=== PATIENT | female | born 1975 | race American Indian/Alaskan Native ===

== ENCOUNTER 2016-10-23 03:19 | Emergency (ER) | payer MEDICAID ==
[2016-10-23 04:14] VITALS: BP 150/85
[2016-10-23] MEDS ORDERED: XYLOCAINE 2% INFILTRATI ONE (06:02)
[2016-10-23] MEDS ORDERED: TORADOL IM ONE (06:02)
--- NOTE | 2016-10-23 06:19 | Emergency Department Report ---
- General Chief complaint: Skin Rash Stated complaint: RASH Time Seen by Provider: 10/23/16 06:01 Source: patient Mode of arrival: Ambulatory Limitations: No Limitations - Related Data Home Medications Medication Instructions Recorded Confirmed Last Taken Insulin Glargine,Hum.rec.anlog 15 unit SQ QHS 03/30/14 12/29/15 12/28/15 [Lantus] Previous Rx's Medication Instructions Recorded Last Taken Type Insulin Lispro [Humalog 100 0 units SQ AC #1 insuln.pen 01/01/16 Unknown Rx UNITS/ML Kwikpen] Potassium Chloride [K-Dur] 10 meq PO QDAY #4 tablet 01/01/16 Unknown Rx Promethazine [Phenergan TAB] 25 mg PO Q6HR PRN #20 tab 01/01/16 Unknown Rx Famciclovir [Famvir] 500 mg PO Q8H #21 tablet 10/08/16 Unknown Rx hydrOXYzine PAMOATE [Vistaril] 50 mg PO Q6HR PRN #15 capsule 10/08/16 Unknown Rx Cephalexin [Keflex] 500 mg PO Q8H #20 capsule 10/23/16 Unknown Rx Ibuprofen [Motrin 600 MG tab] 600 mg PO Q8H PRN #15 tablet 10/23/16 Unknown Rx traMADol [Ultram 50 MG tab] 50 mg PO Q4HR PRN #15 tablet 10/23/16 Unknown Rx Allergies Allergy/AdvReac Type Severity Reaction Status Date / Time No Known Allergies Allergy Unverified 06/26/15 11:58 Abscess Boil HPI - HPI Chief Complaint: Skin Rash Stated Complaint: RASH Time Seen by Provider: 10/23/16 06:01 History: Yes Pain, Yes Purulent Drainage, No Fever, No Numbness, No Foreign Body , No Previous History, No Insect Bite HPI: Patient is a 41-year-old male female who presents to ED complaining of back pain and swelling. She states she was here about 2 weeks ago and was diagnosed with shingles and was given antivirals. Patient states his antivirals are not working and her back more painful and got bigger and started to drain pus. Patient denies fevers/chills/nausea/vomiting test chest pain or any other problems. Home Medications: Home Medications Medication Instructions Recorded Confirmed Last Taken Insulin Glargine,Hum.rec.anlog 15 unit SQ QHS 03/30/14 12/29/15 12/28/15 [Lantus] Previous Rx's Medication Instructions Recorded Last Taken Type Insulin Lispro [Humalog 100 0 units SQ AC #1 insuln.pen 01/01/16 Unknown Rx UNITS/ML Kwikpen] Potassium Chloride [K-Dur] 10 meq PO QDAY #4 tablet 01/01/16 Unknown Rx Promethazine [Phenergan TAB] 25 mg PO Q6HR PRN #20 tab 01/01/16 Unknown Rx Famciclovir [Famvir] 500 mg PO Q8H #21 tablet 10/08/16 Unknown Rx hydrOXYzine PAMOATE [Vistaril] 50 mg PO Q6HR PRN #15 capsule 10/08/16 Unknown Rx Cephalexin [Keflex] 500 mg PO Q8H #20 capsule 10/23/16 Unknown Rx Ibuprofen [Motrin 600 MG tab] 600 mg PO Q8H PRN #15 tablet 10/23/16 Unknown Rx traMADol [Ultram 50 MG tab] 50 mg PO Q4HR PRN #15 tablet 10/23/16 Unknown Rx Allergies/Adverse Reactions: Allergies Allergy/AdvReac Type Severity Reaction Status Date / Time No Known Allergies Allergy Unverified 06/26/15 11:58 ED Review of Systems ROS: Stated complaint: RASH Other details as noted in HPI Constitutional: denies: chills, fever Eyes: denies: eye pain, eye discharge, vision change ENT: denies: ear pain, throat pain Respiratory: denies: cough, shortness of breath, wheezing Cardiovascular: denies: chest pain, palpitations Endocrine: no symptoms reported Gastrointestinal: denies: abdominal pain, nausea, diarrhea Genitourinary: denies: urgency, dysuria, discharge Musculoskeletal: denies: back pain, joint swelling, arthralgia Skin: denies: rash, lesions Neurological: denies: headache, weakness, paresthesias Psychiatric: denies: anxiety, depression Hematological/Lymphatic: denies: easy bleeding, easy bruising ED Past Medical Hx - Past Medical History Previous Medical History?: Yes Hx Hypertension: Yes Hx Heart Attack/AMI: No Hx Congestive Heart Failure: No Hx Diabetes: Yes Hx Deep Vein Thrombosis: No Hx Liver Disease: No Hx Headaches / Migraines: Yes (occas migraine) Hx Asthma: No Hx COPD: No Hx Tuberculosis: No Hx HIV: No Additional medical history: anemia. FIBROIDS - Surgical History Past Surgical History?: Yes Hx Coronary Stent: No Hx Open Heart Surgery: No Hx Pacemaker: No Hx Internal Defibrillator: No Hx Cholecystectomy: No Hx Appendectomy: No Hx Breast Surgery: No Additional Surgical History: Hysterectomy - Social History Smoking Status: Never Smoker Substance Use Type: Alcohol - Medications Home Medications: Home Medications Medication Instructions Recorded Confirmed Last Taken Type Insulin Glargine,Hum.rec.anlog 15 unit SQ QHS 03/30/14 12/29/15 12/28/15 History [Lantus] Insulin Lispro [Humalog 100 0 units SQ AC #1 insuln.pen 01/01/16 Unknown Rx UNITS/ML Kwikpen] Potassium Chloride [K-Dur] 10 meq PO QDAY #4 tablet 01/01/16 Unknown Rx Promethazine [Phenergan TAB] 25 mg PO Q6HR PRN #20 tab 01/01/16 Unknown Rx Famciclovir [Famvir] 500 mg PO Q8H #21 tablet 10/08/16 Unknown Rx hydrOXYzine PAMOATE [Vistaril] 50 mg PO Q6HR PRN #15 capsule 10/08/16 Unknown Rx Cephalexin [Keflex] 500 mg PO Q8H #20 capsule 10/23/16 Unknown Rx Ibuprofen [Motrin 600 MG tab] 600 mg PO Q8H PRN #15 tablet 10/23/16 Unknown Rx traMADol [Ultram 50 MG tab] 50 mg PO Q4HR PRN #15 tablet 10/23/16 Unknown Rx ED Physical Exam - General Limitations: No Limitations General appearance: alert, in no apparent distress - Head Head exam: Present: atraumatic, normocephalic - Eye Eye exam: Present: normal appearance, PERRL, EOMI - ENT ENT exam: Present: mucous membranes moist - Neck Neck exam: Present: normal inspection - Respiratory Respiratory exam: Present: normal lung sounds bilaterally. Absent: respiratory distress - Cardiovascular Cardiovascular Exam: Present: regular rate, normal rhythm. Absent: systolic murmur, diastolic murmur, rubs, gallop - GI/Abdominal GI/Abdominal exam: Present: soft, normal bowel sounds. Absent: distended, tenderness, guarding, rebound - Extremities Exam Extremities exam: Present: normal inspection - Back Exam Back exam: Present: normal inspection, full ROM, other (26 cm abscess draining pus on middle back). Absent: CVA tenderness (R), CVA tenderness (L) - Neurological Exam Neurological exam: Present: alert, oriented X3 - Psychiatric Psychiatric exam: Present: normal affect, normal mood - Skin Skin exam: Present: warm, dry, intact, normal color, erythema, other (abscesses) . Absent: rash ED Course Vital Signs 10/23/16 10/23/16 04:00 04:12 Temperature 98.0 F 98.4 F Pulse Rate 114 H 100 H Respiratory 20 18 Rate Blood Pressure 151/101 Blood Pressure 150/85 [Right] O2 Sat by Pulse 99 100 Oximetry - I & D Medial Back Type of Procedure: Complex Site: Back Blade Size: 11 I & D Procedure: betadine prep, sterile drapes applied, sterile dressing applied ED Medical Decision Making - Medical Decision Making 41-year-old female presents to the ED with 2 abscess on back. Patient positioned appropriately, 15cc lidocaine with/without epinephrine was used as a local anesthetic. #11 blade scalpal used for single incision. Additional local anesthetic injected into surrounding viable tissue prior to blunt dissection of loculated adhesions. Copius drainage of pus (culture obtained). Wound packed with iodoform gauze. Procedure tolerated without complications. Wound dressed with sterile 4x4 guaze and paper tape. Pt tolerated procedure well. Abscess is draining. Discussed to continue wall compressions on back so a lot full draining of the abscess. Discussed antibiotic therapy as prescribed. Discussed the follow-up her primary care physician as referred. Critical care attestation.: If time is entered above; I have spent that time in minutes in the direct care of this critically ill patient, excluding procedure time. ED Disposition Clinical Impression: Abscess of back Disposition: DISCHARGED TO HOME OR SELFCARE Is pt being admited?: No Does the pt Need Aspirin: No Condition: Stable Instructions: Abscess (ED) Additional Instructions: Continue warm compressions. Until all drainage is gone. Follow-up with primary care physician. Prescriptions: Cephalexin [Keflex] 500 mg PO Q8H #20 capsule Ibuprofen [Motrin 600 MG tab] 600 mg PO Q8H PRN #15 tablet PRN Reason: Pain traMADol [Ultram 50 MG tab] 50 mg PO Q4HR PRN #15 tablet PRN Reason: Pain Forms: Work/School Release Form(ED), Accompanied Note Time of Disposition: 07:05
== END 2016-10-23 07:11 | disposition home or self-care (01) ==
LOC: ED 03:19
DX: L02.212 Cutaneous abscess of back [any part, except buttock and flank] (principal); I10 Essential (primary) hypertension; E11.9 Type 2 diabetes mellitus without complications; G43.909 Migraine, unspecified, not intractable, without status migrainosus; D64.9 Anemia, unspecified; Z79.4 Long term (current) use of insulin
CPT/HCPCS: 10061; 86403; 87076; 87116; 87186; 96372; 99282; J1885

== ENCOUNTER 2016-12-16 23:17 | Emergency (ER) | payer SELFPAY ==
--- NOTE | 2016-12-17 02:38 | Emergency Department Report ---
- General Chief complaint: Skin/Abscess/Foreign Body Stated complaint: BOIL Time Seen by Provider: 12/17/16 02:02 Source: patient Mode of arrival: Ambulatory Limitations: No Limitations - History of Present Illness Initial comments: 41-year-old female presents to the emergency room chronic history of low small abscesses back area for several years. Today she notices one more small abscess. He should continue using antibacterial soap with minimal help. Patient has prescribed clindamycin in the past with no help. she is requesting different antibiotics. MD complaint: abscess/boil (very small ) -: Gradual, week(s) (one) Tetanus Up to Date: yes Location: back Severity: mild Severity scale (0 -10): 0 Quality: burning Consistency: constant Improves with: none Worsens with: palpation Context: recent antibiotic (clindamycin) Associated symptoms: itching Treatments Prior to Arrival: antibiotic - Related Data Home Medications Medication Instructions Recorded Confirmed Last Taken Insulin Glargine,Hum.rec.anlog 15 unit SQ QHS 03/30/14 12/29/15 12/28/15 [Lantus] Previous Rx's Medication Instructions Recorded Last Taken Type Insulin Lispro [Humalog 100 0 units SQ AC #1 insuln.pen 01/01/16 Unknown Rx UNITS/ML Kwikpen] Potassium Chloride [K-Dur] 10 meq PO QDAY #4 tablet 01/01/16 Unknown Rx Promethazine [Phenergan TAB] 25 mg PO Q6HR PRN #20 tab 01/01/16 Unknown Rx Famciclovir [Famvir] 500 mg PO Q8H #21 tablet 10/08/16 Unknown Rx hydrOXYzine PAMOATE [Vistaril] 50 mg PO Q6HR PRN #15 capsule 10/08/16 Unknown Rx Cephalexin [Keflex] 500 mg PO Q8H #20 capsule 10/23/16 Unknown Rx Ibuprofen [Motrin 600 MG tab] 600 mg PO Q8H PRN #15 tablet 10/23/16 Unknown Rx traMADol [Ultram 50 MG tab] 50 mg PO Q4HR PRN #15 tablet 10/23/16 Unknown Rx Sulfamethoxazole/Trimethoprim 1 each PO BID #14 tablet 12/17/16 Unknown Rx [Bactrim DS TAB] Allergies Allergy/AdvReac Type Severity Reaction Status Date / Time No Known Allergies Allergy Unverified 06/26/15 11:58 Abscess Boil HPI - HPI Chief Complaint: Skin/Abscess/Foreign Body Stated Complaint: BOIL Time Seen by Provider: 12/17/16 02:02 Home Medications: Home Medications Medication Instructions Recorded Confirmed Last Taken Insulin Glargine,Hum.rec.anlog 15 unit SQ QHS 03/30/14 12/29/15 12/28/15 [Lantus] Previous Rx's Medication Instructions Recorded Last Taken Type Insulin Lispro [Humalog 100 0 units SQ AC #1 insuln.pen 01/01/16 Unknown Rx UNITS/ML Kwikpen] Potassium Chloride [K-Dur] 10 meq PO QDAY #4 tablet 01/01/16 Unknown Rx Promethazine [Phenergan TAB] 25 mg PO Q6HR PRN #20 tab 01/01/16 Unknown Rx Famciclovir [Famvir] 500 mg PO Q8H #21 tablet 10/08/16 Unknown Rx hydrOXYzine PAMOATE [Vistaril] 50 mg PO Q6HR PRN #15 capsule 10/08/16 Unknown Rx Cephalexin [Keflex] 500 mg PO Q8H #20 capsule 10/23/16 Unknown Rx Ibuprofen [Motrin 600 MG tab] 600 mg PO Q8H PRN #15 tablet 10/23/16 Unknown Rx traMADol [Ultram 50 MG tab] 50 mg PO Q4HR PRN #15 tablet 10/23/16 Unknown Rx Sulfamethoxazole/Trimethoprim 1 each PO BID #14 tablet 12/17/16 Unknown Rx [Bactrim DS TAB] Allergies/Adverse Reactions: Allergies Allergy/AdvReac Type Severity Reaction Status Date / Time No Known Allergies Allergy Unverified 06/26/15 11:58 ED Review of Systems ROS: Stated complaint: BOIL Other details as noted in HPI Comment: All other systems reviewed and negative Constitutional: denies: chills, fever Eyes: denies: eye pain, eye discharge, vision change ENT: denies: ear pain, throat pain Respiratory: denies: cough, shortness of breath, wheezing Cardiovascular: denies: chest pain, palpitations Endocrine: no symptoms reported Gastrointestinal: denies: abdominal pain, nausea, diarrhea Genitourinary: denies: urgency, dysuria, discharge Musculoskeletal: denies: back pain, joint swelling, arthralgia Skin: rash, lesions (in her back) Neurological: denies: headache, weakness, paresthesias Psychiatric: denies: anxiety, depression Hematological/Lymphatic: denies: easy bleeding, easy bruising ED Past Medical Hx - Past Medical History Previous Medical History?: Yes Hx Hypertension: Yes Hx Heart Attack/AMI: No Hx Congestive Heart Failure: No Hx Diabetes: Yes Hx Deep Vein Thrombosis: No Hx Liver Disease: No Hx Headaches / Migraines: Yes (occas migraine) Hx Asthma: No Hx COPD: No Hx Tuberculosis: No Hx HIV: No Additional medical history: anemia. FIBROIDS - Surgical History Past Surgical History?: Yes Hx Coronary Stent: No Hx Open Heart Surgery: No Hx Pacemaker: No Hx Internal Defibrillator: No Hx Cholecystectomy: No Hx Appendectomy: No Hx Breast Surgery: No Additional Surgical History: Hysterectomy - Social History Smoking Status: Never Smoker Substance Use Type: Alcohol - Medications Home Medications: Home Medications Medication Instructions Recorded Confirmed Last Taken Type Insulin Glargine,Hum.rec.anlog 15 unit SQ QHS 03/30/14 12/29/15 12/28/15 History [Lantus] Insulin Lispro [Humalog 100 0 units SQ AC #1 insuln.pen 01/01/16 Unknown Rx UNITS/ML Kwikpen] Potassium Chloride [K-Dur] 10 meq PO QDAY #4 tablet 01/01/16 Unknown Rx Promethazine [Phenergan TAB] 25 mg PO Q6HR PRN #20 tab 01/01/16 Unknown Rx Famciclovir [Famvir] 500 mg PO Q8H #21 tablet 10/08/16 Unknown Rx hydrOXYzine PAMOATE [Vistaril] 50 mg PO Q6HR PRN #15 capsule 10/08/16 Unknown Rx Cephalexin [Keflex] 500 mg PO Q8H #20 capsule 10/23/16 Unknown Rx Ibuprofen [Motrin 600 MG tab] 600 mg PO Q8H PRN #15 tablet 10/23/16 Unknown Rx traMADol [Ultram 50 MG tab] 50 mg PO Q4HR PRN #15 tablet 10/23/16 Unknown Rx Sulfamethoxazole/Trimethoprim 1 each PO BID #14 tablet 12/17/16 Unknown Rx [Bactrim DS TAB] ED Physical Exam - General Limitations: No Limitations General appearance: alert, in no apparent distress - Head Head exam: Present: atraumatic, normocephalic - Eye Eye exam: Present: normal appearance - ENT ENT exam: Present: mucous membranes moist - Neck Neck exam: Present: normal inspection - Respiratory Respiratory exam: Present: normal lung sounds bilaterally. Absent: respiratory distress - Cardiovascular Cardiovascular Exam: Present: regular rate, normal rhythm. Absent: systolic murmur, diastolic murmur, rubs, gallop - GI/Abdominal GI/Abdominal exam: Present: soft, normal bowel sounds - Extremities Exam Extremities exam: Present: normal inspection - Back Exam Back exam: Present: normal inspection - Neurological Exam Neurological exam: Present: alert, oriented X3 - Psychiatric Psychiatric exam: Present: normal affect, normal mood - Skin Skin exam: Present: warm, dry, intact, normal color, other (1 cm flat circular abscess with mild tenderness. ). Absent: rash ED Course Vital Signs 12/16/16 12/17/16 23:44 02:54 Temperature 101.0 F H 98.3 F Pulse Rate 111 H 100 H Respiratory 22 20 Rate Blood Pressure 143/83 147/79 [Right] O2 Sat by Pulse 96 100 Oximetry - Reevaluation(s) Reevaluation #1: Patient feeling much better after dose of narcotic pain medicine and antibiotic given to her in the emergency room. Her vital signs improved as well compared to vital signs triage. 12/17/16 03:24 Critical care attestation.: If time is entered above; I have spent that time in minutes in the direct care of this critically ill patient, excluding procedure time. ED Disposition Clinical Impression: Skin irritation, Abscess Disposition: DISCHARGED TO HOME OR SELFCARE Is pt being admited?: No Does the pt Need Aspirin: No Condition: Good Instructions: Wound Infection (ED), Chronic Wound Care (ED) Prescriptions: Sulfamethoxazole/Trimethoprim [Bactrim DS TAB] 1 each PO BID #14 tablet Referrals: PRIMARY CARE, [Primary Care Provider] - 3-5 Days
[2016-12-17 02:56] VITALS: BP 147/79
[2016-12-17] MEDS ORDERED: BACTRIM DS PO ONE (03:20)
[2016-12-17] MEDS ORDERED: NORCO 5/325 PO ONE (03:20)
== END 2016-12-17 03:53 | disposition home or self-care (01) ==
LOC: ED 23:17
DX: L02.212 Cutaneous abscess of back [any part, except buttock and flank] (principal); I10 Essential (primary) hypertension; E11.9 Type 2 diabetes mellitus without complications; G43.909 Migraine, unspecified, not intractable, without status migrainosus
CPT/HCPCS: 99282

== ENCOUNTER 2016-12-18 18:13 | Inpatient (IN) | payer OTHER ==
[2016-12-18] MEDS ORDERED: MOTRIN PO ONE (19:43)
--- NOTE | 2016-12-18 19:43 | Emergency Department Report ---
Chief Complaint: Wound/Laceration Stated Complaint: BOIL ON BACK Time Seen by Provider: 12/18/16 19:33 - HPI History of Present Illness: 41-year-old female presents today complaining of an abscess to her back times one week. Positive for history of abscesses. Patient was seen here 2 days ago and states that the provider did not examine her and put her on antibiotics. Complaining of 10 out of 10 pain and positive for drainage. Positive for fever , nausea, vomiting. Denies chest pain or abdominal pain. - ROS Review of Systems: Per HPI - Exam Vital Signs: Vital Signs 12/18/16 19:16 Temperature 100.1 F H Pulse Rate 110 H Respiratory 20 Rate Blood Pressure 106/70 O2 Sat by Pulse 100 Oximetry Physical Exam: General: 41-year-old female in mild to moderate distress. Well-developed, well- nourished. CV: Regular rate and rhythm. Lungs: Clear to auscultation bilaterally. Skin: 7 cm in diameter, erythematous, indurated abscess noted over the left upper back. Positive for drainage. MSE screening note: Focused history and physical exam performed. Due to findings the following was ordered: ED Disposition for MSE Condition: Stable Referrals: PRIMARY CARE, [Primary Care Provider] - 3-5 Days
[2016-12-19 00:24] LABS: Hematocrit 32.9 % (30.3-42.9); Hemoglobin 10.5 gm/dl (10.1-14.3); Mean Corpuscular HGB Conc 32 % (30-34); Mean Corpuscular Hemoglobin 30 pg (28-32); Mean Corpuscular Volume 94 fl (79-97); Platelet Count 188 K/mm3 (140-440); Red Blood Count 3.51 M/mm3 (3.65-5.03); Red Cell Distribution Width 16.5 % (13.2-15.2)
[2016-12-19 00:48] LABS: BUN/Creatinine Ratio 10.38; Calcium 7.9 mg/dL (8.4-10.2); Chloride 76.6 mmol/L (98-107); Potassium 3.5 mmol/L (3.6-5.0)
[2016-12-19 01:22] LABS: Blastocytes % (Manual) 0 %
[2016-12-19 01:23] LABS: Diff Status Complete; Large Platelets Few; Platelet Clumps Rare; RBC Morphology Normal
[2016-12-19] MEDS ORDERED: PERCOCET 5/325 ONE (01:42)
[2016-12-19] MEDS ORDERED: NACL 0.9% 1000 ML 1,000 ML ONE ×2 (01:42→06:04)
[2016-12-19] MEDS ORDERED: NACL 0.9% 1000 ML 1,000 ML IV ONE ×4 (01:48→09:02)
[2016-12-19] MEDS ORDERED: PERCOCET 5/325 PO ONE (01:48)
[2016-12-19] MEDS ORDERED: MORPHINE IV ONE (04:41)
[2016-12-19] MEDS ORDERED: VANCOMYCIN VIAL IV ONE (04:41)
--- NOTE | 2016-12-19 04:48 | History and Physical Report ---
History of Present Illness Chief complaint: My back hurts History of present illness: 41 YO Female with DM, HTN, Fibroids, Anemia, Migraine GUERRA presents to ED for evaluation. Pt states that she has been experiencingpain in her back for the past week. Pt symptoms have worsened over the past 2 days and now her back is draining pus. Pt states that her pain is 5/10, localized to her right back. Pt acknowledges fever, but denies chills, CP, Palpitations, NVD, recent ill contacts. Pt states that she has been taking oral abx as an outpatient for several days without improvement. Past History Past Medical History: anemia, diabetes, hypertension Past Surgical History: hysterectomy Social history: single. denies: smoking, alcohol abuse, prescription drug abuse Family history: diabetes, hypertension Medications and Allergies Allergies Allergy/AdvReac Type Severity Reaction Status Date / Time No Known Allergies Allergy Unverified 06/26/15 11:58 Home Medications Medication Instructions Recorded Confirmed Last Taken Type Insulin Glargine,Hum.rec.anlog 15 unit SQ QHS 03/30/14 12/29/15 12/28/15 History [Lantus] Insulin Lispro [Humalog 100 0 units SQ AC #1 insuln.pen 01/01/16 Unknown Rx UNITS/ML Kwikpen] Potassium Chloride [K-Dur] 10 meq PO QDAY #4 tablet 01/01/16 Unknown Rx Promethazine [Phenergan TAB] 25 mg PO Q6HR PRN #20 tab 01/01/16 Unknown Rx Famciclovir [Famvir] 500 mg PO Q8H #21 tablet 10/08/16 Unknown Rx hydrOXYzine PAMOATE [Vistaril] 50 mg PO Q6HR PRN #15 capsule 10/08/16 Unknown Rx Cephalexin [Keflex] 500 mg PO Q8H #20 capsule 10/23/16 Unknown Rx Ibuprofen [Motrin 600 MG tab] 600 mg PO Q8H PRN #15 tablet 10/23/16 Unknown Rx traMADol [Ultram 50 MG tab] 50 mg PO Q4HR PRN #15 tablet 10/23/16 Unknown Rx Sulfamethoxazole/Trimethoprim 1 each PO BID #14 tablet 12/17/16 Unknown Rx [Bactrim DS TAB] Active Meds: Active Medications Sodium Chloride (Nacl 0.9% 1000 Ml) 1,000 mls @ 999 mls/hr IV BOLUS ONE Stop: 12/19/16 05:41 Vancomycin HCl 1,250 mg/ (Sodium Chloride) 250 mls @ 166.667 mls/hr IV ONCE.ED ONE Stop: 12/19/16 06:29 Vancomycin HCl (Vancomycin Pharmacy To Dose) 1 each IV PKCONSULT MANISH PRN Reason: Protocol Review of Systems All systems: negative Constitutional: other (pain in her back) Exam - Constitutional Vitals: Temp Pulse Resp BP Pulse Ox 98.2 F 109 H 12 109/67 100 12/19/16 01:47 12/19/16 03:30 12/19/16 03:30 12/19/16 03:30 12/19/16 03:30 General appearance: Present: mild distress - EENT Eyes: Present: PERRL ENT: hearing intact, clear oral mucosa - Neck Neck: Present: supple, normal ROM - Respiratory Respiratory effort: normal Respiratory: bilateral: CTA - Cardiovascular Heart Sounds: Present: S1 & S2. Absent: rub, click - Extremities Extremities: pulses symmetrical, No edema Extremity abnormal: ulceration (right back ulceration, pus drainage, 7cm lesion , induration, erythema,) Peripheral Pulses: within normal limits - Abdominal General gastrointestinal: Present: soft, non-tender, non-distended, normal bowel sounds Female genitourinary: Present: normal - Integumentary Integumentary: Present: clear, warm, dry - Musculoskeletal Musculoskeletal: gait normal, strength equal bilaterally - Psychiatric Psychiatric: appropriate mood/affect, intact judgment & insight - Neurologic Neurologic: CNII-XII intact, moves all extremities Results - Labs CBC & Chem 7: 12/19/16 00:14 12/19/16 00:14 Labs: Abnormal lab results 12/19/16 12/19/16 Range/Units 00:14 00:14 WBC 22.0 H (4.5-11.0) K/mm3 RBC 3.51 L (3.65-5.03) M/mm3 RDW 16.5 H (13.2-15.2) % Seg Neuts % (Manual) 89.0 H (40.0-70.0) % Lymphocytes % (Manual) 3.0 L (13.4-35.0) % Seg Neutrophils # Man 19.6 H (1.8-7.7) K/mm3 Lymphocytes # (Manual) 0.7 L (1.2-5.4) K/mm3 Monocytes # (Manual) 1.5 H (0.0-0.8) K/mm3 Sodium 120 L (137-145) mmol/L Potassium 3.5 L (3.6-5.0) mmol/L Chloride 76.6 L (98-107) mmol/L BUN 27 H (7-17) mg/dL Creatinine 2.6 H (0.7-1.2) mg/dL Glucose 625 H* (65-100) mg/dL Calcium 7.9 L (8.4-10.2) mg/dL Assessment and Plan - Patient Problems (1) Sepsis Current Visit: Yes Status: Acute Qualifiers: Sepsis type: S Plan to address problem: Sepsis protocol: IV abx, IVF, supportive care, monitor uop q shift, blood cultures, wound culture, (2) ARF (acute renal failure) Current Visit: Yes Status: Acute Qualifiers: Acute renal failure type: A Plan to address problem: IVF, monitor uop q shift, (3) Uncontrolled diabetes mellitus Current Visit: Yes Status: Acute Qualifiers: Diabetes mellitus type: D Diabetes mellitus complication status: D Diabetes mellitus complication detail: D Diabetic retinopathy severity: D Diabetes mellitus macular edema: D Diabetes mellitus terminal carman insulin use: D Chronic kidney disease stage: C Plan to address problem: ADA diet, insulin, accu check, high dose sliding scale q 6 hrs, hgb a1c (4) Abscess Current Visit: Yes Status: Acute Plan to address problem: IV abx, supportive care, wound draining pus, continue current care. (5) DVT prophylaxis Current Visit: No Status: Acute
--- NOTE | 2016-12-19 04:49 | Emergency Department Report ---
- General Chief complaint: Wound/Laceration Stated complaint: BOIL ON BACK Time Seen by Provider: 12/18/16 19:33 Source: patient Mode of arrival: Ambulatory Limitations: No Limitations - History of Present Illness Initial comments: 41 year old female presents to the emergency department complaining of a boil on her back. Abscess has been present for over one week. Initially, the patient was placed on clindamycin. She was seen in the emergency department 3 days ago and her antibiotics were changed to Bactrim. She reports the abscess is not getting any better. The abscess has been spontaneously draining for several days. Patient denies fever, chills, shortness of breath, nausea or vomiting. There are no other complaints. MD complaint: abscess/boil -: Gradual Location: back Severity: moderate Quality: sharp Consistency: constant Improves with: none Worsens with: none Context: none Associated symptoms: denies other symptoms Treatments Prior to Arrival: antibiotic - Related Data Home Medications Medication Instructions Recorded Confirmed Last Taken Insulin Glargine,Hum.rec.anlog 15 unit SQ QHS 03/30/14 12/29/15 12/28/15 [Lantus] Previous Rx's Medication Instructions Recorded Last Taken Type Insulin Lispro [Humalog 100 0 units SQ AC #1 insuln.pen 01/01/16 Unknown Rx UNITS/ML Kwikpen] Potassium Chloride [K-Dur] 10 meq PO QDAY #4 tablet 01/01/16 Unknown Rx Promethazine [Phenergan TAB] 25 mg PO Q6HR PRN #20 tab 01/01/16 Unknown Rx Famciclovir [Famvir] 500 mg PO Q8H #21 tablet 10/08/16 Unknown Rx hydrOXYzine PAMOATE [Vistaril] 50 mg PO Q6HR PRN #15 capsule 10/08/16 Unknown Rx Cephalexin [Keflex] 500 mg PO Q8H #20 capsule 10/23/16 Unknown Rx Ibuprofen [Motrin 600 MG tab] 600 mg PO Q8H PRN #15 tablet 10/23/16 Unknown Rx traMADol [Ultram 50 MG tab] 50 mg PO Q4HR PRN #15 tablet 10/23/16 Unknown Rx Sulfamethoxazole/Trimethoprim 1 each PO BID #14 tablet 12/17/16 Unknown Rx [Bactrim DS TAB] Allergies Allergy/AdvReac Type Severity Reaction Status Date / Time No Known Allergies Allergy Unverified 06/26/15 11:58 Abscess Boil HPI - HPI Chief Complaint: Wound/Laceration Stated Complaint: BOIL ON BACK Time Seen by Provider: 12/18/16 19:33 Home Medications: Home Medications Medication Instructions Recorded Confirmed Last Taken Insulin Glargine,Hum.rec.anlog 15 unit SQ QHS 03/30/14 12/29/15 12/28/15 [Lantus] Previous Rx's Medication Instructions Recorded Last Taken Type Insulin Lispro [Humalog 100 0 units SQ AC #1 insuln.pen 01/01/16 Unknown Rx UNITS/ML Kwikpen] Potassium Chloride [K-Dur] 10 meq PO QDAY #4 tablet 01/01/16 Unknown Rx Promethazine [Phenergan TAB] 25 mg PO Q6HR PRN #20 tab 01/01/16 Unknown Rx Famciclovir [Famvir] 500 mg PO Q8H #21 tablet 10/08/16 Unknown Rx hydrOXYzine PAMOATE [Vistaril] 50 mg PO Q6HR PRN #15 capsule 10/08/16 Unknown Rx Cephalexin [Keflex] 500 mg PO Q8H #20 capsule 10/23/16 Unknown Rx Ibuprofen [Motrin 600 MG tab] 600 mg PO Q8H PRN #15 tablet 10/23/16 Unknown Rx traMADol [Ultram 50 MG tab] 50 mg PO Q4HR PRN #15 tablet 10/23/16 Unknown Rx Sulfamethoxazole/Trimethoprim 1 each PO BID #14 tablet 12/17/16 Unknown Rx [Bactrim DS TAB] Allergies/Adverse Reactions: Allergies Allergy/AdvReac Type Severity Reaction Status Date / Time No Known Allergies Allergy Unverified 06/26/15 11:58 ED Review of Systems ROS: Stated complaint: BOIL ON BACK Other details as noted in HPI Comment: All other systems reviewed and negative Constitutional: denies: fever Skin: as per HPI ED Past Medical Hx - Past Medical History Previous Medical History?: Yes Hx Hypertension: Yes Hx Heart Attack/AMI: No Hx Congestive Heart Failure: No Hx Diabetes: Yes Hx Deep Vein Thrombosis: No Hx Liver Disease: No Hx Headaches / Migraines: Yes (occas migraine) Hx Asthma: No Hx COPD: No Hx Tuberculosis: No Hx HIV: No Additional medical history: anemia. FIBROIDS - Surgical History Past Surgical History?: Yes Hx Coronary Stent: No Hx Open Heart Surgery: No Hx Pacemaker: No Hx Internal Defibrillator: No Hx Cholecystectomy: No Hx Appendectomy: No Hx Breast Surgery: No Additional Surgical History: Hysterectomy - Family History Family history: no significant - Social History Smoking Status: Never Smoker Substance Use Type: Alcohol - Medications Home Medications: Home Medications Medication Instructions Recorded Confirmed Last Taken Type Insulin Glargine,Hum.rec.anlog 15 unit SQ QHS 03/30/14 12/29/15 12/28/15 History [Lantus] Insulin Lispro [Humalog 100 0 units SQ AC #1 insuln.pen 01/01/16 Unknown Rx UNITS/ML Kwikpen] Potassium Chloride [K-Dur] 10 meq PO QDAY #4 tablet 01/01/16 Unknown Rx Promethazine [Phenergan TAB] 25 mg PO Q6HR PRN #20 tab 01/01/16 Unknown Rx Famciclovir [Famvir] 500 mg PO Q8H #21 tablet 10/08/16 Unknown Rx hydrOXYzine PAMOATE [Vistaril] 50 mg PO Q6HR PRN #15 capsule 10/08/16 Unknown Rx Cephalexin [Keflex] 500 mg PO Q8H #20 capsule 10/23/16 Unknown Rx Ibuprofen [Motrin 600 MG tab] 600 mg PO Q8H PRN #15 tablet 10/23/16 Unknown Rx traMADol [Ultram 50 MG tab] 50 mg PO Q4HR PRN #15 tablet 10/23/16 Unknown Rx Sulfamethoxazole/Trimethoprim 1 each PO BID #14 tablet 12/17/16 Unknown Rx [Bactrim DS TAB] ED Physical Exam - General Limitations: No Limitations General appearance: alert, in no apparent distress - Head Head exam: Present: atraumatic, normocephalic - Eye Eye exam: Present: normal appearance, PERRL, EOMI - ENT ENT exam: Present: normal exam, normal orophraynx, mucous membranes moist - Neck Neck exam: Present: normal inspection, full ROM. Absent: tenderness - Respiratory Respiratory exam: Present: normal lung sounds bilaterally. Absent: respiratory distress - Cardiovascular Cardiovascular Exam: Present: regular rate, normal rhythm, normal heart sounds - GI/Abdominal GI/Abdominal exam: Present: soft, normal bowel sounds. Absent: distended, tenderness - Extremities Exam Extremities exam: Present: normal inspection, full ROM. Absent: tenderness - Back Exam Back exam: Present: normal inspection, full ROM. Absent: tenderness - Neurological Exam Neurological exam: Present: alert, oriented X3. Absent: motor sensory deficit - Skin Skin exam: Present: warm, dry, other (Large, flat area of induration and mild erythema noted over the right scapula. Purulent material draining from the superior aspect. No fluctuance palpated.) ED Course Vital Signs 12/18/16 12/19/16 12/19/16 19:16 01:32 01:47 Temperature 100.1 F H 98.2 F Pulse Rate 110 H 117 H Respiratory 20 16 12 Rate Blood Pressure 106/70 Blood Pressure 99/58 [Left] O2 Sat by Pulse 100 100 98 Oximetry 12/19/16 03:30 Temperature Pulse Rate 109 H Respiratory 12 Rate Blood Pressure Blood Pressure 109/67 [Left] O2 Sat by Pulse 100 Oximetry ED Medical Decision Making - Lab Data Result diagrams: 12/19/16 00:14 12/19/16 00:14 - Medical Decision Making Lab results reviewed and discussed with the patient. Patient reports no known renal problems. Giving IV fluids, IV vancomycin, and IV pain medication. Patient is to be admitted by the hospitalist. - Differential Diagnosis abscess, cellulitis, DKA, hyperglycemia Critical care attestation.: If time is entered above; I have spent that time in minutes in the direct care of this critically ill patient, excluding procedure time. ED Disposition Clinical Impression: Abscess Acute renal failure Qualifiers: Acute renal failure type: unspecified Qualified Code(s): N17.9 - Acute kidney failure, unspecified Disposition: OP ADMITTED IP TO THIS HOSP Is pt being admited?: Yes Condition: Stable Referrals: PRIMARY CARE, [Primary Care Provider] - 3-5 Days Time of Disposition: 04:45
[2016-12-19] MEDS ORDERED: ZOFRAN IV PRN (04:53)
[2016-12-19] MEDS ORDERED: TYLENOL PO PRN (04:53)
[2016-12-19] MEDS ORDERED: MILK OF MAGNESIA PO PRN (04:53)
[2016-12-19] MEDS ORDERED: DULCOLAX PR PRN (04:53)
[2016-12-19] MEDS ORDERED: NOVOLOG SUB-Q ONE ×2 (04:56→04:59)
[2016-12-19] MEDS ORDERED: VANCOMYCIN PHARMACY TO DOSE IV SCH (05:00)
[2016-12-19] MEDS ORDERED: NACL 0.45% 1000 ML 1,000 ML IV SCH (05:00)
[2016-12-19] MEDS ORDERED: VANCOMYCIN VIAL 1,250 MG in NACL 0.9% 250ML 250 ML IV ONE (05:00)
[2016-12-19] MEDS ORDERED: ZOSYN/NS 4.5GM/100ML 4.5 GM/100 ML VIAL IV SCH (06:00)
[2016-12-19] MEDS ORDERED: NACL 0.45% 1000 ML 1,000 ML IV ONE (06:04)
[2016-12-19] MEDS: NOVOLOG SUB-Q SCH ×2 (08:30→12:00)
[2016-12-19] MEDS: VISTARIL PO PRN ×2 (09:18→23:38)
[2016-12-19] MEDS: K-DUR PO SCH (09:18)
--- NOTE | 2016-12-19 11:30 | Cat Scan Report ---
CT THORACIC SPINE WITHOUT CONTRAST: 12/19/16 09:28:00 CLINICAL: Right subscapular abscess. TECHNIQUE: Volumetric acquisition and axial 1.25-mm and 2.5 mm axial scan reconstructions of the thoracic spine without contrast. Sagittal and coronal reformats were performed. Reconstructions were also performed with a larger view of the thorax. COMPARISON: None. FINDINGS: Normal vertebral body height, alignment and disk spaces. No bone lesion or fracture. The posterior elements are intact. Inflammatory stranding in the medial soft tissues of the upper back but no fluid collection or abscess identified. This inflammatory stranding is medial and posterior to the right scapula. No extension to the deep soft tissues. No soft tissue air or foreign body. This inflammatory mass measures approximately 10 cm transverse dimension by 4.5 cm AP dimension by 10.4 cm craniocaudal dimension. The overlying skin is thickened. 2 smaller areas of soft tissue stranding in these soft tissues of the back are in the midline and right lateral at the level of the seventh and eighth ribs. IMPRESSION: 1. Normal thoracic spine. 2. Inflammation of the soft tissues of the posterior upper right back with no identifiable abscess and no extension to the spine. The appearance is consistent with cellulitis.
--- NOTE | 2016-12-19 11:44 | Event Note ---
Date: 12/19/16 Patient seen and evaluated proceed with obtaining a surgical evaluation. We'll obtain imaging study to look at a strength of this duration. Patient reports recurrent event. Will optimize blood sugar control she states that her blood sugar normally ranges 100 to 115 at home prior to this infection. We'll also put patient on isolation precautions for MRSA. We'll await wound culture.
[2016-12-19] MEDS: NACL 0.9% 1000 ML 1,000 ML IV SCH (11:58)
[2016-12-19] MEDS ORDERED: FLUARIX QUAD 2016-2017(36 MOS+) IM ONE (12:00)
[2016-12-19] MEDS ORDERED: PNEUMOVAX 23 IM ONE (12:00)
[2016-12-19] MEDS: ZOSYN/NS 2.25 GM/50ML 2.25 GM/50 ML BAG IV SCH ×3 (12:46→23:29)
--- NOTE | 2016-12-19 15:18 | Progress Note ---
Assessment and Plan Full consult dictated. 41 y/o IDDM with large back abscess. purulent drainage, tender 20,000 wbc discussed with Hospitalist & Anesthesia. for I&D keep npo will proceed when cleared by them Laboratory Tests 12/19/16 12/19/16 00:14 00:14 WBC 22.0 H Hgb 10.5 Hct 32.9 Sodium 120 L Potassium 3.5 L Chloride 76.6 L BUN 27 H Creatinine 2.6 H Glucose 625 H* Objective Vital Signs - 12hr 12/19/16 12/19/16 12/19/16 05:31 08:00 10:15 Temperature 98.2 F Pulse Rate 107 H Pulse Rate [ 101 H Left Radial] Respiratory 12 16 Rate Blood Pressure 115/70 [Left Arm] Blood Pressure 118/68 [Left] O2 Sat by Pulse 100 100 100 Oximetry - Labs 12/19/16 00:14 12/19/16 00:14 Diabetes panel 12/19/16 Range/Units 05:06 Hemoglobin A1c 11.8 H (4-6) %
[2016-12-19 16:03] LABS: BUN/Creatinine Ratio 10.8; Calcium 7.4 mg/dL (8.4-10.2); Chloride 92.9 mmol/L (98-107); Potassium 3.5 mmol/L (3.6-5.0)
[2016-12-19] MEDS: LEVEMIR SUB-Q SCH ×2 (18:45→23:38)
[2016-12-19] MEDS ORDERED: DILAUDID ONE (19:41)
[2016-12-19] MEDS ORDERED: DIPRIVAN 10 MG/ML IV ONE (19:42)
[2016-12-19] MEDS ORDERED: PEPCID IV ONE (19:50)
--- NOTE | 2016-12-19 19:51 | Anesthesia Consultation ---
Anesthesia Consult and Med Hx Date of service: 12/19/16 - Airway Anesthetic Teeth Evaluation: Poor ROM Head & Neck: Adequate Mental/Hyoid Distance: Adequate Mallampati Class: Class II Intubation Access Assessment: Good - Pulmonary Exam CTA: Yes - Cardiac Exam Cardiac Exam: No Murmur - Pre-Operative Health Status ASA Pre-Surgery Classification: ASA3 Proposed Anesthetic Plan: General - Pulmonary Hx Smoking: No Hx Asthma: No COPD: No Hx Pneumonia: No Hx Sleep Apnea: No - Cardiovascular System Hx Hypertension: Yes Hx Coronary Artery Disease: No Hx Heart Attack/AMI: No Hx Angina: No Hx Percutaneous Transluminal Coronary Angioplasty (PTCA): No Hx Pacemaker: No Hx Internal Defibrillator: No Hx Valvular Heart Disease: No Hx Heart Murmur: No Hx Peripheral Vascular Disease: No - Central Nervous System Hx Psychiatric Problems: No - Gastrointestinal Hx Gastroesophageal Reflux Disease: No - Endocrine Hx End Stage Renal Disease: No Hx Liver Disease: No Hx Insulin Dependent Diabetes: Yes Hx Hypothyroidism: No Hx Hyperthyroidism: No - Hematic Hx Anemia: Yes (Multiple transfusions in past) - Other Systems Hx Alcohol Use: Yes (occas) Hx Substance Use: No Hx Cancer: No Hx Obesity: No
--- NOTE | 2016-12-19 19:51 | Anesthesia Day of Surgery ---
Anesthesia Day of Surgery - Day of Surgery Patient Examined: Yes Patient H&P Reviewed: Yes Patient is NPO: Yes
[2016-12-19] MEDS ORDERED: VERSED ONE (19:56)
[2016-12-19] MEDS ORDERED: ZOFRAN ONE (20:29)
[2016-12-19] MEDS ORDERED: DECADRON ONE (20:29)
[2016-12-19] MEDS ORDERED: XYLOCAINE MPF 2% ONE (20:30)
[2016-12-19] MEDS ORDERED: MARCAINE-EPI 0.5%-1:200,000 INFILTRATI ONE (20:35)
[2016-12-19] MEDS ORDERED: LEVEMIR SUB-Q SCH (22:00)
[2016-12-19] MEDS ORDERED: INSULIN GLARGINE HUM REC ANLOG 15 UNIT SQ SCH (22:00)
--- NOTE | 2016-12-19 22:16 | Operative Report ---
PREOPERATIVE DIAGNOSIS: Large right upper back abscess. POSTOPERATIVE DIAGNOSIS: Large right upper back abscess. PROCEDURE: I and D of aforementioned abscess. SURGEON: Neel Zheng MD ANESTHESIA: General. ESTIMATED BLOOD LOSS: Minimal. DRAINS: None. COMPLICATIONS: None. DESCRIPTION OF PROCEDURE: The patient was taken to the operating room and placed in semi supine position with a beanbag, prepped and draped in usual sterile fashion. The area of induration, erythema and purulence was easily noted in the right upper back region. An 11 blade was used to incise skin and subcutaneous tissue. A fair amount of purulence was noted. Aerobic and anaerobic cultures were taken. A hemostat as well as blunt dissection was used to break up all the micro loculations. A 50% Betadine peroxide solution was used to irrigate the abscess cavity. Area was then irrigated with saline and dried. Hemostasis obtained with needle tip electrocautery. Area was once again irrigated and dried. Checked for hemostasis and noted to be dry. The abscess cavity was packed with 2 inch iodoform gauze. A 0.5% Marcaine was infiltrated over the area for postoperative pain relief. Fluffs and pressure dressings applied. The patient tolerated the procedure well and left the OR in stable condition. JOB# [id number] VERA/KEESHA
[2016-12-20] MEDS: NOVOLOG SUB-Q SCH ×4 (03:15→23:03)
[2016-12-20] MEDS: ZOSYN/NS 2.25 GM/50ML 2.25 GM/50 ML BAG IV SCH ×4 (03:15→21:06)
[2016-12-20] MEDS: NACL 0.9% 1000 ML 1,000 ML IV SCH ×2 (06:20→16:31)
[2016-12-20] MEDS: PERCOCET 5/325 PO PRN ×3 (06:20→23:03)
[2016-12-20 06:32] LABS: Hematocrit 28.8 % (30.3-42.9); Hemoglobin 9.3 gm/dl (10.1-14.3); Mean Corpuscular HGB Conc 32 % (30-34); Mean Corpuscular Hemoglobin 30 pg (28-32); Mean Corpuscular Volume 93 fl (79-97); Platelet Count 162 K/mm3 (140-440); Red Blood Count 3.11 M/mm3 (3.65-5.03); Red Cell Distribution Width 16.9 % (13.2-15.2); White Blood Count 11.5 K/mm3 (4.5-11.0)
[2016-12-20 06:48] LABS: BUN/Creatinine Ratio 16.11; Calcium 6.6 mg/dL (8.4-10.2); Chloride 99.8 mmol/L (98-107); Potassium 3.4 mmol/L (3.6-5.0)
[2016-12-20 08:20] LABS: Blastocytes % (Manual) 0 %
[2016-12-20 08:21] LABS: Anisocytosis 1+; Basophils % (Manual) 0 % (0.0-1.8); Diff Status Complete; Eosinophils % (Manual) 0 % (0.0-4.3); Platelet Estimate Consistent w Auto
[2016-12-20] MEDS ORDERED: K-DUR PO ONE (09:00)
--- NOTE | 2016-12-20 09:30 | Consultation ---
REASON FOR CONSULTATION: Rule out upper back abscess. HISTORY OF PRESENT ILLNESS: The patient is a 41-year-old known diabetic female who was admitted to the hospital with chief complaint of upper back pain to rule out an abscess. She states she has been running fevers. PAST MEDICAL HISTORY: Pertinent for diabetes. PAST SURGICAL HISTORY: Status post eye surgery. ALLERGIES: No known allergies. MEDICATIONS: Include insulin. FAMILY HISTORY: Negative. SOCIAL HISTORY: Occasional ethanol intake. Denies any smoking. PHYSICAL EXAMINATION: GENERAL: At this time reveals patient to be awake, alert, cooperative, in no acute distress. VITAL SIGNS: Show her to be afebrile with a temp of 98.2, blood pressure 115/70, pulse of 101, respirations of 16. ABDOMEN: Examination of the back reveals an indurated erythematous, purulent draining mass in the upper back very tender to touch. LABORATORY DATA: Lab work at present includes a CBC which shows a white count of 22,000, H and H is 10.5 and 32.9. Electrolytes show sodium of 120, potassium 3.5, chloride is 76, BUN is 27, creatinine is 2.6. Glucose is very high at 625. IMPRESSION: 1. At this time is that of a 41-year-old Insulin-dependent diabetic. 2. Rule out a large back abscess. PLAN: Plan is to proceed with I and D of back abscess pending medical anesthesia clearance. The patient recently had a small bite for lunch, so we would have to wait at least 6 hours prior to the procedure. Risks, indications and complications have been reviewed with the patient who understands and has signed her consent. JOB# [id number] FP/NTS
[2016-12-20] MEDS: K-DUR PO SCH (10:15)
[2016-12-20] MEDS: CLEOCIN 900 MG/50 mL 900 MG/50 ML BAG IV SCH ×2 (10:17→14:49)
[2016-12-20] MEDS: BENADRYL PO PRN ×2 (10:47→21:17)
--- NOTE | 2016-12-20 11:13 | Progress Note ---
Assessment and Plan Assessment and plan: 41 YO Female with DM, HTN, Fibroids, Anemia, Migraine GUERRA presents to ED for evaluation. Pt states that she has been experiencing pain in her back for the past week. Pt symptoms have worsened over the past 2 days and now her back is draining pus. Pt states that her pain is 5/10, localized to her right back. Pt acknowledges fever, but denies chills, CP, Palpitations, NVD, recent ill contacts. Pt states that she has been taking oral abx as an outpatient for several days without improvement. * Sepsis secondary to large recurrent back abscess * Abscess-no spinal process involvement * Status post I and D * Uncontrolled diabetes mellitus * Leukocytosis secondary to above * PAUL secondary to vasomotor nephropathy, poa * Hypokalemia * Metabolic Acidosis * Hypocalcemia Plan: Microbiology 12/19/16 05:06 Peripheral/Venous Blood Culture - Preliminary NO GROWTH AFTER 24 HOURS 12/19/16 05:06 Peripheral/Venous Blood Culture - Preliminary NO GROWTH AFTER 24 HOURS 12/19/16 Unknown Back Surgical Culture - Preliminary 12/19/16 05:56 Back Wound Culture - Preliminary * Cultures reviewed no growth * Patient is status post I and D Will await culture and sensitivity * Continue current antibiotics * Continue the IV fluids * We'll adjust insulin to 25 units twice a day as patient takes at home. Considering persistently elevated blood sugar * Replace potassium * I'll recheck lactic acid levels * DVT and GI prophylaxis * Plan of care discussed in detail with the patient she verbalized understanding * Also discuss case with Dr. Banerjee appreciated him for Coming in and performing this incision and drainage History Interval history: Patient seen and examined this morning in no acute distress, reports improvement. Nursing staff reports wound is draining. First initial drainage and post IND has not been done. Denies any chest pain, nausea, vomiting, diarrhea No fever noted blood pressure controlled No adverse events reported to me by nursing staff Hospitalist Physical - Physical exam Narrative exam: VITAL SIGNS: Reviewed. GENERAL: The patient appeared well nourished and normally developed. Vital signs as documented. HEAD: No signs of head trauma. EYES: Pupils are equal. Extraocular motions intact. EARS: Hearing grossly intact. MOUTH: Oropharynx is normal. NECK: No adenopathy, no JVD. CHEST: Chest with clear breath sounds bilaterally. No wheezes, rales, or rhonchi. CARDIAC: Regular rate and rhythm. S1 and S2, without murmurs, gallops, or rubs. VASCULAR: No Edema. Peripheral pulses normal and equal in all extremities. ABDOMEN: Soft, without detectable tenderness. No sign of distention. No rebound or guarding, and no masses palpated. Bowel Sounds normal. MUSCULOSKELETAL: Right back ulceration, pus drainage, dressing in place, 7cm lesion, induration, erythema. Good range of motion of all major joints. Extremities without clubbing, cyanosis or edema. NEUROLOGIC EXAM: Alert and oriented x 3. No focal sensory or strength deficits. Speech normal. Follows commands. PSYCHIATRIC: Mood normal. SKIN: Right back ulceration, pus drainage, 7cm lesion, induration, erythema, - Constitutional Vitals: Temp Pulse Resp BP Pulse Ox 98.3 F 94 H 16 111/72 96 12/20/16 08:56 12/20/16 08:56 12/20/16 08:56 12/20/16 08:56 12/20/16 10:00 General appearance: Present: mild distress Results - Labs CBC & Chem 7: 12/20/16 05:44 12/20/16 05:44 Labs: Laboratory Last Values WBC 11.5 K/mm3 (4.5-11.0) H 12/20/16 05:44 RBC 3.11 M/mm3 (3.65-5.03) L 12/20/16 05:44 Hgb 9.3 gm/dl (10.1-14.3) L 12/20/16 05:44 Hct 28.8 % (30.3-42.9) L 12/20/16 05:44 MCV 93 fl (79-97) 12/20/16 05:44 MCH 30 pg (28-32) 12/20/16 05:44 MCHC 32 % (30-34) 12/20/16 05:44 RDW 16.9 % (13.2-15.2) H 12/20/16 05:44 Plt Count 162 K/mm3 (140-440) 12/20/16 05:44 Add Manual Diff Complete 12/20/16 05:44 Total Counted 100 12/20/16 05:44 Seg Neuts % (Manual) 91.0 % (40.0-70.0) H 12/20/16 05:44 Band Neutrophils % 0 % 12/20/16 05:44 Lymphocytes % (Manual) 5.0 % (13.4-35.0) L 12/20/16 05:44 Reactive Lymphs % (Man) 0 % 12/20/16 05:44 Monocytes % (Manual) 4.0 % (0.0-7.3) 12/20/16 05:44 Eosinophils % (Manual) 0 % (0.0-4.3) 12/20/16 05:44 Basophils % (Manual) 0 % (0.0-1.8) 12/20/16 05:44 Metamyelocytes % 0 % 12/20/16 05:44 Myelocytes % 0 % 12/20/16 05:44 Promyelocytes % 0 % 12/20/16 05:44 Blast Cells % 0 % 12/20/16 05:44 Nucleated RBC % Not Reportable 12/20/16 05:44 Seg Neutrophils # Man 10.5 K/mm3 (1.8-7.7) H 12/20/16 05:44 Band Neutrophils # 0.0 K/mm3 12/20/16 05:44 Lymphocytes # (Manual) 0.6 K/mm3 (1.2-5.4) L 12/20/16 05:44 Abs React Lymphs (Man) 0.0 K/mm3 12/20/16 05:44 Monocytes # (Manual) 0.5 K/mm3 (0.0-0.8) 12/20/16 05:44 Eosinophils # (Manual) 0.0 K/mm3 (0.0-0.4) 12/20/16 05:44 Basophils # (Manual) 0.0 K/mm3 (0.0-0.1) 12/20/16 05:44 Metamyelocytes # 0.0 K/mm3 12/20/16 05:44 Myelocytes # 0.0 K/mm3 12/20/16 05:44 Promyelocytes # 0.0 K/mm3 12/20/16 05:44 Blast Cells # 0.0 K/mm3 12/20/16 05:44 WBC Morphology Not Reportable 12/20/16 05:44 Hypersegmented Neuts Not Reportable 12/20/16 05:44 Hyposegmented Neuts Not Reportable 12/20/16 05:44 Hypogranular Neuts Not Reportable 12/20/16 05:44 Smudge Cells Not Reportable 12/20/16 05:44 Toxic Granulation Not Reportable 12/20/16 05:44 Toxic Vacuolation Not Reportable 12/20/16 05:44 Dohle Bodies Not Reportable 12/20/16 05:44 Pelger-Huet Anomaly Not Reportable 12/20/16 05:44 Kasi Rods Not Reportable 12/20/16 05:44 Platelet Estimate Consistent w auto 12/20/16 05:44 Clumped Platelets Not Reportable 12/20/16 05:44 Plt Clumps, EDTA Not Reportable 12/20/16 05:44 Large Platelets Not Reportable 12/20/16 05:44 Giant Platelets Not Reportable 12/20/16 05:44 Platelet Satelliting Not Reportable 12/20/16 05:44 Plt Morphology Comment Not Reportable 12/20/16 05:44 RBC Morphology Not Reportable 12/20/16 05:44 Dimorphic RBCs Not Reportable 12/20/16 05:44 Polychromasia Not Reportable 12/20/16 05:44 Hypochromasia Not Reportable 12/20/16 05:44 Poikilocytosis Not Reportable 12/20/16 05:44 Anisocytosis 1+ 12/20/16 05:44 Microcytosis Not Reportable 12/20/16 05:44 Macrocytosis Not Reportable 12/20/16 05:44 Spherocytes Not Reportable 12/20/16 05:44 Pappenheimer Bodies Not Reportable 12/20/16 05:44 Sickle Cells Not Reportable 12/20/16 05:44 Target Cells Not Reportable 12/20/16 05:44 Tear Drop Cells Not Reportable 12/20/16 05:44 Ovalocytes Not Reportable 12/20/16 05:44 Helmet Cells Not Reportable 12/20/16 05:44 Galvan-Silo Bodies Not Reportable 12/20/16 05:44 Orange Rings Not Reportable 12/20/16 05:44 [place] Cells Not Reportable 12/20/16 05:44 Bite Cells Not Reportable 12/20/16 05:44 Crenated Cell Not Reportable 12/20/16 05:44 Elliptocytes Not Reportable 12/20/16 05:44 Acanthocytes (Spur) Not Reportable 12/20/16 05:44 Rouleaux Not Reportable 12/20/16 05:44 Hemoglobin C Crystals Not Reportable 12/20/16 05:44 Schistocytes Not Reportable 12/20/16 05:44 Malaria parasites Not Reportable 12/20/16 05:44 Julián Bodies Not Reportable 12/20/16 05:44 Hem Pathologist Commnt No 12/20/16 05:44 Sodium 136 mmol/L (137-145) L 12/20/16 05:44 Potassium 3.4 mmol/L (3.6-5.0) L 12/20/16 05:44 Chloride 99.8 mmol/L (98-107) 12/20/16 05:44 Carbon Dioxide 19 mmol/L (22-30) L D 12/20/16 05:44 Anion Gap 21 mmol/L 12/20/16 05:44 BUN 29 mg/dL (7-17) H 12/20/16 05:44 Creatinine 1.8 mg/dL (0.7-1.2) H 12/20/16 05:44 Estimated GFR 38 ml/min 12/20/16 05:44 BUN/Creatinine Ratio 16.11 % 12/20/16 05:44 Glucose 255 mg/dL (65-100) H 12/20/16 05:44 POC Glucose 309 (70-105) H 12/20/16 06:55 Hemoglobin A1c 11.8 % (4-6) H 12/19/16 05:06 Lactic Acid 3.4 mmol/L (0.7-2.0) H* 12/20/16 09:08 Calcium 6.6 mg/dL (8.4-10.2) L 12/20/16 05:44 - Imaging and Cardiology Imaging and Cardiology: CT back reviewed no abscess was documented cellulitis is noted
[2016-12-20] MEDS: LEVEMIR SUB-Q SCH ×2 (12:34→23:01)
[2016-12-20] MEDS ORDERED: VANCOMYCIN/NS 1 GM/250 ML 1 GM/250 ML BAG IV ONE (17:00)
[2016-12-20] MEDS ORDERED: AMBIEN PO ONE (22:00)
[2016-12-20] MEDS: CLEOCIN IV SCH (23:38)
[2016-12-20] MEDS: D5W IV SCH (23:38)
[2016-12-21] MEDS: ZOSYN/NS 2.25 GM/50ML 2.25 GM/50 ML BAG IV SCH ×3 (02:28→13:11)
[2016-12-21 06:16] LABS: Hematocrit 28.5 % (30.3-42.9); Hemoglobin 8.9 gm/dl (10.1-14.3); Mean Corpuscular HGB Conc 32 % (30-34); Mean Corpuscular Hemoglobin 30 pg (28-32); Mean Corpuscular Volume 93 fl (79-97); Platelet Count 155 K/mm3 (140-440); Red Blood Count 3.09 M/mm3 (3.65-5.03); Red Cell Distribution Width 16.9 % (13.2-15.2); White Blood Count 11.1 K/mm3 (4.5-11.0)
[2016-12-21] MEDS: D50W (25GM) IV PRN ×3 (06:27→22:59)
[2016-12-21 06:38] LABS: BUN/Creatinine Ratio 21.25; Calcium 6.8 mg/dL (8.4-10.2); Chloride 105.6 mmol/L (98-107); Potassium 3.3 mmol/L (3.6-5.0)
[2016-12-21] MEDS ORDERED: AMBIEN PO PRN (09:50)
--- NOTE | 2016-12-21 10:36 | Admit Criteria Form ---
Admission Criteria Documentation: SEVERE SEPSIS Clinical Indications for Admission to Inpatient Care (Place 'X' for any and all applicable criteria): Hospital admission is needed for appropriate care of the patient because of ANY ONE of the following: [X]I. Hemodynamic instability indicated by ANY ONE of the following(1)(2)(3)( 4)(5): [X]a. Vital sign abnormality not readily corrected by appropriate treatment within 12 to 24 hours indicated by ANY ONE of the following: [X]i) Tachycardia that persists despite appropriate treatment []ii) Hypotension that persists despite appropriate treatment []iii) Orthostatic vital sign changes that persist despite appropriate treatment []b. Vital sign abnormality that is severe indicated by ANY ONE of the following: [X]i. Inadequate perfusion indicated by ANY ONE of the following: [X]1) Lactic acidosis (greater than 2 mmol/L) []2) New abnormal capillary refill (greater than 3 seconds) []3) Reduced urine output []4) New altered mental status []5) Myocardial Ischemia []ii. Mean arterial pressure [A] less than 60 mm Hg []iii. Mean arterial pressure[A] less than 70 mm Hg after 30 minutes of appropriate treatment (eg, fluid resuscitation) []iv. Sustained heart rate greater than 120 beats per minute in adult []v. IV inotropic or vasopressor medication required to maintain adequate blood pressure or perfusion [X]II. Systemic or infectious condition causing severe symptoms or findings not responsive to emergency or observation care treatment (as appropriate) indicated by ANY ONE of the following: []a. Cardiac arrhythmias of immediate concern(1)(2)(3) []b. Severe endocrine disorder (eg, thyrotoxicosis, adrenal insufficiency)(4)(5) []c. Seizures (eg, new or recurrent)(6) [X]d. New-onset end organ failure or dysfunction as indicated by ANY ONE of the following: []i. Acute unexplained hypoxemia (eg, not from lung infection or chronic disease)(7)(8)(9) [X]ii. Acute renal failure as indicated by new onset of ANY ONE of the following(10)(11)(12)(13)(14): []1) 3-fold rise in serum creatinine from baseline []2) Serum creatinine greater than 4 mg/dL (354 micromoles/L) with acute rise greater than 0.5 mg/dL (44.2 micromoles/L) [X]3) Reduction of more than 75% in estimated glomerular filtration rate from baseline. []4) Estimated glomerular filtration rate less than 35 mL/min/1.73m2 ( 0.59 mL/sec/1.73m2) in child younger than 18 years. []5) Cessation of urine output indicated by ALL of the following: []A. Adequate volume status []B. Inadequate urine output as indicated by ANY ONE of the following: []a. Urine output less than 0.3 mL/kg/hr for 24 hours []b. Anuria (urine output less than 0.1 mL/kg/hr) for 12 hours []iii. Acute mental status changes(15) []iv. Acute hepatic failure (eg, plasma bilirubin greater than 4 mg/ dL (68 micromoles/L), new INR greater than 2.0)(16)(17) []e. Unmanageable nausea and vomiting(18) []f. New-onset or uncontrolled central diabetes insipidus(19)(20) []g. Clinically significant dehydration(18)(21) []h. Hypoglycemia(22) []i. Acidosis (pH less than 7.35) or alkalosis (pH greater than 7.45)( 22)(23) []j. Toxic drug level that indicates need for specific monitoring or treatment(24)(25) [X]k. Severe electrolyte abnormalities indicated by ALL of the following (1)(2)(3): [X]i. Electrolytes and associated findings are not as expected for patient baseline or acceptable treatment effects. [X]ii. Severe abnormalities indicated by ANY ONE of the following: [X]1) Sodium less than 130 mEq/L (mmol/L) (new) []2) Sodium less than 135 mEq/L (mmol/L) with ANY ONE of the following: []A. Uncorrectable (to near normal or chronic baseline) after trial of outpatient and emergency treatment []B. Altered mental status []C. Seizures []D. Severe medical etiology requiring inpatient management (eg , heart failure, hypovolemia) []3) Sodium greater than 155 mEq/L (mmol/L) []4) Sodium greater than 150 mEq/L (mmol/L) with ANY ONE of the following: []A. Uncorrectable (to near normal or chronic baseline) with outpatient and emergency treatment []B. Altered mental status []C. Seizures []D. Severe medical etiology (eg, hypovolemia, diabetes insipidus) []5) Potassium less than 2.5 mEq/L (mmol/L) despite outpatient and emergency treatment []6) Potassium less than 3 mEq/L (mmol/L) with ANY ONE of the following : []A. Weakness []B. Cardiac abnormality (eg, arrhythmia, conduction disturbance ) []C. Cardiac ischemia []D. Ileus []E. Ongoing medical cause requiring inpatient management (eg, acute renal wasting or SIADH) []F. Other severe symptoms []7) Potassium greater than 6.5 mEq/L (mmol/L) []8) Potassium greater than 5 mEq/L (mmol/L) with ANY ONE of the following: []A. Uncorrectable (to near normal or chronic baseline) with outpatient and emergency treatment []B. Severe ECG findings[A] []C. Acute worsening of renal failure (creatinine greater than 2.5 mg/dL (221 micromoles/L) or significant elevation for age and size) []D. Severe weakness []E. Severe medical etiology (eg, hemolysis, infection, drug overdose) []9) Calcium less than 7 mg/dL (1.75 mmol/L) despite outpatient and emergency treatment(5) []10) Calcium less than 8 mg/dL (2 mmol/L) with significant symptoms or findings (eg, altered mental status, muscle spasms, seizures, breathing difficulty, cardiac abnormality (eg, arrhythmia or conduction disturbance))(5) []11) Calcium greater than 14 mg/dL (3.5 mmol/L)(5) []12) Calcium greater than 12 mg/dL (3 mmol/L) with ANY ONE of the following(5): []A. Uncorrectable (to near normal or chronic baseline) with outpatient and emergency treatment []B. Significant dehydration or hypovolemia as indicated by ALL of the following(3)(6)(7): []a. Not resolved with initial treatments []b. Clinically significant dehydration as indicated by ANY ONE of the following: [](1) Vomiting refractory to outpatient treatment (ie, precluding oral rehydration) [](2) Inability to drink [](3) Hypernatremia or other electrolyte abnormality unable to be corrected with outpatient and emergency treatment [](4) Failure to remain hydrated with outpatient therapy [](5) Reduced urine output [](6) Hypotension [](7) Serious cause for dehydration requiring acute hospitalization ( eg, bowel obstruction, increased intracranial pressure, infectious cause) [](8) Child with ANY ONE of the following(8): [](i) Severe abdominal tenderness [](ii) Adequate care not available at home [](iii) Severe dehydration (greater than 9% loss of body weight) []C. Significant symptoms or findings (eg, altered mental status , cardiac abnormality (eg, arrhythmia, conduction disturbance), malignant etiology requiring inpatient treatment) []13) Phosphorus less than 1 mg/dL (0.32 mmol/L) []14) Phosphorus less than 1.5 mg/dL (0.48 mmol/L) with ANY ONE of the following: []A. Patient unresponsive to outpatient and emergency treatment []B. Significant symptoms or findings (eg, weakness, altered mental status, breathing difficulty, seizures, rhabdomyolysis) []15) Phosphorus greater than 10 mg/dL (3.2 mmol/L) []16) Phosphorus greater than 4.5 mg/dL (1.45 mmol/L) (new) with ANY ONE of the following: []A. Severe medical etiology (eg, crush injury, acute renal failure) []B. Associated hypocalcemia with significant findings (eg, neurologic symptoms, altered mental status, muscle spasms, seizures, breathing difficulty, cardiac abnormality (eg, arrhythmia, conduction disturbance)) []16) Magnesium less than 1 mg/dL (0.41 mmol/L) []17) Magnesium less than 1.5 mg/dL (0.62 mmol/L) with ANY ONE of the following: []A. Patient unresponsive to outpatient and emergency treatment []B. Associated hypocalcemia with significant findings (eg, altered mental status, muscle spasms, seizures, breathing difficulty, cardiac abnormality (eg, arrhythmia, conduction disturbance)) []C. Associated hypokalemia (potassium less than 3 mEq/L (mmol/L )) with risk of arrhythmia []18) Magnesium greater than 4 mEq/L (2 mmol/L) []19) Magnesium greater than 2.5 mEq/L (1.25 mmol/L) with significant symptoms or findings (eg, weakness, altered mental status, cardiac abnormality (eg, arrhythmia, conduction disturbance), breathing difficulty, severe medical etiology (eg, renal failure, hypovolemia)) []20) Uric acid greater than 20 mg/dL (1190 micromoles/L)(9) []21) Uric acid greater than 8 mg/dL (476 micromoles/L) with significant symptoms or findings of tumor lysis syndrome (eg, creatinine greater than 1.5 times upper limit of normal, cardiac abnormality (eg , arrhythmia, conduction disturbance), seizure)(9) [X]III. High fever or other high-risk infection situation as indicated by ANY ONE of the following(26)(27)(28): [X]a. Outpatient and observation care antimicrobial treatment unavailable, not effective, or not appropriate []b. Documented bacteremia []c. Temperature greater than 104.9 degrees F (40.5 degrees C) (oral) []d. Temperature greater than 103.1 degrees F (39.5 degrees C) (oral) or less than 96.8 degrees F (36 degrees C) (rectal) that does not respond to emergency treatment and observation care []IV. High-risk febrile neutropenia[A] as indicated by ANY ONE of the following(29)(30)(31)(32): []a. Profound neutropenia[B] anticipated to extend for more than 7 days []b. Hemodynamic instability []c. Hypoxemia []d. Tachypnea []e. Altered mental status []f. New-onset abdominal pain []g. New-onset vomiting or diarrhea []h. Oral or gastrointestinal mucositis that interferes with swallowing or causes severe diarrhea []i. Focal infection (eg, cellulitis, pneumonia, central line or catheter infection, perirectal abscess) []j. Renal insufficiency (eg, GFR of less than 30 mL/min/1.73m2 (0.5 mL/sec /1.73m2)). []k. Severe liver dysfunction (transaminase levels greater than 5 times normal) []l. Platelet count less than 50,000/mm3 (50 x109/L)(33) []m. Leukemia or lymphoma induction therapy []n. Leukemia not in complete remission or with evidence of disease progression []o. Bone marrow transplant patient []p. Alemtuzumab being used for therapy []q. [employer] Association for Supportive Care in Cancer (MASCC) Risk Index score of less than 21[C](33)(35). []V. Isolation required (eg, tuberculosis that requires isolation, Ebola infection)[D](36)(37)(38)(39)(40) []. Gangrene that requires treatment beyond emergency or observation level care(41)(42) []VII. Antitoxin administration and ongoing observation required (eg, tetanus, botulism)(43)(44) []. Suspected infection with rapid progression or severe symptoms as indicated by ANY ONE of the following(45): []a. Streptococcal or staphylococcal toxic shock(46) []b. Diphtheria(47) []c. Hantavirus(48) []d. Severe acute respiratory syndrome(8)(49) []e. Anthrax(50) []f. Ebola[D](36)(37)(38) []g. Necrotizing soft tissue infection(41)(42) []h. Plague(50) []i. Other suspected infection that requires care beyond emergency or observation level care []VII. Severe adverse drug or systemic toxin reaction as indicated by ANY ONE of the following(24): []a. Serotonin syndrome(51)(52) []b. Neuroleptic malignant syndrome(51)(52) []c. Cholinergic syndrome with severe symptoms (eg, bronchorrhea, weakness , mental status changes, seizures)(53) []d. Anticholinergic syndrome []e. Sympathetic syndrome with severe symptoms (eg, seizures, mental status changes, cardiac dysrhythmias) []f. Other severe adverse drug or systemic toxin reaction that remains after emergency or observation level care (as appropriate) []VIII. Allergic reaction with severe symptoms (not responsive to emergency or observation care treatment as appropriate), including ANY ONE of the following(54): []a. Airway edema (pharyngeal, epiglottic, or laryngeal edema) []b. Stridor []c. Respiratory failure []d. Bronchospasm []e. Hypotension []IX. Environmental emergency (not responsive to emergency or observation care treatment as appropriate) as indicated by ANY ONE of the following(55)(56): []a. Hyperthermia []b. Heat stroke []c. Heat exhaustion []d. Hypothermia (temperature less than 95 degrees F (35 degrees C) rectal) (57) []e. Electrocution(58) []X. Complications of transplanted organ (ie, not covered elsewhere)[E] indicated by ANY ONE of the following(59): []a. Acute graft rejection (or graft vs. host disease)[F] requiring inpatient management (eg, intravenous immunosuppression)(60)(61)(62)( 63) []b. Acute failure of transplanted organ necessitating inpatient care (eg, cannot be managed in other setting) []c. Infection requiring inpatient management (eg, Hemodynamic instability, need for intravenous antimicrobial treatment)(64)(65) []d. Other complication of transplanted organ requiring inpatient management []XI. Systemic or Infectious Condition condition, symptom, or finding for which emergency and observation care have failed or are not considered appropriate. See General Criteria: Observation Care, General Admission Criteria or Pediatric General Admission Criteria guideline as appropriate. (Contents from SEVERE SEPSIS and SYSTEMIC OR INFECTIOUS CONDITION clinical indications for admission to inpatient care have been integrated in this form) The original [facility] content created by [facility] has been revised. The portions of the content which have been revised are identified through the use of italic text or in bold and [facility] has neither reviewed nor approved the modified material. All other unmodified content is copyright [facility]. Please see references footnoted in the original [facility] edition 2016 Admission Criteria Met: Yes
[2016-12-21] MEDS: PERCOCET 5/325 PO PRN ×3 (10:46→21:35)
[2016-12-21] MEDS: NOVOLOG SUB-Q SCH ×3 (11:18→22:10)
[2016-12-21] MEDS: LEVEMIR SUB-Q SCH ×2 (11:19→22:10)
[2016-12-21] MEDS ORDERED: LEVEMIR SUB-Q ONE (11:20)
[2016-12-21] MEDS: K-DUR PO SCH (11:21)
--- NOTE | 2016-12-21 13:19 | Progress Note ---
Assessment and Plan Assessment and plan: 41 YO Female with DM, HTN, Fibroids, Anemia, Migraine GUERRA presents to ED for evaluation. Pt states that she has been experiencing pain in her back for the past week. Pt symptoms have worsened over the past 2 days and now her back is draining pus. Pt states that her pain is 5/10, localized to her right back. Pt acknowledges fever, but denies chills, CP, Palpitations, NVD, recent ill contacts. Pt states that she has been taking oral abx as an outpatient for several days without improvement. * Sepsis secondary to large recurrent back abscess * Abscess-no spinal process involvement * Culture from surgical positive for MRSA * Status post I and D * Uncontrolled diabetes mellitus/an episode of hypoglycemia today * Leukocytosis secondary to above * PAUL secondary to vasomotor nephropathy, poa * Hypokalemia * Metabolic Acidosis * Hypocalcemia Plan: Microbiology 12/19/16 Unknown Back Surgical Culture - Preliminary Methicillin Resist S. Aureus 12/19/16 05:56 Back Wound Culture - Final Methicillin Resist S. Aureus 12/20/16 Unknown Nose - Left Eye/Ear/Nose/Throat Culture - Preliminary 12/20/16 Unknown Nose - Right Eye/Ear/Nose/Throat Culture - Preliminary 12/19/16 Unknown Back Anaerobic Culture - Preliminary 12/19/16 05:06 Peripheral/Venous Blood Culture - Preliminary NO GROWTH AFTER 48 HOURS 12/19/16 05:06 Peripheral/Venous Blood Culture - Preliminary NO GROWTH AFTER 48 HOURS * We'll stop Zosyn continue vancomycin and clindamycin. * Obtain ID consultation to assist duration of antibiotic treatment. * Continue current antibiotics * Continue the IV fluids * Due to hypoglycemia will reduce insulin to 20 units twice a day we'll only give 10 units this morning. * I'll recheck lactic acid levels * DVT and GI prophylaxis * Plan of care discussed in detail with the patient she verbalized understanding * Also discuss case with Dr. Banerjee appreciated him for Coming in and performing this incision and drainage History Interval history: Patient seen and examined this morning in no acute distress, reports improvement. Nursing staff reports wound is draining. Awaiting wound care, patient had a low blood sugar early this morning Denies any chest pain, nausea, vomiting, diarrhea No fever noted blood pressure controlled No adverse events reported to me by nursing staff Hospitalist Physical - Physical exam Narrative exam: VITAL SIGNS: Reviewed. GENERAL: The patient appeared well nourished and normally developed. Vital signs as documented. HEAD: No signs of head trauma. EYES: Pupils are equal. Extraocular motions intact. EARS: Hearing grossly intact. MOUTH: Oropharynx is normal. NECK: No adenopathy, no JVD. CHEST: Chest with clear breath sounds bilaterally. No wheezes, rales, or rhonchi. CARDIAC: Regular rate and rhythm. S1 and S2, without murmurs, gallops, or rubs. VASCULAR: No Edema. Peripheral pulses normal and equal in all extremities. ABDOMEN: Soft, without detectable tenderness. No sign of distention. No rebound or guarding, and no masses palpated. Bowel Sounds normal. MUSCULOSKELETAL: Right back ulceration, pus drainage, dressing in place, 7cm lesion, induration, erythema. Good range of motion of all major joints. Extremities without clubbing, cyanosis or edema. NEUROLOGIC EXAM: Alert and oriented x 3. No focal sensory or strength deficits. Speech normal. Follows commands. PSYCHIATRIC: Mood normal. SKIN: Right back ulceration, pus drainage, 7cm lesion, induration, erythema, - Constitutional Vitals: Temp Pulse Resp BP Pulse Ox 98.2 F 75 16 162/92 97 12/21/16 08:00 12/21/16 08:00 12/21/16 08:00 12/21/16 08:00 12/21/16 08:02 General appearance: Present: mild distress Results - Labs CBC & Chem 7: 12/21/16 05:06 12/21/16 05:06 Labs: Laboratory Last Values WBC 11.1 K/mm3 (4.5-11.0) H 12/21/16 05:06 RBC 3.09 M/mm3 (3.65-5.03) L 12/21/16 05:06 Hgb 8.9 gm/dl (10.1-14.3) L 12/21/16 05:06 Hct 28.5 % (30.3-42.9) L 12/21/16 05:06 MCV 93 fl (79-97) 12/21/16 05:06 MCH 30 pg (28-32) 12/21/16 05:06 MCHC 32 % (30-34) 12/21/16 05:06 RDW 16.9 % (13.2-15.2) H 12/21/16 05:06 Plt Count 155 K/mm3 (140-440) 12/21/16 05:06 Add Manual Diff Complete 12/20/16 05:44 Total Counted 100 12/20/16 05:44 Seg Neuts % (Manual) 91.0 % (40.0-70.0) H 12/20/16 05:44 Band Neutrophils % 0 % 12/20/16 05:44 Lymphocytes % (Manual) 5.0 % (13.4-35.0) L 12/20/16 05:44 Reactive Lymphs % (Man) 0 % 12/20/16 05:44 Monocytes % (Manual) 4.0 % (0.0-7.3) 12/20/16 05:44 Eosinophils % (Manual) 0 % (0.0-4.3) 12/20/16 05:44 Basophils % (Manual) 0 % (0.0-1.8) 12/20/16 05:44 Metamyelocytes % 0 % 12/20/16 05:44 Myelocytes % 0 % 12/20/16 05:44 Promyelocytes % 0 % 12/20/16 05:44 Blast Cells % 0 % 12/20/16 05:44 Nucleated RBC % Not Reportable 12/20/16 05:44 Seg Neutrophils # Man 10.5 K/mm3 (1.8-7.7) H 12/20/16 05:44 Band Neutrophils # 0.0 K/mm3 12/20/16 05:44 Lymphocytes # (Manual) 0.6 K/mm3 (1.2-5.4) L 12/20/16 05:44 Abs React Lymphs (Man) 0.0 K/mm3 12/20/16 05:44 Monocytes # (Manual) 0.5 K/mm3 (0.0-0.8) 12/20/16 05:44 Eosinophils # (Manual) 0.0 K/mm3 (0.0-0.4) 12/20/16 05:44 Basophils # (Manual) 0.0 K/mm3 (0.0-0.1) 12/20/16 05:44 Metamyelocytes # 0.0 K/mm3 12/20/16 05:44 Myelocytes # 0.0 K/mm3 12/20/16 05:44 Promyelocytes # 0.0 K/mm3 12/20/16 05:44 Blast Cells # 0.0 K/mm3 12/20/16 05:44 WBC Morphology Not Reportable 12/20/16 05:44 Hypersegmented Neuts Not Reportable 12/20/16 05:44 Hyposegmented Neuts Not Reportable 12/20/16 05:44 Hypogranular Neuts Not Reportable 12/20/16 05:44 Smudge Cells Not Reportable 12/20/16 05:44 Toxic Granulation Not Reportable 12/20/16 05:44 Toxic Vacuolation Not Reportable 12/20/16 05:44 Dohle Bodies Not Reportable 12/20/16 05:44 Pelger-Huet Anomaly Not Reportable 12/20/16 05:44 Kasi Rods Not Reportable 12/20/16 05:44 Platelet Estimate Consistent w auto 12/20/16 05:44 Clumped Platelets Not Reportable 12/20/16 05:44 Plt Clumps, EDTA Not Reportable 12/20/16 05:44 Large Platelets Not Reportable 12/20/16 05:44 Giant Platelets Not Reportable 12/20/16 05:44 Platelet Satelliting Not Reportable 12/20/16 05:44 Plt Morphology Comment Not Reportable 12/20/16 05:44 RBC Morphology Not Reportable 12/20/16 05:44 Dimorphic RBCs Not Reportable 12/20/16 05:44 Polychromasia Not Reportable 12/20/16 05:44 Hypochromasia Not Reportable 12/20/16 05:44 Poikilocytosis Not Reportable 12/20/16 05:44 Anisocytosis 1+ 12/20/16 05:44 Microcytosis Not Reportable 12/20/16 05:44 Macrocytosis Not Reportable 12/20/16 05:44 Spherocytes Not Reportable 12/20/16 05:44 Pappenheimer Bodies Not Reportable 12/20/16 05:44 Sickle Cells Not Reportable 12/20/16 05:44 Target Cells Not Reportable 12/20/16 05:44 Tear Drop Cells Not Reportable 12/20/16 05:44 Ovalocytes Not Reportable 12/20/16 05:44 Helmet Cells Not Reportable 12/20/16 05:44 [place] Bodies Not Reportable 12/20/16 05:44 Niland Rings Not Reportable 12/20/16 05:44 Rachana Cells Not Reportable 12/20/16 05:44 Bite Cells Not Reportable 12/20/16 05:44 Crenated Cell Not Reportable 12/20/16 05:44 Elliptocytes Not Reportable 12/20/16 05:44 Acanthocytes (Spur) Not Reportable 12/20/16 05:44 Rouleaux Not Reportable 12/20/16 05:44 Hemoglobin C Crystals Not Reportable 12/20/16 05:44 Schistocytes Not Reportable 12/20/16 05:44 Malaria parasites Not Reportable 12/20/16 05:44 Julián Bodies Not Reportable 12/20/16 05:44 Hem Pathologist Commnt No 12/20/16 05:44 Sodium 136 mmol/L (137-145) L 12/21/16 05:06 Potassium 3.3 mmol/L (3.6-5.0) L 12/21/16 05:06 Chloride 105.6 mmol/L (98-107) 12/21/16 05:06 Carbon Dioxide 17 mmol/L (22-30) L 12/21/16 05:06 Anion Gap 17 mmol/L 12/21/16 05:06 BUN 34 mg/dL (7-17) H 12/21/16 05:06 Creatinine 1.6 mg/dL (0.7-1.2) H 12/21/16 05:06 Estimated GFR 43 ml/min 12/21/16 05:06 BUN/Creatinine Ratio 21.25 % 12/21/16 05:06 Glucose 30 mg/dL (65-100) L* 12/21/16 05:06 POC Glucose 128 (70-105) H 12/21/16 11:18 Hemoglobin A1c 11.8 % (4-6) H 12/19/16 05:06 Lactic Acid 3.6 mmol/L (0.7-2.0) H* 12/21/16 09:34 Calcium 6.8 mg/dL (8.4-10.2) L 12/21/16 05:06
--- NOTE | 2016-12-21 13:52 | Progress Note ---
Assessment and Plan POD #2 Pt feeling "much better" dressing just changed by wd nurse Dressings dry + MRSA surgically stable begin local wd care antibiotics as per ID Selected Entries 12/21/16 08:00 Temperature 98.2 F Pulse Rate [ 75 Left] Respiratory 16 Rate Blood Pressure 162/92 [Right Arm] Laboratory Tests 12/21/16 05:06 WBC 11.1 H Hgb 8.9 L Hct 28.5 L Objective Vital Signs - 12hr 12/21/16 12/21/16 12/21/16 04:00 08:00 08:02 Temperature 98.5 F 98.2 F Pulse Rate [ 75 Left] Pulse Rate [ 94 H Right] Respiratory 18 16 Rate Blood Pressure 127/71 162/92 [Right Arm] O2 Sat by Pulse 100 97 Oximetry - Labs 12/21/16 05:06 12/21/16 05:06 Diabetes panel 12/20/16 12/21/16 Range/Units 15:18 05:06 Sodium 132 L 136 L (137-145) mmol/L Potassium 3.3 L (3.6-5.0) mmol/L Chloride 105.6 (98-107) mmol/L Carbon Dioxide 17 L (22-30) mmol/L BUN 34 H (7-17) mg/dL Creatinine 1.6 H (0.7-1.2) mg/dL Glucose 30 L* (65-100) mg/dL Calcium 6.8 L (8.4-10.2) mg/dL Calcium panel 12/21/16 Range/Units 05:06 Calcium 6.8 L (8.4-10.2) mg/dL Pituitary panel 12/20/16 12/21/16 Range/Units 15:18 05:06 Sodium 132 L 136 L (137-145) mmol/L Potassium 3.3 L (3.6-5.0) mmol/L Chloride 105.6 (98-107) mmol/L Carbon Dioxide 17 L (22-30) mmol/L BUN 34 H (7-17) mg/dL Creatinine 1.6 H (0.7-1.2) mg/dL Glucose 30 L* (65-100) mg/dL Calcium 6.8 L (8.4-10.2) mg/dL Adrenal panel 12/20/16 12/21/16 Range/Units 15:18 05:06 Sodium 132 L 136 L (137-145) mmol/L Potassium 3.3 L (3.6-5.0) mmol/L Chloride 105.6 (98-107) mmol/L Carbon Dioxide 17 L (22-30) mmol/L BUN 34 H (7-17) mg/dL Creatinine 1.6 H (0.7-1.2) mg/dL Glucose 30 L* (65-100) mg/dL Calcium 6.8 L (8.4-10.2) mg/dL
[2016-12-21] MEDS: CLEOCIN IV SCH ×4 (16:38→21:34)
[2016-12-21] MEDS: D5W IV SCH ×4 (16:38→21:34)
[2016-12-21] MEDS: VANCOMYCIN/NS 1 GM/250 ML 1 GM/250 ML BAG IV SCH (17:11)
[2016-12-21] MEDS ORDERED: PERCOCET 5/325 PO PRN ×2 (20:37→20:39)
[2016-12-22] MEDS: NACL 0.9% 1000 ML 1,000 ML IV SCH ×2 (04:20→22:23)
[2016-12-22] MEDS: PERCOCET 5/325 PO PRN ×2 (04:29→11:01)
[2016-12-22 07:01] LABS: Hematocrit 25.3 % (30.3-42.9); Hemoglobin 8.3 gm/dl (10.1-14.3); Mean Corpuscular HGB Conc 33 % (30-34); Mean Corpuscular Hemoglobin 30 pg (28-32); Mean Corpuscular Volume 92 fl (79-97); Platelet Count 186 K/mm3 (140-440); Red Blood Count 2.76 M/mm3 (3.65-5.03); Red Cell Distribution Width 17.5 % (13.2-15.2); White Blood Count 8.3 K/mm3 (4.5-11.0)
[2016-12-22] MEDS: CLEOCIN IV SCH ×2 (07:01→14:45)
[2016-12-22] MEDS: D5W IV SCH ×2 (07:01→14:45)
[2016-12-22 07:19] LABS: Anion Gap 16 mmol/L; BUN/Creatinine Ratio 19.09; Blood Urea Nitrogen 21 mg/dL (7-17); Calcium 6.9 mg/dL (8.4-10.2); Carbon Dioxide 19 mmol/L (22-30); Chloride 106.2 mmol/L (98-107); Glucose 97 mg/dL (65-100); Potassium 3.7 mmol/L (3.6-5.0); Sodium 137 mmol/L (137-145)
[2016-12-22] MEDS: NOVOLOG SUB-Q SCH ×5 (07:45→23:51)
[2016-12-22] MEDS: LEVEMIR SUB-Q SCH ×2 (10:54→23:52)
[2016-12-22] MEDS: K-DUR PO SCH (10:55)
--- NOTE | 2016-12-22 12:09 | Progress Note ---
Assessment and Plan Pt status quo. packing removed. abscess base clean but poor granulation. begin mesalt dressing changes. possible enzymatic debrider as per Wd care nurse. monitor h/h. possible transfusion as per PCP awaiting ID eval surgically stable Selected Entries 12/22/16 07:10 Temperature 98.1 F Pulse Rate [ 84 Left] Respiratory 14 Rate Blood Pressure 162/74 [Right Arm] Laboratory Tests 12/22/16 12/22/16 06:40 06:40 WBC 8.3 Hgb 8.3 L Hct 25.3 L Sodium 137 Potassium 3.7 Chloride 106.2 Carbon Dioxide 19 L Anion Gap 16 BUN 21 H Creatinine 1.1 Objective Vital Signs - 12hr 12/22/16 07:10 Temperature 98.1 F Pulse Rate [ 84 Left] Respiratory 14 Rate Blood Pressure 162/74 [Right Arm] O2 Sat by Pulse 99 Oximetry - Labs 12/22/16 06:40 12/22/16 06:40 Diabetes panel 12/21/16 12/22/16 Range/Units 22:04 06:40 Sodium 138 137 (137-145) mmol/L Potassium 3.7 (3.6-5.0) mmol/L Chloride 106.2 (98-107) mmol/L Carbon Dioxide 19 L (22-30) mmol/L BUN 21 H (7-17) mg/dL Creatinine 1.1 (0.7-1.2) mg/dL Glucose 97 (65-100) mg/dL Calcium 6.9 L (8.4-10.2) mg/dL Calcium panel 12/22/16 Range/Units 06:40 Calcium 6.9 L (8.4-10.2) mg/dL Pituitary panel 12/21/16 12/22/16 Range/Units 22:04 06:40 Sodium 138 137 (137-145) mmol/L Potassium 3.7 (3.6-5.0) mmol/L Chloride 106.2 (98-107) mmol/L Carbon Dioxide 19 L (22-30) mmol/L BUN 21 H (7-17) mg/dL Creatinine 1.1 (0.7-1.2) mg/dL Glucose 97 (65-100) mg/dL Calcium 6.9 L (8.4-10.2) mg/dL Adrenal panel 12/21/16 12/22/16 Range/Units 22:04 06:40 Sodium 138 137 (137-145) mmol/L Potassium 3.7 (3.6-5.0) mmol/L Chloride 106.2 (98-107) mmol/L Carbon Dioxide 19 L (22-30) mmol/L BUN 21 H (7-17) mg/dL Creatinine 1.1 (0.7-1.2) mg/dL Glucose 97 (65-100) mg/dL Calcium 6.9 L (8.4-10.2) mg/dL
--- NOTE | 2016-12-22 13:44 | Progress Note ---
Assessment and Plan Assessment and plan: 41 YO Female with DM, HTN, Fibroids, Anemia, Migraine GUERRA presents to ED for evaluation. Pt states that she has been experiencing pain in her back for the past week. Pt symptoms have worsened over the past 2 days and now her back is draining pus. Pt states that her pain is 5/10, localized to her right back. Pt acknowledges fever, but denies chills, CP, Palpitations, NVD, recent ill contacts. Pt states that she has been taking oral abx as an outpatient for several days without improvement. * Sepsis secondary to large recurrent back abscess * Abscess-no spinal process involvement * Culture from surgical positive for MRSA * Status post I and D * Uncontrolled diabetes mellitus * Leukocytosis secondary to above * PAUL secondary to vasomotor nephropathy, poa * Hypokalemia * Metabolic Acidosis Plan: Microbiology 12/19/16 Unknown Back Surgical Culture - Final Methicillin Resist S. Aureus 12/20/16 Unknown Nose - Right Eye/Ear/Nose/Throat Culture - Final 12/20/16 Unknown Nose - Left Eye/Ear/Nose/Throat Culture - Final 12/19/16 05:06 Peripheral/Venous Blood Culture - Preliminary NO GROWTH AFTER 72 HOURS 12/19/16 05:06 Peripheral/Venous Blood Culture - Preliminary NO GROWTH AFTER 72 HOURS 12/19/16 05:56 Back Wound Culture - Final Methicillin Resist S. Aureus * We'll stop Zosyn continue vancomycin and clindamycin. * Obtain ID consultation to assist duration of antibiotic treatment. * Continue packing, will definitely need continued care at home and wound packing * Continue current antibiotics * Continue the IV fluids * Pain control * Continue insulin control. * I'll recheck lactic acid levels * DVT and GI prophylaxis * Plan of care discussed in detail with the patient she verbalized understanding * Also discuss case with Dr. Atwood appreciated him for Coming in and performing this incision and drainage History Interval history: Patient seen and examined this morning in no acute distress, Pain with wound dressing changes. Denies any chest pain, nausea, vomiting, diarrhea No fever noted blood pressure controlled No adverse events reported to me by nursing staff Hospitalist Physical - Physical exam Narrative exam: VITAL SIGNS: Reviewed. GENERAL: The patient appeared well nourished and normally developed. Vital signs as documented. HEAD: No signs of head trauma. EYES: Pupils are equal. Extraocular motions intact. EARS: Hearing grossly intact. MOUTH: Oropharynx is normal. NECK: No adenopathy, no JVD. CHEST: Chest with clear breath sounds bilaterally. No wheezes, rales, or rhonchi. CARDIAC: Regular rate and rhythm. S1 and S2, without murmurs, gallops, or rubs. VASCULAR: No Edema. Peripheral pulses normal and equal in all extremities. ABDOMEN: Soft, without detectable tenderness. No sign of distention. No rebound or guarding, and no masses palpated. Bowel Sounds normal. MUSCULOSKELETAL: Right back ulceration, pus drainage, dressing in place, 7cm lesion, induration, erythema. Good range of motion of all major joints. Extremities without clubbing, cyanosis or edema. NEUROLOGIC EXAM: Alert and oriented x 3. No focal sensory or strength deficits. Speech normal. Follows commands. PSYCHIATRIC: Mood normal. SKIN: Right back ulceration with open wound, pus drainage, 7cm lesion, induration, poor granulations tissue, erythema, - Constitutional Vitals: Temp Pulse Resp BP Pulse Ox 98.1 F 84 14 162/74 99 12/22/16 07:10 12/22/16 07:10 12/22/16 07:10 12/22/16 07:10 12/22/16 07:10 General appearance: Present: mild distress Results - Labs CBC & Chem 7: 12/22/16 06:40 12/22/16 06:40 Labs: Laboratory Last Values WBC 8.3 K/mm3 (4.5-11.0) 12/22/16 06:40 RBC 2.76 M/mm3 (3.65-5.03) L 12/22/16 06:40 Hgb 8.3 gm/dl (10.1-14.3) L 12/22/16 06:40 Hct 25.3 % (30.3-42.9) L 12/22/16 06:40 MCV 92 fl (79-97) 12/22/16 06:40 MCH 30 pg (28-32) 12/22/16 06:40 MCHC 33 % (30-34) 12/22/16 06:40 RDW 17.5 % (13.2-15.2) H 12/22/16 06:40 Plt Count 186 K/mm3 (140-440) 12/22/16 06:40 Add Manual Diff Complete 12/20/16 05:44 Total Counted 100 12/20/16 05:44 Seg Neuts % (Manual) 91.0 % (40.0-70.0) H 12/20/16 05:44 Band Neutrophils % 0 % 12/20/16 05:44 Lymphocytes % (Manual) 5.0 % (13.4-35.0) L 12/20/16 05:44 Reactive Lymphs % (Man) 0 % 12/20/16 05:44 Monocytes % (Manual) 4.0 % (0.0-7.3) 12/20/16 05:44 Eosinophils % (Manual) 0 % (0.0-4.3) 12/20/16 05:44 Basophils % (Manual) 0 % (0.0-1.8) 12/20/16 05:44 Metamyelocytes % 0 % 12/20/16 05:44 Myelocytes % 0 % 12/20/16 05:44 Promyelocytes % 0 % 12/20/16 05:44 Blast Cells % 0 % 12/20/16 05:44 Nucleated RBC % Not Reportable 12/20/16 05:44 Seg Neutrophils # Man 10.5 K/mm3 (1.8-7.7) H 12/20/16 05:44 Band Neutrophils # 0.0 K/mm3 12/20/16 05:44 Lymphocytes # (Manual) 0.6 K/mm3 (1.2-5.4) L 12/20/16 05:44 Abs React Lymphs (Man) 0.0 K/mm3 12/20/16 05:44 Monocytes # (Manual) 0.5 K/mm3 (0.0-0.8) 12/20/16 05:44 Eosinophils # (Manual) 0.0 K/mm3 (0.0-0.4) 12/20/16 05:44 Basophils # (Manual) 0.0 K/mm3 (0.0-0.1) 12/20/16 05:44 Metamyelocytes # 0.0 K/mm3 12/20/16 05:44 Myelocytes # 0.0 K/mm3 12/20/16 05:44 Promyelocytes # 0.0 K/mm3 12/20/16 05:44 Blast Cells # 0.0 K/mm3 12/20/16 05:44 WBC Morphology Not Reportable 12/20/16 05:44 Hypersegmented Neuts Not Reportable 12/20/16 05:44 Hyposegmented Neuts Not Reportable 12/20/16 05:44 Hypogranular Neuts Not Reportable 12/20/16 05:44 Smudge Cells Not Reportable 12/20/16 05:44 Toxic Granulation Not Reportable 12/20/16 05:44 Toxic Vacuolation Not Reportable 12/20/16 05:44 Dohle Bodies Not Reportable 12/20/16 05:44 Pelger-Huet Anomaly Not Reportable 12/20/16 05:44 Kasi Rods Not Reportable 12/20/16 05:44 Platelet Estimate Consistent w auto 12/20/16 05:44 Clumped Platelets Not Reportable 12/20/16 05:44 Plt Clumps, EDTA Not Reportable 12/20/16 05:44 Large Platelets Not Reportable 12/20/16 05:44 Giant Platelets Not Reportable 12/20/16 05:44 Platelet Satelliting Not Reportable 12/20/16 05:44 Plt Morphology Comment Not Reportable 12/20/16 05:44 RBC Morphology Not Reportable 12/20/16 05:44 Dimorphic RBCs Not Reportable 12/20/16 05:44 Polychromasia Not Reportable 12/20/16 05:44 Hypochromasia Not Reportable 12/20/16 05:44 Poikilocytosis Not Reportable 12/20/16 05:44 Anisocytosis 1+ 12/20/16 05:44 Microcytosis Not Reportable 12/20/16 05:44 Macrocytosis Not Reportable 12/20/16 05:44 Spherocytes Not Reportable 12/20/16 05:44 Pappenheimer Bodies Not Reportable 12/20/16 05:44 Sickle Cells Not Reportable 12/20/16 05:44 Target Cells Not Reportable 12/20/16 05:44 Tear Drop Cells Not Reportable 12/20/16 05:44 Ovalocytes Not Reportable 12/20/16 05:44 Helmet Cells Not Reportable 12/20/16 05:44 Galvan-Runnells Bodies Not Reportable 12/20/16 05:44 Mcgrath Rings Not Reportable 12/20/16 05:44 [place] Cells Not Reportable 12/20/16 05:44 Bite Cells Not Reportable 12/20/16 05:44 Crenated Cell Not Reportable 12/20/16 05:44 Elliptocytes Not Reportable 12/20/16 05:44 Acanthocytes (Spur) Not Reportable 12/20/16 05:44 Rouleaux Not Reportable 12/20/16 05:44 Hemoglobin C Crystals Not Reportable 12/20/16 05:44 Schistocytes Not Reportable 12/20/16 05:44 Malaria parasites Not Reportable 12/20/16 05:44 Julián Bodies Not Reportable 12/20/16 05:44 Hem Pathologist Commnt No 12/20/16 05:44 Sodium 137 mmol/L (137-145) 12/22/16 06:40 Potassium 3.7 mmol/L (3.6-5.0) 12/22/16 06:40 Chloride 106.2 mmol/L (98-107) 12/22/16 06:40 Carbon Dioxide 19 mmol/L (22-30) L 12/22/16 06:40 Anion Gap 16 mmol/L 12/22/16 06:40 BUN 21 mg/dL (7-17) H 12/22/16 06:40 Creatinine 1.1 mg/dL (0.7-1.2) 12/22/16 06:40 Estimated GFR > 60 ml/min 12/22/16 06:40 BUN/Creatinine Ratio 19.09 % 12/22/16 06:40 Glucose 97 mg/dL (65-100) 12/22/16 06:40 POC Glucose 140 (70-105) H 12/22/16 11:22 Hemoglobin A1c 11.8 % (4-6) H 12/19/16 05:06 Lactic Acid 2.0 mmol/L (0.7-2.0) 12/22/16 07:44 Calcium 6.9 mg/dL (8.4-10.2) L 12/22/16 06:40
[2016-12-22] MEDS: VANCOMYCIN/NS 1 GM/250 ML 1 GM/250 ML BAG IV SCH (14:46)
[2016-12-22] MEDS: BENADRYL PO PRN (14:59)
[2016-12-22] MEDS: MORPHINE IV PRN (19:09)
--- NOTE | 2016-12-22 19:16 | Consultation ---
History of Present Illness - Reason for Consult Consult date: 12/22/16 POSTERIOR CHEST WALL ABSCESS Requesting physician: ANGELINA KNAPP - History of Present Illness 41 YO Female with DM, HTN, Fibroids, Anemia, Migraine GUERRA presents to ED for evaluation. Pt states that she has been experiencingpain in her back for the past week. Pt symptoms have worsened over the past 2 days and now her back is draining pus. Pt states that her pain is 5/10, localized to her right back. Pt acknowledges fever, but denies chills, CP, Palpitations, NVD, recent ill contacts. Pt states that she has been taking oral abx as an outpatient for several days without improvement. I and D done and culture is growing mrsa hence infectious disease consult for appropriate antibiotic treatment. I saw patient at bedside. She denied any other symptoms Past History Past Medical History: anemia, diabetes, hypertension Past Surgical History: hysterectomy Social history: single. denies: smoking, alcohol abuse, prescription drug abuse Family history: diabetes, hypertens PHYSICAL EXAM. VS - Afebrile. CHEST - RIGHT POSTERIOR CHEST WALL WITH 6CM X 4CM WOUND STILL DRAINING PURULENT MATERIAL. ASSESSMENT 1. R. Posterior chest wall abscess s/p i and d. 2. dm2 RECOMMENDATION 1. CT Chest without contrast. 2. ESR / CRP. 3. Continue current iv vancomycin. Add oral bactrim D/C clindamycin. 4. will make recommendation for out patient care tomorrow after ct chest is done. Past History Past Medical History: anemia, diabetes, hypertension Past Surgical History: hysterectomy Social history: single. denies: smoking, alcohol abuse, prescription drug abuse Family history: diabetes, hypertension Medications and Allergies Allergies Allergy/AdvReac Type Severity Reaction Status Date / Time No Known Allergies Allergy Unverified 06/26/15 11:58 Home Medications Medication Instructions Recorded Confirmed Last Taken Type Lantus Solostar 25 units SQ BID 12/19/16 12/19/16 12/18/16 History Active Meds: Active Medications Acetaminophen (Tylenol) 650 mg PO Q4H PRN PRN Reason: Pain MILD(1-3)/Fever >100.5/GUERRA Bisacodyl (Dulcolax) 10 mg [place] QDAY PRN PRN Reason: Constipation unrelieved by MOM Dextrose (D50w (25gm)) 50 ml IV PRN PRN PRN Reason: Hypoglycemia Last Admin: 12/21/16 22:59 Dose: 50 ml Diphenhydramine HCl (Benadryl) 25 mg PO Q8H PRN PRN Reason: Itching Last Admin: 12/22/16 14:59 Dose: 25 mg Hydroxyzine Pamoate (Vistaril) 50 mg PO Q6HR PRN PRN Reason: Itching Last Admin: 12/19/16 23:38 Dose: 50 mg Sodium Chloride (Nacl 0.9% 1000 Ml) 1,000 mls @ 150 mls/hr IV DIRECT MANISH Last Admin: 12/22/16 04:20 Dose: 150 mls/hr Vancomycin HCl (Vancomycin/Ns 1 Gm/250 Ml) 1 gm in 250 mls @ 166.667 mls/hr IV Q18H MANISH Clindamycin HCl (Cleocin 900 Mg/50 Ml) 900 mg in 50 mls @ 100 mls/hr IV Q8H MANISH Insulin Aspart (Novolog) 0 units SUB-Q ACHS MANISH PRN Reason: Protocol Last Admin: 12/22/16 14:45 Dose: Not Given Insulin Detemir (Levemir) 20 units SUB-Q BID MANISH Last Admin: 12/22/16 10:54 Dose: 20 units Magnesium Hydroxide (Milk Of Magnesia) 30 ml PO Q4H PRN PRN Reason: Constipation Morphine Sulfate (Morphine) 2 mg IV Q6H PRN PRN Reason: Pain, Moderate (4-6) Ondansetron HCl (Zofran) 4 mg IV Q8H PRN PRN Reason: N/V unrelieved by Reglan Oxycodone/Acetaminophen (Percocet 5/325) 1 tab PO Q6H PRN PRN Reason: Pain, Moderate (4-6) Last Admin: 12/21/16 17:10 Dose: 1 tab Oxycodone/Acetaminophen (Percocet 5/325) 2 tab PO Q4H PRN PRN Reason: Pain , Severe (7-10) Stop: 12/23/16 20:33 Last Admin: 12/22/16 11:01 Dose: 2 tab Oxycodone/Acetaminophen (Percocet 5/325) 1 tab PO Q4H PRN PRN Reason: Pain, Moderate (4-6) Stop: 12/23/16 20:38 Potassium Chloride (K-Dur) 10 meq PO QDAY MANISH Last Admin: 12/22/16 10:55 Dose: 10 meq Vancomycin HCl (Vancomycin Pharmacy To Dose) 1 each IV PKCONSULT MANSIH PRN Reason: Protocol Zolpidem Tartrate (Ambien) 5 mg PO QHS PRN PRN Reason: Sleep Last Admin: 12/22/16 00:50 Dose: 5 mg Physical Examination - Constitutional Vitals: Vital Signs Temp Pulse Resp BP Pulse Ox 98.2 F 94 H 18 169/89 98 12/22/16 15:01 12/22/16 15:01 12/22/16 15:01 12/22/16 15:01 12/22/16 15:01 Temperature -Last 24 Hours Temperature 98.2 F Temperature 98.1 F Temperature 98.2 F Temperature 98 F Results - Labs CBC & Chem 7: 12/22/16 06:40 12/22/16 06:40 Labs: Abnormal lab results 12/21/16 12/21/16 12/22/16 Range/Units 21:32 22:37 06:23 RBC (3.65-5.03) M/mm3 Hgb (10.1-14.3) gm/dl Hct (30.3-42.9) % RDW (13.2-15.2) % Carbon Dioxide (22-30) mmol/L BUN (7-17) mg/dL POC Glucose 58 L 60 L 131 H (70-105) Calcium (8.4-10.2) mg/dL 12/22/16 12/22/16 12/22/16 Range/Units 06:40 06:40 11:22 RBC 2.76 L (3.65-5.03) M/mm3 Hgb 8.3 L (10.1-14.3) gm/dl Hct 25.3 L (30.3-42.9) % RDW 17.5 H (13.2-15.2) % Carbon Dioxide 19 L (22-30) mmol/L BUN 21 H (7-17) mg/dL POC Glucose 140 H (70-105) Calcium 6.9 L (8.4-10.2) mg/dL 12/22/16 12/22/16 Range/Units 15:27 16:34 RBC (3.65-5.03) M/mm3 Hgb (10.1-14.3) gm/dl Hct (30.3-42.9) % RDW (13.2-15.2) % Carbon Dioxide (22-30) mmol/L BUN (7-17) mg/dL POC Glucose 61 L 51 L (70-105) Calcium (8.4-10.2) mg/dL
[2016-12-22] MEDS ORDERED: CLEOCIN 900 MG/50 mL 900 MG/50 ML BAG IV SCH (22:00)
[2016-12-22] MEDS: BACTRIM DS PO SCH (22:23)
[2016-12-22] MEDS: D50W (25GM) IV PRN (22:24)
[2016-12-23] MEDS: MORPHINE IV PRN (00:58)
--- NOTE | 2016-12-23 01:52 | Cat Scan Report ---
FINAL REPORT PROCEDURE: CT CHEST WO CON TECHNIQUE: Computerized axial tomography of the chest was performed without contrast material. This study is performed without intravenous contrast and the sensitivity for pathology, including neoplasms, adenopathy, abscess, pulmonary embolism and aortic dissection, is reduced. HISTORY: abscess COMPARISON: No prior studies are available for comparison. TECHNICAL QUALITY: Satisfactory. FINDINGS: There is soft tissue edema and thickening in the right upper back. There are pockets of subcutaneous air and evidence of ulceration. There is no discrete fluid collection to suggest abscess. There is no involvement of the deep musculature or adjacent bony structures. Heart and pericardium: The heart is slightly enlarged. There is a tiny pericardial effusion.. Thoracic aorta: Normal. Pulmonary vasculature: Normal. Lymph nodes: No enlarged thoracic lymph nodes. Lungs: There is suboptimal inspiration. There are bilateral pulmonary infiltrates worse at the lung bases in worse on the left.. Pleural space: There are small bilateral pleural effusions. There are no pneumothoraces.. Musculoskeletal structures: No significant abnormality. Upper abdominal structures: Images of the upper abdomen demonstrate enlargement of the liver and ascites.. IMPRESSION: Right upper back superficial ulceration and infection with cellulitis but no specific evidence of abscess. There is subcutaneous air which could be due to instrumentation, penetration or gas-forming organisms. There is no specific evidence of myositis or bony abnormality. The heart is slightly enlarged. There is a tiny pericardial effusion.. There is suboptimal inspiration. There are bilateral pulmonary infiltrates worse at the lung bases in worse on the left.. There are small bilateral pleural effusions. There are no pneumothoraces.. Images of the upper abdomen demonstrate enlargement of the liver and ascites.. .
[2016-12-23 06:39] LABS: Basophils % (Auto) 0.3 % (0.0-1.8); Eosinophils % (Auto) 1.2 % (0.0-4.3); Hematocrit 26.9 % (30.3-42.9); Hemoglobin 8.8 gm/dl (10.1-14.3); Mean Corpuscular HGB Conc 33 % (30-34); Mean Corpuscular Hemoglobin 30 pg (28-32); Mean Corpuscular Volume 93 fl (79-97); Platelet Count 221 K/mm3 (140-440); Red Blood Count 2.91 M/mm3 (3.65-5.03); Red Cell Distribution Width 17.4 % (13.2-15.2); White Blood Count 11.8 K/mm3 (4.5-11.0)
[2016-12-23 06:54] LABS: Anion Gap 13 mmol/L; Blood Urea Nitrogen 13 mg/dL (7-17); Calcium 6.9 mg/dL (8.4-10.2); Carbon Dioxide 20 mmol/L (22-30); Chloride 104.5 mmol/L (98-107); Glucose 55 mg/dL (65-100); Potassium 3.9 mmol/L (3.6-5.0); Sodium 134 mmol/L (137-145)
[2016-12-23] MEDS: NACL 0.9% 1000 ML 1,000 ML IV SCH (07:31)
[2016-12-23] MEDS: NOVOLOG SUB-Q SCH ×2 (08:24→11:29)
[2016-12-23] MEDS: VANCOMYCIN/NS 1 GM/250 ML 1 GM/250 ML BAG IV SCH ×2 (08:24→10:45)
--- NOTE | 2016-12-23 09:08 | Discharge Summary ---
Providers - Providers Date of Admission: 12/19/16 04:53 Date of discharge: 12/23/16 Attending physician: ANGELINA KNAPP MD 12/19/16 09:00 Consult to Wound/ET Nurse [CONS] Routine Reason For Exam: wound eval 12/19/16 09:28 Consult to Physician [CONS] Routine Consulting Provider: KATERINE ZHENG Reason For Exam: back abscess Place consult to:: Dr. Zheng Notified:: Answering Services Phone number called:: [phone] Was contact made?: Yes If yes, spoke with:: Sonia Time called:: 10:21 Comment:: Karlee Notified 12/19/16 15:01 Consult to Physician [CONS] Routine Consulting Provider: LARISA BAGLEY Reason For Exam: pre-op eval Place consult to:: dr. bagley Notified:: answering machine Phone number called:: Was contact made?: No Time called:: 08:38 Consult to Wound/ET Nurse [CONS] Routine Reason For Exam: wound eval 12/21/16 13:19 Consult to Physician [CONS] Routine Consulting Provider: ROBBIE RIVERA Reason For Exam: mrsa abscess Place consult to:: id Notified:: office Phone number called:: [phone] Was contact made?: Yes If yes, spoke with:: anjana Time called:: 13:34 12/21/16 13:52 Consult to Physician [CONS] Routine Consulting Provider: ROBBIE RIVERA Reason For Exam: MRSA Place consult to:: id Notified:: office Phone number called:: [phone] Was contact made?: Yes If yes, spoke with:: jayda Granados called:: 14:12 Primary care physician: [employer]LECT[employer] MANAGER Hospitalization Reason for admission: LARGE WALL ABSCESS Condition: Stable Hospital course: 41 YO Female with DM, HTN, Fibroids, Anemia, Migraine GUERRA presents to ED for evaluation. Pt states that she has been experiencing pain in her back for the past week. Pt symptoms have worsened over the past 2 days and now her back is draining pus. Pt states that her pain is 5/10, localized to her right back. Pt acknowledges fever, but denies chills, CP, Palpitations, NVD, recent ill contacts. Pt states that she has been taking oral abx as an outpatient for several days without improvement. On arrival patient was sent immediately to surgery to get a I and D this was done successfully cultures grew methicillin resistant staph aureus patient was started on antibiotics appropriately. She does not have any fever today her white count has come down. She was seen by wound care we did discuss extensively with the management and follow up with surgeons. She is going to be on Bactrim for which I recommended that she gets weekly renal function checked when she renal functionality. Her renal function improved while she was here in the hospital. Will also discussed the importance of diabetic control. She is clinically stable at this time to discharge she understands that this one needs to be cared for very well. We did obtain home health nursing for a few days to also indicated the family on proper wound care patient verbalized understanding of the chest CT did not show aspiration of this wound to the chest cavity wall area. * Sepsis secondary to large recurrent back abscess * Abscess-no spinal process involvement * Culture from surgical positive for MRSA * Status post I and D * Uncontrolled diabetes mellitus * Leukocytosis secondary to above * PAUL secondary to vasomotor nephropathy, poa * Hypokalemia * Metabolic Acidosis Disposition: DC/TX HOME UNDER HOME HEALTH Time spent for discharge: 35 mins Core Measure Documentation - Palliative Care Palliative Care/ Comfort Measures: Not Applicable - Core Measures Any of the following diagnoses?: none - VTE Discharge Requirements Deep Vein Thrombosis/Pulmonary Embolism Present on Admission: No Exam - Physical Exam Narrative exam: VITAL SIGNS: Reviewed. GENERAL: The patient appeared well nourished and normally developed. Vital signs as documented. HEAD: No signs of head trauma. EYES: Pupils are equal. Extraocular motions intact. EARS: Hearing grossly intact. MOUTH: Oropharynx is normal. NECK: No adenopathy, no JVD. CHEST: Chest with clear breath sounds bilaterally. No wheezes, rales, or rhonchi. CARDIAC: Regular rate and rhythm. S1 and S2, without murmurs, gallops, or rubs. VASCULAR: No Edema. Peripheral pulses normal and equal in all extremities. ABDOMEN: Soft, without detectable tenderness. No sign of distention. No rebound or guarding, and no masses palpated. Bowel Sounds normal. MUSCULOSKELETAL: Right back ulceration, pus drainage, dressing in place, 7cm lesion, induration, erythema. Good range of motion of all major joints. Extremities without clubbing, cyanosis or edema. NEUROLOGIC EXAM: Alert and oriented x 3. No focal sensory or strength deficits. Speech normal. Follows commands. PSYCHIATRIC: Mood normal. SKIN: Right back ulceration with open wound, pus drainage, 7cm lesion, induration, poor granulations tissue, erythema, - Constitutional Vitals: Temp Pulse Resp BP Pulse Ox 99.3 F 86 20 152/82 96 12/23/16 08:00 12/23/16 08:00 12/23/16 08:00 12/23/16 08:00 12/23/16 08:00 Plan Activity: advance as tolerated, fall precautions Diet: diabetic Wound: change dressing, per wound nurse instructions Additional Instructions: Follow at the wound care clinic in 1 week. Needs renal function blood work test with PCP once a week for the duration of the antibiotics Follow up with: PRIMARY CAREMD [Primary Care Provider] - 3-5 Days KATERINE ZHENG MD [Staff Physician] - 3 Days Prescriptions: oxyCODONE /ACETAMINOPHEN [Percocet 5/325 mg] 2 tab PO Q6HR PRN #30 tablet PRN Reason: Pain , Severe (7-10) Sulfamethoxazole/Trimethoprim [Bactrim DS TAB] 1 each PO Q12HR 21 Days
[2016-12-23] MEDS: BACTRIM DS PO SCH (10:39)
[2016-12-23] MEDS: LEVEMIR SUB-Q SCH (10:39)
[2016-12-23] MEDS: K-DUR PO SCH (10:39)
[2016-12-23 11:42] VITALS: BP 155/80
== END 2016-12-23 12:15 | disposition home health service (06) | DRG 853 ==
LOC: ED 18:13 → 3A 12-19 04:53
PROVIDERS: ADMIT Internal Medicine; ATTEND Internal Medicine
PROC: 0J970ZZ Drainage of Back Subcutaneous Tissue and Fascia, Open Approach (ICD-10-PCS; principal; 2016-12-19)
DX: A41.9 Sepsis, unspecified organism (principal); N17.0 Acute kidney failure with tubular necrosis; L02.213 Cutaneous abscess of chest wall; L02.212 Cutaneous abscess of back [any part, except buttock and flank]; B95.62 Methicillin resistant Staphylococcus aureus infection as the cause of diseases classified elsewhere; I10 Essential (primary) hypertension; G43.909 Migraine, unspecified, not intractable, without status migrainosus; Z90.710 Acquired absence of both cervix and uterus; E87.6 Hypokalemia; E11.65 Type 2 diabetes mellitus with hyperglycemia; E83.51 Hypocalcemia; Z83.3 Family history of diabetes mellitus; Z82.49 Family history of ischemic heart disease and other diseases of the circulatory system; Z90.01 Acquired absence of eye; Z86.2 Personal history of diseases of the blood and blood-forming organs and certain disorders involving the immune mechanism; E11.649 Type 2 diabetes mellitus with hypoglycemia without coma
CPT/HCPCS: 36415; 71250; 72128; 80048; 80202; 82010; 82140; 82962; 83036; 84295; 85007; 85025; 85027; 85652; 86140; 86403; 87040; 87075; 87076; 87116; 87186; 90686; 90732; 96372; 96374; 96375; J1100; J1170; J1815; J1818; J2250; J2270; J2405; J2543; J2704; J3370; J7030; J7050; Q0177

== ENCOUNTER 2017-01-04 13:19 | Outpatient (CLI) | payer OTHER ==
[2017-01-04] MEDS ORDERED: XYLOCAINE TOPICAL 4% TP ONE ×2 (14:05→16:54)
== END 2017-01-04 13:20 | disposition home or self-care (01) ==
LOC: WOUND 13:19
PROVIDERS: ATTEND Internal Medicine
DX: L02.212 Cutaneous abscess of back [any part, except buttock and flank] (principal); I10 Essential (primary) hypertension; E11.9 Type 2 diabetes mellitus without complications
CPT/HCPCS: 99203; 99215; G0463

== ENCOUNTER 2017-01-25 13:05 | Outpatient (CLI) | payer MEDICAID, OTHER ==
[2017-01-25] MEDS ORDERED: XYLOCAINE TOPICAL 4% TP ONE ×2 (13:16→13:30)
== END 2017-01-25 13:06 | disposition home or self-care (01) ==
LOC: WOUND 13:05
PROVIDERS: ATTEND Internal Medicine
DX: L02.212 Cutaneous abscess of back [any part, except buttock and flank] (principal); I10 Essential (primary) hypertension; E11.9 Type 2 diabetes mellitus without complications; Z72.89 Other problems related to lifestyle
CPT/HCPCS: 99213; G0463

== ENCOUNTER 2017-02-10 08:05 | Outpatient (CLI) | payer MEDICAID ==
[~2017-02-10 08:05] MED LIST: XYLOCAINE TOPICAL 4% TP ONE
[2017-02-10] MEDS ORDERED: XYLOCAINE TOPICAL 4% TP ONE ×2 (08:23→08:31)
== END 2017-02-10 08:06 | disposition home or self-care (01) ==
LOC: WOUND 08:05
PROVIDERS: ATTEND Surgery
DX: S21.209D Unspecified open wound of unspecified back wall of thorax without penetration into thoracic cavity, subsequent encounter (principal); E11.9 Type 2 diabetes mellitus without complications; I10 Essential (primary) hypertension; X58.XXXD Exposure to other specified factors, subsequent encounter
CPT/HCPCS: 99214; G0463

== ENCOUNTER 2017-02-22 13:24 | Outpatient (CLI) | payer MEDICAID ==
[~2017-02-22 13:24] MED LIST changes: +SILVER NITRATE TP ONE; -XYLOCAINE TOPICAL 4% TP ONE
[2017-02-22] MEDS ORDERED: XYLOCAINE TOPICAL 4% TP ONE (13:27)
[2017-02-22] MEDS ORDERED: SILVER NITRATE TP ONE (13:35)
== END 2017-02-22 13:25 | disposition home or self-care (01) ==
LOC: WOUND 13:24
PROVIDERS: ATTEND Internal Medicine
DX: E11.622 Type 2 diabetes mellitus with other skin ulcer (principal); L98.422 Non-pressure chronic ulcer of back with fat layer exposed; L02.232 Carbuncle of back [any part, except buttock and flank]; I10 Essential (primary) hypertension; E66.01 Morbid (severe) obesity due to excess calories; Z90.710 Acquired absence of both cervix and uterus

== ENCOUNTER 2017-03-01 10:01 | Outpatient (CLI) | payer MEDICAID ==
[2017-03-01] MEDS ORDERED: XYLOCAINE TOPICAL 4% TP ONE (10:09)
[2017-03-01] MEDS ORDERED: SILVER NITRATE TP ONE ×2 (10:31→11:42)
== END 2017-03-01 10:02 | disposition home or self-care (01) ==
LOC: WOUND 10:01
PROVIDERS: ATTEND Surgery
DX: E11.622 Type 2 diabetes mellitus with other skin ulcer (principal); L98.422 Non-pressure chronic ulcer of back with fat layer exposed; E66.01 Morbid (severe) obesity due to excess calories; I10 Essential (primary) hypertension; Z68.26 Body mass index [BMI] 26.0-26.9, adult
CPT/HCPCS: 17250

== ENCOUNTER 2017-04-15 08:07 | Outpatient (CLI) | payer MEDICAID ==
[2017-04-15] MEDS ORDERED: XYLOCAINE TOPICAL 4% TP ONE ×2 (08:22→08:54)
== END 2017-04-15 08:08 | disposition home or self-care (01) ==
LOC: WOUND 08:07
PROVIDERS: ATTEND Nurse Practitioner
DX: T81.89XA Other complications of procedures, not elsewhere classified, initial encounter (principal); E11.9 Type 2 diabetes mellitus without complications; E66.01 Morbid (severe) obesity due to excess calories; I10 Essential (primary) hypertension; L73.2 Hidradenitis suppurativa; Z68.26 Body mass index [BMI] 26.0-26.9, adult; Z72.89 Other problems related to lifestyle; Z90.710 Acquired absence of both cervix and uterus; Y83.8 Other surgical procedures as the cause of abnormal reaction of the patient, or of later complication, without mention of misadventure at the time of the procedure; Y92.89 Other specified places as the place of occurrence of the external cause
CPT/HCPCS: 11042; G0463

== ENCOUNTER 2017-04-26 13:04 | Outpatient (CLI) | payer MEDICAID ==
[2017-04-26] MEDS ORDERED: XYLOCAINE TOPICAL 4% TP ONE (13:41)
[2017-04-26] MEDS ORDERED: SILVER NITRATE TP ONE ×2 (13:59→16:20)
== END 2017-04-26 13:05 | disposition home or self-care (01) ==
LOC: WOUND 13:04
PROVIDERS: ATTEND Internal Medicine
DX: T81.89XD Other complications of procedures, not elsewhere classified, subsequent encounter (principal); E11.622 Type 2 diabetes mellitus with other skin ulcer; L98.491 Non-pressure chronic ulcer of skin of other sites limited to breakdown of skin; L73.2 Hidradenitis suppurativa; E66.01 Morbid (severe) obesity due to excess calories; I10 Essential (primary) hypertension; Z68.26 Body mass index [BMI] 26.0-26.9, adult; Z90.710 Acquired absence of both cervix and uterus; Z72.89 Other problems related to lifestyle; Y83.8 Other surgical procedures as the cause of abnormal reaction of the patient, or of later complication, without mention of misadventure at the time of the procedure

== ENCOUNTER 2017-05-03 13:11 | Outpatient (CLI) | payer MEDICAID ==
[2017-05-03] MEDS ORDERED: XYLOCAINE TOPICAL 4% TP ONE ×2 (13:42→13:56)
[2017-05-03] MEDS ORDERED: SILVER NITRATE TP ONE ×3 (14:00→14:06)
== END 2017-05-03 13:12 | disposition home or self-care (01) ==
LOC: WOUND 13:11
PROVIDERS: ATTEND Internal Medicine
DX: T81.89XD Other complications of procedures, not elsewhere classified, subsequent encounter (principal); E66.01 Morbid (severe) obesity due to excess calories; L02.432 Carbuncle of left axilla; L73.2 Hidradenitis suppurativa; I10 Essential (primary) hypertension; E11.9 Type 2 diabetes mellitus without complications; Z68.26 Body mass index [BMI] 26.0-26.9, adult; Z90.710 Acquired absence of both cervix and uterus; Z72.89 Other problems related to lifestyle; Y83.8 Other surgical procedures as the cause of abnormal reaction of the patient, or of later complication, without mention of misadventure at the time of the procedure

== ENCOUNTER 2017-05-10 13:23 | Outpatient (CLI) | payer MEDICAID ==
[2017-05-10] MEDS ORDERED: SILVER NITRATE TP ONE (13:52)
[2017-05-10] MEDS ORDERED: XYLOCAINE TOPICAL 4% TP ONE (13:52)
== END 2017-05-10 13:24 | disposition home or self-care (01) ==
LOC: WOUND 13:23
PROVIDERS: ATTEND Internal Medicine
DX: T81.89XD Other complications of procedures, not elsewhere classified, subsequent encounter (principal); E11.9 Type 2 diabetes mellitus without complications; L02.432 Carbuncle of left axilla; L73.2 Hidradenitis suppurativa; E66.01 Morbid (severe) obesity due to excess calories; I10 Essential (primary) hypertension; Z68.1 Body mass index [BMI] 19.9 or less, adult; Z79.4 Long term (current) use of insulin; Z90.710 Acquired absence of both cervix and uterus; Z72.89 Other problems related to lifestyle; Y83.8 Other surgical procedures as the cause of abnormal reaction of the patient, or of later complication, without mention of misadventure at the time of the procedure
CPT/HCPCS: 17250

== ENCOUNTER 2017-05-17 13:38 | Outpatient (CLI) | payer MEDICAID ==
[2017-05-17] MEDS ORDERED: XYLOCAINE TOPICAL 4% TP ONE ×2 (13:52→15:00)
[2017-05-17] MEDS ORDERED: SILVER NITRATE TP ONE ×2 (14:09→15:00)
== END 2017-05-17 13:39 | disposition home or self-care (01) ==
LOC: WOUND 13:38
PROVIDERS: ATTEND Internal Medicine
DX: T81.89XD Other complications of procedures, not elsewhere classified, subsequent encounter (principal); E66.01 Morbid (severe) obesity due to excess calories; L73.2 Hidradenitis suppurativa; I10 Essential (primary) hypertension; Z68.26 Body mass index [BMI] 26.0-26.9, adult; Z90.710 Acquired absence of both cervix and uterus; Z72.89 Other problems related to lifestyle; Y83.8 Other surgical procedures as the cause of abnormal reaction of the patient, or of later complication, without mention of misadventure at the time of the procedure
CPT/HCPCS: 17250

== ENCOUNTER 2017-05-24 13:35 | Outpatient (CLI) | payer MEDICAID ==
[2017-05-24] MEDS ORDERED: XYLOCAINE TOPICAL 2% ONE (13:42)
[2017-05-24] MEDS ORDERED: XYLOCAINE TOPICAL 2% TP ONE (13:47)
[2017-05-24] MEDS ORDERED: SILVER NITRATE TP ONE (14:06)
== END 2017-05-24 13:36 | disposition home or self-care (01) ==
LOC: WOUND 13:35
PROVIDERS: ATTEND Internal Medicine
DX: T81.89XD Other complications of procedures, not elsewhere classified, subsequent encounter (principal); L73.2 Hidradenitis suppurativa; I10 Essential (primary) hypertension; E66.01 Morbid (severe) obesity due to excess calories; E11.9 Type 2 diabetes mellitus without complications; Z68.26 Body mass index [BMI] 26.0-26.9, adult; Z90.710 Acquired absence of both cervix and uterus; Z72.89 Other problems related to lifestyle; Y83.8 Other surgical procedures as the cause of abnormal reaction of the patient, or of later complication, without mention of misadventure at the time of the procedure
CPT/HCPCS: 17250

== ENCOUNTER 2017-09-22 00:57 | Inpatient (IN) | payer SELFPAY ==
[2017-09-22] MEDS ORDERED: NACL 0.9% 1000 ML 1,000 ML ONE (01:36)
--- NOTE | 2017-09-22 01:40 | Emergency Department Report ---
ED Chest Pain HPI - General Stated Complaint: SOB / JOANN Time Seen by Provider: 09/22/17 01:32 Source: patient, family Mode of arrival: Wheelchair - History of Present Illness Initial Comments: 42 yo female who comes in today due chest pain and shortness of breath. On evaluation in the ED, her heart rate is 140. States that she has had chest pain and shortness of breath since Wednesday of last week. Denies any recreational drug use or cardiac history. Admits to a history of diabetes. MD Complaint: chest pain, other (shortness of breath ) -: days(s) (5) Onset: during rest Pain Location: other (diffuse ) Pain Radiation: none Severity: moderate Severity scale (0 -10): 7 Quality: pressure Consistency: constant Improves With: nothing Worsens With: nothing Context: other (none) Other Symptoms: other (shortness of breath) Treatments Prior to Arrival: none - Related Data On Oral Contraceptives: No Home Medications Medication Instructions Recorded Confirmed Last Taken Lantus Solostar 25 units SQ BID 12/19/16 04/07/17 01/27/17 19:00 25 UNITS HYDROcodone/ACETAMINOPHEN 1 tab PO Q4HR PRN 01/26/17 04/07/17 01/27/17 19:00 [Hydrocodon-Acetaminophen 5-325] Previous Rx's Medication Instructions Recorded Last Taken Type HYDROcodone/APAP 5-325 [[place] 1 each PO Q4HR PRN #10 tablet 01/28/17 Unknown Rx 5/325] Clindamycin [Clindamycin CAP] 300 mg PO QID #28 capsule 04/09/17 Unknown Rx oxyCODONE /ACETAMINOPHEN [Percocet 1 tab PO Q6H PRN #12 tablet 04/09/17 Unknown Rx 5/325 mg] Allergies Allergy/AdvReac Type Severity Reaction Status Date / Time No Known Allergies Allergy Verified 04/03/17 14:03 Heart Score - HEART Score History: Slightly suspicious EKG: Normal Age: < 45 Risk factors: 1-2 risk factors Troponin: < normal limit HEART Score: 1 ED Review of Systems ROS: Stated complaint: SOB / JOANN Other details as noted in HPI Constitutional: denies: chills, fever Eyes: denies: eye pain, eye discharge, vision change ENT: denies: ear pain, throat pain Respiratory: shortness of breath Cardiovascular: chest pain Endocrine: increased thirst, increased urine Gastrointestinal: denies: abdominal pain, nausea, diarrhea Genitourinary: denies: urgency, dysuria, discharge Musculoskeletal: denies: back pain, joint swelling, arthralgia Skin: denies: rash, lesions Neurological: denies: headache, weakness, paresthesias Psychiatric: denies: anxiety, depression ED Past Medical Hx - Past Medical History Previous Medical History?: Yes Hx Hypertension: Yes Hx CVA: No Hx Heart Attack/AMI: No Hx Diabetes: Yes Hx Deep Vein Thrombosis: No Hx Pulmonary Embolism: No Hx GERD: No Hx Liver Disease: No Hx Renal Disease: No Hx Sickle Cell Disease: No Hx Arthritis: No Hx Headaches / Migraines: Yes (occas migraine) Hx Seizures: No Hx Kidney Stones: No Hx Psychiatric Treatment: Yes (ANXIETY) Hx Asthma: No Hx COPD: No Hx Tuberculosis: No Hx Dementia: No Hx HIV: No Additional medical history: anemia. FIBROIDS - Surgical History Hx Pacemaker: No Additional Surgical History: X 2. TUBAL LIGATION. Hysterectomy - Social History Smoking Status: Never Smoker - Medications Home Medications: Home Medications Medication Instructions Recorded Confirmed Last Taken Type Lantus Solostar 25 units SQ BID 12/19/16 04/07/17 01/27/17 19:00 History 25 UNITS HYDROcodone/ACETAMINOPHEN 1 tab PO Q4HR PRN 01/26/17 04/07/17 01/27/17 19:00 History [Hydrocodon-Acetaminophen 5-325] HYDROcodone/APAP 5-325 [[place] 1 each PO Q4HR PRN #10 tablet 01/28/17 04/07/17 Unknown Rx 5/325] Clindamycin [Clindamycin CAP] 300 mg PO QID #28 capsule 04/09/17 Unknown Rx oxyCODONE /ACETAMINOPHEN [Percocet 1 tab PO Q6H PRN #12 tablet 04/09/17 Unknown Rx 5/325 mg] ED Physical Exam - General General appearance: anxious - Head Head exam: Present: atraumatic, normocephalic - Eye Eye exam: Present: normal appearance - ENT ENT exam: Present: mucous membranes moist - Neck Neck exam: Present: normal inspection - Respiratory Respiratory exam: Present: normal lung sounds bilaterally. Absent: respiratory distress - Cardiovascular Cardiovascular Exam: Present: tachycardia - GI/Abdominal GI/Abdominal exam: Present: soft, normal bowel sounds - Extremities Exam Extremities exam: Present: normal inspection - Back Exam Back exam: Present: normal inspection - Neurological Exam Neurological exam: Present: alert, oriented X3 - Psychiatric Psychiatric exam: Present: normal affect, normal mood - Skin Skin exam: Present: warm, dry, intact, normal color. Absent: rash ED Course Vital Signs 09/22/17 09/22/17 09/22/17 01:17 01:30 01:45 Temperature 98.2 F Pulse Rate 142 H 141 H 123 H Respiratory 23 Rate Blood Pressure 171/101 O2 Sat by Pulse Oximetry 09/22/17 09/22/17 01:50 01:57 Temperature Pulse Rate 126 H Respiratory 26 H Rate Blood Pressure 157/91 O2 Sat by Pulse 100 Oximetry ANA MARIA score - Ana Maria Score Age > 65: (0) No Aspirin use within the Past 7 Days: (0) No 3 or more CAD Risk Factors: (0) No 2 or more Angina events in past 24 hrs: (0) No Known CAD with more than 50% Stenosis: (0) No Elevated Cardiac Markers: (0) No ST Deviation Greater than 0.5mm: (0) No ANA MARIA Score: 0 ED Medical Decision Making - Lab Data Result diagrams: 09/22/17 01:35 09/22/17 01:35 - EKG Data Rate: tachycardia - EKG Data When compared to previous EKG there are: previous EKG unavailable Interpretation: other (sinus tachycardia-139) - Radiology Data Radiology results: image reviewed interpreted by me: No acute process. - Medical Decision Making Sepsis DKA Abscess-left gluteal fold - Differential Diagnosis sepsis, dka, abscess-left gluteal fold Critical care attestation.: If time is entered above; I have spent that time in minutes in the direct care of this critically ill patient, excluding procedure time. ED Disposition Clinical Impression: DKA, type 1, Sepsis, Abscess and cellulitis of gluteal region Disposition: DC-09 OP ADMIT IP TO THIS HOSP Is pt being admited?: Yes Does the pt Need Aspirin: No Condition: Stable Instructions: Diabetic Ketoacidosis (ED) Time of Disposition: 03:39
[2017-09-22] MEDS ORDERED: CARDIZEM IV ONE ×2 (01:44→01:53)
[2017-09-22] MEDS ORDERED: NACL 0.9% 1000 ML 1,000 ML IV ONE ×2 (01:45→02:27)
[2017-09-22] MEDS ORDERED: CARDIZEM ONE (01:45)
[2017-09-22 02:00] LABS: Mean Corpuscular HGB Conc 29 % (30-34); Mean Corpuscular Hemoglobin 30 pg (28-32); Mean Corpuscular Volume 103 fl (79-97); Platelet Count 295 K/mm3 (140-440); Red Blood Count 4.13 M/mm3 (3.65-5.03); Red Cell Distribution Width 19.2 % (13.2-15.2)
[2017-09-22 02:06] LABS: Hematocrit 42.3 % (30.3-42.9); Hemoglobin 12.3 gm/dl (10.1-14.3); White Blood Count 22.4 K/mm3 (4.5-11.0)
[2017-09-22 02:11] LABS: INR 1.12 (0.87-1.13)
[2017-09-22 02:12] LABS: Partial Thromboplastin Time 29.5 Sec. (24.2-36.6)
[2017-09-22 02:23] LABS: Creatine Kinase MB 2.5 ng/mL (0.0-4.0)
[2017-09-22 02:24] LABS: Alanine Aminotransferase 13 units/L (7-56); Albumin 3.7 g/dL (3.9-5); Albumin/Globulin Ratio 0.7 %; Alkaline Phosphatase 216 units/L (35-129); BUN/Creatinine Ratio 8; Blood Urea Nitrogen 13 mg/dL (7-17); Calcium 9.5 mg/dL (8.4-10.2); Chloride 78.5 mmol/L (98-107); Creatine Kinase 40 units/L (30-135); Potassium 5.1 mmol/L (3.6-5.0); Sodium 129 mmol/L (137-145)
[2017-09-22 02:34] LABS: Anion Gap 50 mmol/L
[2017-09-22 02:35] LABS: Carbon Dioxide 6 mmol/L (22-30)
[2017-09-22 02:36] LABS: Glucose 672 mg/dL (65-100)
[2017-09-22] MEDS ORDERED: VANCOMYCIN/NS 1 GM/250 ML 1 GM/250 ML BAG IV ONE (02:37)
[2017-09-22 02:50] LABS: Anisocytosis 1+; Basophils % (Manual) 0 % (0.0-1.8); Blastocytes % (Manual) 0 %; Diff Status Complete; Eosinophils % (Manual) 0 % (0.0-4.3); Hypochromasia 1+; Platelet Estimate Consistent w Auto
[2017-09-22] MEDS ORDERED: NACL 0.9% 1000 ML 1,000 ML IV SCH ×2 (03:00→05:00)
[2017-09-22] MEDS ORDERED: CARDIZEM/D5W 100MG/100ML 100 MG/100 ML BAG IV SCH (03:00)
[2017-09-22] MEDS ORDERED: D50W (25GM) Syringe IV PRN (03:08)
[2017-09-22] MEDS ORDERED: MORPHINE IV ONE (03:32)
[2017-09-22] MEDS ORDERED: ZOFRAN IV ONE (03:32)
[2017-09-22] MEDS ORDERED: ZOFRAN ONE (03:36)
[2017-09-22] MEDS ORDERED: MORPHINE ONE (03:36)
--- NOTE | 2017-09-22 03:48 | XRay Report ---
FINAL REPORT EXAM: XR CHEST 1V AP HISTORY: CHEST PAIN TECHNIQUE: A portable view of the chest was obtained. FINDINGS: Heart size and mediastinum appear normal. The lungs are clear. Pleural fluid is not seen. There are EKG leads overlying the chest wall. The bones and soft tissues do not show any acute changes. IMPRESSION: No active chest disease.
[2017-09-22] MEDS ORDERED: KCL 20MEQ/100ML 20 MEQ/100 ML BAG IV SCH (04:00)
[2017-09-22] MEDS ORDERED: NovoLIN R 100 UNITS in NACL 0.9% 99 ML IV SCH (04:00)
[2017-09-22] MEDS ORDERED: D5W/0.45% NACL/KCL 20 MEQ 20 MEQ/1,000 ML BAG IV SCH (04:00)
[2017-09-22] MEDS ORDERED: KCL 10MEQ/100ML 10 MEQ/100 ML BAG IV SCH (04:00)
[2017-09-22 04:36] LABS: Urine Drugs of Abuse Note Disclamer
[2017-09-22] MEDS ORDERED: TYLENOL PO PRN (04:52)
[2017-09-22] MEDS ORDERED: DULCOLAX PR PRN (04:52)
--- NOTE | 2017-09-22 04:58 | History and Physical Report ---
History of Present Illness Date of examination: 09/22/17 History of present illness: 42-year-old woman with a history of Hypertension, diabetes comes to the emergency room with complaints of chest pain that started on Wednesday. Pain is in the epigastric area which she described as a pressure-like sensation, constant, intensity 6/10, no radiation, she cannot identify exacerbating or relieving factors. Admits to shortness of breath, no nausea vomiting, diaphoresis or palpitation, feels dizzy. Also complaining of an abscess that developed on the right buttock on Wednesday. She states she was coming to the emergency room for evaluation on Wednesday, she felt abscess started to drain, brownish material, she reported her trip to the emergency room since the abscess started to drain Review Of Systems: Constitutional: no weight loss Ears, eyes, nose, mouth and throat: no nasal congestion, no nasal discharge, no sinus pressure, blurry vision, diplopia Neck: No neck pain or rigidity. Cardiovascular: No palpitations Respiratory: No shortness of breath, cough Gastrointestinal: No abdominal pain, hematochezia Genitourinary : no dysuria, frequency , hematuria Musculoskeletal: no muscle ache Integumentary: no rash, no pruritis Neurological: no parathesias, focal weakness Endocrine: no cold or heat intolerance, no polyuria or polydipsia Hematologic/Lymphatic: no easy bruising, no easy bleeding, no gland swelling Allergic/Immunologic: no urticaria, no angioedema. PAST MEDICAL HISTORY:Hypertension, diabetes PAST SURGICAL HISTORY: Hysterectomy, , tubal ligation FAMILY HISTORY: Hypertension, diabetes SOCIAL HISTORY:drinks 2 vodka drinks/night, no tobacco or drugs Medications and Allergies Allergies Allergy/AdvReac Type Severity Reaction Status Date / Time No Known Allergies Allergy Verified 04/03/17 14:03 Home Medications Medication Instructions Recorded Confirmed Last Taken Type Lantus Solostar 15 units SQ BID 12/19/16 09/22/17 01/27/17 19:00 History 25 UNITS Acetaminophen 500 mg PO Q6H PRN 09/22/17 09/22/17 Unknown History Levofloxacin [Levaquin] 750 mg PO QDAY 8 Days tablet 09/28/17 Unknown Rx metroNIDAZOLE [Flagyl] 500 mg PO Q8HR 8 Days tablet 09/28/17 Unknown Rx oxyCODONE /ACETAMINOPHEN [Percocet 2 tab PO Q6H PRN #12 tablet 09/28/17 Unknown Rx 5/325 mg] Active Meds: Active Medications Dextrose (D50w (25gm) Syringe) 0 ml IV ONCE PRN PRN Reason: Hypoglycemia Diltiazem HCl (Cardizem/D5w 100mg/100ml) 100 mg in 100 mls @ 2.5 mls/hr IV TITR MANISH; 2.5 MG/HR PRN Reason: Protocol Sodium Chloride (Nacl 0.9% 1000 Ml) 1,000 mls @ 250 mls/hr IV DIRECT MANISH Last Admin: 09/22/17 04:00 Dose: 250 mls/hr Piperacillin Sod/Tazobactam Sod (Zosyn/Ns 4.5gm/100ml) 4.5 gm in 100 mls @ 200 mls/hr IV Q8HR MANISH Potassium Chloride/Dextrose/Sod Cl (D5w/0.45% Nacl/Kcl 20 Meq) 20 meq in 1,000 mls @ 125 mls/hr IV DIRECT MANISH Insulin Human Regular 100 (units/ Sodium Chloride) 100 mls @ 1 mls/hr IV TITR MANISH; 1 UNITS/HR PRN Reason: Protocol Last Admin: 09/22/17 04:07 Dose: 8 units/hr, 8 mls/hr Exam - Physical Exam Narrative exam: Gen. appearance: Patient lying in bed in no acute distress HEENT: Normocephalic/atraumatic, pupils equal round reactive to light, extra occular movement intact, no scleral icterus, no JVD or thyromegaly or nodule, neck is supple, mucous membrane moist, no erythema or exudate Heart: S1-S2, regular rate and rhythm Lungs: Clear to auscultation bilateral breathing comfortable Abdomen: Positive bowel sounds, nontender, nondistended, no organomegaly Extremities: left gluteal abscess, indurated, tender, No edema, cyanosis, clubbing Neuro:: Oriented 3 , cranial nerves II-12 intact, speech, motor intact Skin: No rash, nodules, warm dry - Constitutional Vitals: Temp Pulse Resp BP Pulse Ox 98.2 F 126 H 16 157/91 100 09/22/17 01:30 09/22/17 01:50 09/22/17 04:15 09/22/17 01:50 09/22/17 01:57 Results - Labs CBC & Chem 7: 09/28/17 05:13 09/28/17 05:13 Labs: Abnormal lab results 09/22/17 09/22/17 09/22/17 Range/Units 01:35 01:35 01:35 WBC 22.4 H (4.5-11.0) K/mm3 MCV 103 H (79-97) fl MCHC 29 L (30-34) % RDW 19.2 H (13.2-15.2) % Lymphocytes % (Manual) 7.0 L (13.4-35.0) % Monocytes % (Manual) 16.0 H (0.0-7.3) % Seg Neutrophils # Man 14.8 H (1.8-7.7) K/mm3 Monocytes # (Manual) 3.6 H (0.0-0.8) K/mm3 PT 15.0 H (12.2-14.9) Sec. Sodium 129 L (137-145) mmol/L Potassium 5.1 H (3.6-5.0) mmol/L Chloride 78.5 L (98-107) mmol/L Carbon Dioxide 6 L* (22-30) mmol/L Creatinine 1.7 H (0.7-1.2) mg/dL Glucose 672 H* (65-100) mg/dL POC Glucose (70-105) Alkaline Phosphatase 216 H (35-129) units/L CK-MB (CK-2) Rel Index 6.2 H (0-4) Total Protein 9.0 H (6.3-8.2) g/dL Albumin 3.7 L (3.9-5) g/dL 09/22/17 Range/Units 03:24 WBC (4.5-11.0) K/mm3 MCV (79-97) fl MCHC (30-34) % RDW (13.2-15.2) % Lymphocytes % (Manual) (13.4-35.0) % Monocytes % (Manual) (0.0-7.3) % Seg Neutrophils # Man (1.8-7.7) K/mm3 Monocytes # (Manual) (0.0-0.8) K/mm3 PT (12.2-14.9) Sec. Sodium (137-145) mmol/L Potassium (3.6-5.0) mmol/L Chloride (98-107) mmol/L Carbon Dioxide (22-30) mmol/L Creatinine (0.7-1.2) mg/dL Glucose (65-100) mg/dL POC Glucose > 500 H (70-105) Alkaline Phosphatase (35-129) units/L CK-MB (CK-2) Rel Index (0-4) Total Protein (6.3-8.2) g/dL Albumin (3.9-5) g/dL - Imaging and Cardiology EKG: image reviewed Chest x-ray: image reviewed Assessment and Plan Assessment Sepsis DKA Gluteal abscess Chest pain, related Hypertensive urgency Plan Admit to medicine Continue insulin drip, IV fluid Check serial chemistry, blood sugar Continue Cardizem drip, check cardiac enzymes Obtain stress test when off insulin drip Consult critical care, surgery, start IV Zosyn DVT prophylaxis, follow cultures
[2017-09-22] MEDS ORDERED: D5/0.45NS 1,000 ML IV SCH (05:00)
[2017-09-22] MEDS ORDERED: ZOSYN/NS 4.5GM/100ML 4.5 GM/100 ML VIAL IV SCH (05:00)
[2017-09-22 05:08] LABS: Bilirubin,Urine NEG (Negative); Blood,Urine MOD (Negative); Ketones,Urine 80 mg/dL (Negative); Leukocyte Esterase,Urine NEG (Negative); Mucus,Urine FEW /HPF; Nitrite,Urine NEG (Negative); Urobilinogen,Urine < 2.0 mg/dL (<2.0)
[2017-09-22] MEDS: ZOSYN/NS 4.5GM/100ML 4.5 GM/100 ML VIAL IV SCH ×3 (05:49→23:37)
[2017-09-22] MEDS ORDERED: ZOSYN/NS 3.375GM/50ML 3.375 GM/50 ML BAG IV SCH (06:00)
[2017-09-22] MEDS: MORPHINE IV PRN ×2 (09:35→20:25)
[2017-09-22] MEDS: ZOFRAN IV PRN ×2 (09:35→17:08)
[2017-09-22] MEDS ORDERED: LOVENOX SUB-Q SCH (10:00)
[2017-09-22 10:07] LABS: Potassium TNR mmol/L (3.6-5.0); Sodium TNR mmol/L (137-145)
[2017-09-22 10:08] LABS: Anion Gap TNR mmol/L; BUN/Creatinine Ratio TNR; Blood Urea Nitrogen TNR mg/dL (7-17); Calcium TNR mg/dL (8.4-10.2); Carbon Dioxide TNR mmol/L (22-30); Chloride TNR mmol/L (98-107); Glucose TNR mg/dL (65-100)
[2017-09-22 10:11] LABS: Phosphorous TNR mg/dL (2.5-4.5)
[2017-09-22] MEDS: LOVENOX SUB-Q SCH (11:00)
[2017-09-22 11:15] LABS: BUN/Creatinine Ratio 12; Blood Urea Nitrogen 13 mg/dL (7-17); Calcium 7.7 mg/dL (8.4-10.2); Carbon Dioxide 15 mmol/L (22-30); Chloride 97.5 mmol/L (98-107); Glucose 200 mg/dL (65-100); Potassium 3.5 mmol/L (3.6-5.0); Sodium 133 mmol/L (137-145)
[2017-09-22 11:19] LABS: Creatine Kinase MB 3.2 ng/mL (0.0-4.0)
--- NOTE | 2017-09-22 11:19 | Event Note ---
Date: 09/22/17 Pt seen and examined. Will d/c insulin drip as AG closed. will start on ADa diet. Will also place on subqu insulin. will cont current management and plan as dictated in H and P.
[2017-09-22 11:20] LABS: Creatine Kinase 48 units/L (30-135)
[2017-09-22 11:29] LABS: Magnesium 1.2 mg/dL (1.7-2.3)
[2017-09-22 11:42] LABS: Anion Gap 24 mmol/L
[2017-09-22] MEDS ORDERED: XYLOCAINE 1% 20 mL INFILTRATI ONE (12:17)
[2017-09-22] MEDS ORDERED: DILAUDID IV ONE (12:18)
--- NOTE | 2017-09-22 12:22 | Consultation ---
History of Present Illness Consult date: 09/22/17 Chief complaint: chest pain, buttock pain - History of present illness History of present illness: 42-year-old female with a history of poorly controlled diabetes mellitus. The patient admits to being noncompliant with her insulin regimen. The patient came to the emergency room with complaints of chest pain and shortness of breath for the past 1-2 days. She also noted pain near her buttock area for the past 1 week which is gradually gotten worse. She states that she's been having normal bowel movements without hematochezia or melena. She denies drainage from the perirectal area. She does admit to subjective fevers. The patient states that she's had an abscess drained on her back in the past. Currently, her chest pain and shortness of breath is improved. She denies any abdominal pain, nausea, vomiting. Past History Past Medical History: diabetes Past Surgical History: hysterectomy, Other (incision and drainage of back abscess) Social history: alcohol abuse (4 to 5 times per week). denies: smoking Family history: no significant family history Medications and Allergies Allergies Allergy/AdvReac Type Severity Reaction Status Date / Time No Known Allergies Allergy Verified 04/03/17 14:03 Home Medications Medication Instructions Recorded Confirmed Last Taken Type Lantus Solostar 15 units SQ BID 12/19/16 09/22/17 01/27/17 19:00 History 25 UNITS Acetaminophen 500 mg PO Q6H PRN 09/22/17 09/22/17 Unknown History Active Meds: Active Medications Acetaminophen (Tylenol) 650 mg PO Q4H PRN PRN Reason: Pain MILD(1-3)/Fever >100.5/GUERRA Bisacodyl (Dulcolax) 10 mg [place] QDAY PRN PRN Reason: Constipation unrelieved by MOM Dextrose (D50w (25gm) Syringe) 0 ml IV ONCE PRN PRN Reason: Hypoglycemia Enoxaparin Sodium (Lovenox) 40 mg SUB-Q QDAY@1000 MANISH Last Admin: 09/22/17 11:00 Dose: 40 mg Diltiazem HCl (Cardizem/D5w 100mg/100ml) 100 mg in 100 mls @ 2.5 mls/hr IV TITR MANISH; 2.5 MG/HR PRN Reason: Protocol Piperacillin Sod/Tazobactam Sod (Zosyn/Ns 4.5gm/100ml) 4.5 gm in 100 mls @ 200 mls/hr IV Q8HR MANISH Last Admin: 09/22/17 05:49 Dose: 200 mls/hr Insulin Human Regular 100 (units/ Sodium Chloride) 100 mls @ 1 mls/hr IV TITR MANISH; 1 UNITS/HR PRN Reason: Protocol Last Titration: 09/22/17 12:05 Dose: 3 units/hr, 3 mls/hr Dextrose/Sodium Chloride (D5/0.45ns) 1,000 mls @ 150 mls/hr IV DIRECT MANISH Last Admin: 09/22/17 08:10 Dose: 150 mls/hr Sodium Chloride (Nacl 0.9% 1000 Ml) 1,000 mls @ 150 mls/hr IV DIRECT MANISH Morphine Sulfate (Morphine) 2 mg IV Q4H PRN PRN Reason: Pain, Moderate (4-6) Last Admin: 09/22/17 09:35 Dose: 2 mg Ondansetron HCl (Zofran) 4 mg IV Q4H PRN PRN Reason: N/V unrelieved by Reglan Last Admin: 09/22/17 09:35 Dose: 4 mg Review of Systems All systems: negative (see hpi) Exam Vital Signs Pulse Resp 142 H 23 09/22/17 01:17 09/22/17 01:17 Narrative exam: Gen: AAOx3. NAD. ENT: poor dentition CV: S1, S2+. Tachycardic Resp: No audible wheezes Abd: soft, NT, ND Rectal: large area of induration and fluctuance in the perirectal region, involving the left buttock. +drainage of brown fluid from multiple pinpoint openings in skin overlying fluctuant area. rectal exam - brown soft stool, no masses, no fluctuance, no gross blood. Ext: no c/c/e Results - Labs 09/22/17 01:35 09/22/17 13:34 Abnormal lab results 09/22/17 09/22/17 09/22/17 Range/Units 01:35 01:35 01:35 WBC 22.4 H (4.5-11.0) K/mm3 MCV 103 H (79-97) fl MCHC 29 L (30-34) % RDW 19.2 H (13.2-15.2) % Lymphocytes % (Manual) 7.0 L (13.4-35.0) % Monocytes % (Manual) 16.0 H (0.0-7.3) % Seg Neutrophils # Man 14.8 H (1.8-7.7) K/mm3 Monocytes # (Manual) 3.6 H (0.0-0.8) K/mm3 PT 15.0 H (12.2-14.9) Sec. Sodium 129 L (137-145) mmol/L Potassium 5.1 H (3.6-5.0) mmol/L Chloride 78.5 L (98-107) mmol/L Carbon Dioxide 6 L* (22-30) mmol/L Creatinine 1.7 H (0.7-1.2) mg/dL Glucose 672 H* (65-100) mg/dL POC Glucose (70-105) Calcium (8.4-10.2) mg/dL Magnesium (1.7-2.3) mg/dL Alkaline Phosphatase 216 H (35-129) units/L CK-MB (CK-2) Rel Index 6.2 H (0-4) Total Protein 9.0 H (6.3-8.2) g/dL Albumin 3.7 L (3.9-5) g/dL 09/22/17 09/22/17 09/22/17 Range/Units 03:24 05:10 06:13 WBC (4.5-11.0) K/mm3 MCV (79-97) fl MCHC (30-34) % RDW (13.2-15.2) % Lymphocytes % (Manual) (13.4-35.0) % Monocytes % (Manual) (0.0-7.3) % Seg Neutrophils # Man (1.8-7.7) K/mm3 Monocytes # (Manual) (0.0-0.8) K/mm3 PT (12.2-14.9) Sec. Sodium (137-145) mmol/L Potassium (3.6-5.0) mmol/L Chloride (98-107) mmol/L Carbon Dioxide (22-30) mmol/L Creatinine (0.7-1.2) mg/dL Glucose (65-100) mg/dL POC Glucose > 500 H 412 H 368 H (70-105) Calcium (8.4-10.2) mg/dL Magnesium (1.7-2.3) mg/dL Alkaline Phosphatase (35-129) units/L CK-MB (CK-2) Rel Index (0-4) Total Protein (6.3-8.2) g/dL Albumin (3.9-5) g/dL 09/22/17 09/22/17 09/22/17 Range/Units 07:13 08:48 09:26 WBC (4.5-11.0) K/mm3 MCV (79-97) fl MCHC (30-34) % RDW (13.2-15.2) % Lymphocytes % (Manual) (13.4-35.0) % Monocytes % (Manual) (0.0-7.3) % Seg Neutrophils # Man (1.8-7.7) K/mm3 Monocytes # (Manual) (0.0-0.8) K/mm3 PT (12.2-14.9) Sec. Sodium (137-145) mmol/L Potassium (3.6-5.0) mmol/L Chloride (98-107) mmol/L Carbon Dioxide (22-30) mmol/L Creatinine (0.7-1.2) mg/dL Glucose (65-100) mg/dL POC Glucose 292 H 258 H (70-105) Calcium (8.4-10.2) mg/dL Magnesium 1.20 L (1.7-2.3) mg/dL Alkaline Phosphatase (35-129) units/L CK-MB (CK-2) Rel Index (0-4) Total Protein (6.3-8.2) g/dL Albumin (3.9-5) g/dL 09/22/17 09/22/17 09/22/17 Range/Units 10:36 10:40 10:40 WBC (4.5-11.0) K/mm3 MCV (79-97) fl MCHC (30-34) % RDW (13.2-15.2) % Lymphocytes % (Manual) (13.4-35.0) % Monocytes % (Manual) (0.0-7.3) % Seg Neutrophils # Man (1.8-7.7) K/mm3 Monocytes # (Manual) (0.0-0.8) K/mm3 PT (12.2-14.9) Sec. Sodium 133 L (137-145) mmol/L Potassium 3.5 L D (3.6-5.0) mmol/L Chloride 97.5 L (98-107) mmol/L Carbon Dioxide 15 L D (22-30) mmol/L Creatinine (0.7-1.2) mg/dL Glucose 200 H (65-100) mg/dL POC Glucose 237 H (70-105) Calcium 7.7 L D (8.4-10.2) mg/dL Magnesium (1.7-2.3) mg/dL Alkaline Phosphatase (35-129) units/L CK-MB (CK-2) Rel Index 6.6 H (0-4) Total Protein (6.3-8.2) g/dL Albumin (3.9-5) g/dL 09/22/17 09/22/17 Range/Units 10:40 12:09 WBC (4.5-11.0) K/mm3 MCV (79-97) fl MCHC (30-34) % RDW (13.2-15.2) % Lymphocytes % (Manual) (13.4-35.0) % Monocytes % (Manual) (0.0-7.3) % Seg Neutrophils # Man (1.8-7.7) K/mm3 Monocytes # (Manual) (0.0-0.8) K/mm3 PT (12.2-14.9) Sec. Sodium (137-145) mmol/L Potassium (3.6-5.0) mmol/L Chloride (98-107) mmol/L Carbon Dioxide (22-30) mmol/L Creatinine (0.7-1.2) mg/dL Glucose (65-100) mg/dL POC Glucose 207 H (70-105) Calcium (8.4-10.2) mg/dL Magnesium 1.20 L (1.7-2.3) mg/dL Alkaline Phosphatase (35-129) units/L CK-MB (CK-2) Rel Index (0-4) Total Protein (6.3-8.2) g/dL Albumin (3.9-5) g/dL Diabetes panel 09/22/17 09/22/17 09/22/17 Range/Units 01:35 08:48 10:40 Sodium 129 L TNR 133 L (137-145) mmol/L Potassium 5.1 H TNR 3.5 L D (3.6-5.0) mmol/L Chloride 78.5 L TNR 97.5 L (98-107) mmol/L Carbon Dioxide 6 L* TNR 15 L D (22-30) mmol/L BUN 13 TNR 13 (7-17) mg/dL Creatinine 1.7 H TNR 1.1 (0.7-1.2) mg/dL Glucose 672 H* TNR 200 H (65-100) mg/dL Calcium 9.5 TNR 7.7 L D (8.4-10.2) mg/dL AST 20 (5-40) units/L ALT 13 (7-56) units/L Alkaline Phosphatase 216 H (35-129) units/L Total Protein 9.0 H (6.3-8.2) g/dL Albumin 3.7 L (3.9-5) g/dL Calcium panel 09/22/17 09/22/17 09/22/17 Range/Units 01:35 08:48 08:48 Calcium 9.5 TNR (8.4-10.2) mg/dL Phosphorus TNR Albumin 3.7 L (3.9-5) g/dL 09/22/17 Range/Units 10:40 Calcium 7.7 L D (8.4-10.2) mg/dL Phosphorus Albumin (3.9-5) g/dL Pituitary panel 09/22/17 09/22/17 09/22/17 Range/Units 01:35 08:48 10:40 Sodium 129 L TNR 133 L (137-145) mmol/L Potassium 5.1 H TNR 3.5 L D (3.6-5.0) mmol/L Chloride 78.5 L TNR 97.5 L (98-107) mmol/L Carbon Dioxide 6 L* TNR 15 L D (22-30) mmol/L BUN 13 TNR 13 (7-17) mg/dL Creatinine 1.7 H TNR 1.1 (0.7-1.2) mg/dL Glucose 672 H* TNR 200 H (65-100) mg/dL Calcium 9.5 TNR 7.7 L D (8.4-10.2) mg/dL Adrenal panel 09/22/17 09/22/17 09/22/17 Range/Units 01:35 08:48 10:40 Sodium 129 L TNR 133 L (137-145) mmol/L Potassium 5.1 H TNR 3.5 L D (3.6-5.0) mmol/L Chloride 78.5 L TNR 97.5 L (98-107) mmol/L Carbon Dioxide 6 L* TNR 15 L D (22-30) mmol/L BUN 13 TNR 13 (7-17) mg/dL Creatinine 1.7 H TNR 1.1 (0.7-1.2) mg/dL Glucose 672 H* TNR 200 H (65-100) mg/dL Calcium 9.5 TNR 7.7 L D (8.4-10.2) mg/dL Total Bilirubin 0.80 (0.1-1.2) mg/dL AST 20 (5-40) units/L ALT 13 (7-56) units/L Alkaline Phosphatase 216 H (35-129) units/L Total Protein 9.0 H (6.3-8.2) g/dL Albumin 3.7 L (3.9-5) g/dL Assessment and Plan 42 yo F with 1. DKA 2. sepsis 3. perirectal abscess 4. hypomagnesemia, hypophos Plan: 1. admitted to ICU 2. management of DKA per CCU team 3. NPO 4. IVF 5. IV abx - zosyn 6. will need I&D of perirectal abscess - spoke with patient and will perform at bedside. All risks explained, questions answered, and consent obtained. Abscess cultures to be obtained. 7. Dilaudid 2mg IV and lidocaine ordered 8. PRN pain control 9. DVT ppx 10. replace lytes, repeat labs in am
[2017-09-22 12:23] LABS: Phosphorous 0.7 mg/dL (2.5-4.5)
[2017-09-22] MEDS ORDERED: BENADRYL ONE (13:32)
--- NOTE | 2017-09-22 13:45 | Consultation ---
History of Present Illness Consult date: 09/22/17 Requesting physician: JAVY FULTON Reason for consult: other (Sepsis, diabetic ketoacidosis) History of present illness: 22-year-old woman with a history of Hypertension, diabetes comes to the emergency room with complaints of chest pain that started on Wednesday. Pain is in the epigastric area which she described as a pressure-like sensation, constant, intensity 6/10, no radiation, she cannot identify exacerbating or relieving factors. Admits to shortness of breath, no nausea vomiting, diaphoresis or palpitation, feels dizzy. Also complaining of an abscess that developed on the right buttock on Wednesday. She states she was coming to the emergency room for evaluation on Wednesday, she felt abscess started to drain, brownish material, she reported her trip to the emergency room since the abscess started to drain We have been consulted for critical management of her sepsis, severe metabolic acidosis in the setting of diabetic ketoacidosis. Patient was seen and examined in the ER. Vitals, labs, medications, chart were reviewed. Thank you for consultation Review Of Systems: Constitutional: has weight loss Ears, eyes, nose, mouth and throat: no nasal congestion, no nasal discharge, no sinus pressure, blurry vision, diplopia Neck: No neck pain or rigidity. Cardiovascular: No palpitations Respiratory: No shortness of breath, cough Gastrointestinal: No abdominal pain, hematochezia Genitourinary : no dysuria, frequency , hematuria Musculoskeletal: no muscle ache Integumentary: no rash, no pruritis Neurological: no parathesias, focal weakness Endocrine: no cold or heat intolerance, no polyuria or polydipsia Hematologic/Lymphatic: no easy bruising, no easy bleeding, no gland swelling Allergic/Immunologic: no urticaria, no angioedema PAST MEDICAL HISTORY:Hypertension, diabetes PAST SURGICAL HISTORY: Hysterectomy, , tubal ligation FAMILY HISTORY: Hypertension, diabetes SOCIAL HISTORY:drinks 2 vodka drinks/night, no tobacco or drugs Medications and Allergies Allergies Allergy/AdvReac Type Severity Reaction Status Date / Time No Known Allergies Allergy Verified 04/03/17 14:03 Home Medications Medication Instructions Recorded Confirmed Last Taken Type Lantus Solostar 15 units SQ BID 12/19/16 09/22/17 01/27/17 19:00 History 25 UNITS Acetaminophen 500 mg PO Q6H PRN 09/22/17 09/22/17 Unknown History Active Meds: Active Medications Acetaminophen (Tylenol) 650 mg PO Q4H PRN PRN Reason: Pain MILD(1-3)/Fever >100.5/GUERRA Bisacodyl (Dulcolax) 10 mg OR QDAY PRN PRN Reason: Constipation unrelieved by MOM Dextrose (D50w (25gm) Syringe) 0 ml IV ONCE PRN PRN Reason: Hypoglycemia Enoxaparin Sodium (Lovenox) 40 mg SUB-Q QDAY@1000 MANISH Last Admin: 09/22/17 11:00 Dose: 40 mg Diltiazem HCl (Cardizem/D5w 100mg/100ml) 100 mg in 100 mls @ 2.5 mls/hr IV TITR MANISH; 2.5 MG/HR PRN Reason: Protocol Piperacillin Sod/Tazobactam Sod (Zosyn/Ns 4.5gm/100ml) 4.5 gm in 100 mls @ 200 mls/hr IV Q8HR MANISH Last Admin: 09/22/17 13:42 Dose: 200 mls/hr Insulin Human Regular 100 (units/ Sodium Chloride) 100 mls @ 1 mls/hr IV TITR MANISH; 1 UNITS/HR PRN Reason: Protocol Last Titration: 09/22/17 12:05 Dose: 3 units/hr, 3 mls/hr Dextrose/Sodium Chloride (D5/0.45ns) 1,000 mls @ 150 mls/hr IV DIRECT MANISH Last Admin: 09/22/17 08:10 Dose: 150 mls/hr Sodium Chloride (Nacl 0.9% 1000 Ml) 1,000 mls @ 150 mls/hr IV DIRECT MANISH Morphine Sulfate (Morphine) 2 mg IV Q4H PRN PRN Reason: Pain, Moderate (4-6) Last Admin: 09/22/17 09:35 Dose: 2 mg Ondansetron HCl (Zofran) 4 mg IV Q4H PRN PRN Reason: N/V unrelieved by Reglan Last Admin: 09/22/17 09:35 Dose: 4 mg Physical Examination Vital signs: Vital Signs Pulse Resp 142 H 23 09/22/17 01:17 09/22/17 01:17 General appearance: no acute distress, asleep Eyes: non-icteric ENT: oropharynx dry Neck: supple, no lymphadenopathy, no JVD Effort: mildly labored Ascultation: Bilateral: clear Cardiovascular: regular rate and rhythm, other (S1,S2 , no murmurs, gallops or rubs) Gastrointestinal: normoactive bowel sounds, soft, non-tender, non-distended Integumentary: normal Extremities: no cyanosis, no edema, pulses normal, no ischemia or petechiae Musculoskeletal: no deformities normal mental status, non-focal exam, pupils equal and round, CN II-XII normal affect normal Results - Laboratory Findings CBC and BMP: 09/22/17 01:35 09/22/17 13:34 PT/INR, D-dimer PT 15.0 Sec. (12.2-14.9) H 09/22/17 01:35 INR 1.12 (0.87-1.13) 09/22/17 01:35 Abnormal lab findings: Abnormal Labs 09/22/17 09/22/17 09/22/17 01:35 01:35 01:35 WBC 22.4 H MCV 103 H MCHC 29 L RDW 19.2 H Lymphocytes % (Manual) 7.0 L Monocytes % (Manual) 16.0 H Seg Neutrophils # Man 14.8 H Monocytes # (Manual) 3.6 H PT 15.0 H Sodium 129 L Potassium 5.1 H Chloride 78.5 L Carbon Dioxide 6 L* Creatinine 1.7 H Glucose 672 H* POC Glucose Calcium Phosphorus Magnesium Alkaline Phosphatase 216 H CK-MB (CK-2) Rel Index 6.2 H Total Protein 9.0 H Albumin 3.7 L 09/22/17 09/22/17 09/22/17 03:24 05:10 06:13 WBC MCV MCHC RDW Lymphocytes % (Manual) Monocytes % (Manual) Seg Neutrophils # Man Monocytes # (Manual) PT Sodium Potassium Chloride Carbon Dioxide Creatinine Glucose POC Glucose > 500 H 412 H 368 H Calcium Phosphorus Magnesium Alkaline Phosphatase CK-MB (CK-2) Rel Index Total Protein Albumin 09/22/17 09/22/17 09/22/17 07:13 08:48 09:26 WBC MCV MCHC RDW Lymphocytes % (Manual) Monocytes % (Manual) Seg Neutrophils # Man Monocytes # (Manual) PT Sodium Potassium Chloride Carbon Dioxide Creatinine Glucose POC Glucose 292 H 258 H Calcium Phosphorus Magnesium 1.20 L Alkaline Phosphatase CK-MB (CK-2) Rel Index Total Protein Albumin 09/22/17 09/22/17 09/22/17 10:36 10:40 10:40 WBC MCV MCHC RDW Lymphocytes % (Manual) Monocytes % (Manual) Seg Neutrophils # Man Monocytes # (Manual) PT Sodium 133 L Potassium 3.5 L D Chloride 97.5 L Carbon Dioxide 15 L D Creatinine Glucose 200 H POC Glucose 237 H Calcium 7.7 L D Phosphorus Magnesium Alkaline Phosphatase CK-MB (CK-2) Rel Index 6.6 H Total Protein Albumin 09/22/17 09/22/17 09/22/17 10:40 12:09 13:37 WBC MCV MCHC RDW Lymphocytes % (Manual) Monocytes % (Manual) Seg Neutrophils # Man Monocytes # (Manual) PT Sodium Potassium Chloride Carbon Dioxide Creatinine Glucose POC Glucose 207 H 197 H Calcium Phosphorus 0.70 L* Magnesium 1.20 L Alkaline Phosphatase CK-MB (CK-2) Rel Index Total Protein Albumin Assessment and Plan - Patient Problems (1) Sepsis Current Visit: Yes Status: Acute Plan to address problem: Follow up cultures from abscess Antibiotics VTE prophylaxis (2) Diabetic keto-acidosis Current Visit: Yes Status: Acute Plan to address problem: Continue to monitor electrolytes Continue insulin infusion Continue treatment for DKA per protocol (3) Acute renal failure Current Visit: No Status: Acute Qualifiers: Acute renal failure type: unspecified Qualified Code(s): N17.9 - Acute kidney failure, unspecified Plan to address problem: Probably pre-renal from DKA Fluid administration Monitor renal profile Avoid nephrotoxics Strict intake and output measurements Adjust all medications for GFR and CrCL (4) Abscess and cellulitis of gluteal region Current Visit: Yes Status: Acute Plan to address problem: Antibiotics Follow cultures s/p I and D by surgical service (5) Alcoh dep NEC/NOS, unspec Current Visit: Yes Status: Acute Plan to address problem: Alcohol withdrawal precautions Monitor for DTs Substance abuse counselling
[2017-09-22] MEDS: BENADRYL IV PRN ×2 (14:00→20:25)
[2017-09-22 14:16] LABS: Anion Gap 22 mmol/L; BUN/Creatinine Ratio 12; Blood Urea Nitrogen 12 mg/dL (7-17); Calcium 7.8 mg/dL (8.4-10.2); Carbon Dioxide 16 mmol/L (22-30); Chloride 101.2 mmol/L (98-107); Glucose 186 mg/dL (65-100); Potassium 3.7 mmol/L (3.6-5.0); Sodium 135 mmol/L (137-145)
[2017-09-22] MEDS ORDERED: MAGNESIUM SULFATE IV ONE (14:49)
[2017-09-22] MEDS ORDERED: MAGNESIUM SULFATE 1 GM in NACL 0.9% 50 ML IV ONE (16:00)
[2017-09-22] MEDS: K-PHOS NEUTRAL PO SCH ×2 (16:25→23:37)
--- NOTE | 2017-09-22 16:37 | Operative Report ---
Operative Report Operative Report: Date of procedure: 09/22/2017 Preoperative diagnosis: Perirectal abscess, sepsis Postoperative diagnosis: Perirectal abscess, sepsis Procedure: incision and drainage of perirectal abscess Surgeon: luciana Melchor DO Anesthesia: Local Findings: 6cm (width) x 5 cm (length) x 3 cm (depth) abscess cavity. No obvious connection with the rectum on rectal exam. Greater then 50 mL of foul- smelling purulent drainage. Complications: None Estimated blood loss: 5 mL HPI an indication: Patient is a 42-year-old female with diabetes who is noncompliant with her insulin regimen. The patient states that she started having severe chest pain over the last day or so and this is what prompted her visit to the emergency room. She also noted pain in her buttock that been ongoing for the past week. She states the pain has gradually gotten worse. The patient was found to have a perirectal abscess on exam. She also exhibited signs of sepsis, including tachycardia and elevated white blood cell count. All risks were discussed and questions answered regarding incision and drainage of the abscess at the bedside. Consent was obtained. Procedure in detail: Patient was identified. The perirectal area was prepped with Betadine in the usual sterile fashion. A timeout was performed with nurse in the room. 1% lidocaine was infiltrated into the skin and subcutaneous tissue overlying an area of fluctuance and active drainage. Approximately 10 mL was used in total. A cruciate incision was made over the site using a 15 blade there was immediate drainage of foul-smelling purulent, brown fluid. Using a hemostat the opening was widened and all loculations were bluntly broken up. Also using a gloved finger, all loculations were bluntly broken up and abscess cavity evacuated. Cultures were obtained. The abscess cavity was then irrigated copiously with saline solution. It was then packed with one piece of saline moistened Doug. There was hemostasis at the end of the procedure. Wound was covered with 4 x 4 gauze. The patient tolerated the procedure well. All sharps were disposed of appropriately.
[2017-09-22] MEDS ORDERED: VANCOMYCIN/NS 1 GM/250 ML 1 GM/250 ML BAG IV SCH (17:00)
[2017-09-22] MEDS: VANCOMYCIN 1,500 MG in NACL 0.9% 500 ML 500 ML IV SCH (17:45)
[2017-09-22] MEDS ORDERED: KPHOS 30 MMOL in NACL 0.9% 500 ML 500 ML IV ONE (18:00)
[2017-09-22 19:48] LABS: Anion Gap 17 mmol/L; BUN/Creatinine Ratio 14; Blood Urea Nitrogen 11 mg/dL (7-17); Calcium 6.6 mg/dL (8.4-10.2); Carbon Dioxide 16 mmol/L (22-30); Chloride 104.8 mmol/L (98-107); Glucose 111 mg/dL (65-100); Sodium 135 mmol/L (137-145)
[2017-09-22 21:01] LABS: Potassium 2.9 mmol/L (3.6-5.0)
[2017-09-22] MEDS ORDERED: LEVEMIR SUB-Q SCH (22:00)
[2017-09-22] MEDS ORDERED: K-DUR PO ONE (22:00)
[2017-09-23 04:17] LABS: Hematocrit 31.3 % (30.3-42.9); Hemoglobin 10.2 gm/dl (10.1-14.3); Mean Corpuscular HGB Conc 33 % (30-34); Mean Corpuscular Hemoglobin 30 pg (28-32); Mean Corpuscular Volume 91 fl (79-97); Platelet Count 163 K/mm3 (140-440); Red Blood Count 3.43 M/mm3 (3.65-5.03); Red Cell Distribution Width 18.3 % (13.2-15.2); White Blood Count 8.5 K/mm3 (4.5-11.0)
[2017-09-23 04:36] LABS: Anion Gap 21 mmol/L; BUN/Creatinine Ratio 11; Blood Urea Nitrogen 12 mg/dL (7-17); Calcium 7.4 mg/dL (8.4-10.2); Carbon Dioxide 13 mmol/L (22-30); Chloride 102.1 mmol/L (98-107); Glucose 404 mg/dL (65-100); Sodium 132 mmol/L (137-145)
[2017-09-23 04:39] LABS: Potassium 3.6 mmol/L (3.6-5.0)
[2017-09-23 05:26] LABS: Anisocytosis 1+; Basophils % (Manual) 0 % (0.0-1.8); Blastocytes % (Manual) 0 %; Burr Cells Few; Diff Status Complete; Ovalocytes 1+
[2017-09-23] MEDS: BENADRYL IV PRN ×3 (06:16→18:00)
[2017-09-23] MEDS: NACL 0.9% 1000 ML 1,000 ML IV SCH ×2 (06:16→18:04)
[2017-09-23] MEDS: ZOSYN/NS 4.5GM/100ML 4.5 GM/100 ML VIAL IV SCH ×3 (06:16→21:07)
[2017-09-23] MEDS: VANCOMYCIN 1,500 MG in NACL 0.9% 500 ML 500 ML IV SCH (06:16)
[2017-09-23] MEDS: MORPHINE IV PRN ×3 (06:17→17:59)
[2017-09-23 06:32] LABS: Anion Gap 19 mmol/L; BUN/Creatinine Ratio 11; Blood Urea Nitrogen 11 mg/dL (7-17); Calcium 7.6 mg/dL (8.4-10.2); Carbon Dioxide 14 mmol/L (22-30); Chloride 104.5 mmol/L (98-107); Glucose 366 mg/dL (65-100); Potassium 3.4 mmol/L (3.6-5.0); Sodium 134 mmol/L (137-145)
[2017-09-23] MEDS: LOVENOX SUB-Q SCH (10:12)
[2017-09-23] MEDS: K-PHOS NEUTRAL PO SCH ×4 (10:13→21:05)
[2017-09-23] MEDS ORDERED: MORPHINE IV ONE (10:30)
--- NOTE | 2017-09-23 10:32 | Progress Note ---
Assessment and Plan 42 yo F with 1. DKA - improving 2. sepsis 2/2 #3 - leukocytosis improved 3. perirectal abscess s/p incision and drainage at bedside Plan: 1. management of DKA per 1' team 2. carb controlled diet 3. IVF 4. IV abx - zosyn 5. daily wound care, wound care consult placed 6. PO pain control 7. DVT ppx 8. monitor and replace lytes as needed 9. patient counseled on the importance of glucose control to help heal wound Subjective Date of service: 09/23/17 Narrative: Pt seen and examined. c/o pain near buttock wound. No f/c overnight. Tm 99.7. Patient is tolerating a regular diet. Denies abd pain, n/v. No CP, sob Objective Vital Signs - 12hr 09/23/17 09/23/17 05:00 07:36 Temperature 98.2 F Pulse Rate 107 H Respiratory 18 Rate Blood Pressure 96/47 O2 Sat by Pulse 95 96 Oximetry - General physical appearance Narrative Exam: Gen: AAOx3. NAD Rectal: perirectal wound with packing in place. One piece of carmella packing removed. minimal bloody drainage from wound. +induration but no further drainage expressed. Wound repacked with one piece of 1/4 inch iodoform packing. Covered with 4x4 gauze and abd. - Labs 09/23/17 03:49 09/23/17 04:52 Diabetes panel 09/22/17 09/22/17 09/22/17 Range/Units 10:40 13:34 Unknown Sodium 133 L 135 L 135 L (137-145) mmol/L Potassium 3.5 L D 3.7 2.9 L* D (3.6-5.0) mmol/L Chloride 97.5 L 101.2 104.8 (98-107) mmol/L Carbon Dioxide 15 L D 16 L 16 L (22-30) mmol/L BUN 13 12 11 (7-17) mg/dL Creatinine 1.1 1.0 0.8 (0.7-1.2) mg/dL Glucose 200 H 186 H 111 H (65-100) mg/dL Calcium 7.7 L D 7.8 L 6.6 L D (8.4-10.2) mg/dL 09/23/17 09/23/17 Range/Units 03:49 04:52 Sodium 132 L 134 L (137-145) mmol/L Potassium 3.6 D 3.4 L (3.6-5.0) mmol/L Chloride 102.1 104.5 (98-107) mmol/L Carbon Dioxide 13 L 14 L (22-30) mmol/L BUN 12 11 (7-17) mg/dL Creatinine 1.1 1.0 (0.7-1.2) mg/dL Glucose 404 H 366 H (65-100) mg/dL Calcium 7.4 L 7.6 L (8.4-10.2) mg/dL Calcium panel 09/22/17 09/22/17 09/22/17 Range/Units 10:40 10:40 13:34 Calcium 7.7 L D 7.8 L (8.4-10.2) mg/dL Phosphorus 0.70 L* (2.5-4.5) mg/dL 09/22/17 09/23/17 09/23/17 Range/Units Unknown 03:49 04:52 Calcium 6.6 L D 7.4 L 7.6 L (8.4-10.2) mg/dL Phosphorus (2.5-4.5) mg/dL Pituitary panel 09/22/17 09/22/17 09/22/17 Range/Units 10:40 13:34 Unknown Sodium 133 L 135 L 135 L (137-145) mmol/L Potassium 3.5 L D 3.7 2.9 L* D (3.6-5.0) mmol/L Chloride 97.5 L 101.2 104.8 (98-107) mmol/L Carbon Dioxide 15 L D 16 L 16 L (22-30) mmol/L BUN 13 12 11 (7-17) mg/dL Creatinine 1.1 1.0 0.8 (0.7-1.2) mg/dL Glucose 200 H 186 H 111 H (65-100) mg/dL Calcium 7.7 L D 7.8 L 6.6 L D (8.4-10.2) mg/dL 09/23/17 09/23/17 Range/Units 03:49 04:52 Sodium 132 L 134 L (137-145) mmol/L Potassium 3.6 D 3.4 L (3.6-5.0) mmol/L Chloride 102.1 104.5 (98-107) mmol/L Carbon Dioxide 13 L 14 L (22-30) mmol/L BUN 12 11 (7-17) mg/dL Creatinine 1.1 1.0 (0.7-1.2) mg/dL Glucose 404 H 366 H (65-100) mg/dL Calcium 7.4 L 7.6 L (8.4-10.2) mg/dL Adrenal panel 09/22/17 09/22/17 09/22/17 Range/Units 10:40 13:34 Unknown Sodium 133 L 135 L 135 L (137-145) mmol/L Potassium 3.5 L D 3.7 2.9 L* D (3.6-5.0) mmol/L Chloride 97.5 L 101.2 104.8 (98-107) mmol/L Carbon Dioxide 15 L D 16 L 16 L (22-30) mmol/L BUN 13 12 11 (7-17) mg/dL Creatinine 1.1 1.0 0.8 (0.7-1.2) mg/dL Glucose 200 H 186 H 111 H (65-100) mg/dL Calcium 7.7 L D 7.8 L 6.6 L D (8.4-10.2) mg/dL 09/23/17 09/23/17 Range/Units 03:49 04:52 Sodium 132 L 134 L (137-145) mmol/L Potassium 3.6 D 3.4 L (3.6-5.0) mmol/L Chloride 102.1 104.5 (98-107) mmol/L Carbon Dioxide 13 L 14 L (22-30) mmol/L BUN 12 11 (7-17) mg/dL Creatinine 1.1 1.0 (0.7-1.2) mg/dL Glucose 404 H 366 H (65-100) mg/dL Calcium 7.4 L 7.6 L (8.4-10.2) mg/dL
[2017-09-23] MEDS ORDERED: K-DUR PO ONE (13:00)
--- NOTE | 2017-09-23 13:38 | Progress Note ---
Assessment and Plan Sepsis Syndrome DKA Gluteal Abscess s/p I&D PAUL H/O EtOH abuse - continue empiric AB's - follow cultures and sensitivities - DKA resolved - continue glycemic control withh SSI - continue gentle IVF re: PAUL - watch for DT's - GI & VTE prophylaxis ...overall improved .. will see prn Subjective Date of service: 09/23/17 Principal diagnosis: DKA; Sepsis Interval history: Patient is seen today for: DKA; Sepsis; Gluteal Abscess Seen and examined at bedside; 24hour events reviewed; nursing and respiratory care staff consulted; no adverse overnight events reported to me; resting peacefully in bed; complains of back pain at drainage site; No N/V/F/C Objective Vital Signs - 12hr 09/23/17 09/23/17 09/23/17 05:00 07:36 11:43 Temperature 98.2 F Pulse Rate 107 H 101 H Respiratory 18 Rate Blood Pressure 96/47 O2 Sat by Pulse 95 96 Oximetry Constitutional: no acute distress, asleep Eyes: non-icteric ENT: oropharynx dry Neck: supple, no lymphadenopathy, no JVD Effort: normal Ascultation: Bilateral: clear Percussion: Bilateral: not dull Cardiovascular: regular rate and rhythm, other (S1,S2 , no murmurs, gallops or rubs) Gastrointestinal: normoactive bowel sounds, soft, non-tender, non-distended, other (No HSM) Integumentary: normal Extremities: no cyanosis, no edema, pulses normal, no ischemia or petechiae Neurologic: normal mental status, non-focal exam, pupils equal and round, CN II- XII normal, motor strength normal and Psychiatric: mood appropriate, affect normal CBC and BMP: 09/23/17 03:49 09/23/17 04:52 ABG, PT/INR, D-dimer: PT/INR, D-dimer PT 15.0 Sec. (12.2-14.9) H 09/22/17 01:35 INR 1.12 (0.87-1.13) 09/22/17 01:35 Abnormal lab findings: Abnormal Labs 09/22/17 09/22/17 09/22/17 01:35 01:35 01:35 WBC 22.4 H RBC MCV 103 H MCHC 29 L RDW 19.2 H Lymphocytes % (Manual) 7.0 L Monocytes % (Manual) 16.0 H Seg Neutrophils # Man 14.8 H Monocytes # (Manual) 3.6 H PT 15.0 H Sodium 129 L Potassium 5.1 H Chloride 78.5 L Carbon Dioxide 6 L* Creatinine 1.7 H Glucose 672 H* POC Glucose Calcium Phosphorus Magnesium Alkaline Phosphatase 216 H CK-MB (CK-2) Rel Index 6.2 H Total Protein 9.0 H Albumin 3.7 L 09/22/17 09/22/17 09/22/17 03:24 05:10 06:13 WBC RBC MCV MCHC RDW Lymphocytes % (Manual) Monocytes % (Manual) Seg Neutrophils # Man Monocytes # (Manual) PT Sodium Potassium Chloride Carbon Dioxide Creatinine Glucose POC Glucose > 500 H 412 H 368 H Calcium Phosphorus Magnesium Alkaline Phosphatase CK-MB (CK-2) Rel Index Total Protein Albumin 09/22/17 09/22/17 09/22/17 07:13 08:48 09:26 WBC RBC MCV MCHC RDW Lymphocytes % (Manual) Monocytes % (Manual) Seg Neutrophils # Man Monocytes # (Manual) PT Sodium Potassium Chloride Carbon Dioxide Creatinine Glucose POC Glucose 292 H 258 H Calcium Phosphorus Magnesium 1.20 L Alkaline Phosphatase CK-MB (CK-2) Rel Index Total Protein Albumin 09/22/17 09/22/17 09/22/17 10:36 10:40 10:40 WBC RBC MCV MCHC RDW Lymphocytes % (Manual) Monocytes % (Manual) Seg Neutrophils # Man Monocytes # (Manual) PT Sodium 133 L Potassium 3.5 L D Chloride 97.5 L Carbon Dioxide 15 L D Creatinine Glucose 200 H POC Glucose 237 H Calcium 7.7 L D Phosphorus Magnesium Alkaline Phosphatase CK-MB (CK-2) Rel Index 6.6 H Total Protein Albumin 09/22/17 09/22/17 09/22/17 10:40 12:09 13:34 WBC RBC MCV MCHC RDW Lymphocytes % (Manual) Monocytes % (Manual) Seg Neutrophils # Man Monocytes # (Manual) PT Sodium 135 L Potassium Chloride Carbon Dioxide 16 L Creatinine Glucose 186 H POC Glucose 207 H Calcium 7.8 L Phosphorus 0.70 L* Magnesium 1.20 L Alkaline Phosphatase CK-MB (CK-2) Rel Index Total Protein Albumin 09/22/17 09/22/17 09/22/17 13:37 15:01 16:55 WBC RBC MCV MCHC RDW Lymphocytes % (Manual) Monocytes % (Manual) Seg Neutrophils # Man Monocytes # (Manual) PT Sodium Potassium Chloride Carbon Dioxide Creatinine Glucose POC Glucose 197 H 175 H 135 H Calcium Phosphorus Magnesium Alkaline Phosphatase CK-MB (CK-2) Rel Index Total Protein Albumin 09/22/17 09/23/17 09/23/17 Unknown 00:05 03:49 WBC RBC MCV MCHC RDW Lymphocytes % (Manual) Monocytes % (Manual) Seg Neutrophils # Man Monocytes # (Manual) PT Sodium 135 L 132 L Potassium 2.9 L* D Chloride Carbon Dioxide 16 L 13 L Creatinine Glucose 111 H 404 H POC Glucose 399 H Calcium 6.6 L D 7.4 L Phosphorus Magnesium Alkaline Phosphatase CK-MB (CK-2) Rel Index Total Protein Albumin 09/23/17 09/23/17 09/23/17 03:49 04:52 08:44 WBC RBC 3.43 L MCV MCHC RDW 18.3 H Lymphocytes % (Manual) Monocytes % (Manual) 8.0 H Seg Neutrophils # Man Monocytes # (Manual) PT Sodium 134 L Potassium 3.4 L Chloride Carbon Dioxide 14 L Creatinine Glucose 366 H POC Glucose 208 H Calcium 7.6 L Phosphorus Magnesium Alkaline Phosphatase CK-MB (CK-2) Rel Index Total Protein Albumin 09/23/17 11:53 WBC RBC MCV MCHC RDW Lymphocytes % (Manual) Monocytes % (Manual) Seg Neutrophils # Man Monocytes # (Manual) PT Sodium Potassium Chloride Carbon Dioxide Creatinine Glucose POC Glucose 184 H Calcium Phosphorus Magnesium Alkaline Phosphatase CK-MB (CK-2) Rel Index Total Protein Albumin Chest x-ray: image reviewed
--- NOTE | 2017-09-23 15:56 | Progress Note ---
Assessment and Plan Sepsis likely from gluteal abscess - cont abx for now, s/p I and D by DKA - off insulin drip - cont ada diet, subcu insulin - adjust insulin dose as needed depending on BG level Gluteal abscess - s/p I and d - will follow cx, cont abx Chest pain, related - will order 2d echo, CE so far negative - no chest pain now Hypertensive urgency - off any BP meds now - off cardizem drip DVT prophylaxis, lovenox Brief history: The patient came to the emergency room with complaints of chest pain and shortness of breath for the past 1-2 days. She also noted pain near her buttock area for the past 1 week which is gradually gotten worse. In the ER she noted to have left gluteal abscess and BG of 672. She was admitted to the ICU with DKA protocol and general surgeon was consulted for possible I&D of her left gluteal abscess. Radiological test: Chest x-ray which showed no infiltrates Hospitalist Physical exam: GENERAL: well-developed and well-nourished female lying on bed appeared to be in no discomfort. HEENT: Normocephalic. Atraumatic. No conjunctival congestion or icterus. Patient has moist mucous membranes. NECK: Supple. Trachea midline. CHEST/LUNGS: Clear to auscultated bilaterally, breathing nonlabored. No wheezes crackles or rhonchi. HEART/CARDIOVASCULAR: Regular in rate and rhythm. S1 and S2 positive. ABDOMEN: Abdomen is soft, nontender. Patient has normal bowel sounds. SKIN: There is no rash. Warm and dry. NEURO: No focal motor deficit. Follows command. MUSCULOSKELETAL: No joint effusion or tenderness. EXTRIMITY: No edema, no cyanosis or clubbing. PSYCH: Cooperative. Subjective Date of service: 09/23/17 Principal diagnosis: DKA; Sepsis Interval history: Patient seen and examined. Medical records and medication list reviewed. No acute event overnight noted by the RN. Patient denies any chest pain or difficulty breathing. Patient is tolerating diet. Discussed plan of care at bedside with patient. Objective - Constitutional Vitals: Vital Signs - 12hr 09/23/17 09/23/17 09/23/17 05:00 07:36 11:43 Temperature 98.2 F Pulse Rate 107 H 101 H Respiratory 18 Rate Blood Pressure 96/47 O2 Sat by Pulse 95 96 Oximetry - Labs CBC & Chem 7: 09/23/17 03:49 09/23/17 04:52 Labs: Abnormal lab results 09/22/17 09/22/17 09/23/17 Range/Units 16:55 Unknown 00:05 RBC (3.65-5.03) M/mm3 RDW (13.2-15.2) % Monocytes % (Manual) (0.0-7.3) % Sodium 135 L (137-145) mmol/L Potassium 2.9 L* D (3.6-5.0) mmol/L Carbon Dioxide 16 L (22-30) mmol/L Glucose 111 H (65-100) mg/dL POC Glucose 135 H 399 H (70-105) Calcium 6.6 L D (8.4-10.2) mg/dL 09/23/17 09/23/17 09/23/17 Range/Units 03:49 03:49 04:52 RBC 3.43 L (3.65-5.03) M/mm3 RDW 18.3 H (13.2-15.2) % Monocytes % (Manual) 8.0 H (0.0-7.3) % Sodium 132 L 134 L (137-145) mmol/L Potassium 3.4 L (3.6-5.0) mmol/L Carbon Dioxide 13 L 14 L (22-30) mmol/L Glucose 404 H 366 H (65-100) mg/dL POC Glucose (70-105) Calcium 7.4 L 7.6 L (8.4-10.2) mg/dL 09/23/17 09/23/17 Range/Units 08:44 11:53 RBC (3.65-5.03) M/mm3 RDW (13.2-15.2) % Monocytes % (Manual) (0.0-7.3) % Sodium (137-145) mmol/L Potassium (3.6-5.0) mmol/L Carbon Dioxide (22-30) mmol/L Glucose (65-100) mg/dL POC Glucose 208 H 184 H (70-105) Calcium (8.4-10.2) mg/dL
[2017-09-23] MEDS: VANCOMYCIN/NS 1 GM/250 ML 1 GM/250 ML BAG IV SCH (17:11)
[2017-09-23] MEDS: PERCOCET 5/325 PO PRN (21:05)
[2017-09-23] MEDS: LEVEMIR SUB-Q SCH (21:38)
[2017-09-23] MEDS ORDERED: LANTUS 15 UNIT SQ SCH (22:00)
[2017-09-23] MEDS ORDERED: LEVEMIR SUB-Q SCH (22:00)
[2017-09-24] MEDS: MORPHINE IV PRN ×3 (02:39→17:56)
[2017-09-24] MEDS: BENADRYL IV PRN ×3 (02:40→17:57)
[2017-09-24] MEDS: NACL 0.9% 1000 ML 1,000 ML IV SCH (06:46)
[2017-09-24] MEDS: ZOSYN/NS 4.5GM/100ML 4.5 GM/100 ML VIAL IV SCH ×3 (06:46→21:43)
[2017-09-24] MEDS: VANCOMYCIN/NS 1 GM/250 ML 1 GM/250 ML BAG IV SCH (06:48)
[2017-09-24] MEDS: LEVEMIR SUB-Q SCH ×2 (09:57→21:43)
[2017-09-24] MEDS: LOVENOX SUB-Q SCH (09:57)
[2017-09-24] MEDS: K-PHOS NEUTRAL PO SCH ×4 (09:57→21:43)
--- NOTE | 2017-09-24 12:39 | Progress Note ---
Assessment and Plan 42 yo F with 1. DKA - improving 2. sepsis 2/2 #3 3. perirectal abscess s/p incision and drainage at bedside Plan: 1. management of diabetes per 1' team, needs strict glucose control 2. carb controlled diet 3. IVF - may be discontinued if tolerating a diet 4. IV abx - zosyn, wound cultures growing GNR, dawn, ID on board 5. daily dressing changes per wound care nurse 6. PO pain control 7. DVT ppx Subjective Date of service: 09/24/17 Narrative: Pt seen at bedside. No acute complaints. Pain medication is controlled pain from gluteal wound. No f/c, n/v, abd pain. Objective Vital Signs - 12hr 09/24/17 09/24/17 04:20 10:45 Temperature 98.9 F 99.2 F Pulse Rate 94 H 96 H Respiratory 20 20 Rate Blood Pressure 104/62 [Left] Blood Pressure 120/69 [Right] O2 Sat by Pulse 99 100 Oximetry - General physical appearance Narrative Exam: Gen: AAOx3. NAD Wound dressing and packing changed by wound care nurse. Images noted. Wound is clean with surrounding induration. - Labs 09/23/17 03:49 09/23/17 04:52
--- NOTE | 2017-09-24 13:19 | Consultation ---
History of Present Illness - Reason for Consult Consult date: 09/24/17 gluteal abscess Requesting physician: JAVY UFLTON - History of Present Illness 42 years old female with history of hypertension, diabetes admitted on 09/22/17 due to chest pain for 4 days. Pain is in the epigastric area which she described as a pressure-like sensation, constant, intensity 6/10, no radiation. Admits to shortness of breath, no nausea, no vomiting, diaphoresis or palpitation, feels dizzy. Also, complaining of an abscess that developed on the right buttock 3 days before admission. She felt abscess started to drain, brownish material. In the emergency room, initial temperature was 98.2, heart rate 141, blood pressure 104/84, initial white count 22.4. Bands 11%. Glucose 672. Creat 1.7. Urinalysis was negative. Abscess was drained at bedside + GNR and yeast. Microbiology: Blood cultures: 09/22 ngtd Wound cultures: 09/22 GNR and yeast Current Antimicrobials: Zosyn 09/22 Previous Antimicrobials: Past History Past Medical History: diabetes Past Surgical History: hysterectomy, Other (incision and drainage of back abscess) Social history: alcohol abuse (4 to 5 times per week). denies: smoking Family history: no significant family history Medications and Allergies Allergies Allergy/AdvReac Type Severity Reaction Status Date / Time No Known Allergies Allergy Verified 04/03/17 14:03 Home Medications Medication Instructions Recorded Confirmed Last Taken Type Lantus Solostar 15 units SQ BID 12/19/16 09/22/17 01/27/17 19:00 History 25 UNITS RX: Acetaminophen 500 mg PO Q6H PRN 09/22/17 09/22/17 Unknown History Active Meds: Active Medications Acetaminophen (Tylenol) 650 mg PO Q4H PRN PRN Reason: Pain MILD(1-3)/Fever >100.5/GUERRA Bisacodyl (Dulcolax) 10 mg [place] QDAY PRN PRN Reason: Constipation unrelieved by MOM Dextrose (D50w (25gm) Syringe) 0 ml IV ONCE PRN PRN Reason: Hypoglycemia Diphenhydramine HCl (Benadryl) 25 mg IV Q6H PRN PRN Reason: Itching Last Admin: 09/24/17 13:06 Dose: 25 mg Enoxaparin Sodium (Lovenox) 40 mg SUB-Q QDAY@1000 [facility] Last Admin: 09/24/17 09:57 Dose: 40 mg Piperacillin Sod/Tazobactam Sod (Zosyn/Ns 4.5gm/100ml) 4.5 gm in 100 mls @ 200 mls/hr IV Q8HR [facility] Last Admin: 09/24/17 13:14 Dose: 200 mls/hr Sodium Chloride (Nacl 0.9% 1000 Ml) 1,000 mls @ 125 mls/hr IV DIRECT [facility] Last Admin: 09/24/17 06:46 Dose: 125 mls/hr Insulin Detemir (Levemir) 15 units SUB-Q BID [facility] Last Admin: 09/24/17 09:57 Dose: 15 units Insulin Human Regular (Novolin R) 0 units SUB-Q ACHS [facility] PRN Reason: Protocol Last Admin: 09/24/17 08:13 Dose: Not Given Morphine Sulfate (Morphine) 2 mg IV Q4H PRN PRN Reason: Pain , Severe (7-10) Last Admin: 09/24/17 13:06 Dose: 2 mg Ondansetron HCl (Zofran) 4 mg IV Q4H PRN PRN Reason: N/V unrelieved by Reglan Last Admin: 09/22/17 17:08 Dose: 4 mg Oxycodone/Acetaminophen (Percocet 5/325) 2 tab PO Q6H PRN PRN Reason: Pain, Moderate (4-6) Last Admin: 09/23/17 21:05 Dose: 2 tab Sodium Phosphate (K-Phos Neutral) 250 mg PO QID [facility] Last Admin: 09/24/17 13:06 Dose: 250 mg Review of Systems All systems: negative (as per HPI rest neg) Physical Examination - Physical Exam Narrative exam: General appearance: Alert in NAD, conversant Eyes: anicteric sclerae, moist conjunctivae; no lid-lag; PERRLA HENT: Atraumatic; oropharynx clear Neck: Trachea midline; supple, no thyromegaly or lymphadenopathy Lungs: CTA CV: RRR, no murmurs Abdomen: Soft, non-tender; Extremities: No peripheral edema or extremity lymphadenopathy Skin: gluteal area with wound packed and covered with dressings Psych: Appropriate affect, alert and oriented to person, place and time. Neuro: alert and oriented x 3. Moving all extermities Lines: No CVL / PICC - Constitutional Vitals: Vital Signs Temp Pulse Resp BP Pulse Ox 99.2 F 96 H 20 120/69 100 09/24/17 10:45 09/24/17 10:45 09/24/17 10:45 09/24/17 10:45 09/24/17 10:45 Temperature -Last 24 Hours Temperature 99.2 F Temperature 98.9 F Temperature 100.0 F Temperature 98.8 F Temperature 99.7 F Results - Labs CBC & Chem 7: 09/23/17 03:49 09/23/17 04:52 Labs: Abnormal lab results 09/23/17 09/24/17 Range/Units 17:13 07:34 POC Glucose 252 H 113 H (70-105) Assessment and Plan Assessment: 1) Sepsis: Present on admission, manifested by tachycardia, hypotension, leukocytosis, bandemia. Etiology most likely gluteal abscess. 2) Gluteal abscess: S/p bedside I+D, gram stain GNR and yeast (yeast may represent colonization) - 50 mL of foul-smelling purulent drainage. 3) DM with DKA 4) PAUL Plan: -obtain C-reactive protein (CRP) -continue zosyn for now Thank you Dr Fulton for your consultation, will follow up with you. Jacque Bob MD Infectious Diseases Specialist [facility] [id number] [phone] O [phone]
--- NOTE | 2017-09-24 14:54 | Progress Note ---
Assessment and Plan Sepsis likely from gluteal abscess - cont abx for now, s/p I and D by GS DKA - off insulin drip - cont ada diet, subcu insulin - adjust insulin dose as needed depending on BG level Gluteal abscess - s/p I and d - will follow final cx, cont abx - consulted ID Chest pain, related - preserved EF on 2d echo, CE so far negative - no chest pain now Hypertensive urgency - off any BP meds now - off cardizem drip DVT prophylaxis, lovenox Brief history: The patient came to the emergency room with complaints of chest pain and shortness of breath for the past 1-2 days. She also noted pain near her buttock area for the past 1 week which is gradually gotten worse. In the ER she noted to have left gluteal abscess and BG of 672. She was admitted to the ICU with DKA protocol and general surgeon was consulted for possible I&D of her left gluteal abscess. Radiological test: Chest x-ray which showed no infiltrates Hospitalist Physical exam: GENERAL: well-developed and well-nourished female lying on bed appeared to be in no discomfort. HEENT: Normocephalic. Atraumatic. No conjunctival congestion or icterus. Patient has moist mucous membranes. NECK: Supple. Trachea midline. CHEST/LUNGS: Clear to auscultated bilaterally, breathing nonlabored. No wheezes crackles or rhonchi. HEART/CARDIOVASCULAR: Regular in rate and rhythm. S1 and S2 positive. ABDOMEN: Abdomen is soft, nontender. Patient has normal bowel sounds. SKIN: There is no rash. Warm and dry. NEURO: No focal motor deficit. Follows command. MUSCULOSKELETAL: No joint effusion or tenderness. EXTRIMITY: No edema, no cyanosis or clubbing. PSYCH: Cooperative. Subjective Date of service: 09/24/17 Principal diagnosis: DKA; Sepsis Interval history: Patient seen and examined. Medical records and medication list reviewed. No acute event overnight noted by the RN. Patient denies any chest pain or difficulty breathing. Patient is tolerating diet. Discussed plan of care at bedside with patient. Objective - Constitutional Vitals: Vital Signs - 12hr 09/24/17 09/24/17 04:20 10:45 Temperature 98.9 F 99.2 F Pulse Rate 94 H 96 H Respiratory 20 20 Rate Blood Pressure 104/62 [Left] Blood Pressure 120/69 [Right] O2 Sat by Pulse 99 100 Oximetry - Labs CBC & Chem 7: 09/23/17 03:49 09/23/17 04:52 Labs: Abnormal lab results 09/23/17 09/24/17 Range/Units 17:13 07:34 POC Glucose 252 H 113 H (70-105)
[2017-09-25] MEDS: NACL 0.9% 1000 ML 1,000 ML IV SCH ×2 (01:30→21:30)
[2017-09-25] MEDS: MORPHINE IV PRN ×3 (01:39→21:29)
[2017-09-25] MEDS: ZOSYN/NS 4.5GM/100ML 4.5 GM/100 ML VIAL IV SCH ×3 (05:58→21:29)
[2017-09-25] MEDS: K-PHOS NEUTRAL PO SCH ×4 (10:52→21:29)
[2017-09-25] MEDS: LOVENOX SUB-Q SCH (10:53)
[2017-09-25] MEDS: LEVEMIR SUB-Q SCH ×2 (10:53→21:22)
--- NOTE | 2017-09-25 12:17 | Progress Note ---
Assessment and Plan Assessment: 1) Sepsis: better. Etiology most likely gluteal abscess. 2) Left Gluteal abscess-extensive: S/p bedside I+D, cx + Strep group B and Dasia - 50 mL of foul-smelling purulent drainage. 3) DM with DKA 4) PAUL - better Plan: -obtain C-reactive protein (CRP) -continue zosyn for now -add fluconazole -in view of extensive infection will consider arranging home IV abx versus PO abx Thank you Dr Long for your consultation, will follow up with you. Jacque Bob MD Infectious Diseases Specialist [facility] M [phone] O [phone] Subjective Date of service: 09/25/17 Principal diagnosis: DKA; Sepsis Interval history: Feels better, still pain at left buttocks surg wound, no fever. Microbiology: Blood cultures: 09/22 ngtd Wound cultures: 09/22 Beta hem Strep group B and Dasia Current Antimicrobials: Zosyn 09/22 Previous Antimicrobials: Objective - Exam Narrative Exam: General appearance: Alert in NAD, conversant Eyes: anicteric sclerae, moist conjunctivae; no lid-lag; PERRLA HENT: Atraumatic; oropharynx clear Neck: Trachea midline; supple, no thyromegaly or lymphadenopathy Lungs: CTA CV: RRR, no murmurs Abdomen: Soft, non-tender; Extremities: No peripheral edema or extremity lymphadenopathy Skin: left gluteal area with marked induration and wound packed and covered with dressings Psych: Appropriate affect, alert and oriented to person, place and time. Neuro: alert and oriented x 3. Moving all extermities Lines: No CVL / PICC - Constitutional Vitals: Vital Signs Temp Pulse Resp BP Pulse Ox 98.3 F 80 16 113/67 100 09/25/17 08:37 09/25/17 08:37 09/25/17 08:37 09/25/17 08:37 09/25/17 08:37 Temperature -Last 24 Hours Temperature 98.3 F Temperature 98.8 F Temperature 99.0 F Temperature 99.3 F Temperature 99.4 F - Labs CBC & Chem 7: 09/23/17 03:49 09/23/17 04:52 Labs: Abnormal lab results 09/24/17 09/25/17 09/25/17 Range/Units 16:45 06:08 07:04 POC Glucose 125 H < 40 L 112 H (70-105)
--- NOTE | 2017-09-25 13:31 | Progress Note ---
Assessment and Plan Sepsis likely from gluteal abscess - cont abx for now, s/p I and D by GS DKA - off insulin drip - cont ada diet, subcu insulin - adjust insulin dose as needed depending on BG level Gluteal abscess - s/p I and d at bedside - cx + Strep group B and Dasia, cont zosyn added fluconazole - ID following, wait for d/c abx recommendation Chest pain, related - preserved EF on 2d echo, CE so far negative - no chest pain now PAUL - cr was 1.7 on admission, likely vasomotor nephropathy - resolved with IV fluid Hypertensive urgency - off any BP meds now - off cardizem drip DVT prophylaxis, lovenox Brief history: The patient came to the emergency room with complaints of chest pain and shortness of breath for the past 1-2 days. She also noted pain near her buttock area for the past 1 week which is gradually gotten worse. In the ER she noted to have left gluteal abscess and BG of 672. She was admitted to the ICU with DKA protocol and general surgeon was consulted for possible I&D of her left gluteal abscess. Radiological test: Chest x-ray which showed no infiltrates Hospitalist Physical exam: GENERAL: well-developed and well-nourished female lying on bed appeared to be in no discomfort. HEENT: Normocephalic. Atraumatic. No conjunctival congestion or icterus. Patient has moist mucous membranes. NECK: Supple. Trachea midline. CHEST/LUNGS: Clear to auscultated bilaterally, breathing nonlabored. No wheezes crackles or rhonchi. HEART/CARDIOVASCULAR: Regular in rate and rhythm. S1 and S2 positive. ABDOMEN: Abdomen is soft, nontender. Patient has normal bowel sounds. SKIN: There is no rash. Warm and dry. NEURO: No focal motor deficit. Follows command. MUSCULOSKELETAL: No joint effusion or tenderness. EXTRIMITY: No edema, no cyanosis or clubbing. PSYCH: Cooperative. Subjective Date of service: 09/25/17 Principal diagnosis: DKA; Sepsis Interval history: Patient seen and examined. Medical records and medication list reviewed. No acute event overnight noted by the RN. Patient denies any chest pain or difficulty breathing. Patient is tolerating diet. Discussed plan of care at bedside with patient. Objective - Constitutional Vitals: Vital Signs - 12hr 09/25/17 09/25/1709/25/17 01:39 04:13 08:37 Temperature 98.8 F 98.3 F Pulse Rate 82 80 Respiratory 20 22 16 Rate Blood Pressure 123/72 113/67 O2 Sat by Pulse 100 100 Oximetry - Labs CBC & Chem 7: 09/23/17 03:49 09/23/17 04:52 Labs: Abnormal lab results 09/24/17 09/25/17 09/25/17 Range/Units 16:45 06:08 07:04 POC Glucose 125 H < 40 L 112 H (70-105)
--- NOTE | 2017-09-25 13:38 | Progress Note ---
Assessment and Plan - Patient Problems (1) Sepsis Current Visit: Yes Status: Acute Plan to address problem: Follow up cultures from abscess Antibiotics VTE prophylaxis (2) Diabetic keto-acidosis Current Visit: Yes Status: Acute Plan to address problem: Continue to monitor electrolytes Continue insulin basal bolus/weight based Continue treatment for DKA per protocol (3) Acute renal failure Current Visit: No Status: Acute Qualifiers: Acute renal failure type: unspecified Qualified Code(s): N17.9 - Acute kidney failure, unspecified Plan to address problem: Probably pre-renal from DKA Fluid administration Monitor renal profile Avoid nephrotoxics Strict intake and output measurements Adjust all medications for GFR and CrCL (4) Abscess and cellulitis of gluteal region Current Visit: Yes Status: Acute Plan to address problem: Antibiotics Follow cultures s/p I and D by surgical service (5) Alcoh dep NEC/NOS, unspec Current Visit: Yes Status: Acute Plan to address problem: Alcohol withdrawal precautions Monitor for DTs Substance abuse counselling Subjective Date of service: 09/24/17 Principal diagnosis: DKA; Sepsis Interval history: Seen and examined. Vitals, labs, medications, chart reviewed. Feels much better. Denies any chest pain, no shortness of breath. No fevers or chills. no nausea or vomiting, no abdominal pain. Objective - Exam Narrative Exam: General appearance: Alert in NAD, conversant Eyes: anicteric sclerae, moist conjunctivae; no lid-lag; PERRLA HENT: Atraumatic; oropharynx clear Neck: Trachea midline; supple, no thyromegaly or lymphadenopathy Lungs: CTA CV: RRR, no murmurs Abdomen: Soft, non-tender; Extremities: No peripheral edema or extremity lymphadenopathy Skin: left gluteal area with marked induration and wound packed and covered with dressings Psych: Appropriate affect, alert and oriented to person, place and time. Neuro: alert and oriented x 3. Moving all extermities Vital Signs - 12hr 09/25/17 09/25/17 09/25/17 01:39 04:13 08:37 Temperature 98.8 F 98.3 F Pulse Rate 82 80 Respiratory 20 22 16 Rate Blood Pressure 123/72 113/67 O2 Sat by Pulse 100 100 Oximetry Constitutional: no acute distress, asleep Eyes: non-icteric ENT: oropharynx dry Neck: supple, no lymphadenopathy, no JVD Effort: normal Ascultation: Bilateral: clear Percussion: Bilateral: not dull Cardiovascular: regular rate and rhythm, other (S1,S2 , no murmurs, gallops or rubs) Gastrointestinal: normoactive bowel sounds, soft, non-tender, non-distended, other (No HSM) Integumentary: normal Extremities: no cyanosis, no edema, pulses normal, no ischemia or petechiae Neurologic: normal mental status, non-focal exam, pupils equal and round, CN II- XII normal, motor strength normal and Psychiatric: mood appropriate, affect normal CBC and BMP: 09/23/17 03:49 09/23/17 04:52 ABG, PT/INR, D-dimer: PT/INR, D-dimer PT 15.0 Sec. (12.2-14.9) H 09/22/17 01:35 INR 1.12 (0.87-1.13) 09/22/17 01:35 Abnormal lab findings: Abnormal Labs 09/22/17 09/22/17 09/22/17 01:35 01:35 01:35 WBC 22.4 H RBC MCV 103 H MCHC 29 L RDW 19.2 H Lymphocytes % (Manual) 7.0 L Monocytes % (Manual) 16.0 H Seg Neutrophils # Man 14.8 H Monocytes # (Manual) 3.6 H PT 15.0 H Sodium 129 L Potassium 5.1 H Chloride 78.5 L Carbon Dioxide 6 L* Creatinine 1.7 H Glucose 672 H* POC Glucose Calcium Phosphorus Magnesium Alkaline Phosphatase 216 H CK-MB (CK-2) Rel Index 6.2 H Total Protein 9.0 H Albumin 3.7 L 09/22/17 09/22/17 09/22/17 03:24 05:10 06:13 WBC RBC MCV MCHC RDW Lymphocytes % (Manual) Monocytes % (Manual) Seg Neutrophils # Man Monocytes # (Manual) PT Sodium Potassium Chloride Carbon Dioxide Creatinine Glucose POC Glucose > 500 H 412 H 368 H Calcium Phosphorus Magnesium Alkaline Phosphatase CK-MB (CK-2) Rel Index Total Protein Albumin 09/22/17 09/22/17 09/22/17 07:13 08:48 09:26 WBC RBC MCV MCHC RDW Lymphocytes % (Manual) Monocytes % (Manual) Seg Neutrophils # Man Monocytes # (Manual) PT Sodium Potassium Chloride Carbon Dioxide Creatinine Glucose POC Glucose 292 H 258 H Calcium Phosphorus Magnesium 1.20 L Alkaline Phosphatase CK-MB (CK-2) Rel Index Total Protein Albumin 09/22/17 09/22/17 09/22/17 10:36 10:40 10:40 WBC RBC MCV MCHC RDW Lymphocytes % (Manual) Monocytes % (Manual) Seg Neutrophils # Man Monocytes # (Manual) PT Sodium 133 L Potassium 3.5 L D Chloride 97.5 L Carbon Dioxide 15 L D Creatinine Glucose 200 H POC Glucose 237 H Calcium 7.7 L D Phosphorus Magnesium Alkaline Phosphatase CK-MB (CK-2) Rel Index 6.6 H Total Protein Albumin 09/22/17 09/22/17 09/22/17 10:40 12:09 13:34 WBC RBC MCV MCHC RDW Lymphocytes % (Manual) Monocytes % (Manual) Seg Neutrophils # Man Monocytes # (Manual) PT Sodium 135 L Potassium Chloride Carbon Dioxide 16 L Creatinine Glucose 186 H POC Glucose 207 H Calcium 7.8 L Phosphorus 0.70 L* Magnesium 1.20 L Alkaline Phosphatase CK-MB (CK-2) Rel Index Total Protein Albumin 09/22/17 09/22/17 09/22/17 13:37 15:01 16:55 WBC RBC MCV MCHC RDW Lymphocytes % (Manual) Monocytes % (Manual) Seg Neutrophils # Man Monocytes # (Manual) PT Sodium Potassium Chloride Carbon Dioxide Creatinine Glucose POC Glucose 197 H 175 H 135 H Calcium Phosphorus Magnesium Alkaline Phosphatase CK-MB (CK-2) Rel Index Total Protein Albumin 09/22/17 09/23/17 09/23/17 Unknown 00:05 03:49 WBC RBC MCV MCHC RDW Lymphocytes % (Manual) Monocytes % (Manual) Seg Neutrophils # Man Monocytes # (Manual) PT Sodium 135 L 132 L Potassium 2.9 L* D Chloride Carbon Dioxide 16 L 13 L Creatinine Glucose 111 H 404 H POC Glucose 399 H Calcium 6.6 L D 7.4 L Phosphorus Magnesium Alkaline Phosphatase CK-MB (CK-2) Rel Index Total Protein Albumin 09/23/17 09/23/17 09/23/17 03:49 04:52 08:44 WBC RBC 3.43 L MCV MCHC RDW 18.3 H Lymphocytes % (Manual) Monocytes % (Manual) 8.0 H Seg Neutrophils # Man Monocytes # (Manual) PT Sodium 134 L Potassium 3.4 L Chloride Carbon Dioxide 14 L Creatinine Glucose 366 H POC Glucose 208 H Calcium 7.6 L Phosphorus Magnesium Alkaline Phosphatase CK-MB (CK-2) Rel Index Total Protein Albumin 09/23/17 09/23/17 09/24/17 11:53 17:13 07:34 WBC RBC MCV MCHC RDW Lymphocytes % (Manual) Monocytes % (Manual) Seg Neutrophils # Man Monocytes # (Manual) PT Sodium Potassium Chloride Carbon Dioxide Creatinine Glucose POC Glucose 184 H 252 H 113 H Calcium Phosphorus Magnesium Alkaline Phosphatase CK-MB (CK-2) Rel Index Total Protein Albumin 09/24/17 09/25/17 09/25/17 16:45 06:08 07:04 WBC RBC MCV MCHC RDW Lymphocytes % (Manual) Monocytes % (Manual) Seg Neutrophils # Man Monocytes # (Manual) PT Sodium Potassium Chloride Carbon Dioxide Creatinine Glucose POC Glucose 125 H < 40 L 112 H Calcium Phosphorus Magnesium Alkaline Phosphatase CK-MB (CK-2) Rel Index Total Protein Albumin Allied health notes reviewed: nursing
[2017-09-25] MEDS: PERCOCET 5/325 PO PRN (16:38)
--- NOTE | 2017-09-25 17:00 | Event Note ---
Date: 09/25/17 Patient alert, awake. No complaint of chest pain,shortness of breath or cough. Chest xray reported normal. O2 saturation 100%. Signing of the case. If any pulmonary help needs, call us Back.
[2017-09-25] MEDS: DIFLUCAN 200 MG/100 ML BAG IV SCH (19:02)
[2017-09-26] MEDS: ZOSYN/NS 4.5GM/100ML 4.5 GM/100 ML VIAL IV SCH ×3 (05:45→22:58)
[2017-09-26] MEDS: NACL 0.9% 1000 ML 1,000 ML IV SCH (05:45)
[2017-09-26] MEDS: MORPHINE IV PRN (09:54)
[2017-09-26] MEDS: LOVENOX SUB-Q SCH (09:56)
[2017-09-26] MEDS: LEVEMIR SUB-Q SCH ×2 (09:57→23:00)
[2017-09-26] MEDS: K-PHOS NEUTRAL PO SCH ×4 (09:58→22:58)
--- NOTE | 2017-09-26 12:44 | Progress Note ---
Assessment and Plan 42 yo F with 1. DKA - improving 2. sepsis 2/2 #3 3. perirectal abscess s/p incision and drainage at bedside Plan: 1. management of diabetes per 1' team, needs strict glucose control 2. carb controlled diet 3. dc IVF 4. IV abx - zosyn, wound culture - Dasia and Group B strept, ID on board 5. daily dressing changes per wound care nurse 6. PO pain control 7. DVT ppx Subjective Date of service: 09/26/17 Narrative: Pt seen and examined. No complaints. No f/c. Pain controlled. Dressing changed by nursing yesterday. Objective Vital Signs - 12hr 09/26/17 09/26/17 09/26/17 04:46 08:24 09:54 Temperature 98.5 F 97.9 F Pulse Rate 66 86 Respiratory 20 18 16 Rate Blood Pressure 137/71 149/82 O2 Sat by Pulse 100 100 Oximetry - General physical appearance Narrative Exam: Gen: AAOx3. NAD Perirectal wound: 3x3 cm opening, all packing removed. Base is pink with some blood clot which was evacuated. Wound probed and no additional pockets of pus or fluid. Induration of buttock surrounding wound but no fluctuance. Wound packed with 1 piece of mesalt and covered with gauze. - Labs 09/23/17 03:49 09/23/17 04:52 Calcium panel 09/26/17 Range/Units 05:10 Phosphorus 2.10 L (2.5-4.5) mg/dL
[2017-09-26 13:06] LABS: Anion Gap 19 mmol/L; BUN/Creatinine Ratio 3; Blood Urea Nitrogen 2 mg/dL (7-17); Calcium 6.9 mg/dL (8.4-10.2); Carbon Dioxide 18 mmol/L (22-30); Chloride 104.4 mmol/L (98-107); Glucose 199 mg/dL (65-100); Sodium 139 mmol/L (137-145)
[2017-09-26 13:18] LABS: Potassium 2.6 mmol/L (3.6-5.0)
[2017-09-26] MEDS: PERCOCET 5/325 PO PRN ×2 (13:48→20:54)
[2017-09-26] MEDS: DIFLUCAN 200 MG/100 ML BAG IV SCH (13:49)
[2017-09-26] MEDS ORDERED: K-DUR PO ONE (14:00)
--- NOTE | 2017-09-26 15:32 | Progress Note ---
Assessment and Plan Sepsis likely from gluteal abscess - cont abx for now, s/p I and D by GS on 09/22/17 hypokalemia - likely due to diarrhea, replace and monitor Diarrhea - get stool cx and WBC count DKA - off insulin drip - cont ada diet, subcu insulin - adjust insulin dose as needed depending on BG level Gluteal abscess - s/p I and d at bedside - cx + Strep group B and Dasia, cont zosyn added fluconazole - ID following, wait for d/c abx recommendation Chest pain, related - preserved EF on 2d echo, CE so far negative - no chest pain now PAUL - cr was 1.7 on admission, likely vasomotor nephropathy - resolved with IV fluid Hypertensive urgency - off any BP meds now - off cardizem drip DVT prophylaxis, lovenox Brief history: The patient came to the emergency room with complaints of chest pain and shortness of breath for the past 1-2 days. She also noted pain near her buttock area for the past 1 week which is gradually gotten worse. In the ER she noted to have left gluteal abscess and BG of 672. She was admitted to the ICU with DKA protocol and general surgeon was consulted for possible I&D of her left gluteal abscess. Radiological test: Chest x-ray which showed no infiltrates Hospitalist Physical exam: GENERAL: well-developed and well-nourished female lying on bed appeared to be in no discomfort. HEENT: Normocephalic. Atraumatic. No conjunctival congestion or icterus. Patient has moist mucous membranes. NECK: Supple. Trachea midline. CHEST/LUNGS: Clear to auscultated bilaterally, breathing nonlabored. No wheezes crackles or rhonchi. HEART/CARDIOVASCULAR: Regular in rate and rhythm. S1 and S2 positive. ABDOMEN: Abdomen is soft, nontender. Patient has normal bowel sounds. SKIN: There is no rash. Warm and dry. NEURO: No focal motor deficit. Follows command. MUSCULOSKELETAL: No joint effusion or tenderness. EXTRIMITY: No edema, no cyanosis or clubbing. PSYCH: Cooperative. Subjective Date of service: 09/26/17 Principal diagnosis: DKA; Sepsis Interval history: Patient seen and examined. Medical records and medication list reviewed. No acute event overnight noted by the RN. Patient denies any chest pain or difficulty breathing. Patient is tolerating diet. c/o diarrhea Discussed plan of care at bedside with patient. Objective - Constitutional Vitals: Vital Signs - 12hr 09/26/17 09/26/17 09/26/17 04:46 08:24 09:54 Temperature 98.5 F 97.9 F Pulse Rate 66 86 Respiratory 20 18 16 Rate Blood Pressure 137/71 149/82 O2 Sat by Pulse 100 100 Oximetry 09/26/17 13:48 Temperature Pulse Rate Respiratory 14 Rate Blood Pressure O2 Sat by Pulse Oximetry - Labs CBC & Chem 7: 09/23/17 03:49 09/26/17 12:06 Labs: Abnormal lab results 09/25/17 09/25/17 09/26/17 Range/Units 17:30 21:24 05:10 Potassium (3.6-5.0) mmol/L Carbon Dioxide (22-30) mmol/L BUN (7-17) mg/dL Creatinine (0.7-1.2) mg/dL Glucose (65-100) mg/dL POC Glucose 219 H 158 H (70-105) Calcium (8.4-10.2) mg/dL Phosphorus 2.10 L (2.5-4.5) mg/dL 09/26/17 Range/Units 12:06 Potassium 2.6 L* D (3.6-5.0) mmol/L Carbon Dioxide 18 L (22-30) mmol/L BUN 2 L (7-17) mg/dL Creatinine 0.6 L (0.7-1.2) mg/dL Glucose 199 H (65-100) mg/dL POC Glucose (70-105) Calcium 6.9 L (8.4-10.2) mg/dL Phosphorus (2.5-4.5) mg/dL
[2017-09-26] MEDS: KCL 10MEQ/100ML 10 MEQ/100 ML BAG IV SCH ×2 (15:45→17:27)
[2017-09-27 05:50] LABS: Basophils % (Auto) 0.9 % (0.0-1.8); Eosinophils % (Auto) 2.6 % (0.0-4.3); Hematocrit 29.6 % (30.3-42.9); Hemoglobin 9.8 gm/dl (10.1-14.3); Mean Corpuscular HGB Conc 33 % (30-34); Mean Corpuscular Hemoglobin 30 pg (28-32); Mean Corpuscular Volume 90 fl (79-97); Platelet Count 190 K/mm3 (140-440); Red Blood Count 3.31 M/mm3 (3.65-5.03); Red Cell Distribution Width 18.3 % (13.2-15.2); White Blood Count 8.5 K/mm3 (4.5-11.0)
[2017-09-27 06:07] LABS: BUN/Creatinine Ratio 4; Blood Urea Nitrogen 3 mg/dL (7-17); Calcium 6.8 mg/dL (8.4-10.2); Carbon Dioxide 21 mmol/L (22-30); Glucose 240 mg/dL (65-100)
[2017-09-27 06:08] LABS: Anion Gap 16 mmol/L; Chloride 104.8 mmol/L (98-107); Potassium 3.2 mmol/L (3.6-5.0); Sodium 139 mmol/L (137-145)
[2017-09-27] MEDS: ZOSYN/NS 4.5GM/100ML 4.5 GM/100 ML VIAL IV SCH ×3 (06:38→22:18)
[2017-09-27] MEDS: MORPHINE IV PRN (08:49)
[2017-09-27] MEDS: BENADRYL IV PRN (08:50)
[2017-09-27] MEDS: LOVENOX SUB-Q SCH (10:18)
[2017-09-27] MEDS: LEVEMIR SUB-Q SCH ×2 (10:18→22:17)
[2017-09-27] MEDS: K-PHOS NEUTRAL PO SCH ×4 (10:19→22:15)
--- NOTE | 2017-09-27 11:34 | Progress Note ---
Assessment and Plan Assessment: 1) Sepsis: better. Etiology most likely gluteal abscess. CRP=8 2) Left Gluteal abscess: better decreased in size and induration; S/p bedside I+ D on 09/22, cx + Strep group B and Dasia - 50 mL of foul-smelling purulent drainage. 3) DM with DKA 4) PAUL - better Plan: -continue zosyn and fluconazole -upon discharge will do levaquin 750 mg PO qday and flagyl 500 mg PO q8h total 14 days from 09/22 until 10/05/17 -needs wound care Thank you Dr Long for your consultation, will follow up with you. Jacque Bob MD Infectious Diseases Specialist [facility], [place] [facility] M [phone] O [phone] Subjective Date of service: 09/27/17 Principal diagnosis: DKA; Sepsis Interval history: Feels better, pain at left buttocks surg wound better, no fever. Microbiology: Blood cultures: 09/22 ngtd Wound cultures: 09/22 Beta hem Strep group B and Dasia Current Antimicrobials: Zosyn 09/22 Previous Antimicrobials: Objective - Exam Narrative Exam: General appearance: Alert in NAD, conversant Eyes: anicteric sclerae, moist conjunctivae; no lid-lag; PERRLA HENT: Atraumatic; oropharynx clear Neck: Trachea midline; supple, no thyromegaly or lymphadenopathy Lungs: CTA CV: RRR, no murmurs Abdomen: Soft, non-tender; Extremities: No peripheral edema or extremity lymphadenopathy Skin: left gluteal area with decreased induration and wound packed and covered with dressings Psych: Appropriate affect, alert and oriented to person, place and time. Neuro: alert and oriented x 3. Moving all extermities Lines: No CVL / PICC - Constitutional Vitals: Vital Signs Temp Pulse Resp BP Pulse Ox 98.4 F 80 20 104/84 100 09/27/17 04:28 09/27/17 04:28 09/27/17 04:28 09/27/17 04:28 09/27/17 04:28 Temperature -Last 24 Hours Temperature 98.4 F Temperature 98.7 F Temperature 99.0 F Temperature 98.7 F - Labs CBC & Chem 7: 09/27/17 05:06 09/27/17 05:06 Labs: Abnormal lab results 09/26/17 09/26/17 09/26/17 Range/Units 12:06 13:28 15:59 RBC (3.65-5.03) M/mm3 Hgb (10.1-14.3) gm/dl Hct (30.3-42.9) % RDW (13.2-15.2) % Moffat % (Auto) (0.0-7.3) % Moffat # (0.0-0.8) K/mm3 Potassium 2.6 L* D (3.6-5.0) mmol/L Carbon Dioxide 18 L (22-30) mmol/L BUN 2 L (7-17) mg/dL Creatinine 0.6 L (0.7-1.2) mg/dL Glucose 199 H (65-100) mg/dL POC Glucose 300 H 301 H (70-105) Calcium 6.9 L (8.4-10.2) mg/dL 09/26/17 09/27/17 09/27/17 Range/Units 21:02 05:06 05:06 RBC 3.31 L (3.65-5.03) M/mm3 Hgb 9.8 L (10.1-14.3) gm/dl Hct 29.6 L (30.3-42.9) % RDW 18.3 H (13.2-15.2) % Moffat % (Auto) 12.9 H (0.0-7.3) % Moffat # 1.1 H (0.0-0.8) K/mm3 Potassium 3.2 L D (3.6-5.0) mmol/L Carbon Dioxide 21 L (22-30) mmol/L BUN 3 L (7-17) mg/dL Creatinine (0.7-1.2) mg/dL Glucose 240 H (65-100) mg/dL POC Glucose 111 H (70-105) Calcium 6.8 L (8.4-10.2) mg/dL 09/27/17 Range/Units 08:27 RBC (3.65-5.03) M/mm3 Hgb (10.1-14.3) gm/dl Hct (30.3-42.9) % RDW (13.2-15.2) % Moffat % (Auto) (0.0-7.3) % Moffat # (0.0-0.8) K/mm3 Potassium (3.6-5.0) mmol/L Carbon Dioxide (22-30) mmol/L BUN (7-17) mg/dL Creatinine (0.7-1.2) mg/dL Glucose (65-100) mg/dL POC Glucose 332 H (70-105) Calcium (8.4-10.2) mg/dL
--- NOTE | 2017-09-27 13:05 | Progress Note ---
<BRYCE ALAN - Last Filed: 09/27/17 13:07> Assessment and Plan Assessment and plan: The patient came to the emergency room with complaints of chest pain and shortness of breath for the past 1-2 days. She also noted pain near her buttock area for the past 1 week which is gradually gotten worse. In the ER she noted to have left gluteal abscess and BG of 672. She was admitted to the ICU with DKA protocol and general surgeon was consulted for possible I&D of her left gluteal abscess. Sepsis likely from gluteal abscess - Improving, ID following - cont abx for now, s/p I and D by GS on 09/22/17 hypokalemia - likely due to diarrhea, replace and monitor Diarrhea -Improved -get stool cx if resumes - WBC count WNL DKA - off insulin drip - cont ada diet, subcu insulin - adjust insulin dose as needed depending on BG level Gluteal abscess - s/p I and d at bedside - cx + Strep group B and Dasia, cont zosyn added fluconazole - ID following, Pt to be d/c with levaquin 750 mg PO qday and flagyl 500 mg PO q8h total 14 days from 09/22 until 10/05/17 per ID Chest pain, related - preserved EF on 2d echo, CE so far negative - no chest pain now PAUL - cr was 1.7 on admission, likely vasomotor nephropathy - resolved with IV fluid Hypertensive urgency - off any BP meds now - off cardizem drip DVT prophylaxis, lovenox History Interval history: Patient was seen and examined. Only complains of mild pain from gluteal abscess site. Denies chest pain, shortness of breath, nausea vomiting diarrhea Hospitalist Physical - Constitutional Vitals: Temp Pulse Resp BP Pulse Ox 98.4 F 79 20 104/84 100 09/27/17 04:28 09/27/17 10:00 09/27/17 04:28 09/27/17 04:28 09/27/17 04:28 General appearance: Present: no acute distress - EENT Eyes: Present: PERRL, EOM intact ENT: hearing intact, clear oral mucosa, dentition normal - Neck Neck: Present: supple, normal ROM - Respiratory Respiratory effort: normal Respiratory: bilateral: CTA - Cardiovascular Rhythm: regular Heart Sounds: Present: S1 & S2 - Extremities Extremities: no ischemia, No edema Peripheral Pulses: within normal limits - Abdominal General gastrointestinal: soft, non-tender - Integumentary Integumentary: Present: warm (eft gluteal area with decreased induration and wound packed and covered with dressings), dry - Psychiatric Psychiatric: appropriate mood/affect, cooperative - Neurologic Neurologic: CNII-XII intact - Allied Health Allied health notes reviewed: nursing Results - Labs CBC & Chem 7: 09/27/17 05:06 09/27/17 05:06 Labs: Laboratory Last Values WBC 8.5 K/mm3 (4.5-11.0) 09/27/17 05:06 RBC 3.31 M/mm3 (3.65-5.03) L 09/27/17 05:06 Hgb 9.8 gm/dl (10.1-14.3) L 09/27/17 05:06 Hct 29.6 % (30.3-42.9) L 09/27/17 05:06 MCV 90 fl (79-97) 09/27/17 05:06 MCH 30 pg (28-32) 09/27/17 05:06 MCHC 33 % (30-34) 09/27/17 05:06 RDW 18.3 % (13.2-15.2) H 09/27/17 05:06 Plt Count 190 K/mm3 (140-440) 09/27/17 05:06 Lymph % (Auto) 22.3 % (13.4-35.0) 09/27/17 05:06 Marathon % (Auto) 12.9 % (0.0-7.3) H 09/27/17 05:06 Eos % (Auto) 2.6 % (0.0-4.3) 09/27/17 05:06 Baso % (Auto) 0.9 % (0.0-1.8) 09/27/17 05:06 Lymph # 1.9 K/mm3 (1.2-5.4) 09/27/17 05:06 Marathon # 1.1 K/mm3 (0.0-0.8) H 09/27/17 05:06 Eos # 0.2 K/mm3 (0.0-0.4) 09/27/17 05:06 Baso # 0.1 K/mm3 (0.0-0.1) 09/27/17 05:06 Add Manual Diff Complete 09/23/17 03:49 Total Counted 100 09/23/17 03:49 Seg Neutrophils % 61.3 % (40.0-70.0) 09/27/17 05:06 Seg Neuts % (Manual) 66.0 % (40.0-70.0) 09/23/17 03:49 Band Neutrophils % 8.0 % 09/23/17 03:49 Lymphocytes % (Manual) 14.0 % (13.4-35.0) 09/23/17 03:49 Reactive Lymphs % (Man) 0 % 09/23/17 03:49 Monocytes % (Manual) 8.0 % (0.0-7.3) H 09/23/17 03:49 Eosinophils % (Manual) 4.0 % (0.0-4.3) 09/23/17 03:49 Basophils % (Manual) 0 % (0.0-1.8) 09/23/17 03:49 Metamyelocytes % 0 % 09/23/17 03:49 Myelocytes % 0 % 09/23/17 03:49 Promyelocytes % 0 % 09/23/17 03:49 Blast Cells % 0 % 09/23/17 03:49 Nucleated RBC % Not Reportable 09/23/17 03:49 Seg Neutrophils # 5.2 K/mm3 (1.8-7.7) 09/27/17 05:06 Seg Neutrophils # Man 5.6 K/mm3 (1.8-7.7) 09/23/17 03:49 Band Neutrophils # 0.7 K/mm3 09/23/17 03:49 Lymphocytes # (Manual) 1.2 K/mm3 (1.2-5.4) 09/23/17 03:49 Abs React Lymphs (Man) 0.0 K/mm3 09/23/17 03:49 Monocytes # (Manual) 0.7 K/mm3 (0.0-0.8) 09/23/17 03:49 Eosinophils # (Manual) 0.3 K/mm3 (0.0-0.4) 09/23/17 03:49 Basophils # (Manual) 0.0 K/mm3 (0.0-0.1) 09/23/17 03:49 Metamyelocytes # 0.0 K/mm3 09/23/17 03:49 Myelocytes # 0.0 K/mm3 09/23/17 03:49 Promyelocytes # 0.0 K/mm3 09/23/17 03:49 Blast Cells # 0.0 K/mm3 09/23/17 03:49 WBC Morphology Not Reportable 09/23/17 03:49 Hypersegmented Neuts Not Reportable 09/23/17 03:49 Hyposegmented Neuts Not Reportable 09/23/17 03:49 Hypogranular Neuts Not Reportable 09/23/17 03:49 Smudge Cells Not Reportable 09/23/17 03:49 Toxic Granulation Not Reportable 09/23/17 03:49 Toxic Vacuolation Not Reportable 09/23/17 03:49 Dohle Bodies Not Reportable 09/23/17 03:49 Pelger-Huet Anomaly Not Reportable 09/23/17 03:49 Kasi Rods Not Reportable 09/23/17 03:49 Platelet Estimate Appears normal 09/23/17 03:49 Clumped Platelets Not Reportable 09/23/17 03:49 Plt Clumps, EDTA Not Reportable 09/23/17 03:49 Large Platelets Not Reportable 09/23/17 03:49 Giant Platelets Not Reportable 09/23/17 03:49 Platelet Satelliting Not Reportable 09/23/17 03:49 Plt Morphology Comment Not Reportable 09/23/17 03:49 RBC Morphology Not Reportable 09/23/17 03:49 Dimorphic RBCs Not Reportable 09/23/17 03:49 Polychromasia Not Reportable 09/23/17 03:49 Hypochromasia Not Reportable 09/23/17 03:49 Poikilocytosis Not Reportable 09/23/17 03:49 Anisocytosis 1+ 09/23/17 03:49 Microcytosis Not Reportable 09/23/17 03:49 Macrocytosis Not Reportable 09/23/17 03:49 Spherocytes Not Reportable 09/23/17 03:49 Pappenheimer Bodies Not Reportable 09/23/17 03:49 Sickle Cells Not Reportable 09/23/17 03:49 Target Cells Not Reportable 09/23/17 03:49 Tear Drop Cells Not Reportable 09/23/17 03:49 Ovalocytes 1+ 09/23/17 03:49 Helmet Cells Not Reportable 09/23/17 03:49 [place] Bodies Not Reportable 09/23/17 03:49 [place] Rings Not Reportable 09/23/17 03:49 Rachana Cells Few 09/23/17 03:49 Bite Cells Not Reportable 09/23/17 03:49 Crenated Cell Not Reportable 09/23/17 03:49 Elliptocytes Not Reportable 09/23/17 03:49 Acanthocytes (Spur) Not Reportable 09/23/17 03:49 Rouleaux Not Reportable 09/23/17 03:49 Hemoglobin C Crystals Not Reportable 09/23/17 03:49 Schistocytes Not Reportable 09/23/17 03:49 Malaria parasites Not Reportable 09/23/17 03:49 Julián Bodies Not Reportable 09/23/17 03:49 Hem Pathologist Commnt No 09/23/17 03:49 PT 15.0 Sec. (12.2-14.9) H 09/22/17 01:35 INR 1.12 (0.87-1.13) 09/22/17 01:35 APTT 29.5 Sec. (24.2-36.6) 09/22/17 01:35 Sodium 139 mmol/L (137-145) 09/27/17 05:06 Potassium 3.2 mmol/L (3.6-5.0) L D 09/27/17 05:06 Chloride 104.8 mmol/L (98-107) 09/27/17 05:06 Carbon Dioxide 21 mmol/L (22-30) L 09/27/17 05:06 Anion Gap 16 mmol/L 09/27/17 05:06 BUN 3 mg/dL (7-17) L 09/27/17 05:06 Creatinine 0.8 mg/dL (0.7-1.2) 09/27/17 05:06 Estimated GFR > 60 ml/min 09/27/17 05:06 BUN/Creatinine Ratio 4 % 09/27/17 05:06 Glucose 240 mg/dL (65-100) H 09/27/17 05:06 POC Glucose 332 (70-105) H 09/27/17 08:27 Calcium 6.8 mg/dL (8.4-10.2) L 09/27/17 05:06 Phosphorus 2.10 mg/dL (2.5-4.5) L 09/26/17 05:10 Magnesium 1.20 mg/dL (1.7-2.3) L 09/22/17 10:40 Total Bilirubin 0.80 mg/dL (0.1-1.2) 09/22/17 01:35 AST 20 units/L (5-40) 09/22/17 01:35 ALT 13 units/L (7-56) 09/22/17 01:35 Alkaline Phosphatase 216 units/L (35-129) H 09/22/17 01:35 Total Creatine Kinase 48 units/L (30-135) 09/22/17 10:40 CK-MB (CK-2) 3.2 ng/mL (0.0-4.0) 09/22/17 10:40 CK-MB (CK-2) Rel Index 6.6 (0-4) H 09/22/17 10:40 Troponin T < 0.010 ng/mL (0.00-0.029) 09/22/17 10:40 C-Reactive Protein 8.00 mg/dL (0.00-1.30) H 09/25/17 12:47 Total Protein 9.0 g/dL (6.3-8.2) H 09/22/17 01:35 Albumin 3.7 g/dL (3.9-5) L 09/22/17 01:35 Albumin/Globulin Ratio 0.7 % 09/22/17 01:35 Urine Color Yellow (Yellow) 09/22/17 04:29 Urine Turbidity Clear (Clear) 09/22/17 04:29 Urine pH 5.0 (5.0-7.0) 09/22/17 04:29 Ur Specific Mulhall 1.016 (1.003-1.030) 09/22/17 04:29 Urine Protein 30 mg/dl mg/dL (Negative) 09/22/17 04:29 Urine Glucose (UA) >=500 mg/dL (Negative) 09/22/17 04:29 Urine Ketones 80 mg/dL (Negative) 09/22/17 04:29 Urine Blood Mod (Negative) 09/22/17 04:29 Urine Nitrite Neg (Negative) 09/22/17 04:29 Urine Bilirubin Neg (Negative) 09/22/17 04:29 Urine Urobilinogen < 2.0 mg/dL (<2.0) 09/22/17 04:29 Ur Leukocyte Esterase Neg (Negative) 09/22/17 04:29 Urine WBC (Auto) 1.0 /HPF (0.0-6.0) 09/22/17 04:29 Urine RBC (Auto) 2.0 /HPF (0.0-6.0) 09/22/17 04:29 U Epithel Cells (Auto) < 1.0 /HPF (0-13.0) 09/22/17 04:29 Hyaline Casts 5 /LPF 09/22/17 04:29 Urine Mucus Few /HPF 09/22/17 04:29 Urine HCG, Qual Negative (Negative) 09/22/17 04:29 Urine Opiates Screen Presumptive positive 09/22/17 04:29 Urine Methadone Screen Presumptive negative 09/22/17 04:29 Ur Barbiturates Screen Presumptive negative 09/22/17 04:29 Ur Phencyclidine Scrn Presumptive negative 09/22/17 04:29 Ur Amphetamines Screen Presumptive negative 09/22/17 04:29 U Benzodiazepines Scrn Presumptive negative 09/22/17 04:29 Urine Cocaine Screen Presumptive negative 09/22/17 04:29 U Marijuana (THC) Screen Presumptive negative 09/22/17 04:29 Drugs of Abuse Note Disclamer 09/22/17 04:29 <LANDEN ALONZO - Last Filed: 09/27/17 21:17> Assessment and Plan Assessment and plan: I saw and evaluated the patient. I agree with the findings and the plan of care as documented in the Nurse Practitioner's~note, with the following corrections and additions. DKA controlled with closed AG. Recheck labs Hospitalist Physical - Constitutional Vitals: Temp Pulse Resp BP Pulse Ox 98.6 F 92 H 21 135/69 98 09/27/17 19:49 09/27/17 19:49 09/27/17 19:49 09/27/17 19:49 09/27/17 19:49 Results - Labs CBC & Chem 7: 09/27/17 05:06 09/27/17 05:06 Labs: Laboratory Last Values WBC 8.5 K/mm3 (4.5-11.0) 09/27/17 05:06 RBC 3.31 M/mm3 (3.65-5.03) L 09/27/17 05:06 Hgb 9.8 gm/dl (10.1-14.3) L 09/27/17 05:06 Hct 29.6 % (30.3-42.9) L 09/27/17 05:06 MCV 90 fl (79-97) 09/27/17 05:06 MCH 30 pg (28-32) 09/27/17 05:06 MCHC 33 % (30-34) 09/27/17 05:06 RDW 18.3 % (13.2-15.2) H 09/27/17 05:06 Plt Count 190 K/mm3 (140-440) 09/27/17 05:06 Lymph % (Auto) 22.3 % (13.4-35.0) 09/27/17 05:06 Marathon % (Auto) 12.9 % (0.0-7.3) H 09/27/17 05:06 Eos % (Auto) 2.6 % (0.0-4.3) 09/27/17 05:06 Baso % (Auto) 0.9 % (0.0-1.8) 09/27/17 05:06 Lymph # 1.9 K/mm3 (1.2-5.4) 09/27/17 05:06 Marathon # 1.1 K/mm3 (0.0-0.8) H 09/27/17 05:06 Eos # 0.2 K/mm3 (0.0-0.4) 09/27/17 05:06 Baso # 0.1 K/mm3 (0.0-0.1) 09/27/17 05:06 Add Manual Diff Complete 09/23/17 03:49 Total Counted 100 09/23/17 03:49 Seg Neutrophils % 61.3 % (40.0-70.0) 09/27/17 05:06 Seg Neuts % (Manual) 66.0 % (40.0-70.0) 09/23/17 03:49 Band Neutrophils % 8.0 % 09/23/17 03:49 Lymphocytes % (Manual) 14.0 % (13.4-35.0) 09/23/17 03:49 Reactive Lymphs % (Man) 0 % 09/23/17 03:49 Monocytes % (Manual) 8.0 % (0.0-7.3) H 09/23/17 03:49 Eosinophils % (Manual) 4.0 % (0.0-4.3) 09/23/17 03:49 Basophils % (Manual) 0 % (0.0-1.8) 09/23/17 03:49 Metamyelocytes % 0 % 09/23/17 03:49 Myelocytes % 0 % 09/23/17 03:49 Promyelocytes % 0 % 09/23/17 03:49 Blast Cells % 0 % 09/23/17 03:49 Nucleated RBC % Not Reportable 09/23/17 03:49 Seg Neutrophils # 5.2 K/mm3 (1.8-7.7) 09/27/17 05:06 Seg Neutrophils # Man 5.6 K/mm3 (1.8-7.7) 09/23/17 03:49 Band Neutrophils # 0.7 K/mm3 09/23/17 03:49 Lymphocytes # (Manual) 1.2 K/mm3 (1.2-5.4) 09/23/17 03:49 Abs React Lymphs (Man) 0.0 K/mm3 09/23/17 03:49 Monocytes # (Manual) 0.7 K/mm3 (0.0-0.8) 09/23/17 03:49 Eosinophils # (Manual) 0.3 K/mm3 (0.0-0.4) 09/23/17 03:49 Basophils # (Manual) 0.0 K/mm3 (0.0-0.1) 09/23/17 03:49 Metamyelocytes # 0.0 K/mm3 09/23/17 03:49 Myelocytes # 0.0 K/mm3 09/23/17 03:49 Promyelocytes # 0.0 K/mm3 09/23/17 03:49 Blast Cells # 0.0 K/mm3 09/23/17 03:49 WBC Morphology Not Reportable 09/23/17 03:49 Hypersegmented Neuts Not Reportable 09/23/17 03:49 Hyposegmented Neuts Not Reportable 09/23/17 03:49 Hypogranular Neuts Not Reportable 09/23/17 03:49 Smudge Cells Not Reportable 09/23/17 03:49 Toxic Granulation Not Reportable 09/23/17 03:49 Toxic Vacuolation Not Reportable 09/23/17 03:49 Dohle Bodies Not Reportable 09/23/17 03:49 Pelger-Huet Anomaly Not Reportable 09/23/17 03:49 Kasi Rods Not Reportable 09/23/17 03:49 Platelet Estimate Appears normal 09/23/17 03:49 Clumped Platelets Not Reportable 09/23/17 03:49 Plt Clumps, EDTA Not Reportable 09/23/17 03:49 Large Platelets Not Reportable 09/23/17 03:49 Giant Platelets Not Reportable 09/23/17 03:49 Platelet Satelliting Not Reportable 09/23/17 03:49 Plt Morphology Comment Not Reportable 09/23/17 03:49 RBC Morphology Not Reportable 09/23/17 03:49 Dimorphic RBCs Not Reportable 09/23/17 03:49 Polychromasia Not Reportable 09/23/17 03:49 Hypochromasia Not Reportable 09/23/17 03:49 Poikilocytosis Not Reportable 09/23/17 03:49 Anisocytosis 1+ 09/23/17 03:49 Microcytosis Not Reportable 09/23/17 03:49 Macrocytosis Not Reportable 09/23/17 03:49 Spherocytes Not Reportable 09/23/17 03:49 Pappenheimer Bodies Not Reportable 09/23/17 03:49 Sickle Cells Not Reportable 09/23/17 03:49 Target Cells Not Reportable 09/23/17 03:49 Tear Drop Cells Not Reportable 09/23/17 03:49 Ovalocytes 1+ 09/23/17 03:49 Helmet Cells Not Reportable 09/23/17 03:49 Galvan-[place] Bodies Not Reportable 09/23/17 03:49 [place] Rings Not Reportable 09/23/17 03:49 Rachana Cells Few 09/23/17 03:49 Bite Cells Not Reportable 09/23/17 03:49 Crenated Cell Not Reportable 09/23/17 03:49 Elliptocytes Not Reportable 09/23/17 03:49 Acanthocytes (Spur) Not Reportable 09/23/17 03:49 Rouleaux Not Reportable 09/23/17 03:49 Hemoglobin C Crystals Not Reportable 09/23/17 03:49 Schistocytes Not Reportable 09/23/17 03:49 Malaria parasites Not Reportable 09/23/17 03:49 Julián Bodies Not Reportable 09/23/17 03:49 Hem Pathologist Commnt No 09/23/17 03:49 PT 15.0 Sec. (12.2-14.9) H 09/22/17 01:35 INR 1.12 (0.87-1.13) 09/22/17 01:35 APTT 29.5 Sec. (24.2-36.6) 09/22/17 01:35 Sodium 139 mmol/L (137-145) 09/27/17 05:06 Potassium 3.2 mmol/L (3.6-5.0) L D 09/27/17 05:06 Chloride 104.8 mmol/L (98-107) 09/27/17 05:06 Carbon Dioxide 21 mmol/L (22-30) L 09/27/17 05:06 Anion Gap 16 mmol/L 09/27/17 05:06 BUN 3 mg/dL (7-17) L 09/27/17 05:06 Creatinine 0.8 mg/dL (0.7-1.2) 09/27/17 05:06 Estimated GFR > 60 ml/min 09/27/17 05:06 BUN/Creatinine Ratio 4 % 09/27/17 05:06 Glucose 240 mg/dL (65-100) H 09/27/17 05:06 POC Glucose 63 (70-105) L 09/27/17 21:04 Calcium 6.8 mg/dL (8.4-10.2) L 09/27/17 05:06 Phosphorus 2.10 mg/dL (2.5-4.5) L 09/26/17 05:10 Magnesium 1.60 mg/dL (1.7-2.3) L 09/27/17 16:03 Total Bilirubin 0.80 mg/dL (0.1-1.2) 09/22/17 01:35 AST 20 units/L (5-40) 09/22/17 01:35 ALT 13 units/L (7-56) 09/22/17 01:35 Alkaline Phosphatase 216 units/L (35-129) H 09/22/17 01:35 Total Creatine Kinase 48 units/L (30-135) 09/22/17 10:40 CK-MB (CK-2) 3.2 ng/mL (0.0-4.0) 09/22/17 10:40 CK-MB (CK-2) Rel Index 6.6 (0-4) H 09/22/17 10:40 Troponin T < 0.010 ng/mL (0.00-0.029) 09/22/17 10:40 C-Reactive Protein 8.00 mg/dL (0.00-1.30) H 09/25/17 12:47 Total Protein 9.0 g/dL (6.3-8.2) H 09/22/17 01:35 Albumin 3.7 g/dL (3.9-5) L 09/22/17 01:35 Albumin/Globulin Ratio 0.7 % 09/22/17 01:35 Urine Color Yellow (Yellow) 09/22/17 04:29 Urine Turbidity Clear (Clear) 09/22/17 04:29 Urine pH 5.0 (5.0-7.0) 09/22/17 04:29 Ur Specific [place] 1.016 (1.003-1.030) 09/22/17 04:29 Urine Protein 30 mg/dl mg/dL (Negative) 09/22/17 04:29 Urine Glucose (UA) >=500 mg/dL (Negative) 09/22/17 04:29 Urine Ketones 80 mg/dL (Negative) 09/22/17 04:29 Urine Blood Mod (Negative) 09/22/17 04:29 Urine Nitrite Neg (Negative) 09/22/17 04:29 Urine Bilirubin Neg (Negative) 09/22/17 04:29 Urine Urobilinogen < 2.0 mg/dL (<2.0) 09/22/17 04:29 Ur Leukocyte Esterase Neg (Negative) 09/22/17 04:29 Urine WBC (Auto) 1.0 /HPF (0.0-6.0) 09/22/17 04:29 Urine RBC (Auto) 2.0 /HPF (0.0-6.0) 09/22/17 04:29 U Epithel Cells (Auto) < 1.0 /HPF (0-13.0) 09/22/17 04:29 Hyaline Casts 5 /LPF 09/22/17 04:29 Urine Mucus Few /HPF 09/22/17 04:29 Urine HCG, Qual Negative (Negative) 09/22/17 04:29 Urine Opiates Screen Presumptive positive 09/22/17 04:29 Urine Methadone Screen Presumptive negative 09/22/17 04:29 Ur Barbiturates Screen Presumptive negative 09/22/17 04:29 Ur Phencyclidine Scrn Presumptive negative 09/22/17 04:29 Ur Amphetamines Screen Presumptive negative 09/22/17 04:29 U Benzodiazepines Scrn Presumptive negative 09/22/17 04:29 Urine Cocaine Screen Presumptive negative 09/22/17 04:29 U Marijuana (THC) Screen Presumptive negative 09/22/17 04:29 Drugs of Abuse Note Disclamer 09/22/17 04:29
[2017-09-27] MEDS: KCL 10MEQ/100ML 10 MEQ/100 ML BAG IV SCH ×4 (13:46→16:56)
[2017-09-27] MEDS: DIFLUCAN 200 MG/100 ML BAG IV SCH (14:30)
--- NOTE | 2017-09-27 15:17 | Progress Note ---
Assessment and Plan 42 yo F with 1. DKA - improving 2. sepsis 2/2 #3 3. perirectal abscess s/p incision and drainage at bedside 4. hypokalemia Plan: 1. management of diabetes per 1' team, needs strict glucose control 2. carb controlled diet 3. IV abx - zosyn, wound culture - Dasia and Group B strept, ID on board 4. daily dressing changes per wound care nurse 5. PO pain control 6. DVT ppx 7. replace lytes, check Magnesium Subjective Date of service: 09/27/17 Narrative: Pt seen and examined. No complaints. pain controlled. No f/c. Objective Vital Signs - 12hr 09/27/17 09/27/17 04:28 10:00 Temperature 98.4 F Pulse Rate 80 79 Respiratory 20 Rate Blood Pressure 104/84 O2 Sat by Pulse 100 Oximetry - General physical appearance Narrative Exam: Gen: AAOx3. NAD Gluteal wound: All dressing and packing removed. Wound base is clean, no purulent drainage. Induration is improved. Wound probed with cotton tip applicator and no additional pockets of pus. Wound packed with 1 piece of mesalt. Covered with 4x4 gauze. - Labs 09/27/17 05:06 09/27/17 05:06 Diabetes panel 09/27/17 Range/Units 05:06 Sodium 139 (137-145) mmol/L Potassium 3.2 L D (3.6-5.0) mmol/L Chloride 104.8 (98-107) mmol/L Carbon Dioxide 21 L (22-30) mmol/L BUN 3 L (7-17) mg/dL Creatinine 0.8 (0.7-1.2) mg/dL Glucose 240 H (65-100) mg/dL Calcium 6.8 L (8.4-10.2) mg/dL Calcium panel 09/27/17 Range/Units 05:06 Calcium 6.8 L (8.4-10.2) mg/dL Pituitary panel 09/27/17 Range/Units 05:06 Sodium 139 (137-145) mmol/L Potassium 3.2 L D (3.6-5.0) mmol/L Chloride 104.8 (98-107) mmol/L Carbon Dioxide 21 L (22-30) mmol/L BUN 3 L (7-17) mg/dL Creatinine 0.8 (0.7-1.2) mg/dL Glucose 240 H (65-100) mg/dL Calcium 6.8 L (8.4-10.2) mg/dL Adrenal panel 09/27/17 Range/Units 05:06 Sodium 139 (137-145) mmol/L Potassium 3.2 L D (3.6-5.0) mmol/L Chloride 104.8 (98-107) mmol/L Carbon Dioxide 21 L (22-30) mmol/L BUN 3 L (7-17) mg/dL Creatinine 0.8 (0.7-1.2) mg/dL Glucose 240 H (65-100) mg/dL Calcium 6.8 L (8.4-10.2) mg/dL
[2017-09-27] MEDS: PERCOCET 5/325 PO PRN ×2 (15:19→22:15)
[2017-09-28 05:02] VITALS: BP 139/78
[2017-09-28 06:04] LABS: Basophils % (Auto) 0.8 % (0.0-1.8); Eosinophils % (Auto) 2.6 % (0.0-4.3); Hematocrit 26.6 % (30.3-42.9); Hemoglobin 8.7 gm/dl (10.1-14.3); Mean Corpuscular HGB Conc 33 % (30-34); Mean Corpuscular Hemoglobin 29 pg (28-32); Mean Corpuscular Volume 89 fl (79-97); Platelet Count 206 K/mm3 (140-440); Red Blood Count 2.97 M/mm3 (3.65-5.03); Red Cell Distribution Width 18.8 % (13.2-15.2); White Blood Count 7.7 K/mm3 (4.5-11.0)
[2017-09-28] MEDS: ZOSYN/NS 4.5GM/100ML 4.5 GM/100 ML VIAL IV SCH ×2 (06:13→14:01)
[2017-09-28 06:31] LABS: Anion Gap 15 mmol/L; BUN/Creatinine Ratio 5; Blood Urea Nitrogen 4 mg/dL (7-17); Calcium 7.1 mg/dL (8.4-10.2); Carbon Dioxide 22 mmol/L (22-30); Chloride 107.4 mmol/L (98-107); Glucose 103 mg/dL (65-100); Potassium 3.4 mmol/L (3.6-5.0); Sodium 141 mmol/L (137-145)
[2017-09-28] MEDS: LEVEMIR SUB-Q SCH (09:11)
[2017-09-28] MEDS: PERCOCET 5/325 PO PRN (09:16)
[2017-09-28] MEDS: K-PHOS NEUTRAL PO SCH ×2 (09:16→13:05)
[2017-09-28] MEDS: LOVENOX SUB-Q SCH (09:16)
[2017-09-28] MEDS ORDERED: MAGNESIUM SULFATE 2GM/50ML 2 GM/50 ML BAG IV ONE (10:03)
[2017-09-28] MEDS ORDERED: K-DUR PO ONE ×2 (10:03→14:00)
--- NOTE | 2017-09-28 10:23 | Progress Note ---
Hospitalist Physical - Constitutional Vitals: Temp Pulse Resp BP Pulse Ox 98.7 F 78 21 139/78 100 09/28/17 04:58 09/28/17 04:58 09/28/17 04:58 09/28/17 04:58 09/28/17 04:58 General appearance: Present: no acute distress Results - Labs CBC & Chem 7: 09/28/17 05:13 09/28/17 05:13 Labs: Laboratory Last Values WBC 7.7 K/mm3 (4.5-11.0) 09/28/17 05:13 RBC 2.97 M/mm3 (3.65-5.03) L 09/28/17 05:13 Hgb 8.7 gm/dl (10.1-14.3) L 09/28/17 05:13 Hct 26.6 % (30.3-42.9) L 09/28/17 05:13 MCV 89 fl (79-97) 09/28/17 05:13 MCH 29 pg (28-32) 09/28/17 05:13 MCHC 33 % (30-34) 09/28/17 05:13 RDW 18.8 % (13.2-15.2) H 09/28/17 05:13 Plt Count 206 K/mm3 (140-440) 09/28/17 05:13 Lymph % (Auto) 29.9 % (13.4-35.0) 09/28/17 05:13 [place] % (Auto) 14.7 % (0.0-7.3) H 09/28/17 05:13 Eos % (Auto) 2.6 % (0.0-4.3) 09/28/17 05:13 Baso % (Auto) 0.8 % (0.0-1.8) 09/28/17 05:13 Lymph # 2.3 K/mm3 (1.2-5.4) 09/28/17 05:13 [place] # 1.1 K/mm3 (0.0-0.8) H 09/28/17 05:13 Eos # 0.2 K/mm3 (0.0-0.4) 09/28/17 05:13 Baso # 0.1 K/mm3 (0.0-0.1) 09/28/17 05:13 Add Manual Diff Complete 09/23/17 03:49 Total Counted 100 09/23/17 03:49 Seg Neutrophils % 52.0 % (40.0-70.0) 09/28/17 05:13 Seg Neuts % (Manual) 66.0 % (40.0-70.0) 09/23/17 03:49 Band Neutrophils % 8.0 % 09/23/17 03:49 Lymphocytes % (Manual) 14.0 % (13.4-35.0) 09/23/17 03:49 Reactive Lymphs % (Man) 0 % 09/23/17 03:49 Monocytes % (Manual) 8.0 % (0.0-7.3) H 09/23/17 03:49 Eosinophils % (Manual) 4.0 % (0.0-4.3) 09/23/17 03:49 Basophils % (Manual) 0 % (0.0-1.8) 09/23/17 03:49 Metamyelocytes % 0 % 09/23/17 03:49 Myelocytes % 0 % 09/23/17 03:49 Promyelocytes % 0 % 09/23/17 03:49 Blast Cells % 0 % 09/23/17 03:49 Nucleated RBC % Not Reportable 09/23/17 03:49 Seg Neutrophils # 4.0 K/mm3 (1.8-7.7) 09/28/17 05:13 Seg Neutrophils # Man 5.6 K/mm3 (1.8-7.7) 09/23/17 03:49 Band Neutrophils # 0.7 K/mm3 09/23/17 03:49 Lymphocytes # (Manual) 1.2 K/mm3 (1.2-5.4) 09/23/17 03:49 Abs React Lymphs (Man) 0.0 K/mm3 09/23/17 03:49 Monocytes # (Manual) 0.7 K/mm3 (0.0-0.8) 09/23/17 03:49 Eosinophils # (Manual) 0.3 K/mm3 (0.0-0.4) 09/23/17 03:49 Basophils # (Manual) 0.0 K/mm3 (0.0-0.1) 09/23/17 03:49 Metamyelocytes # 0.0 K/mm3 09/23/17 03:49 Myelocytes # 0.0 K/mm3 09/23/17 03:49 Promyelocytes # 0.0 K/mm3 09/23/17 03:49 Blast Cells # 0.0 K/mm3 09/23/17 03:49 WBC Morphology Not Reportable 09/23/17 03:49 Hypersegmented Neuts Not Reportable 09/23/17 03:49 Hyposegmented Neuts Not Reportable 09/23/17 03:49 Hypogranular Neuts Not Reportable 09/23/17 03:49 Smudge Cells Not Reportable 09/23/17 03:49 Toxic Granulation Not Reportable 09/23/17 03:49 Toxic Vacuolation Not Reportable 09/23/17 03:49 Dohle Bodies Not Reportable 09/23/17 03:49 Pelger-Huet Anomaly Not Reportable 09/23/17 03:49 Kasi Rods Not Reportable 09/23/17 03:49 Platelet Estimate Appears normal 09/23/17 03:49 Clumped Platelets Not Reportable 09/23/17 03:49 Plt Clumps, EDTA Not Reportable 09/23/17 03:49 Large Platelets Not Reportable 09/23/17 03:49 Giant Platelets Not Reportable 09/23/17 03:49 Platelet Satelliting Not Reportable 09/23/17 03:49 Plt Morphology Comment Not Reportable 09/23/17 03:49 RBC Morphology Not Reportable 09/23/17 03:49 Dimorphic RBCs Not Reportable 09/23/17 03:49 Polychromasia Not Reportable 09/23/17 03:49 Hypochromasia Not Reportable 09/23/17 03:49 Poikilocytosis Not Reportable 09/23/17 03:49 Anisocytosis 1+ 09/23/17 03:49 Microcytosis Not Reportable 09/23/17 03:49 Macrocytosis Not Reportable 09/23/17 03:49 Spherocytes Not Reportable 09/23/17 03:49 Pappenheimer Bodies Not Reportable 09/23/17 03:49 Sickle Cells Not Reportable 09/23/17 03:49 Target Cells Not Reportable 09/23/17 03:49 Tear Drop Cells Not Reportable 09/23/17 03:49 Ovalocytes 1+ 09/23/17 03:49 Helmet Cells Not Reportable 09/23/17 03:49 [place] Bodies Not Reportable 09/23/17 03:49 [place] Rings Not Reportable 09/23/17 03:49 [place]ney Cells Few 09/23/17 03:49 Bite Cells Not Reportable 09/23/17 03:49 Crenated Cell Not Reportable 09/23/17 03:49 Elliptocytes Not Reportable 09/23/17 03:49 Acanthocytes (Spur) Not Reportable 09/23/17 03:49 Rouleaux Not Reportable 09/23/17 03:49 Hemoglobin C Crystals Not Reportable 09/23/17 03:49 Schistocytes Not Reportable 09/23/17 03:49 Malaria parasites Not Reportable 09/23/17 03:49 Julián Bodies Not Reportable 09/23/17 03:49 Hem Pathologist Commnt No 09/23/17 03:49 PT 15.0 Sec. (12.2-14.9) H 09/22/17 01:35 INR 1.12 (0.87-1.13) 09/22/17 01:35 APTT 29.5 Sec. (24.2-36.6) 09/22/17 01:35 Sodium 141 mmol/L (137-145) 09/28/17 05:13 Potassium 3.4 mmol/L (3.6-5.0) L 09/28/17 05:13 Chloride 107.4 mmol/L (98-107) H 09/28/17 05:13 Carbon Dioxide 22 mmol/L (22-30) 09/28/17 05:13 Anion Gap 15 mmol/L 09/28/17 05:13 BUN 4 mg/dL (7-17) L 09/28/17 05:13 Creatinine 0.8 mg/dL (0.7-1.2) 09/28/17 05:13 Estimated GFR > 60 ml/min 09/28/17 05:13 BUN/Creatinine Ratio 5 % 09/28/17 05:13 Glucose 103 mg/dL (65-100) H 09/28/17 05:13 POC Glucose 171 (70-105) H 09/28/17 07:21 Calcium 7.1 mg/dL (8.4-10.2) L 09/28/17 05:13 Phosphorus 2.10 mg/dL (2.5-4.5) L 09/26/17 05:10 Magnesium 1.60 mg/dL (1.7-2.3) L 09/28/17 05:13 Total Bilirubin 0.80 mg/dL (0.1-1.2) 09/22/17 01:35 AST 20 units/L (5-40) 09/22/17 01:35 ALT 13 units/L (7-56) 09/22/17 01:35 Alkaline Phosphatase 216 units/L (35-129) H 09/22/17 01:35 Total Creatine Kinase 48 units/L (30-135) 09/22/17 10:40 CK-MB (CK-2) 3.2 ng/mL (0.0-4.0) 09/22/17 10:40 CK-MB (CK-2) Rel Index 6.6 (0-4) H 09/22/17 10:40 Troponin T < 0.010 ng/mL (0.00-0.029) 09/22/17 10:40 C-Reactive Protein 8.00 mg/dL (0.00-1.30) H 09/25/17 12:47 Total Protein 9.0 g/dL (6.3-8.2) H 09/22/17 01:35 Albumin 3.7 g/dL (3.9-5) L 09/22/17 01:35 Albumin/Globulin Ratio 0.7 % 09/22/17 01:35 Urine Color Yellow (Yellow) 09/22/17 04:29 Urine Turbidity Clear (Clear) 09/22/17 04:29 Urine pH 5.0 (5.0-7.0) 09/22/17 04:29 Ur Specific [place] 1.016 (1.003-1.030) 09/22/17 04:29 Urine Protein 30 mg/dl mg/dL (Negative) 09/22/17 04:29 Urine Glucose (UA) >=500 mg/dL (Negative) 09/22/17 04:29 Urine Ketones 80 mg/dL (Negative) 09/22/17 04:29 Urine Blood Mod (Negative) 09/22/17 04:29 Urine Nitrite Neg (Negative) 09/22/17 04:29 Urine Bilirubin Neg (Negative) 09/22/17 04:29 Urine Urobilinogen < 2.0 mg/dL (<2.0) 09/22/17 04:29 Ur Leukocyte Esterase Neg (Negative) 09/22/17 04:29 Urine WBC (Auto) 1.0 /HPF (0.0-6.0) 09/22/17 04:29 Urine RBC (Auto) 2.0 /HPF (0.0-6.0) 09/22/17 04:29 U Epithel Cells (Auto) < 1.0 /HPF (0-13.0) 09/22/17 04:29 Hyaline Casts 5 /LPF 09/22/17 04:29 Urine Mucus Few /HPF 09/22/17 04:29 Urine HCG, Qual Negative (Negative) 09/22/17 04:29 Urine Opiates Screen Presumptive positive 09/22/17 04:29 Urine Methadone Screen Presumptive negative 09/22/17 04:29 Ur Barbiturates Screen Presumptive negative 09/22/17 04:29 Ur Phencyclidine Scrn Presumptive negative 09/22/17 04:29 Ur Amphetamines Screen Presumptive negative 09/22/17 04:29 U Benzodiazepines Scrn Presumptive negative 09/22/17 04:29 Urine Cocaine Screen Presumptive negative 09/22/17 04:29 U Marijuana (THC) Screen Presumptive negative 09/22/17 04:29 Drugs of Abuse Note Disclamer 09/22/17 04:29
--- NOTE | 2017-09-28 10:43 | Progress Note ---
Assessment and Plan Assessment: 1) Sepsis: better. Etiology most likely gluteal abscess. CRP=8 2) Left Gluteal abscess: better decreased in size and induration; S/p bedside I+ D on 09/22, cx + Strep group B and Dasia - 50 mL of foul-smelling purulent drainage. 3) DM with DKA 4) PAUL - better Plan: -continue zosyn and fluconazole -upon discharge will do levaquin 750 mg PO qday and flagyl 500 mg PO q8h total 14 days from 09/22 until 10/05/17 -needs wound care Thank you Dr Long for your consultation, will follow up with you. Jacque Bob MD Infectious Diseases Specialist [facility] ([facility] M [phone] O [phone] Subjective Date of service: 09/28/17 Principal diagnosis: DKA; Sepsis Interval history: Feels better, decreased pain at left buttocks surg wound, no fever. Microbiology: Blood cultures: 09/22 ngtd Wound cultures: 09/22 Beta hem Strep group B and Dasia Current Antimicrobials: Zosyn 09/22 Previous Antimicrobials: Objective - Exam Narrative Exam: General appearance: Alert in NAD, conversant Eyes: anicteric sclerae, moist conjunctivae; no lid-lag; PERRLA HENT: Atraumatic; oropharynx clear Neck: Trachea midline; supple, no thyromegaly or lymphadenopathy Lungs: CTA CV: RRR, no murmurs Abdomen: Soft, non-tender; Extremities: No peripheral edema or extremity lymphadenopathy Skin: left gluteal area with decreased induration and wound packed and covered with dressings Psych: Appropriate affect, alert and oriented to person, place and time. Neuro: alert and oriented x 3. Moving all extermities Lines: No CVL / PICC - Constitutional Vitals: Vital Signs Temp Pulse Resp BP Pulse Ox 98.7 F 78 21 139/78 100 09/28/17 04:58 09/28/17 04:58 09/28/17 04:58 09/28/17 04:58 09/28/17 04:58 Temperature -Last 24 Hours Temperature 98.7 F Temperature 98.5 F Temperature 98.6 F Temperature 98.4 F Temperature 98.7 F - Labs CBC & Chem 7: 09/28/17 05:13 09/28/17 05:13 Labs: Abnormal lab results 09/27/17 09/27/17 09/27/17 Range/Units 12:07 16:03 17:00 RBC (3.65-5.03) M/mm3 Hgb (10.1-14.3) gm/dl Hct (30.3-42.9) % RDW (13.2-15.2) % [place] % (Auto) (0.0-7.3) % [place] # (0.0-0.8) K/mm3 Potassium (3.6-5.0) mmol/L Chloride (98-107) mmol/L BUN (7-17) mg/dL Glucose (65-100) mg/dL POC Glucose 242 H 314 H (70-105) Calcium (8.4-10.2) mg/dL Magnesium 1.60 L (1.7-2.3) mg/dL 09/27/17 09/28/17 09/28/17 Range/Units 21:04 05:13 05:13 RBC 2.97 L (3.65-5.03) M/mm3 Hgb 8.7 L (10.1-14.3) gm/dl Hct 26.6 L (30.3-42.9) % RDW 18.8 H (13.2-15.2) % [place] % (Auto) 14.7 H (0.0-7.3) % [place] # 1.1 H (0.0-0.8) K/mm3 Potassium 3.4 L (3.6-5.0) mmol/L Chloride 107.4 H (98-107) mmol/L BUN 4 L (7-17) mg/dL Glucose 103 H (65-100) mg/dL POC Glucose 63 L (70-105) Calcium 7.1 L (8.4-10.2) mg/dL Magnesium 1.60 L (1.7-2.3) mg/dL 09/28/17 Range/Units 07:21 RBC (3.65-5.03) M/mm3 Hgb (10.1-14.3) gm/dl Hct (30.3-42.9) % RDW (13.2-15.2) % [place] % (Auto) (0.0-7.3) % [place] # (0.0-0.8) K/mm3 Potassium (3.6-5.0) mmol/L Chloride (98-107) mmol/L BUN (7-17) mg/dL Glucose (65-100) mg/dL POC Glucose 171 H (70-105) Calcium (8.4-10.2) mg/dL Magnesium (1.7-2.3) mg/dL
--- NOTE | 2017-09-28 13:27 | Discharge Summary ---
<BRYCE ALAN - Last Filed: 09/28/17 14:06> Providers - Providers Date of Admission: 09/22/17 04:52 Date of discharge: 09/28/17 Attending physician: WESTON ALVA MD 09/22/17 03:08 Consult to Case Management [CONS] Routine Services Needed at Discharge: Other Notified:: yes Was contact made?: Yes 09/22/17 04:52 Consult to Physician [CONS] Routine Consulting Provider: NANCY BURKS Reason For Exam: rctal abscess Place consult to:: surgery Notified:: y Was contact made?: Yes If yes, spoke with:: miguel vilma Time called:: 09:00 09/22/17 05:26 Consult to Physician [CONS] Routine Consulting Provider: VERO CARRASCO Reason For Exam: cc Place consult to:: cc Notified:: y Was contact made?: Yes If yes, spoke with:: dr carrasco Time called:: 08:55 09/23/17 08:05 Consult to Wound/ET Nurse [CONS] Routine Reason For Exam: wound eval 09/24/17 11:16 Consult to Physician [CONS] Routine Consulting Provider: KARINE MATA Reason For Exam: abx recommendation Place consult to:: carton filler ID Notified:: Dr Flores Was contact made?: Yes Time called:: 11:45 Primary care physician: VIDAL GAMBINO Hospitalization Condition: Stable Pertinent studies: X-ray revealed no active chest disease. Echocardiogram revealed EF of 55-60%. Procedures: I&D of perirectal abscess Hospital course: The patient came to the emergency room with complaints of chest pain and shortness of breath for the past 1-2 days. She also noted pain near her buttock area for the past 1 week which is gradually gotten worse. In the ER she noted to have left gluteal abscess and BG of 672. She was admitted to the ICU with DKA protocol and general surgeon was consulted for possible I&D of her left gluteal abscess Patient was treated with antibiotics, analgesics, potassium, magnesium, Diflucan , and was placed on DVT prophylaxis with Lovenox. Patient was clinically stable to be discharged. Patient will be discharged home with home health for wound care. Discharge diagnosis Sepsis Hypokalemia Diarrhea DKA Gluteal abscess Chest pain PAUL Hypertensive urgency DVT prophylaxis Disposition: DC/[place]-06 HOME UNDER HOME [facility] Core Measure Documentation - Palliative Care Palliative Care/ Comfort Measures: Not Applicable - Core Measures Any of the following diagnoses?: none Exam - Constitutional Vitals: Temp Pulse Resp BP Pulse Ox 98.7 F 78 20 139/78 100 09/28/17 04:58 09/28/17 04:58 09/28/17 10:00 09/28/17 04:58 09/28/17 04:58 General appearance: Present: no acute distress, well-nourished - EENT Eyes: Present: PERRL ENT: hearing intact, clear oral mucosa - Neck Neck: Present: supple, normal ROM - Respiratory Respiratory effort: normal Respiratory: bilateral: CTA - Cardiovascular Heart Sounds: Present: S1 & S2. Absent: rub, click - Extremities Extremities: pulses symmetrical, No edema Peripheral Pulses: within normal limits - Abdominal General gastrointestinal: Present: soft, non-tender, non-distended, normal bowel sounds Female genitourinary: Present: normal - Integumentary Integumentary: Present: warm, dry - Musculoskeletal Musculoskeletal: gait normal, strength equal bilaterally - Psychiatric Psychiatric: appropriate mood/affect, intact judgment & insight - Neurologic Neurologic: CNII-XII intact, moves all extremities - Allied Health Allied health notes reviewed: nursing Plan Activity: fall precautions Weight Bearing Status: Weight Bear as Tolerated Diet: low fat, low cholesterol, low salt, diabetic Wound: per your surgeon's advice, per wound nurse instructions Follow up with: VIDAL GAMBINO MD [Primary Care Provider] - 3-5 Days NANCY BURKS DO [Staff Physician] - 10/05/17 Prescriptions: Levofloxacin [Levaquin] 750 mg PO QDAY 8 Days tablet metroNIDAZOLE [Flagyl] 500 mg PO Q8HR 8 Days tablet oxyCODONE /ACETAMINOPHEN [Percocet 5/325 mg] 2 tab PO Q6H PRN #12 tablet PRN Reason: Pain, Moderate (4-6) <NANCY BURKS - Last Filed: 09/28/17 15:41> Providers - Providers Date of Admission: 09/22/17 04:52 Attending physician: WESTON ALVA MD 09/22/17 03:08 Consult to Case Management [CONS] Routine Services Needed at Discharge: Other Notified:: yes Was contact made?: Yes 09/22/17 04:52 Consult to Physician [CONS] Routine Consulting Provider: NANCY BURKS Reason For Exam: rctal abscess Place consult to:: surgery Notified:: y Was contact made?: Yes If yes, spoke with:: miguel esparza Time called:: 09:00 09/22/17 05:26 Consult to Physician [CONS] Routine Consulting Provider: VERO CARRASCO Reason For Exam: cc Place consult to:: cc Notified:: y Was contact made?: Yes If yes, spoke with:: dr carrasco Time called:: 08:55 09/23/17 08:05 Consult to Wound/ET Nurse [CONS] Routine Reason For Exam: wound eval 09/24/17 11:16 Consult to Physician [CONS] Routine Consulting Provider: KARINE MATA Reason For Exam: abx recommendation Place consult to:: carton filler ID Notified:: Dr Flores Was contact made?: Yes Time called:: 11:45 Primary care physician: VIDAL GAMBINO Exam - Constitutional Vitals: Temp Pulse Resp BP Pulse Ox 98.7 F 78 20 139/78 100 09/28/17 04:58 09/28/17 04:58 09/28/17 10:00 09/28/17 04:58 09/28/17 04:58 Plan Diet: other Wound: per your surgeon's advice (Keep wound clean and dry. Prior to showering every day, remove dressing and all packing. Clean wound gently with soap and water and pat dry. Pack wound with one piece of the packing strip and cover with gauze. Perform wound packing changes daily.) Special Instructions: other (check blood sugar in the am and before every meal. it is very important to keep your sugar under control while trying to heal a wound.)
[2017-09-28] MEDS: DIFLUCAN 200 MG/100 ML BAG IV SCH (14:02)
--- NOTE | 2017-09-28 15:38 | Progress Note ---
Assessment and Plan 42 yo F with 1. DKA - improving 2. sepsis 2/2 #3 3. perirectal abscess s/p incision and drainage at bedside 4. hypokalemia Plan: 1. strict glucose control 2. carb controlled diet 3. IV abx - zosyn - transition to oral on dc, wound culture - Dasia and Group B strept, ID on board 4. daily dressing changes 5. PO pain control 6. DVT ppx 7. lytes replaced 8. ok for dc once medically cleared. May follow up in surgery office or wound care clinic. social work on board and ppwk for wound care clinic pending. Subjective Date of service: 09/28/17 Narrative: Pt seen and examined. No complaints. Pain is controlled. No f/c. Objective Vital Signs - 12hr 09/28/17 09/28/17 04:58 10:00 Temperature 98.7 F Pulse Rate 78 Respiratory 21 20 Rate Blood Pressure 139/78 O2 Sat by Pulse 100 Oximetry - General physical appearance Narrative Exam: Gen: AAOx3. NAD Perirectal wound: Dressing and packing removed. The wound has some slough at edges which was trimmed with scissors. Wound base is pink. No additional fluctuance or drainage. Induration is improved. Repacked with one piece of mesalt and covered with 4x4 gauze. - Labs 09/28/17 05:13 09/28/17 05:13 Diabetes panel 09/28/17 Range/Units 05:13 Sodium 141 (137-145) mmol/L Potassium 3.4 L (3.6-5.0) mmol/L Chloride 107.4 H (98-107) mmol/L Carbon Dioxide 22 (22-30) mmol/L BUN 4 L (7-17) mg/dL Creatinine 0.8 (0.7-1.2) mg/dL Glucose 103 H (65-100) mg/dL Calcium 7.1 L (8.4-10.2) mg/dL Calcium panel 09/28/17 Range/Units 05:13 Calcium 7.1 L (8.4-10.2) mg/dL Pituitary panel 09/28/17 Range/Units 05:13 Sodium 141 (137-145) mmol/L Potassium 3.4 L (3.6-5.0) mmol/L Chloride 107.4 H (98-107) mmol/L Carbon Dioxide 22 (22-30) mmol/L BUN 4 L (7-17) mg/dL Creatinine 0.8 (0.7-1.2) mg/dL Glucose 103 H (65-100) mg/dL Calcium 7.1 L (8.4-10.2) mg/dL Adrenal panel 09/28/17 Range/Units 05:13 Sodium 141 (137-145) mmol/L Potassium 3.4 L (3.6-5.0) mmol/L Chloride 107.4 H (98-107) mmol/L Carbon Dioxide 22 (22-30) mmol/L BUN 4 L (7-17) mg/dL Creatinine 0.8 (0.7-1.2) mg/dL Glucose 103 H (65-100) mg/dL Calcium 7.1 L (8.4-10.2) mg/dL
== END 2017-09-28 18:38 | disposition home health service (06) | DRG 853 ==
LOC: ED 00:57 → CC1 04:52 → 4A 18:12
PROVIDERS: ADMIT Internal Medicine; ATTEND Internal Medicine
PROC: 0J990ZZ Drainage of Buttock Subcutaneous Tissue and Fascia, Open Approach (ICD-10-PCS; principal; 2017-09-22)
DX: A41.9 Sepsis, unspecified organism (principal); E11.10 Type 2 diabetes mellitus with ketoacidosis without coma; N17.9 Acute kidney failure, unspecified; L03.317 Cellulitis of buttock; L02.31 Cutaneous abscess of buttock; I10 Essential (primary) hypertension; I16.0 Hypertensive urgency; F10.10 Alcohol abuse, uncomplicated; Y90.9 Presence of alcohol in blood, level not specified; E87.6 Hypokalemia; B95.1 Streptococcus, group B, as the cause of diseases classified elsewhere; Z79.899 Other long term (current) drug therapy; Z90.710 Acquired absence of both cervix and uterus; Z79.2 Long term (current) use of antibiotics; Z98.51 Tubal ligation status; Z91.14 Patient's other noncompliance with medication regimen
CPT/HCPCS: 36415; 71010; 80048; 80053; 80307; 81001; 81025; 82550; 82553; 82962; 83735; 84100; 84484; 85007; 85025; 85610; 85730; 86140; 87040; 87116; 93005; 93010; 93306; 96361; 96365; 96375; 96376; J1170; J1200; J1450; J1650; J1815; J1818; J2270; J2405; J2543; J3370; J3475; J3480; J7030; J7040

== ENCOUNTER 2017-11-07 18:23 | Inpatient (IN) | payer OTHER ==
[2017-11-07] MEDS ORDERED: NACL 0.9% 1000 ML 1,000 ML IV ONE (19:11)
[2017-11-07] MEDS ORDERED: ZOFRAN IV ONE (19:11)
--- NOTE | 2017-11-07 19:56 | Emergency Department Report ---
ED Abdominal Pain HPI - General Chief Complaint: Nausea/Vomiting/Diarrhea Stated Complaint: VOMITING Time Seen by Provider: 11/07/17 19:06 Source: patient Mode of arrival: Ambulatory Limitations: No Limitations - History of Present Illness Initial Comments: This is a 42-year-old female who admits to alcohol use disorder who states that she drank vodka about 2 days ago and has been having vomiting which is increased over the past week. She states that she noticed blood whenever she threw up and describes it as red and black. She states that she vomited multiple times today, too many to count and she also admits to shortness of breath and chest pain which she describes as tightness. She denies diarrhea fever and night sweats or chills area she denies smoking or illicit drug use. She states that she has abdominal pain which is described as constant and it just "hurts". MD Complaint: abdominal pain Onset/Timin -: week(s) Location: diffuse Radiation: epigastric Migration to: no migration Severity: moderate Quality: cramping, fullness Consistency: constant Improves With: nothing Worsens With: other (alcohol use) Associated Symptoms: nausea, vomiting, hematemesis. denies: diarrhea, fever, chills, constipation, dysuria, hematochezia, melena, hematuria, anorexia - Related Data Home Medications Medication Instructions Recorded Confirmed Last Taken Lantus Solostar 15 units SQ BID 12/19/16 09/22/17 01/27/17 19:00 25 UNITS Acetaminophen 500 mg PO Q6H PRN 09/22/17 09/22/17 Unknown Previous Rx's Medication Instructions Recorded Last Taken Type Levofloxacin [Levaquin] 750 mg PO QDAY 8 Days tablet 09/28/17 Unknown Rx metroNIDAZOLE [Flagyl] 500 mg PO Q8HR 8 Days tablet 09/28/17 Unknown Rx oxyCODONE /ACETAMINOPHEN [Percocet 2 tab PO Q6H PRN #12 tablet 09/28/17 Unknown Rx 5/325 mg] Allergies Allergy/AdvReac Type Severity Reaction Status Date / Time No Known Allergies Allergy Verified 04/03/17 14:03 ED Review of Systems ROS: Stated complaint: VOMITING Other details as noted in HPI Comment: All other systems reviewed and negative Constitutional: weakness. denies: chills, fever, malaise Eyes: as per HPI ENT: as per HPI Respiratory: no symptoms reported, see HPI Cardiovascular: chest pain Endocrine: no symptoms reported Gastrointestinal: abdominal pain, nausea, vomiting. denies: diarrhea Genitourinary: as per HPI Musculoskeletal: as per HPI Skin: as per HPI Neurological: as per HPI Psychiatric: as per HPI Hematological/Lymphatic: as per HPI ED Past Medical Hx - Past Medical History Hx Hypertension: Yes Hx CVA: No Hx Heart Attack/AMI: No Hx Congestive Heart Failure: No Hx Diabetes: Yes Hx Deep Vein Thrombosis: No Hx Pulmonary Embolism: No Hx GERD: No Hx Liver Disease: No Hx Renal Disease: No Hx Sickle Cell Disease: No Hx Arthritis: No Hx Headaches / Migraines: Yes (occas migraine) Hx Seizures: No Hx Kidney Stones: No Hx Psychiatric Treatment: Yes (ANXIETY) Hx Asthma: No Hx COPD: No Hx Tuberculosis: No Hx Dementia: No Hx HIV: No Additional medical history: anemia. FIBROIDS - Surgical History Hx Pacemaker: No Additional Surgical History: X 2. TUBAL LIGATION. Hysterectomy - Social History Smoking Status: Never Smoker Substance Use Type: Alcohol - Medications Home Medications: Home Medications Medication Instructions Recorded Confirmed Last Taken Type Lantus Solostar 15 units SQ BID 12/19/16 09/22/17 01/27/17 19:00 History 25 UNITS Acetaminophen 500 mg PO Q6H PRN 09/22/17 09/22/17 Unknown History Levofloxacin [Levaquin] 750 mg PO QDAY 8 Days tablet 09/28/17 Unknown Rx metroNIDAZOLE [Flagyl] 500 mg PO Q8HR 8 Days tablet 09/28/17 Unknown Rx oxyCODONE /ACETAMINOPHEN [Percocet 2 tab PO Q6H PRN #12 tablet 09/28/17 Unknown Rx 5/325 mg] ED Physical Exam - General Limitations: No Limitations General appearance: alert, in no apparent distress - Head Head exam: Present: atraumatic - Eye Eye exam: Present: normal appearance, PERRL Pupils: Present: normal accommodation - ENT ENT exam: Present: other (poor dentition) - Neck Neck exam: Present: normal inspection - Respiratory Respiratory exam: Present: normal lung sounds bilaterally. Absent: respiratory distress, wheezes, rales, rhonchi - Cardiovascular Cardiovascular Exam: Present: tachycardia - GI/Abdominal GI/Abdominal exam: Present: soft, tenderness (generalized), normal bowel sounds. Absent: guarding, rebound, rigid - Rectal Rectal exam: Present: deferred - Extremities Exam Extremities exam: Present: normal inspection, full ROM - Back Exam Back exam: Present: normal inspection - Neurological Exam Neurological exam: Present: alert, oriented X3 - Psychiatric Psychiatric exam: Present: normal affect, normal mood - Skin Skin exam: Present: warm, dry, intact ED Course Vital Signs 11/07/17 18:47 Temperature 97.8 F Pulse Rate 133 H Respiratory 26 H Rate Blood Pressure 150/103 O2 Sat by Pulse 99 Oximetry - Reevaluation(s) Reevaluation #1: 11/07/17 21:36 It appears that the patient is in diabetic ketoacidosis. She is tachycardic and her blood sugar is over 800 at this time. Her carbon dioxide level is 6. ABGs are still pending as are serum ketones. However we'll go ahead and initiate DK protocol at this time. I also spoke with the hospitalist. We will go and admit to ICU. With regards to her vomiting blood, I believe this is alcoholic gastritis. I also feel that her elevated lipase is due to chronic pancreatitis. This would also explain her abdominal pain. ED Medical Decision Making - Lab Data Result diagrams: 11/07/17 19:39 11/07/17 20:43 Critical Care Time: Yes Critical care time in (mins) excluding proc time.: 30 Critical care attestation.: If time is entered above; I have spent that time in minutes in the direct care of this critically ill patient, excluding procedure time. Critical Care Time: 30 ED Disposition Clinical Impression: Acute on chronic pancreatitis DKA (diabetic ketoacidoses) Qualifiers: Diabetes mellitus type: type 1 Diabetes mellitus complication detail: without coma Qualified Code(s): E10.10 - Type 1 diabetes mellitus with ketoacidosis without coma Alcoholic gastritis with bleeding Qualifiers: Chronicity: acute Qualified Code(s): K29.21 - Alcoholic gastritis with bleeding Disposition: DC-09 OP ADMIT IP TO THIS HOSP Is pt being admited?: Yes Does the pt Need Aspirin: No Condition: Stable Instructions: Diabetic Ketoacidosis (ED)
[2017-11-07 19:58] LABS: Basophils # (Auto) 0.1 K/mm3 (0.0-0.1); Basophils % (Auto) 0.4 % (0.0-1.8); Hematocrit 46.9 % (30.3-42.9); Lymphocytes # (Auto) 0.8 K/mm3 (1.2-5.4); Mean Corpuscular HGB Conc 28 % (30-34); Mean Corpuscular Hemoglobin 29 pg (28-32); Mean Corpuscular Volume 104 fl (79-97); Monocytes # (Auto) 0.9 K/mm3 (0.0-0.8); Monocytes % (Auto) 6.8 % (0.0-7.3); Platelet Count 228 K/mm3 (140-440); Red Blood Count 4.49 M/mm3 (3.65-5.03); Red Cell Distribution Width 16.6 % (13.2-15.2)
[2017-11-07 20:09] LABS: Albumin 4.4 g/dL (3.9-5); Calcium 9.1 mg/dL (8.4-10.2)
[2017-11-07] MEDS ORDERED: D50W (25GM) Syringe IV PRN (20:31)
[2017-11-07] MEDS ORDERED: NovoLIN R 100 UNITS in NACL 0.9% 99 ML IV SCH (21:00)
[2017-11-07 21:07] LABS: Calcium 8.7 mg/dL (8.4-10.2)
[2017-11-07 21:08] LABS: Magnesium 2.8 mg/dL (1.7-2.3)
[2017-11-07] MEDS ORDERED: TYLENOL PO PRN (21:34)
[2017-11-07] MEDS ORDERED: MORPHINE IV PRN (21:34)
[2017-11-07] MEDS ORDERED: ZOFRAN IV PRN (21:34)
[2017-11-07] MEDS ORDERED: DULCOLAX PR PRN (21:34)
[2017-11-07] MEDS ORDERED: MILK OF MAGNESIA PO PRN (21:34)
--- NOTE | 2017-11-07 21:40 | History and Physical Report ---
History of Present Illness Date of examination: 11/07/17 History of present illness: 42-year-old woman with a history of Hypertension, diabetes comes to the emergency room with complaint of nausea, vomiting, unable to tolerate oral intake for 1 week. States she is compiant with lantus. Today she had 3 episodes of hematemesis. Also complaining of chest pain that started 4 dats ago. Pain is in theleft chest, which she described as a pressure-like sensation , constant, intensity 5/10, no radiation, she cannot identify exacerbating or relieving factors. Admits to shortness of breath, no diaphoresis or palpitation. She states she had a stress test 1 month ago Review Of Systems: Constitutional: no weight loss Ears, eyes, nose, mouth and throat: no nasal congestion, no nasal discharge, no sinus pressure, blurry vision, diplopia Neck: No neck pain or rigidity. Cardiovascular: No palpitations Respiratory: No cough Gastrointestinal: No abdominal pain, hematochezia Genitourinary : no dysuria, frequency , hematuria Musculoskeletal: no muscle ache Integumentary: no rash, no pruritis Neurological: no parathesias, focal weakness Endocrine: no cold or heat intolerance, no polyuria or polydipsia Hematologic/Lymphatic: no easy bruising, no easy bleeding, no gland swelling Allergic/Immunologic: no urticaria, no angioedema. PAST MEDICAL HISTORY:Hypertension, diabetes PAST SURGICAL HISTORY: Hysterectomy, , tubal ligation FAMILY HISTORY: Hypertension, diabetes SOCIAL HISTORY:drinks "a lot", no tobacco or drugs Medications and Allergies Allergies Allergy/AdvReac Type Severity Reaction Status Date / Time No Known Allergies Allergy Verified 04/03/17 14:03 Home Medications Medication Instructions Recorded Confirmed Last Taken Type Lantus Solostar 15 units SQ BID 12/19/16 09/22/17 01/27/17 19:00 History 25 UNITS Acetaminophen 500 mg PO Q6H PRN 09/22/17 09/22/17 Unknown History Levofloxacin [Levaquin] 750 mg PO QDAY 8 Days tablet 09/28/17 Unknown Rx metroNIDAZOLE [Flagyl] 500 mg PO Q8HR 8 Days tablet 09/28/17 Unknown Rx oxyCODONE /ACETAMINOPHEN [Percocet 2 tab PO Q6H PRN #12 tablet 09/28/17 Unknown Rx 5/325 mg] Active Meds: Active Medications Acetaminophen (Tylenol) 650 mg PO Q4H PRN PRN Reason: Pain MILD(1-3)/Fever >100.5/GUERRA Bisacodyl (Dulcolax) 10 mg [place] QDAY PRN PRN Reason: Constipation unrelieved by MOM Dextrose (D50w (25gm) Syringe) 0 ml IV PRN PRN PRN Reason: Hypoglycemia Insulin Human Regular 100 (units/ Sodium Chloride) 100 mls @ 1 mls/hr IV TITR MANISH; 1 UNITS/HR PRN Reason: Protocol Dextrose/Sodium Chloride (D5/0.45ns) 1,000 mls @ 150 mls/hr IV DIRECT MANISH Sodium Chloride (Nacl 0.9% 1000 Ml) 1,000 mls @ 150 mls/hr IV DIRECT MANISH Magnesium Hydroxide (Milk Of Magnesia) 30 ml PO Q4H PRN PRN Reason: Constipation Morphine Sulfate (Morphine) 2 mg IV Q4H PRN PRN Reason: Pain, Moderate (4-6) Ondansetron HCl (Zofran) 4 mg IV Q8H PRN PRN Reason: N/V unrelieved by Reglan Pantoprazole Sodium (Protonix) 40 mg IV DAILY MANISH Exam - Physical Exam Narrative exam: Gen. appearance: Patient lying in bed in no acute distress HEENT: Normocephalic/atraumatic, pupils equal round reactive to light, extra occular movement intact, no scleral icterus, no JVD or thyromegaly or nodule, neck is supple, mucous membrane dry, no erythema or exudate Heart: S1-S2, regular rate and rhythm Lungs: Clear to auscultation bilateral breathing comfortable Abdomen: Positive bowel sounds, nontender, nondistended, no organomegaly Extremities: left gluteal abscess, indurated, tender, No edema, cyanosis, clubbing Neuro:: Oriented 3 , cranial nerves II-12 intact, speech, motor intact Skin: No rash, nodules, warm dry - Constitutional Vitals: Temp Pulse Resp BP Pulse Ox 97.8 F 133 H 26 H 150/103 99 11/07/17 18:47 11/07/17 18:47 11/07/17 18:47 11/07/17 18:47 11/07/17 18:47 Results - Labs CBC & Chem 7: 11/07/17 19:39 11/07/17 20:43 Labs: Abnormal lab results 11/07/17 11/07/17 11/07/17 Range/Units 19:39 19:39 20:43 WBC 13.8 H (4.5-11.0) K/mm3 Hct 46.9 H (30.3-42.9) % MCV 104 H (79-97) fl MCHC 28 L (30-34) % RDW 16.6 H (13.2-15.2) % Lymph % (Auto) 6.0 L (13.4-35.0) % Lymph # 0.8 L (1.2-5.4) K/mm3 [place] # 0.9 H (0.0-0.8) K/mm3 Seg Neutrophils % 86.8 H (40.0-70.0) % Seg Neutrophils # 12.0 H (1.8-7.7) K/mm3 Sodium 130 L (137-145) mmol/L Potassium 5.3 H (3.6-5.0) mmol/L Chloride 71.9 L (98-107) mmol/L Carbon Dioxide 6 L* (22-30) mmol/L Creatinine 1.5 H (0.7-1.2) mg/dL Glucose 824 H* (65-100) mg/dL Phosphorus 6.80 H (2.5-4.5) mg/dL Magnesium 2.80 H (1.7-2.3) mg/dL Alkaline Phosphatase 220 H (35-129) units/L Total Protein 9.3 H (6.3-8.2) g/dL Lipase 455 H (13-60) units/L 11/07/17 Range/Units 20:43 WBC (4.5-11.0) K/mm3 Hct (30.3-42.9) % MCV (79-97) fl MCHC (30-34) % RDW (13.2-15.2) % Lymph % (Auto) (13.4-35.0) % Lymph # (1.2-5.4) K/mm3 [place] # (0.0-0.8) K/mm3 Seg Neutrophils % (40.0-70.0) % Seg Neutrophils # (1.8-7.7) K/mm3 Sodium 130 L (137-145) mmol/L Potassium 5.6 H (3.6-5.0) mmol/L Chloride 72.5 L (98-107) mmol/L Carbon Dioxide 6 L* (22-30) mmol/L Creatinine 1.5 H (0.7-1.2) mg/dL Glucose 810 H* (65-100) mg/dL Phosphorus (2.5-4.5) mg/dL Magnesium (1.7-2.3) mg/dL Alkaline Phosphatase (35-129) units/L Total Protein (6.3-8.2) g/dL Lipase (13-60) units/L - Imaging and Cardiology EKG: image reviewed Assessment and Plan DKA Acute renal failure Chest pain Hematemesis, ?wayne gilbert tear, gastritis Alcohol Abuse Hypertension malignant Plan Admit to medicine Continue insulin drip, IV fluid, CIWA protocol with IV ativan Check serial chemistry, blood sugar Check cardiac enzymes, xray start IV protonix, first dose now, hemoglobin stable Start lopressor, as needed hydralazine for blood pressure control Consult critical care, GI DVT prophylaxis
[2017-11-07] MEDS ORDERED: ATIVAN IV PRN (21:41)
[2017-11-07] MEDS ORDERED: APRESOLINE IV PRN (21:52)
[2017-11-07] MEDS ORDERED: D5/0.45NS 1,000 ML IV SCH (22:00)
[2017-11-07] MEDS: MORPHINE IV PRN (22:06)
[2017-11-07] MEDS: PROTONIX IV SCH (22:11)
[2017-11-07] MEDS: LOPRESSOR PO SCH (22:16)
[2017-11-07 22:30] LABS: Magnesium 2.8 mg/dL (1.7-2.3)
[2017-11-07 22:35] LABS: Creatine Kinase MB 3.8 ng/mL (0.0-4.0)
[2017-11-07 22:47] LABS: Calcium 8.6 mg/dL (8.4-10.2)
--- NOTE | 2017-11-07 23:17 | XRay Report ---
FINAL REPORT EXAM: XR CHEST 1V AP HISTORY: cp COMPARISON: September 2017 FINDINGS: Frontal view(s) of the chest obtained. Cardiac silhouette within normal limits. No gross consolidation or effusion. No pneumothorax. IMPRESSION: No grossly acute findings.
[2017-11-07] MEDS ORDERED: SODIUM BICARBONATE IV ONE ×2 (23:22→23:31)
[2017-11-07] MEDS: NACL 0.9% 1000 ML 1,000 ML IV SCH (23:31)
[2017-11-08 01:51] LABS: Calcium 8.4 mg/dL (8.4-10.2)
[2017-11-08] MEDS: D5W/0.45% NACL/KCL 20 MEQ 20 MEQ/1,000 ML BAG IV SCH ×2 (03:50→21:09)
[2017-11-08] MEDS ORDERED: D5W/0.45% NACL/KCL 20 MEQ 20 MEQ/1,000 ML BAG IV ONE (03:51)
[2017-11-08 04:11] LABS: Calcium 8.8 mg/dL (8.4-10.2)
[2017-11-08 04:15] LABS: Creatine Kinase MB 4.2 ng/mL (0.0-4.0)
[2017-11-08] MEDS ORDERED: MORPHINE ONE (06:52)
[2017-11-08] MEDS ORDERED: FOLVITE PO SCH (10:00)
[2017-11-08] MEDS ORDERED: VITAMIN B-1 PO SCH (10:00)
[2017-11-08] MEDS: LOPRESSOR PO SCH ×2 (11:19→21:09)
--- NOTE | 2017-11-08 11:43 | Gastroenterology Consultation ---
History of Present Illness - Reason for Consult Consult date: 11/08/17 hematemesis Requesting physician: WILLIAN DE SANTIAGO - History of Present Illness Patient is a 42 y/o female with PMH of ETOH abuse, DM, HTN, migranes, anemia, and anxiety who presented to ED with c/o N/V with inability to tolerate PO intake x 1 week along with hematemesis, epigastric pain, CP, and SOB. Cardiac enzymes and chest x-ray negative. Blood sugar was found to be >800 on admission along with lipase being elevated. This morning pt was resting on stretcher w/o acute distress. She reports having N/V for the past several days, then developed hematemesis yesterday with multiple episodes of bright red blood mixed with black emesis. No signs of active bleeding today. No melena and hematochezia. States N/V, CP, and epigastric pain are now improving. Admits to ETOH abuse with drinking a bottle of Vodka daily. No hx of liver disease or PUD. No NSAID use. No previous EGD. Denies fever, wt loss, dizziness, dysphagia , odynophagia, diarrhea, or constipation. Past History Past Medical History: diabetes, hypertension, migraines, other (ETOH abuse, anemia, anxiety) Past Surgical History: (x2), hysterectomy, Other (tubal ligation) Social history: alcohol abuse. denies: smoking Medications and Allergies Allergies Allergy/AdvReac Type Severity Reaction Status Date / Time No Known Allergies Allergy Verified 04/03/17 14:03 Home Medications Medication Instructions Recorded Confirmed Last Taken Type Lantus Solostar 15 units SQ BID 12/19/16 11/07/17 01/27/17 19:00 History 25 UNITS Active Meds: Active Medications Acetaminophen (Tylenol) 650 mg PO Q4H PRN PRN Reason: Pain MILD(1-3)/Fever >100.5/GUERRA Bisacodyl (Dulcolax) 10 mg [place] QDAY PRN PRN Reason: Constipation unrelieved by MOM Dextrose (D50w (25gm) Syringe) 0 ml IV PRN PRN PRN Reason: Hypoglycemia Folic Acid (Folvite) 1 mg PO QDAY MANISH Last Admin: 11/08/17 11:19 Dose: 1 mg Hydralazine HCl (Apresoline) 5 mg IV Q6HR PRN PRN Reason: Hypertension Insulin Human Regular 100 (units/ Sodium Chloride) 100 mls @ 1 mls/hr IV TITR MANISH; 1 UNITS/HR PRN Reason: Protocol Last Titration: 11/08/17 11:04 Dose: 0 units/hr, 0 mls/hr Sodium Chloride (Nacl 0.9% 1000 Ml) 1,000 mls @ 150 mls/hr IV DIRECT MANISH Last Admin: 11/07/17 23:31 Dose: 150 mls/hr Potassium Chloride/Dextrose/Sod Cl (D5w/0.45% Nacl/Kcl 20 Meq) 20 meq in 1,000 mls @ 125 mls/hr IV DIRECT MANISH Last Admin: 11/08/17 03:50 Dose: 125 mls/hr Lorazepam (Ativan) 2 mg IV Q1HR PRN PRN Reason: CIWA-Rudy 8-15 Lorazepam (Ativan) 4 mg IV Q1HR PRN PRN Reason: CIWA-Ar 16-25 Magnesium Hydroxide (Milk Of Magnesia) 30 ml PO Q4H PRN PRN Reason: Constipation Metoprolol Tartrate (Lopressor) 25 mg PO BID [facility] Last Admin: 11/08/17 11:19 Dose: 25 mg Morphine Sulfate (Morphine) 2 mg IV Q4H PRN PRN Reason: Pain , Severe (7-10) Last Admin: 11/07/17 22:06 Dose: 2 mg Ondansetron HCl (Zofran) 4 mg IV Q8H PRN PRN Reason: N/V unrelieved by Reglan Pantoprazole Sodium (Protonix) 40 mg IV DAILY [facility] Last Admin: 11/07/17 22:11 Dose: 40 mg Thiamine HCl (Vitamin B-1) 100 mg PO DAILY [facility] Last Admin: 11/08/17 11:20 Dose: 100 mg Review of Systems - Review of Systems All systems: negative Cardiovascular: chest pain Respiratory: shortness of breath Gastrointestinal: abdominal pain (epigastric), nausea, vomiting, hematemesis, no diarrhea, no melena, no hematochezia Exam - Constitutional Vital Signs: Temp Pulse Resp BP Pulse Ox 98.1 F 106 H 16 142/91 98 11/08/17 08:15 11/08/17 11:19 11/08/17 11:00 11/08/17 11:19 11/08/17 11:00 General appearance: no acute distress - EENT Eyes: PERRL, EOM intact ENT: hearing intact - Respiratory Respiratory: bilateral: CTA - Cardiovascular Rhythm: other (tachycardia) Heart Sounds: Present: S1 & S2 - Gastrointestinal General gastrointestinal: Present: soft, tender (mild TTP in epigastric area), non-distended, normal bowel sounds - Integumentary Integumentary: Present: warm, dry - Neurologic Neurological: alert and oriented x3 - Labs CBC & Chem 7: 11/07/17 19:39 11/08/17 03:41 Lab Results: Laboratory Results - last 24 hr 11/07/17 11/07/17 11/07/17 19:39 19:39 19:39 WBC 13.8 H RBC 4.49 Hgb 13.0 Hct 46.9 H MCV 104 H MCH 29 MCHC 28 L RDW 16.6 H Plt Count 228 Lymph % (Auto) 6.0 L [place] % (Auto) 6.8 Eos % (Auto) 0.0 Baso % (Auto) 0.4 Lymph # 0.8 L [place] # 0.9 H Eos # 0.0 Baso # 0.1 Seg Neutrophils % 86.8 H Seg Neutrophils # 12.0 H Sodium 130 L Potassium 5.3 H Chloride 71.9 L Carbon Dioxide 6 L* Anion Gap 57 BUN 14 Creatinine 1.5 H Estimated GFR 46 BUN/Creatinine Ratio 9 Glucose 824 H* POC Glucose Ketones Quantitative Calcium 9.1 Phosphorus Magnesium Total Bilirubin 0.80 AST 30 ALT 23 Alkaline Phosphatase 220 H Total Creatine Kinase CK-MB (CK-2) CK-MB (CK-2) Rel Index Troponin T Total Protein 9.3 H Albumin 4.4 Albumin/Globulin Ratio 0.9 Amylase 112 Lipase 455 H Plasma/Serum Alcohol < 0.01 11/07/17 11/07/17 11/07/17 20:43 20:43 20:43 WBC RBC Hgb Hct MCV MCH MCHC RDW Plt Count Lymph % (Auto) [place] % (Auto) Eos % (Auto) Baso % (Auto) Lymph # [place] # Eos # Baso # Seg Neutrophils % Seg Neutrophils # Sodium 130 L Potassium 5.6 H Chloride 72.5 L Carbon Dioxide 6 L* Anion Gap 57 BUN 14 Creatinine 1.5 H Estimated GFR 46 BUN/Creatinine Ratio 9 Glucose 810 H* POC Glucose Ketones Quantitative Moderate Calcium 8.7 Phosphorus 6.80 H Magnesium 2.80 H Total Bilirubin AST ALT Alkaline Phosphatase Total Creatine Kinase CK-MB (CK-2) CK-MB (CK-2) Rel Index Troponin T Total Protein Albumin Albumin/Globulin Ratio Amylase Lipase Plasma/Serum Alcohol 11/07/17 11/07/17 11/07/17 21:52 21:52 21:52 WBC RBC Hgb Hct MCV MCH MCHC RDW Plt Count Lymph % (Auto) [place] % (Auto) Eos % (Auto) Baso % (Auto) Lymph # [place] # Eos # Baso # Seg Neutrophils % Seg Neutrophils # Sodium 130 L Potassium 5.3 H Chloride 72.6 L Carbon Dioxide 4 L* Anion Gap 59 BUN 15 Creatinine 1.5 H Estimated GFR 46 BUN/Creatinine Ratio 10 Glucose 810 H* POC Glucose Ketones Quantitative Calcium 8.6 Phosphorus 6.50 H Magnesium 2.80 H Total Bilirubin AST ALT Alkaline Phosphatase Total Creatine Kinase 35 CK-MB (CK-2) 3.8 CK-MB (CK-2) Rel Index 10.8 H Troponin T < 0.010 Total Protein Albumin Albumin/Globulin Ratio Amylase Lipase Plasma/Serum Alcohol 11/08/17 11/08/17 11/08/17 00:48 03:41 03:41 WBC RBC Hgb Hct MCV MCH MCHC RDW Plt Count Lymph % (Auto) [place] % (Auto) Eos % (Auto) Baso % (Auto) Lymph # [place] # Eos # Baso # Seg Neutrophils % Seg Neutrophils # Sodium 137 D 142 Potassium 4.7 4.5 Chloride 80.6 L 91.4 L Carbon Dioxide 8 L* 16 L D Anion Gap 53 39 BUN 14 15 Creatinine 1.2 1.2 Estimated GFR 60 60 BUN/Creatinine Ratio 12 13 Glucose 608 H* 142 H POC Glucose Ketones Quantitative Calcium 8.4 8.8 Phosphorus Magnesium Total Bilirubin AST ALT Alkaline Phosphatase Total Creatine Kinase 42 CK-MB (CK-2) 4.2 H CK-MB (CK-2) Rel Index 10.0 H Troponin T < 0.010 Total Protein Albumin Albumin/Globulin Ratio Amylase Lipase Plasma/Serum Alcohol 11/08/17 11/08/17 11/08/17 03:41 03:51 04:58 WBC RBC Hgb Hct MCV MCH MCHC RDW Plt Count Lymph % (Auto) [place] % (Auto) Eos % (Auto) Baso % (Auto) Lymph # [place] # Eos # Baso # Seg Neutrophils % Seg Neutrophils # Sodium Potassium Chloride Carbon Dioxide Anion Gap BUN Creatinine Estimated GFR BUN/Creatinine Ratio Glucose POC Glucose 137 H 184 H Ketones Quantitative Calcium Phosphorus Magnesium Total Bilirubin AST ALT Alkaline Phosphatase Total Creatine Kinase CK-MB (CK-2) CK-MB (CK-2) Rel Index Troponin T Total Protein Albumin Albumin/Globulin Ratio Amylase Lipase 281 H Plasma/Serum Alcohol 11/08/17 11/08/17 11/08/17 06:36 08:35 09:53 WBC RBC Hgb Hct MCV MCH MCHC RDW Plt Count Lymph % (Auto) [place] % (Auto) Eos % (Auto) Baso % (Auto) Lymph # [place] # Eos # Baso # Seg Neutrophils % Seg Neutrophils # Sodium Potassium Chloride Carbon Dioxide Anion Gap BUN Creatinine Estimated GFR BUN/Creatinine Ratio Glucose POC Glucose 142 H 185 H 136 H Ketones Quantitative Calcium Phosphorus Magnesium Total Bilirubin AST ALT Alkaline Phosphatase Total Creatine Kinase CK-MB (CK-2) CK-MB (CK-2) Rel Index Troponin T Total Protein Albumin Albumin/Globulin Ratio Amylase Lipase Plasma/Serum Alcohol 11/08/17 11:07 WBC RBC Hgb Hct MCV MCH MCHC RDW Plt Count Lymph % (Auto) [place] % (Auto) Eos % (Auto) Baso % (Auto) Lymph # [place] # Eos # Baso # Seg Neutrophils % Seg Neutrophils # Sodium Potassium Chloride Carbon Dioxide Anion Gap BUN Creatinine Estimated GFR BUN/Creatinine Ratio Glucose POC Glucose 95 Ketones Quantitative Calcium Phosphorus Magnesium Total Bilirubin AST ALT Alkaline Phosphatase Total Creatine Kinase CK-MB (CK-2) CK-MB (CK-2) Rel Index Troponin T Total Protein Albumin Albumin/Globulin Ratio Amylase Lipase Plasma/Serum Alcohol Assessment and Plan 1.hematemesis 2.DKA-on insulin gtt 3.acute on chronic pancreatitis 4.acute renal failure 5.CP-cardiac enzymes and chest x-ray negative 6.HTN 7.alcohol abuse -lipase 281 trending down -Plt, AST/ALT, T.[place] - WNL -HGB 13.0 yesterday-will order repeat H/H today with PT/INR -continue to monitor H/H and transfuse as needed -no active signs of bleeding today- currently HD stable -continue PPI -etiology unclear- possible M-W tear vs other -will schedule for EGD today -keep NPO -alcohol avoidance discussed with pt- continue CIWA protocol -continue supportive care -will follow
[2017-11-08] MEDS: PROTONIX IV SCH (11:59)
[2017-11-08 12:55] LABS: BUN/Creatinine Ratio 16; Blood Urea Nitrogen 14 mg/dL (7-17); Calcium 8.5 mg/dL (8.4-10.2); Hemolysis Index 14
[2017-11-08] MEDS: NACL 0.9% 1000 ML 1,000 ML IV SCH ×2 (13:28→22:20)
[2017-11-08] MEDS ORDERED: DIPRIVAN 10 MG/ML IV ONE (14:02)
--- NOTE | 2017-11-08 14:14 | Anesthesia Day of Surgery ---
Anesthesia Day of Surgery - Day of Surgery Patient Examined: Yes Patient H&P Reviewed: Yes Patient is NPO: Yes
--- NOTE | 2017-11-08 14:15 | Anesthesia Consultation ---
Anesthesia Consult and Med Hx Date of service: 11/08/17 - Airway Anesthetic Teeth Evaluation: Poor ROM Head & Neck: Adequate Mental/Hyoid Distance: Adequate Mallampati Class: Class II - Pulmonary Exam CTA: Yes - Cardiac Exam Cardiac Exam: RRR - Pre-Operative Health Status ASA Pre-Surgery Classification: ASA3 Proposed Anesthetic Plan: General - Pulmonary Hx Smoking: No (denies) Hx Asthma: No COPD: No Hx Pneumonia: No - Cardiovascular System Hx Hypertension: Yes Hx Heart Attack/AMI: No Hx Cardia Arrhythmia: No Hx Pacemaker: No - Central Nervous System Hx Seizures: No CVA: No Hx Psychiatric Problems: Yes - Gastrointestinal Hx Gastroesophageal Reflux Disease: No - Endocrine Hx Renal Disease: No Hx End Stage Renal Disease: No Hx Liver Disease: No Hx Insulin Dependent Diabetes: Yes (uncontrolled) Hx Hyperthyroidism: Yes - Hematic Hx Anemia: Yes Hx Sickle Cell Disease: No - Other Systems Hx Alcohol Use: Yes (OCCAS, 3 times/week) Hx Substance Use: No (denies any drug uses)
--- NOTE | 2017-11-08 14:16 | Post Operative Note ---
Pre-op diagnosis: gi bleed Post-op diagnosis: same Findings: EGD: distal erosive esophagitis (bx's) - gastritis (bx's) - small amount food stomach - negative other Procedure: EGD Anesthesia: MAC Surgeon: RAYA YOUNG Estimated blood loss: none Pathology: list Specimen disposition: to lab Condition: stable Disposition: floor
[2017-11-08] MEDS ORDERED: D50W (25GM) Syringe IV PRN (15:09)
[2017-11-08] MEDS ORDERED: NOVOLOG SUB-Q SCH (16:30)
--- NOTE | 2017-11-08 16:54 | Progress Note ---
Assessment and Plan Assessment and plan: 42-year-old woman with a history of Hypertension, diabetes comes to the emergency room with complaint of nausea, vomiting, unable to tolerate oral intake for 1 week. States she is compiant with lantus. Today she had 3 episodes of hematemesis. Also complaining of chest pain that started 4 dats ago. Pain is in theleft chest, which she described as a pressure-like sensation , constant, intensity 5/10, no radiation, she cannot identify exacerbating or relieving factors. Admits to shortness of breath, no diaphoresis or palpitation. She states she had a stress test 1 month ago DKA Acute renal failure Chest pain Hematemesis, ?wayne gilbert tear, gastritis Alcohol Abuse Hypertension malignant Plan Extensive counselling provided Patient now with Closed gap, discussed with Nursing staff. Stop D5, start scheduled insulin, can downgrade to medical floor COntinue to monitor FOR Withdrawal. EGD TODAY-Distal erosive Esophagitis Check cardiac enzymes, xray start IV protonix, first dose now, hemoglobin stable Start lopressor, as needed hydralazine for blood pressure control Consult critical care, GI DVT prophylaxis Plan discussed with patient and staff. History Interval history: Patient seen and examined, in no acute distress except for mild abdominal pain. Hospitalist Physical - Constitutional Vitals: Temp Pulse Resp BP Pulse Ox 98.3 F 96 H 23 151/83 100 11/08/17 14:16 11/08/17 14:46 11/08/17 14:46 11/08/17 14:46 11/08/17 14:46 General appearance: Present: no acute distress, mild distress - EENT Eyes: Present: PERRL, EOM intact ENT: hearing intact, clear oral mucosa - Neck Neck: Present: supple, normal ROM - Respiratory Respiratory effort: normal Respiratory: bilateral: CTA - Cardiovascular Rhythm: regular Heart Sounds: Present: S1 & S2. Absent: systolic murmur, diastolic murmur - Extremities Extremities: no ischemia, pulses intact, pulses symmetrical, No edema, normal temperature, Full ROM Peripheral Pulses: within normal limits - Abdominal General gastrointestinal: soft, tender, non-distended, normal bowel sounds - Integumentary Integumentary: Present: clear, warm, dry - Psychiatric Psychiatric: appropriate mood/affect, intact judgment & insight - Neurologic Neurologic: CNII-XII intact, moves all extremities - Allied Health Allied health notes reviewed: nursing Results - Labs CBC & Chem 7: 11/09/17 03:25 11/09/17 02:00 Labs: Laboratory Last Values WBC 13.8 K/mm3 (4.5-11.0) H 11/07/17 19:39 RBC 4.49 M/mm3 (3.65-5.03) 11/07/17 19:39 Hgb 13.0 gm/dl (10.1-14.3) 11/07/17 19:39 Hct 46.9 % (30.3-42.9) H 11/07/17 19:39 MCV 104 fl (79-97) H 11/07/17 19:39 MCH 29 pg (28-32) 11/07/17 19:39 MCHC 28 % (30-34) L 11/07/17 19:39 RDW 16.6 % (13.2-15.2) H 11/07/17 19:39 Plt Count 228 K/mm3 (140-440) 11/07/17 19:39 Lymph % (Auto) 6.0 % (13.4-35.0) L 11/07/17 19:39 Mower % (Auto) 6.8 % (0.0-7.3) 11/07/17 19:39 Eos % (Auto) 0.0 % (0.0-4.3) 11/07/17 19:39 Baso % (Auto) 0.4 % (0.0-1.8) 11/07/17 19:39 Lymph # 0.8 K/mm3 (1.2-5.4) L 11/07/17 19:39 Mower # 0.9 K/mm3 (0.0-0.8) H 11/07/17 19:39 Eos # 0.0 K/mm3 (0.0-0.4) 11/07/17 19:39 Baso # 0.1 K/mm3 (0.0-0.1) 11/07/17 19:39 Seg Neutrophils % 86.8 % (40.0-70.0) H 11/07/17 19:39 Seg Neutrophils # 12.0 K/mm3 (1.8-7.7) H 11/07/17 19:39 Sodium 140 mmol/L (137-145) 11/08/17 12:15 Potassium 3.6 mmol/L (3.6-5.0) 11/08/17 12:15 Chloride 96.9 mmol/L (98-107) L 11/08/17 12:15 Carbon Dioxide 20 mmol/L (22-30) L 11/08/17 12:15 Anion Gap 27 mmol/L 11/08/17 12:15 BUN 14 mg/dL (7-17) 11/08/17 12:15 Creatinine 0.9 mg/dL (0.7-1.2) 11/08/17 12:15 Estimated GFR > 60 ml/min 11/08/17 12:15 BUN/Creatinine Ratio 16 % 11/08/17 12:15 Glucose 127 mg/dL (65-100) H 11/08/17 12:15 POC Glucose 179 (70-105) H 11/08/17 15:14 Ketones Quantitative Moderate (Negative) 11/07/17 20:43 Calcium 8.5 mg/dL (8.4-10.2) 11/08/17 12:15 Phosphorus 6.50 mg/dL (2.5-4.5) H 11/07/17 21:52 Magnesium 2.80 mg/dL (1.7-2.3) H 11/07/17 21:52 Total Bilirubin 0.80 mg/dL (0.1-1.2) 11/07/17 19:39 AST 30 units/L (5-40) 11/07/17 19:39 ALT 23 units/L (7-56) 11/07/17 19:39 Alkaline Phosphatase 220 units/L (35-129) H 11/07/17 19:39 Total Creatine Kinase 42 units/L (30-135) 11/08/17 03:41 CK-MB (CK-2) 4.2 ng/mL (0.0-4.0) H 11/08/17 03:41 CK-MB (CK-2) Rel Index 10.0 (0-4) H 11/08/17 03:41 Troponin T < 0.010 ng/mL (0.00-0.029) 11/08/17 03:41 Total Protein 9.3 g/dL (6.3-8.2) H 11/07/17 19:39 Albumin 4.4 g/dL (3.9-5) 11/07/17 19:39 Albumin/Globulin Ratio 0.9 % 11/07/17 19:39 Amylase 112 units/L (27-131) 11/07/17 19:39 Lipase 281 units/L (13-60) H 11/08/17 03:41 Plasma/Serum Alcohol < 0.01 gm% (0-0.07) 11/07/17 19:39
[2017-11-08] MEDS: MORPHINE IV PRN (18:28)
--- NOTE | 2017-11-08 19:38 | Consultation ---
History of Present Illness Consult date: 11/08/17 Requesting physician: WILLIAN DE SANTIAGO History of present illness: PULMONARY/CCM CONSULT NOTE (Full dictation # [id number]) Please see dictated notes for full details Past History Past Medical History: diabetes, hypertension, migraines, other (ETOH abuse, anemia, anxiety) Past Surgical History: (x2), hysterectomy, Other (tubal ligation) Social history: alcohol abuse. denies: smoking Medications and Allergies Allergies Allergy/AdvReac Type Severity Reaction Status Date / Time No Known Allergies Allergy Verified 04/03/17 14:03 Home Medications Medication Instructions Recorded Confirmed Last Taken Type Lantus Solostar 15 units SQ BID 12/19/16 11/07/17 01/27/17 19:00 History 25 UNITS Active Meds: Active Medications Acetaminophen (Tylenol) 650 mg PO Q4H PRN PRN Reason: Pain MILD(1-3)/Fever >100.5/GUERRA Bisacodyl (Dulcolax) 10 mg [place] QDAY PRN PRN Reason: Constipation unrelieved by MOM Dextrose (D50w (25gm) Syringe) 0 ml IV PRN PRN PRN Reason: Hypoglycemia Dextrose (D50w (25gm) Syringe) 50 ml IV PRN PRN PRN Reason: Hypoglycemia Folic Acid (Folvite) 1 mg PO QDAY MANISH Last Admin: 11/08/17 11:19 Dose: 1 mg Hydralazine HCl (Apresoline) 5 mg IV Q6HR PRN PRN Reason: Hypertension Insulin Human Regular 100 (units/ Sodium Chloride) 100 mls @ 1 mls/hr IV TITR MANISH; 1 UNITS/HR PRN Reason: Protocol Stop: 11/09/17 06:00 Last Titration: 11/08/17 11:04 Dose: 0 units/hr, 0 mls/hr Sodium Chloride (Nacl 0.9% 1000 Ml) 1,000 mls @ 150 mls/hr IV DIRECT MANISH Last Admin: 11/08/17 13:28 Dose: 150 mls/hr Potassium Chloride/Dextrose/Sod Cl (D5w/0.45% Nacl/Kcl 20 Meq) 20 meq in 1,000 mls @ 125 mls/hr IV DIRECT MANISH Last Admin: 11/08/17 03:50 Dose: 125 mls/hr Insulin Aspart (Novolog) 0 units SUB-Q ACHS MANISH PRN Reason: Protocol Insulin Detemir (Levemir) 15 units SUB-Q BID [facility] Lorazepam (Ativan) 2 mg IV Q1HR PRN PRN Reason: CIWA-Ar 8-15 Lorazepam (Ativan) 4 mg IV Q1HR PRN PRN Reason: CIWA-Ar 16-25 Magnesium Hydroxide (Milk Of Magnesia) 30 ml PO Q4H PRN PRN Reason: Constipation Metoprolol Tartrate (Lopressor) 25 mg PO BID [facility] Last Admin: 11/08/17 11:19 Dose: 25 mg Morphine Sulfate (Morphine) 2 mg IV Q4H PRN PRN Reason: Pain , Severe (7-10) Last Admin: 11/08/17 18:28 Dose: 2 mg Ondansetron HCl (Zofran) 4 mg IV Q8H PRN PRN Reason: N/V unrelieved by Reglan Pantoprazole Sodium (Protonix) 40 mg IV DAILY [facility] Last Admin: 11/08/17 11:59 Dose: 40 mg Thiamine HCl (Vitamin B-1) 100 mg PO DAILY [facility] Last Admin: 11/08/17 11:20 Dose: 100 mg Physical Examination Vital signs: Vital Signs Temp Pulse Resp BP Pulse Ox 97.8 F 133 H 26 H 150/103 99 11/07/17 18:47 11/07/17 18:47 11/07/17 18:47 11/07/17 18:47 11/07/17 18:47 Results - Laboratory Findings CBC and BMP: 11/08/17 19:13 11/08/17 12:15 Abnormal lab findings: Abnormal Labs 11/07/17 11/07/17 11/07/17 19:39 19:39 20:43 WBC 13.8 H Hct 46.9 H MCV 104 H MCHC 28 L RDW 16.6 H Lymph % (Auto) 6.0 L Lymph # 0.8 L [place] # 0.9 H Seg Neutrophils % 86.8 H Seg Neutrophils # 12.0 H Sodium 130 L Potassium 5.3 H Chloride 71.9 L Carbon Dioxide 6 L* Creatinine 1.5 H Glucose 824 H* POC Glucose Phosphorus 6.80 H Magnesium 2.80 H Alkaline Phosphatase 220 H CK-MB (CK-2) CK-MB (CK-2) Rel Index Total Protein 9.3 H Lipase 455 H 11/07/17 11/07/17 11/07/17 20:43 21:52 21:52 WBC Hct MCV MCHC RDW Lymph % (Auto) Lymph # [place] # Seg Neutrophils % Seg Neutrophils # Sodium 130 L 130 L Potassium 5.6 H 5.3 H Chloride 72.5 L 72.6 L Carbon Dioxide 6 L* 4 L* Creatinine 1.5 H 1.5 H Glucose 810 H* 810 H* POC Glucose Phosphorus 6.50 H Magnesium 2.80 H Alkaline Phosphatase CK-MB (CK-2) CK-MB (CK-2) Rel Index Total Protein Lipase 11/07/17 11/08/17 11/08/17 21:52 00:48 03:41 WBC Hct MCV MCHC RDW Lymph % (Auto) Lymph # [place] # Seg Neutrophils % Seg Neutrophils # Sodium Potassium Chloride 80.6 L 91.4 L Carbon Dioxide 8 L* 16 L D Creatinine Glucose 608 H* 142 H POC Glucose Phosphorus Magnesium Alkaline Phosphatase CK-MB (CK-2) CK-MB (CK-2) Rel Index 10.8 H Total Protein Lipase 11/08/17 11/08/17 11/08/17 03:41 03:41 03:51 WBC Hct MCV MCHC RDW Lymph % (Auto) Lymph # [place] # Seg Neutrophils % Seg Neutrophils # Sodium Potassium Chloride Carbon Dioxide Creatinine Glucose POC Glucose 137 H Phosphorus Magnesium Alkaline Phosphatase CK-MB (CK-2) 4.2 H CK-MB (CK-2) Rel Index 10.0 H Total Protein Lipase 281 H 11/08/17 11/08/17 11/08/17 04:58 06:36 08:35 WBC Hct MCV MCHC RDW Lymph % (Auto) Lymph # [place] # Seg Neutrophils % Seg Neutrophils # Sodium Potassium Chloride Carbon Dioxide Creatinine Glucose POC Glucose 184 H 142 H 185 H Phosphorus Magnesium Alkaline Phosphatase CK-MB (CK-2) CK-MB (CK-2) Rel Index Total Protein Lipase 11/08/17 11/08/17 11/08/17 09:53 12:15 12:28 WBC Hct MCV MCHC RDW Lymph % (Auto) Lymph # [place] # Seg Neutrophils % Seg Neutrophils # Sodium Potassium Chloride 96.9 L Carbon Dioxide 20 L Creatinine Glucose 127 H POC Glucose 136 H 144 H Phosphorus Magnesium Alkaline Phosphatase CK-MB (CK-2) CK-MB (CK-2) Rel Index Total Protein Lipase 11/08/17 15:14 WBC Hct MCV MCHC RDW Lymph % (Auto) Lymph # [place] # Seg Neutrophils % Seg Neutrophils # Sodium Potassium Chloride Carbon Dioxide Creatinine Glucose POC Glucose 179 H Phosphorus Magnesium Alkaline Phosphatase CK-MB (CK-2) CK-MB (CK-2) Rel Index Total Protein Lipase
[2017-11-08 19:42] LABS: Hematocrit 37.1 % (30.3-42.9); Hemoglobin 11.7 gm/dl (10.1-14.3)
[2017-11-08 19:51] LABS: BUN/Creatinine Ratio 13; Blood Urea Nitrogen 13 mg/dL (7-17); Calcium 8.5 mg/dL (8.4-10.2); Hemolysis Index 10
[2017-11-08 19:52] LABS: INR 1.06 (0.87-1.13)
[2017-11-08] MEDS ORDERED: LEVEMIR SUB-Q SCH (22:00)
[2017-11-08] MEDS ORDERED: LANTUS 15 UNIT SQ SCH (22:00)
--- NOTE | 2017-11-08 22:13 | Operative Report ---
PROCEDURE: EGD with cold biopsies. INDICATION: 1. Hematemesis. 2. Nausea, vomiting. MEDICATIONS: Propofol per COMPLIANCE ADVISOR. COMPLICATIONS: None. DESCRIPTION OF PROCEDURE: The patient was brought to procedure suite. The patient had the procedure discussed with her at length. All risks, complications, and benefits discussed after which the patient signed for the procedure to be performed. The patient was placed in left lateral decubitus position. Mouth block was placed in the patient's oral cavity. After adequate sedation medication as above, endoscope was introduced into the mouth and brought to the level of the second portion of duodenum. Retroflexion view performed. The patient's vital signs remained stable throughout the procedure. FINDINGS: There was noted to be moderate erosive esophagitis noted distal 5 cm of the esophagus with the GE junction being 36 cm from the gums. Biopsies were taken and sent to pathology. Small hiatal hernia at GE junction. The esophagus otherwise appeared to be normal. There were small amount of semisolid food material with liquid noted in the gastric body. This was fairly easily suctioned and removed. Mild antral gastritis noted. Biopsies were taken and sent to Pathology. Remaining stomach otherwise appeared to be normal. The duodenum appeared to be normal. Retroflexion view performed in the stomach showed no other pathology other than noted above. The patient tolerated the procedure well. No complications during the procedure. IMPRESSION: 1. Small hiatal hernia. 2. Erosive esophagitis with biopsies performed. 3. Otherwise, normal esophagus. 4. Small amount of food material in the stomach noted, suctioned and removed. 5. Mild gastritis, biopsies performed. 6. Otherwise, normal stomach. 7. Normal duodenum. RECOMMENDATIONS: 1. Follow up biopsy results. 2. If H. pylori positive, we would treat. 3. PPI daily. 4. Advance diet based on progress. 5. If stable in a.m., okay to discharge from GI standpoint. JOB# [id number] [facility]
[2017-11-08 23:40] LABS: BUN/Creatinine Ratio 11; Blood Urea Nitrogen 12 mg/dL (7-17); Calcium 8.5 mg/dL (8.4-10.2); Hemolysis Index 9
[2017-11-09] MEDS ORDERED: NACL 0.9% 1000 ML 1,000 ML IV SCH (01:00)
[2017-11-09] MEDS ORDERED: D50W (25GM) Syringe IV PRN (01:56)
[2017-11-09] MEDS ORDERED: D5W/0.45% NACL/KCL 20 MEQ 20 MEQ/1,000 ML BAG IV SCH (02:00)
[2017-11-09] MEDS ORDERED: NovoLIN R 100 UNITS in NACL 0.9% 99 ML IV SCH (02:00)
--- NOTE | 2017-11-09 02:15 | Event Note ---
BLOOD SUGAR ELEVATED IN 600'S WITH HIFG ANION GAP AND PATIENT STILL ON I.V DEXTROSE FLUID AND , PATIENT STILL IN DKA. PLAN ; 1. STOP I.V DEXTROSE FLUID AND START N/SALINE AT 250ML/HR 2. I.V REGULAR INSULIN 10UNITS AND START INSULIN DRIP PER PROTOCOL AFTER TRANSFER TO THE UNIT. USE DKA TREATMENT PROTOCOL TO DO ACCUCHECKS AND CHEMISTRY. HOLD SUBCUTANEOUS LEVMIR AND ASPART INSULIN .
[2017-11-09 03:28] LABS: Hematocrit 34.3 % (30.3-42.9); Hemoglobin 10.7 gm/dl (10.1-14.3); Mean Corpuscular HGB Conc 31 % (30-34); Mean Corpuscular Hemoglobin 30 pg (28-32); Mean Corpuscular Volume 96 fl (79-97); Platelet Count 144 K/mm3 (140-440); Red Blood Count 3.59 M/mm3 (3.65-5.03); Red Cell Distribution Width 16.2 % (13.2-15.2)
[2017-11-09 03:49] LABS: BUN/Creatinine Ratio 12; Blood Urea Nitrogen 12 mg/dL (7-17); Calcium 8.3 mg/dL (8.4-10.2); Hemolysis Index 5
[2017-11-09 03:57] LABS: Bilirubin,Urine NEG (Negative); Blood,Urine SM (Negative); Color,Urine Red (Yellow); HCG Qualitative,Urine Negative (Negative); Nitrite,Urine NEG (Negative); Protein,Urine <15 mg/dL mg/dL (Negative); Urobilinogen,Urine < 2.0 mg/dL (<2.0); WBC,Urine < 1.0 /HPF (0.0-6.0)
[2017-11-09 04:06] LABS: Amphetamine Screen,Urine PRESUMPTIVE NEGATIVE; Benzodiazepines Screen,Urine PRESUMPTIVE NEGATIVE; Cannabinoid Screen,Urine PRESUMPTIVE NEGATIVE; Cocaine Screen,Urine PRESUMPTIVE NEGATIVE; Methadone Screen,Urine PRESUMPTIVE NEGATIVE; Opiate Screen,Urine PRESUMPTIVE NEGATIVE
[2017-11-09 04:14] LABS: Magnesium 2.3 mg/dL (1.7-2.3)
[2017-11-09 05:59] LABS: BUN/Creatinine Ratio 11; Blood Urea Nitrogen 10 mg/dL (7-17); Calcium 8.4 mg/dL (8.4-10.2); Hemolysis Index 17
[2017-11-09] MEDS: MORPHINE IV PRN ×2 (08:51→15:51)
[2017-11-09 08:58] LABS: BUN/Creatinine Ratio 11; Blood Urea Nitrogen 10 mg/dL (7-17); Hemolysis Index 36
--- NOTE | 2017-11-09 08:58 | Progress Note ---
Assessment and Plan Assessment and plan: 42-year-old woman with a history of Hypertension, diabetes comes to the emergency room with complaint of nausea, vomiting, unable to tolerate oral intake for 1 week. States she is compiant with lantus. Today she had 3 episodes of hematemesis. Also complaining of chest pain that started 4 dats ago. Pain is in theleft chest, which she described as a pressure-like sensation , constant, intensity 5/10, no radiation, she cannot identify exacerbating or relieving factors. Admits to shortness of breath, no diaphoresis or palpitation. She states she had a stress test 1 month ago DKA- recurrent Acute renal failure Chest pain secondary GERD Erosive Esophagitis: Hematemesis, Alcohol Abuse Hypokalemia Hypertension malignant Plan Extensive counselling provided Continue dka protocol. Will discuss with nursing staff of the floor appropriate transition and discontinuation of D5. Continue to monitor FOR Withdrawal. EGD done-Distal erosive Esophagitis Replace electrolytes Continue IV protonix, first dose now, hemoglobin stable Start lopressor, as needed hydralazine for blood pressure control GI and pulmonary input noted. DVT prophylaxis Plan discussed with patient and staff. History Interval history: Patient seen and examined, overnight, patient slipped back into DKA and was transferred to the ICU. Hospitalist Physical - Physical exam Narrative exam: VITAL SIGNS: Reviewed. GENERAL: The patient appeared well nourished and normally developed. Vital signs as documented. HEAD: No signs of head trauma. EYES: Pupils are equal. Extraocular motions intact. EARS: Hearing grossly intact. MOUTH: Oropharynx is normal. NECK: No adenopathy, no JVD. CHEST: Chest with clear breath sounds bilaterally. No wheezes, rales, or rhonchi. CARDIAC: Regular rate and rhythm. S1 and S2, without murmurs, gallops, or rubs. VASCULAR: No Edema. Peripheral pulses normal and equal in all extremities. ABDOMEN: Soft, without detectable tenderness. No sign of distention. No rebound or guarding, and no masses palpated. Bowel Sounds normal. MUSCULOSKELETAL: Good range of motion of all major joints. Extremities without clubbing, cyanosis or edema. NEUROLOGIC EXAM: Alert and oriented x 3. No focal sensory or strength deficits. Speech normal. Follows commands. PSYCHIATRIC: Mood normal. SKIN: No rash or lesions. - Constitutional Vitals: Temp Pulse Resp BP Pulse Ox 98 F 90 14 149/79 100 11/09/17 08:00 11/09/17 06:40 11/09/17 06:40 11/09/17 07:50 11/09/17 08:05 General appearance: Present: no acute distress, mild distress Results - Labs CBC & Chem 7: 11/09/17 03:25 11/09/17 14:00 Labs: Laboratory Last Values WBC 7.7 K/mm3 (4.5-11.0) 11/09/17 03:25 RBC 3.59 M/mm3 (3.65-5.03) L 11/09/17 03:25 Hgb 10.7 gm/dl (10.1-14.3) 11/09/17 03:25 Hct 34.3 % (30.3-42.9) 11/09/17 03:25 MCV 96 fl (79-97) 11/09/17 03:25 MCH 30 pg (28-32) 11/09/17 03:25 MCHC 31 % (30-34) 11/09/17 03:25 RDW 16.2 % (13.2-15.2) H 11/09/17 03:25 Plt Count 144 K/mm3 (140-440) 11/09/17 03:25 Lymph % (Auto) 6.0 % (13.4-35.0) L 11/07/17 19:39 Person % (Auto) 6.8 % (0.0-7.3) 11/07/17 19:39 Eos % (Auto) 0.0 % (0.0-4.3) 11/07/17 19:39 Baso % (Auto) 0.4 % (0.0-1.8) 11/07/17 19:39 Lymph # 0.8 K/mm3 (1.2-5.4) L 11/07/17 19:39 Person # 0.9 K/mm3 (0.0-0.8) H 11/07/17 19:39 Eos # 0.0 K/mm3 (0.0-0.4) 11/07/17 19:39 Baso # 0.1 K/mm3 (0.0-0.1) 11/07/17 19:39 Seg Neutrophils % 86.8 % (40.0-70.0) H 11/07/17 19:39 Seg Neutrophils # 12.0 K/mm3 (1.8-7.7) H 11/07/17 19:39 PT 14.4 Sec. (12.2-14.9) 11/08/17 19:13 INR 1.06 (0.87-1.13) 11/08/17 19:13 POC ABG pH 7.294 (7.35-7.45) L 11/08/17 21:48 POC ABG pCO2 18.0 (35-45) L 11/08/17 21:48 POC ABG pO2 90 (80-105) 11/08/17 21:48 POC ABG HCO3 8.8 11/08/17 21:48 POC ABG Total CO2 9 11/08/17 21:48 POC ABG O2 Sat 96 11/08/17 21:48 POC ABG Base Excess -18 11/08/17 21:48 FiO2 21 % 11/08/17 21:48 Sodium 135 mmol/L (137-145) L 11/09/17 05:15 Potassium 3.0 mmol/L (3.6-5.0) L D 11/09/17 05:15 Chloride 95.8 mmol/L (98-107) L 11/09/17 05:15 Carbon Dioxide 16 mmol/L (22-30) L 11/09/17 05:15 Anion Gap 26 mmol/L 11/09/17 05:15 BUN 10 mg/dL (7-17) 11/09/17 05:15 Creatinine 0.9 mg/dL (0.7-1.2) 11/09/17 05:15 Estimated GFR > 60 ml/min 11/09/17 05:15 BUN/Creatinine Ratio 11 % 11/09/17 05:15 Glucose 203 mg/dL (65-100) H 11/09/17 05:15 POC Glucose 131 (70-105) H 11/09/17 06:47 Ketones Quantitative Moderate (Negative) 11/07/17 20:43 Calcium 8.4 mg/dL (8.4-10.2) 11/09/17 05:15 Phosphorus 1.70 mg/dL (2.5-4.5) L D 11/09/17 01:56 Magnesium 2.30 mg/dL (1.7-2.3) 11/09/17 01:56 Total Bilirubin 0.80 mg/dL (0.1-1.2) 11/07/17 19:39 AST 30 units/L (5-40) 11/07/17 19:39 ALT 23 units/L (7-56) 11/07/17 19:39 Alkaline Phosphatase 220 units/L (35-129) H 11/07/17 19:39 Total Creatine Kinase 42 units/L (30-135) 11/08/17 03:41 CK-MB (CK-2) 4.2 ng/mL (0.0-4.0) H 11/08/17 03:41 CK-MB (CK-2) Rel Index 10.0 (0-4) H 11/08/17 03:41 Troponin T < 0.010 ng/mL (0.00-0.029) 11/08/17 03:41 Total Protein 9.3 g/dL (6.3-8.2) H 11/07/17 19:39 Albumin 4.4 g/dL (3.9-5) 11/07/17 19:39 Albumin/Globulin Ratio 0.9 % 11/07/17 19:39 Amylase 112 units/L (27-131) 11/07/17 19:39 Lipase 281 units/L (13-60) H 11/08/17 03:41 Urine Color Red (Yellow) 11/09/17 02:47 Urine Turbidity Clear (Clear) 11/09/17 02:47 Urine pH 6.0 (5.0-7.0) 11/09/17 02:47 Ur Specific Nada 1.024 (1.003-1.030) 11/09/17 02:47 Urine Protein <15 mg/dl mg/dL (Negative) 11/09/17 02:47 Urine Glucose (UA) >=500 mg/dL (Negative) 11/09/17 02:47 Urine Ketones 80 mg/dL (Negative) 11/09/17 02:47 Urine Blood Sm (Negative) 11/09/17 02:47 Urine Nitrite Neg (Negative) 11/09/17 02:47 Ur Reducing Substances Not Reportable 11/09/17 02:47 Urine Bilirubin Neg (Negative) 11/09/17 02:47 Urine Ictotest Not Reportable 11/09/17 02:47 Urine Urobilinogen < 2.0 mg/dL (<2.0) 11/09/17 02:47 Ur Leukocyte Esterase Neg (Negative) 11/09/17 02:47 Urine WBC (Auto) < 1.0 /HPF (0.0-6.0) 11/09/17 02:47 Urine RBC (Auto) 1.0 /HPF (0.0-6.0) 11/09/17 02:47 U Epithel Cells (Auto) < 1.0 /HPF (0-13.0) 11/09/17 02:47 Urine HCG, Qual Negative (Negative) 11/09/17 02:47 Urine Opiates Screen Presumptive negative 11/09/17 02:47 Urine Methadone Screen Presumptive negative 11/09/17 02:47 Ur Barbiturates Screen Presumptive negative 11/09/17 02:47 Ur Phencyclidine Scrn Presumptive negative 11/09/17 02:47 Ur Amphetamines Screen Presumptive negative 11/09/17 02:47 U Benzodiazepines Scrn Presumptive negative 11/09/17 02:47 Urine Cocaine Screen Presumptive negative 11/09/17 02:47 U Marijuana (THC) Screen Presumptive negative 11/09/17 02:47 Drugs of Abuse Note Disclamer 11/09/17 02:47 Plasma/Serum Alcohol < 0.01 gm% (0-0.07) 11/07/17 19:39
--- NOTE | 2017-11-09 09:49 | Gastroenterology Progress Note ---
Assessment and Plan 1.hematemesis 2.DKA 3.acute on chronic pancreatitis 4.acute renal failure 5.CP-cardiac enzymes and chest x-ray negative 6.HTN 7.alcohol abuse -HGB 10.7 -no active signs of bleeding overnight or this am -s/p EGD yesterday that revealed distral erosive esophagitis, gastritis, and small amount of food in stomach -bx results pending- f/u results in office -continue PPI and supportive care -DM management per primary team -advance diet as tolerated -continue CIWA protocol- counseled pt on alcohol avoidance -recommend pt have a f/u clinic appt in 3-4 weeks -no further GI recommendations at this time, will sign off Subjective Date of service: 11/09/17 Principal diagnosis: hematemesis Interval history: Patient resting in bed w/o distress. States she is feeling better with abd pain improving, no N/V, and no signs of active bleeding overnight or this am. Objective - Constitutional Vitals: Temp Pulse Resp BP Pulse Ox 98 F 90 14 149/79 100 11/09/17 08:00 11/09/17 06:40 11/09/17 06:40 11/09/17 07:50 11/09/17 08:05 General appearance: no acute distress - Respiratory Respiratory: bilateral: CTA - Cardiovascular Rhythm: regular Heart Sounds: Present: S1 & S2 - Gastrointestinal General gastrointestinal: Present: soft, tender (mild TTP in LUQ), non-distended , normal bowel sounds - Neurologic Neurological: alert and oriented x3 - Labs CBC & Chem 7: 11/09/17 03:25 11/09/17 08:10 Labs: Laboratory Results - last 24 hr 11/08/17 11/08/17 11/08/17 03:41 09:53 11:07 WBC RBC Hgb Hct MCV MCH MCHC RDW Plt Count PT INR POC ABG pH POC ABG pCO2 POC ABG pO2 POC ABG HCO3 POC ABG Total CO2 POC ABG O2 Sat POC ABG Base Excess FiO2 Sodium Potassium Chloride Carbon Dioxide Anion Gap BUN Creatinine Estimated GFR BUN/Creatinine Ratio Glucose POC Glucose 136 H 95 Calcium Phosphorus Magnesium Lipase 281 H Urine Color Urine Turbidity Urine pH Ur Specific [place] Urine Protein Urine Glucose (UA) Urine Ketones Urine Blood Urine Nitrite Ur Reducing Substances Urine Bilirubin Urine Ictotest Urine Urobilinogen Ur Leukocyte Esterase Urine WBC (Auto) Urine RBC (Auto) U Epithel Cells (Auto) Urine HCG, Qual Urine Opiates Screen Urine Methadone Screen Ur Barbiturates Screen Ur Phencyclidine Scrn Ur Amphetamines Screen U Benzodiazepines Scrn Urine Cocaine Screen U Marijuana (THC) Screen Drugs of Abuse Note 11/08/17 11/08/17 11/08/17 12:15 12:28 15:14 WBC RBC Hgb Hct MCV MCH MCHC RDW Plt Count PT INR POC ABG pH POC ABG pCO2 POC ABG pO2 POC ABG HCO3 POC ABG Total CO2 POC ABG O2 Sat POC ABG Base Excess FiO2 Sodium 140 Potassium 3.6 Chloride 96.9 L Carbon Dioxide 20 L Anion Gap 27 BUN 14 Creatinine 0.9 Estimated GFR > 60 BUN/Creatinine Ratio 16 Glucose 127 H POC Glucose 144 H 179 H Calcium 8.5 Phosphorus Magnesium Lipase Urine Color Urine Turbidity Urine pH Ur Specific [place] Urine Protein Urine Glucose (UA) Urine Ketones Urine Blood Urine Nitrite Ur Reducing Substances Urine Bilirubin Urine Ictotest Urine Urobilinogen Ur Leukocyte Esterase Urine WBC (Auto) Urine RBC (Auto) U Epithel Cells (Auto) Urine HCG, Qual Urine Opiates Screen Urine Methadone Screen Ur Barbiturates Screen Ur Phencyclidine Scrn Ur Amphetamines Screen U Benzodiazepines Scrn Urine Cocaine Screen U Marijuana (THC) Screen Drugs of Abuse Note 11/08/17 11/08/17 11/08/17 19:13 19:13 19:13 WBC RBC Hgb 11.7 Hct 37.1 D MCV MCH MCHC RDW Plt Count PT 14.4 INR 1.06 POC ABG pH POC ABG pCO2 POC ABG pO2 POC ABG HCO3 POC ABG Total CO2 POC ABG O2 Sat POC ABG Base Excess FiO2 Sodium 135 L Potassium 3.8 Chloride 91.5 L Carbon Dioxide 10 L D Anion Gap 37 BUN 13 Creatinine 1.0 Estimated GFR > 60 BUN/Creatinine Ratio 13 Glucose 405 H POC Glucose Calcium 8.5 Phosphorus Magnesium Lipase Urine Color Urine Turbidity Urine pH Ur Specific [place] Urine Protein Urine Glucose (UA) Urine Ketones Urine Blood Urine Nitrite Ur Reducing Substances Urine Bilirubin Urine Ictotest Urine Urobilinogen Ur Leukocyte Esterase Urine WBC (Auto) Urine RBC (Auto) U Epithel Cells (Auto) Urine HCG, Qual Urine Opiates Screen Urine Methadone Screen Ur Barbiturates Screen Ur Phencyclidine Scrn Ur Amphetamines Screen U Benzodiazepines Scrn Urine Cocaine Screen U Marijuana (THC) Screen Drugs of Abuse Note 11/08/17 11/08/17 11/08/17 21:48 21:49 22:50 WBC RBC Hgb Hct MCV MCH MCHC RDW Plt Count PT INR POC ABG pH 7.294 L POC ABG pCO2 18.0 L POC ABG pO2 90 POC ABG HCO3 8.8 POC ABG Total CO2 9 POC ABG O2 Sat 96 POC ABG Base Excess -18 FiO2 21 Sodium 129 L Potassium 4.8 D Chloride 86.0 L Carbon Dioxide 11 L Anion Gap 37 BUN 12 Creatinine 1.1 Estimated GFR > 60 BUN/Creatinine Ratio 11 Glucose 670 H* POC Glucose > 500 H Calcium 8.5 Phosphorus Magnesium Lipase Urine Color Urine Turbidity Urine pH Ur Specific [place] Urine Protein Urine Glucose (UA) Urine Ketones Urine Blood Urine Nitrite Ur Reducing Substances Urine Bilirubin Urine Ictotest Urine Urobilinogen Ur Leukocyte Esterase Urine WBC (Auto) Urine RBC (Auto) U Epithel Cells (Auto) Urine HCG, Qual Urine Opiates Screen Urine Methadone Screen Ur Barbiturates Screen Ur Phencyclidine Scrn Ur Amphetamines Screen U Benzodiazepines Scrn Urine Cocaine Screen U Marijuana (THC) Screen Drugs of Abuse Note 11/09/17 11/09/17 11/09/17 00:40 01:56 02:00 WBC RBC Hgb Hct MCV MCH MCHC RDW Plt Count PT INR POC ABG pH POC ABG pCO2 POC ABG pO2 POC ABG HCO3 POC ABG Total CO2 POC ABG O2 Sat POC ABG Base Excess FiO2 Sodium 130 L Potassium 4.8 Chloride 86.9 L Carbon Dioxide 10 L Anion Gap 38 BUN 12 Creatinine 1.0 Estimated GFR > 60 BUN/Creatinine Ratio 12 Glucose 648 H* POC Glucose > 500 H Calcium 8.3 L Phosphorus 1.70 L D Magnesium 2.30 Lipase Urine Color Urine Turbidity Urine pH Ur Specific [place] Urine Protein Urine Glucose (UA) Urine Ketones Urine Blood Urine Nitrite Ur Reducing Substances Urine Bilirubin Urine Ictotest Urine Urobilinogen Ur Leukocyte Esterase Urine WBC (Auto) Urine RBC (Auto) U Epithel Cells (Auto) Urine HCG, Qual Urine Opiates Screen Urine Methadone Screen Ur Barbiturates Screen Ur Phencyclidine Scrn Ur Amphetamines Screen U Benzodiazepines Scrn Urine Cocaine Screen U Marijuana (THC) Screen Drugs of Abuse Note 11/09/17 11/09/17 11/09/17 02:47 02:47 03:11 WBC RBC Hgb Hct MCV MCH MCHC RDW Plt Count PT INR POC ABG pH POC ABG pCO2 POC ABG pO2 POC ABG HCO3 POC ABG Total CO2 POC ABG O2 Sat POC ABG Base Excess FiO2 Sodium Potassium Chloride Carbon Dioxide Anion Gap BUN Creatinine Estimated GFR BUN/Creatinine Ratio Glucose POC Glucose > 500 H Calcium Phosphorus Magnesium Lipase Urine Color Red Urine Turbidity Clear Urine pH 6.0 Ur Specific [place] 1.024 Urine Protein <15 mg/dl Urine Glucose (UA) >=500 Urine Ketones 80 Urine Blood Sm Urine Nitrite Neg Ur Reducing Substances Not Reportable Urine Bilirubin Neg Urine Ictotest Not Reportable Urine Urobilinogen < 2.0 Ur Leukocyte Esterase Neg Urine WBC (Auto) < 1.0 Urine RBC (Auto) 1.0 U Epithel Cells (Auto) < 1.0 Urine HCG, Qual Negative Urine Opiates Screen Presumptive negative Urine Methadone Screen Presumptive negative Ur Barbiturates Screen Presumptive negative Ur Phencyclidine Scrn Presumptive negative Ur Amphetamines Screen Presumptive negative U Benzodiazepines Scrn Presumptive negative Urine Cocaine Screen Presumptive negative U Marijuana (THC) Screen Presumptive negative Drugs of Abuse Note Disclamer 11/09/17 11/09/17 11/09/17 03:25 04:14 05:13 WBC 7.7 RBC 3.59 L Hgb 10.7 Hct 34.3 MCV 96 MCH 30 MCHC 31 RDW 16.2 H Plt Count 144 PT INR POC ABG pH POC ABG pCO2 POC ABG pO2 POC ABG HCO3 POC ABG Total CO2 POC ABG O2 Sat POC ABG Base Excess FiO2 Sodium Potassium Chloride Carbon Dioxide Anion Gap BUN Creatinine Estimated GFR BUN/Creatinine Ratio Glucose POC Glucose 400 H 265 H Calcium Phosphorus Magnesium Lipase Urine Color Urine Turbidity Urine pH Ur Specific [place] Urine Protein Urine Glucose (UA) Urine Ketones Urine Blood Urine Nitrite Ur Reducing Substances Urine Bilirubin Urine Ictotest Urine Urobilinogen Ur Leukocyte Esterase Urine WBC (Auto) Urine RBC (Auto) U Epithel Cells (Auto) Urine HCG, Qual Urine Opiates Screen Urine Methadone Screen Ur Barbiturates Screen Ur Phencyclidine Scrn Ur Amphetamines Screen U Benzodiazepines Scrn Urine Cocaine Screen U Marijuana (THC) Screen Drugs of Abuse Note 11/09/17 11/09/17 11/09/17 05:15 06:08 06:47 WBC RBC Hgb Hct MCV MCH MCHC RDW Plt Count PT INR POC ABG pH POC ABG pCO2 POC ABG pO2 POC ABG HCO3 POC ABG Total CO2 POC ABG O2 Sat POC ABG Base Excess FiO2 Sodium 135 L Potassium 3.0 L D Chloride 95.8 L Carbon Dioxide 16 L Anion Gap 26 BUN 10 Creatinine 0.9 Estimated GFR > 60 BUN/Creatinine Ratio 11 Glucose 203 H POC Glucose 125 H 131 H Calcium 8.4 Phosphorus Magnesium Lipase Urine Color Urine Turbidity Urine pH Ur Specific [place] Urine Protein Urine Glucose (UA) Urine Ketones Urine Blood Urine Nitrite Ur Reducing Substances Urine Bilirubin Urine Ictotest Urine Urobilinogen Ur Leukocyte Esterase Urine WBC (Auto) Urine RBC (Auto) U Epithel Cells (Auto) Urine HCG, Qual Urine Opiates Screen Urine Methadone Screen Ur Barbiturates Screen Ur Phencyclidine Scrn Ur Amphetamines Screen U Benzodiazepines Scrn Urine Cocaine Screen U Marijuana (THC) Screen Drugs of Abuse Note 11/09/17 11/09/17 11/09/17 07:20 08:01 08:10 WBC RBC Hgb Hct MCV MCH MCHC RDW Plt Count PT INR POC ABG pH POC ABG pCO2 POC ABG pO2 POC ABG HCO3 POC ABG Total CO2 POC ABG O2 Sat POC ABG Base Excess FiO2 Sodium 137 Potassium 3.8 D Chloride 100.6 Carbon Dioxide 20 L Anion Gap 20 BUN 10 Creatinine 0.9 Estimated GFR > 60 BUN/Creatinine Ratio 11 Glucose 115 H POC Glucose 102 111 H Calcium 8.0 L Phosphorus Magnesium Lipase Urine Color Urine Turbidity Urine pH Ur Specific [place] Urine Protein Urine Glucose (UA) Urine Ketones Urine Blood Urine Nitrite Ur Reducing Substances Urine Bilirubin Urine Ictotest Urine Urobilinogen Ur Leukocyte Esterase Urine WBC (Auto) Urine RBC (Auto) U Epithel Cells (Auto) Urine HCG, Qual Urine Opiates Screen Urine Methadone Screen Ur Barbiturates Screen Ur Phencyclidine Scrn Ur Amphetamines Screen U Benzodiazepines Scrn Urine Cocaine Screen U Marijuana (THC) Screen Drugs of Abuse Note 11/09/17 09:17 WBC RBC Hgb Hct MCV MCH MCHC RDW Plt Count PT INR POC ABG pH POC ABG pCO2 POC ABG pO2 POC ABG HCO3 POC ABG Total CO2 POC ABG O2 Sat POC ABG Base Excess FiO2 Sodium Potassium Chloride Carbon Dioxide Anion Gap BUN Creatinine Estimated GFR BUN/Creatinine Ratio Glucose POC Glucose 135 H Calcium Phosphorus Magnesium Lipase Urine Color Urine Turbidity Urine pH Ur Specific [place] Urine Protein Urine Glucose (UA) Urine Ketones Urine Blood Urine Nitrite Ur Reducing Substances Urine Bilirubin Urine Ictotest Urine Urobilinogen Ur Leukocyte Esterase Urine WBC (Auto) Urine RBC (Auto) U Epithel Cells (Auto) Urine HCG, Qual Urine Opiates Screen Urine Methadone Screen Ur Barbiturates Screen Ur Phencyclidine Scrn Ur Amphetamines Screen U Benzodiazepines Scrn Urine Cocaine Screen U Marijuana (THC) Screen Drugs of Abuse Note
[2017-11-09 10:07] LABS: BUN/Creatinine Ratio 11; Blood Urea Nitrogen 10 mg/dL (7-17); Calcium 8.2 mg/dL (8.4-10.2); Hemolysis Index 19
[2017-11-09] MEDS: LOPRESSOR PO SCH ×2 (11:46→23:55)
[2017-11-09] MEDS: ATIVAN IV PRN ×2 (12:28→17:55)
[2017-11-09 14:42] LABS: BUN/Creatinine Ratio 13; Blood Urea Nitrogen 10 mg/dL (7-17); Hemolysis Index 9
[2017-11-09] MEDS ORDERED: LEVEMIR SUB-Q ONE (16:41)
--- NOTE | 2017-11-09 16:55 | Progress Note ---
Assessment and Plan Assessment DKA- recurrent Acute renal failure Chest pain secondary GERD Erosive Esophagitis: Hematemesis, Alcohol Abuse Tobacco abuse disorder Hypokalemia Hypertension malignant Plan Extensive counselling provided Continue dka protocol. Continue to monitor FOR Withdrawal. EGD done-Distal erosive Esophagitis Replace electrolytes Continue IV protonix, first dose now, hemoglobin stable Blood pressure control DVT prophylaxis Plan discussed with patient and staff. - Patient Problems (1) Diabetic keto-acidosis Current Visit: Yes Status: Acute Qualifiers: Diabetes mellitus type: type 1 Diabetes mellitus complication detail: without coma Qualified Code(s): E10.10 - Type 1 diabetes mellitus with ketoacidosis without coma Subjective Date of service: 11/09/17 Principal diagnosis: hematemesis Interval history: Patient seen and examined. Vitals, labs, medications, chart reviewed. Transferred out of ICU yesterday. Continues to improve. She denies any fevers or chills. No chest pain or shortness of breath. Has some abdominal pain. Objective - Exam Narrative Exam: VITAL SIGNS: Reviewed. GENERAL: The patient appeared well nourished and normally developed. Vital signs as documented. HEAD: No signs of head trauma. EYES: Pupils are equal. Extraocular motions intact. EARS: Hearing grossly intact. MOUTH: Oropharynx is normal. NECK: No adenopathy, no JVD. CHEST: Chest with clear breath sounds bilaterally. No wheezes, rales, or rhonchi. CARDIAC: Regular rate and rhythm. S1 and S2, without murmurs, gallops, or rubs. VASCULAR: No Edema. Peripheral pulses normal and equal in all extremities. ABDOMEN: Soft, without detectable tenderness. No sign of distention. No rebound or guarding, and no masses palpated. Bowel Sounds normal. MUSCULOSKELETAL: Good range of motion of all major joints. Extremities without clubbing, cyanosis or edema. NEUROLOGIC EXAM: Alert and oriented x 3. No focal sensory or strength deficits. Speech normal. Follows commands. PSYCHIATRIC: Mood normal. SKIN: No rash or lesions. Vital Signs - 12hr 11/09/17 11/09/17 11/09/17 05:00 05:10 05:20 Temperature Pulse Rate 81 80 80 Pulse Rate [ From Monitor] Respiratory 12 13 13 Rate Blood Pressure 105/71 105/71 105/71 O2 Sat by Pulse 99 100 100 Oximetry 11/09/17 11/09/17 11/09/17 05:30 05:40 05:47 Temperature Pulse Rate 83 88 Pulse Rate [ 112 H From Monitor] Respiratory 14 14 14 Rate Blood Pressure 105/71 105/71 O2 Sat by Pulse 100 100 99 Oximetry 11/09/17 11/09/17 11/09/17 05:50 06:00 06:10 Temperature Pulse Rate 95 H 86 84 Pulse Rate [ From Monitor] Respiratory 13 13 14 Rate Blood Pressure 105/71 111/70 111/70 O2 Sat by Pulse 100 100 100 Oximetry 11/09/17 11/09/17 11/09/17 06:20 06:30 06:40 Temperature Pulse Rate 87 89 90 Pulse Rate [ From Monitor] Respiratory 18 16 14 Rate Blood Pressure 111/70 111/70 111/70 O2 Sat by Pulse 100 100 100 Oximetry 11/09/17 11/09/17 11/09/17 06:50 07:00 07:10 Temperature Pulse Rate Pulse Rate [ From Monitor] Respiratory Rate Blood Pressure 111/70 149/79 149/79 O2 Sat by Pulse 100 100 100 Oximetry 11/09/17 11/09/17 11/09/17 07:20 07:30 07:40 Temperature Pulse Rate Pulse Rate [ From Monitor] Respiratory Rate Blood Pressure 149/79 149/79 149/79 O2 Sat by Pulse 100 100 100 Oximetry 11/09/17 11/09/17 11/09/17 07:50 08:00 08:05 Temperature 98 F Pulse Rate Pulse Rate [ From Monitor] Respiratory Rate Blood Pressure 149/79 147/81 O2 Sat by Pulse 96 97 100 Oximetry 11/09/17 11/09/17 11/09/17 08:10 08:20 08:30 Temperature Pulse Rate Pulse Rate [ From Monitor] Respiratory Rate Blood Pressure 147/81 147/81 147/81 O2 Sat by Pulse 100 100 100 Oximetry 11/09/17 11/09/17 11/09/17 08:40 08:50 09:00 Temperature Pulse Rate 91 H 104 H 103 H Pulse Rate [ From Monitor] Respiratory 13 15 14 Rate Blood Pressure 147/81 147/81 152/71 O2 Sat by Pulse 100 99 Oximetry 11/09/17 11/09/17 11/09/17 09:10 09:20 09:30 Temperature Pulse Rate 106 H 100 H 106 H Pulse Rate [ From Monitor] Respiratory 14 11 L 28 H Rate Blood Pressure 152/71 152/71 152/71 O2 Sat by Pulse Oximetry 11/09/17 11/09/17 11/09/17 09:40 09:50 10:00 Temperature Pulse Rate 105 H 104 H 100 H Pulse Rate [ From Monitor] Respiratory 21 8 L 15 Rate Blood Pressure 152/71 152/71 133/73 O2 Sat by Pulse Oximetry 11/09/17 11/09/17 11/09/17 10:10 10:20 10:30 Temperature Pulse Rate 97 H 97 H 92 H Pulse Rate [ From Monitor] Respiratory 12 24 15 Rate Blood Pressure 133/73 133/73 133/73 O2 Sat by Pulse Oximetry 11/09/17 11/09/17 11/09/17 10:40 10:50 11:00 Temperature Pulse Rate 99 H 99 H 102 H Pulse Rate [ From Monitor] Respiratory 10 L 10 L 13 Rate Blood Pressure 133/73 133/73 139/83 O2 Sat by Pulse Oximetry 11/09/17 11/09/17 11/09/17 11:10 11:20 11:30 Temperature Pulse Rate 97 H 116 H 115 H Pulse Rate [ From Monitor] Respiratory 14 18 17 Rate Blood Pressure 139/83 139/83 139/83 O2 Sat by Pulse Oximetry 11/09/17 11/09/17 11/09/17 11:40 11:46 11:50 Temperature Pulse Rate 108 H 107 H 110 H Pulse Rate [ From Monitor] Respiratory 15 13 Rate Blood Pressure 139/83 139/83 139/83 O2 Sat by Pulse Oximetry 11/09/17 11/09/17 11/09/17 12:00 12:10 12:20 Temperature Pulse Rate 108 H 103 H 103 H Pulse Rate [ From Monitor] Respiratory 15 12 14 Rate Blood Pressure 129/81 129/81 129/81 O2 Sat by Pulse Oximetry 11/09/17 11/09/17 11/09/17 12:30 12:40 12:50 Temperature Pulse Rate 112 H 93 H 93 H Pulse Rate [ From Monitor] Respiratory 14 17 18 Rate Blood Pressure 129/81 129/81 129/81 O2 Sat by Pulse Oximetry 11/09/17 11/09/17 11/09/17 13:00 13:10 13:20 Temperature Pulse Rate 89 85 79 Pulse Rate [ From Monitor] Respiratory 16 14 18 Rate Blood Pressure 134/76 134/76 134/76 O2 Sat by Pulse 100 99 Oximetry 11/09/17 11/09/17 11/09/17 13:30 13:40 13:50 Temperature Pulse Rate 76 76 77 Pulse Rate [ From Monitor] Respiratory 18 16 16 Rate Blood Pressure 134/76 134/76 134/76 O2 Sat by Pulse 99 99 94 Oximetry 11/09/17 11/09/17 11/09/17 14:00 14:10 14:20 Temperature Pulse Rate 75 79 79 Pulse Rate [ From Monitor] Respiratory 16 14 14 Rate Blood Pressure 134/76 104/64 104/64 O2 Sat by Pulse 98 99 98 Oximetry 11/09/17 14:30 Temperature Pulse Rate 77 Pulse Rate [ From Monitor] Respiratory 15 Rate Blood Pressure 104/64 O2 Sat by Pulse 100 Oximetry CBC and BMP: 11/09/17 03:25 11/10/17 03:12 ABG, PT/INR, D-dimer: ABG POC ABG pH 7.294 (7.35-7.45) L 11/08/17 21:48 POC ABG pCO2 18.0 (35-45) L 11/08/17 21:48 POC ABG pO2 90 (80-105) 11/08/17 21:48 POC ABG HCO3 8.8 11/08/17 21:48 POC ABG Total CO2 9 11/08/17 21:48 POC ABG O2 Sat 96 11/08/17 21:48 PT/INR, D-dimer PT 14.4 Sec. (12.2-14.9) 11/08/17 19:13 INR 1.06 (0.87-1.13) 11/08/17 19:13 Abnormal lab findings: Abnormal Labs 11/07/17 11/07/17 11/07/17 19:39 19:39 20:43 WBC 13.8 H RBC Hct 46.9 H MCV 104 H MCHC 28 L RDW 16.6 H Lymph % (Auto) 6.0 L Lymph # 0.8 L [place] # 0.9 H Seg Neutrophils % 86.8 H Seg Neutrophils # 12.0 H POC ABG pH POC ABG pCO2 Sodium 130 L Potassium 5.3 H Chloride 71.9 L Carbon Dioxide 6 L* Creatinine 1.5 H Glucose 824 H* POC Glucose Calcium Phosphorus 6.80 H Magnesium 2.80 H Alkaline Phosphatase 220 H CK-MB (CK-2) CK-MB (CK-2) Rel Index Total Protein 9.3 H Lipase 455 H 11/07/17 11/07/17 11/07/17 20:43 21:52 21:52 WBC RBC Hct MCV MCHC RDW Lymph % (Auto) Lymph # [place] # Seg Neutrophils % Seg Neutrophils # POC ABG pH POC ABG pCO2 Sodium 130 L 130 L Potassium 5.6 H 5.3 H Chloride 72.5 L 72.6 L Carbon Dioxide 6 L* 4 L* Creatinine 1.5 H 1.5 H Glucose 810 H* 810 H* POC Glucose Calcium Phosphorus 6.50 H Magnesium 2.80 H Alkaline Phosphatase CK-MB (CK-2) CK-MB (CK-2) Rel Index Total Protein Lipase 11/07/17 11/08/17 11/08/17 21:52 00:48 03:41 WBC RBC Hct MCV MCHC RDW Lymph % (Auto) Lymph # [place] # Seg Neutrophils % Seg Neutrophils # POC ABG pH POC ABG pCO2 Sodium Potassium Chloride 80.6 L 91.4 L Carbon Dioxide 8 L* 16 L D Creatinine Glucose 608 H* 142 H POC Glucose Calcium Phosphorus Magnesium Alkaline Phosphatase CK-MB (CK-2) CK-MB (CK-2) Rel Index 10.8 H Total Protein Lipase 11/08/17 11/08/17 11/08/17 03:41 03:41 03:51 WBC RBC Hct MCV MCHC RDW Lymph % (Auto) Lymph # [place] # Seg Neutrophils % Seg Neutrophils # POC ABG pH POC ABG pCO2 Sodium Potassium Chloride Carbon Dioxide Creatinine Glucose POC Glucose 137 H Calcium Phosphorus Magnesium Alkaline Phosphatase CK-MB (CK-2) 4.2 H CK-MB (CK-2) Rel Index 10.0 H Total Protein Lipase 281 H 11/08/17 11/08/17 11/08/17 04:58 06:36 08:35 WBC RBC Hct MCV MCHC RDW Lymph % (Auto) Lymph # [place] # Seg Neutrophils % Seg Neutrophils # POC ABG pH POC ABG pCO2 Sodium Potassium Chloride Carbon Dioxide Creatinine Glucose POC Glucose 184 H 142 H 185 H Calcium Phosphorus Magnesium Alkaline Phosphatase CK-MB (CK-2) CK-MB (CK-2) Rel Index Total Protein Lipase 11/08/17 11/08/17 11/08/17 09:53 12:15 12:28 WBC RBC Hct MCV MCHC RDW Lymph % (Auto) Lymph # [place] # Seg Neutrophils % Seg Neutrophils # POC ABG pH POC ABG pCO2 Sodium Potassium Chloride 96.9 L Carbon Dioxide 20 L Creatinine Glucose 127 H POC Glucose 136 H 144 H Calcium Phosphorus Magnesium Alkaline Phosphatase CK-MB (CK-2) CK-MB (CK-2) Rel Index Total Protein Lipase 11/08/17 11/08/17 11/08/17 15:14 19:13 21:48 WBC RBC Hct MCV MCHC RDW Lymph % (Auto) Lymph # [place] # Seg Neutrophils % Seg Neutrophils # POC ABG pH 7.294 L POC ABG pCO2 18.0 L Sodium 135 L Potassium Chloride 91.5 L Carbon Dioxide 10 L D Creatinine Glucose 405 H POC Glucose 179 H Calcium Phosphorus Magnesium Alkaline Phosphatase CK-MB (CK-2) CK-MB (CK-2) Rel Index Total Protein Lipase 11/08/17 11/08/17 11/09/17 21:49 22:50 00:40 WBC RBC Hct MCV MCHC RDW Lymph % (Auto) Lymph # [place] # Seg Neutrophils % Seg Neutrophils # POC ABG pH POC ABG pCO2 Sodium 129 L Potassium Chloride 86.0 L Carbon Dioxide 11 L Creatinine Glucose 670 H* POC Glucose > 500 H > 500 H Calcium Phosphorus Magnesium Alkaline Phosphatase CK-MB (CK-2) CK-MB (CK-2) Rel Index Total Protein Lipase 11/09/17 11/09/17 11/09/17 01:56 02:00 03:11 WBC RBC Hct MCV MCHC RDW Lymph % (Auto) Lymph # [place] # Seg Neutrophils % Seg Neutrophils # POC ABG pH POC ABG pCO2 Sodium 130 L Potassium Chloride 86.9 L Carbon Dioxide 10 L Creatinine Glucose 648 H* POC Glucose > 500 H Calcium 8.3 L Phosphorus 1.70 L D Magnesium Alkaline Phosphatase CK-MB (CK-2) CK-MB (CK-2) Rel Index Total Protein Lipase 11/09/17 11/09/17 11/09/17 03:25 04:14 05:13 WBC RBC 3.59 L Hct MCV MCHC RDW 16.2 H Lymph % (Auto) Lymph # [place] # Seg Neutrophils % Seg Neutrophils # POC ABG pH POC ABG pCO2 Sodium Potassium Chloride Carbon Dioxide Creatinine Glucose POC Glucose 400 H 265 H Calcium Phosphorus Magnesium Alkaline Phosphatase CK-MB (CK-2) CK-MB (CK-2) Rel Index Total Protein Lipase 11/09/17 11/09/17 11/09/17 05:15 06:08 06:47 WBC RBC Hct MCV MCHC RDW Lymph % (Auto) Lymph # [place] # Seg Neutrophils % Seg Neutrophils # POC ABG pH POC ABG pCO2 Sodium 135 L Potassium 3.0 L D Chloride 95.8 L Carbon Dioxide 16 L Creatinine Glucose 203 H POC Glucose 125 H 131 H Calcium Phosphorus Magnesium Alkaline Phosphatase CK-MB (CK-2) CK-MB (CK-2) Rel Index Total Protein Lipase 11/09/17 11/09/17 11/09/17 08:01 08:10 09:17 WBC RBC Hct MCV MCHC RDW Lymph % (Auto) Lymph # [place] # Seg Neutrophils % Seg Neutrophils # POC ABG pH POC ABG pCO2 Sodium Potassium Chloride Carbon Dioxide 20 L Creatinine Glucose 115 H POC Glucose 111 H 135 H Calcium 8.0 L Phosphorus Magnesium Alkaline Phosphatase CK-MB (CK-2) CK-MB (CK-2) Rel Index Total Protein Lipase 11/09/17 11/09/17 11/09/17 09:36 13:15 14:00 WBC RBC Hct MCV MCHC RDW Lymph % (Auto) Lymph # [place] # Seg Neutrophils % Seg Neutrophils # POC ABG pH POC ABG pCO2 Sodium 135 L Potassium 3.4 L Chloride Carbon Dioxide 20 L 21 L Creatinine Glucose 109 H 112 H POC Glucose 126 H Calcium 8.2 L 8.0 L Phosphorus Magnesium Alkaline Phosphatase CK-MB (CK-2) CK-MB (CK-2) Rel Index Total Protein Lipase
[2017-11-09] MEDS ORDERED: LEVEMIR SUB-Q SCH (17:00)
[2017-11-09] MEDS ORDERED: NACL 0.9% 1000 ML 2,000 ML IV ONE (17:12)
[2017-11-09] MEDS: PROTONIX PO SCH (17:53)
--- NOTE | 2017-11-09 17:58 | Consultation ---
CONSULTING PHYSICIAN: Dr. Rosario. REASON FOR CONSULTATION: Diabetic ketoacidosis, need for IV insulin therapy. CHIEF COMPLAINT AND HISTORY OF PRESENT ILLNESS: The patient is a 40-year-old -[place] female, known to me from past admissions, past medical history indeed significant amongst other things for a diagnosis of diabetes, came into the Emergency Room complaining of nausea, vomiting, unable to tolerate her meals. She stated she had been compliant with her medications. On the day of presentation, she complained of hematemesis and chest pain that had been going on for about 4 days. She was evaluated in the Emergency Room. The chest pain was not associated with diaphoresis, no radiation. After evaluation, she was found to be in diabetic ketoacidosis. We are asked to admit to the ICU for IV insulin therapy. When I stopped by to see her, she was doing better. No more nausea or vomiting. She admitted to some element of noncompliance. Denied fevers or chills. Denied any open wounds or sores on her body. No insect bites. Denied any sick contacts. Now in terms of alcohol/tobacco use, she denies tobacco use. She does have a history of alcohol abuse. This is as much of the history of presentation as I have. PAST MEDICAL HISTORY: Hypertension, diabetes, medication noncompliance. PAST SURGICAL HISTORY: She has had a hysterectomy, , tubal ligations in the past. MEDICATIONS: She was on at the time I stopped by to see were reviewed, pertinent medications include the following: She was on insulin via sliding scale. She had been started on detemir insulin 50 units subq b.i.d., Lopressor 25 mg p.o. b.i.d., Zofran 4 mg IV q.8 hours p.r.n., Protonix 40 mg IV daily, and thiamine 100 mg p.o. daily. She was also on folic acid 1 mg p.o. daily. ALLERGIES: No known drug allergies. DIET: Well-built lady, denies acute weight loss or gain preceding few weeks to months. FAMILY AND SOCIAL HISTORY: Lives in the community. No tobacco use or illicit drug use or abuse history. She does have alcohol abuse history. Family history otherwise significant for hypertension and diabetes. REVIEW OF SYSTEMS: No loss of consciousness. No new onset seizures. No new onset focal weakness. No gross hematochezia or melena. She had the hematemesis reportedly, no palpitations. A complete 13 review of systems obtained. Pertinent positives and/or negatives as in body of history above, otherwise they are noncontributory. PHYSICAL EXAMINATION: VITAL SIGNS: At presentation, she was afebrile, temperature 97.8 degrees Fahrenheit, pulse 133, respiratory rate 26, blood pressure 150/103, oxygen sats were 99%, inspired oxygen concentration was not recorded. GENERAL: She is a middle-aged -[place] female, looks her stated age, normocephalic, atraumatic, talking to me in full sentences, in mild respiratory distress at worse. HEAD, EYES, EARS, NOSE AND THROAT: She is anicteric. No conjunctival erythema. Oropharynx is a Mallampati #2. Oropharynx is dry. Grossly, no jugular venous distention, no thyromegaly, no palpable lymph nodes in the supraclavicular or submandibular lymph node chains. LUNGS: Auscultation of both lung franklin unremarkable. Lungs are clear bilaterally. HEART: Heart sounds 1 and 2 are heard, regular rate and rhythm at the time of my evaluation. No rubs, no murmurs. ABDOMEN: Soft, full, bowel sounds are positive, nontender. No palpable hepatosplenomegaly. EXTREMITIES: Without overt digital clubbing, cyanosis, or pedal edema. Dorsalis pedis pulses are palpable bilaterally, 2+. SKIN: Normal turgor. No cellulitis, no rash. NEUROLOGIC: Pupils are equal, round about 4 mm, reactive to light. Extraocular muscle movements are intact. She moves all 4 extremities spontaneously. LABORATORY DATA: From my review are as follows: Admission white cell count 13,800 with a hemoglobin of 13.3, hematocrit 47.9, platelet count 228. No band forms reported. Serum sodium was 130, potassium 5.3, chloride 72, bicarbonate 6, BUN was 14, creatinine 1.5, anion gap was 57, glucose was 824. Troponin is within normal limits. Lipase was up at 455. Alcohol level was nondetectable. No microbiology studies. A chest x-ray was done. I have reviewed the chest x-ray personally, and essentially it is an unremarkable chest x-ray, no focal pneumonia. No pneumothorax. No focal infiltrates, otherwise. ASSESSMENT AND PLAN: 1. Diabetic ketoacidosis. 2. Acute kidney injury. 3. Chest pain, atypical. 4. Possible hematemesis. 5. History of alcohol abuse. 6. Malignant hypertension at presentation. 7. Medication noncompliance. PLAN: The patient off IV insulin therapy at this point. Her anion gap has closed. She is on long-acting insulin therapy, sliding scale should be continued. No acute indication for anti-infective therapy. Better medication and healthcare compliance has been encouraged. She is appropriately on GI prophylaxis. She will benefit from a GI workup; however, I doubt that we are dealing with true hematemesis and probably just related to the nausea and vomiting. Flu and pneumonia vaccination will be per protocol. Thank you very much for the consult. We will follow along and make further recommendations as picture progresses/becomes clearer. She will be downgraded from ICU status and can be admitted to the medical floor at this point. JOB# [id number] SHLOMO/KEESHA
[2017-11-09 20:00] LABS: BUN/Creatinine Ratio 10; Blood Urea Nitrogen 9 mg/dL (7-17); Calcium 8.7 mg/dL (8.4-10.2); Hemolysis Index 46
[2017-11-10] MEDS: NACL 0.9% 1000 ML 1,000 ML IV SCH (02:35)
[2017-11-10 04:20] LABS: BUN/Creatinine Ratio 10; Blood Urea Nitrogen 9 mg/dL (7-17); Calcium 8.1 mg/dL (8.4-10.2); Hemolysis Index 22
[2017-11-10] MEDS: MORPHINE IV PRN ×2 (04:40→11:25)
[2017-11-10 07:43] VITALS: BP 122/79
[2017-11-10] MEDS ORDERED: LEVEMIR SUB-Q SCH ×2 (08:00→17:00)
[2017-11-10] MEDS: PROTONIX PO SCH (09:41)
[2017-11-10] MEDS: LOPRESSOR PO SCH (09:42)
[2017-11-10] MEDS ORDERED: K-DUR PO ONE (12:00)
--- NOTE | 2017-11-10 14:51 | Discharge Summary ---
Providers - Providers Date of Admission: 11/07/17 21:34 Attending physician: ANGELINA KNAPP MD 11/07/17 20:31 Consult to Dietitian/Nutrition [CONS] Routine Physician Instructions: Reason For Exam: DKA Reason for Consult: Nutrition Recommendations Reason for Consult: Diet education 11/07/17 21:33 Consult to Physician [CONS] Routine Consulting Provider: OSKAR JALLOH Reason For Exam: cc Place consult to:: tevin Notified:: y Was contact made?: Yes If yes, spoke with:: 11/07/17 21:34 Consult to Physician [CONS] Routine Consulting Provider: YUKO AGUIRRE Reason For Exam: hematemesis Place consult to:: office Notified:: yes Phone number called:: [phone] Was contact made?: Yes If yes, spoke with:: Chana Granados called:: 10:08 11/09/17 01:56 Consult to Dietitian/Nutrition [CONS] Routine Physician Instructions: Reason For Exam: DKA Reason for Consult: Nutrition Recommendations Reason for Consult: Diet education Primary care physician: VIDAL GAMBINO Hospitalization Reason for admission: DKa Condition: Stable Hospital course: 42-year-old woman with a history of Hypertension, diabetes comes to the emergency room with complaint of nausea, vomiting, unable to tolerate oral intake for 1 week. States she is compiant with lantus. Today she had 3 episodes of hematemesis. Also complaining of chest pain that started 4 dats ago. Pain is in theleft chest, which she described as a pressure-like sensation , constant, intensity 5/10, no radiation, she cannot identify exacerbating or relieving factors. Admits to shortness of breath, no diaphoresis or palpitation. She states she had a stress test 1 month ago. Patient was treated based on DKA protocol. Extensive counseling was provided to the patient about alcohol use and patient verbalized understanding. She is clinically stable for discharge adjustments were made to her medication Lopressorforbloodpressurecontrolandshe'llcontinuewiththisoutpatient. Discharge diagnosis DKA Diabetes mellitus type 2 uncontrolled Acute renal failure Chest pain secondary GERD Erosive Esophagitis: Hematemesis, Alcohol Abuse Hypokalemia Hypertension malignant Disposition: - TO HOME OR SELFCARE Time spent for discharge: 35 mins Core Measure Documentation - Palliative Care Palliative Care/ Comfort Measures: Not Applicable - Core Measures Any of the following diagnoses?: none - VTE Discharge Requirements Deep Vein Thrombosis/Pulmonary Embolism Present on Admission: No Exam - Physical Exam Narrative exam: VITAL SIGNS: Reviewed. GENERAL: The patient appeared well nourished and normally developed. Vital signs as documented. HEAD: No signs of head trauma. EYES: Pupils are equal. Extraocular motions intact. EARS: Hearing grossly intact. MOUTH: Oropharynx is normal. NECK: No adenopathy, no JVD. CHEST: Chest with clear breath sounds bilaterally. No wheezes, rales, or rhonchi. CARDIAC: Regular rate and rhythm. S1 and S2, without murmurs, gallops, or rubs. VASCULAR: No Edema. Peripheral pulses normal and equal in all extremities. ABDOMEN: Soft, without detectable tenderness. No sign of distention. No rebound or guarding, and no masses palpated. Bowel Sounds normal. MUSCULOSKELETAL: Good range of motion of all major joints. Extremities without clubbing, cyanosis or edema. NEUROLOGIC EXAM: Alert and oriented x 3. No focal sensory or strength deficits. Speech normal. Follows commands. PSYCHIATRIC: Mood normal. SKIN: No rash or lesions. - Constitutional Vitals: Temp Pulse Resp BP Pulse Ox 97.7 F 83 20 122/79 95 11/10/17 07:27 11/10/17 09:42 11/10/17 11:55 11/10/17 07:27 11/10/17 08:28 Plan Activity: advance as tolerated Diet: diabetic Special Instructions: record daily BP diary, record blood sugar diary, other ( must avoid alcohol) Follow up with: VIDAL GAMBINO MD [Primary Care Provider] - 3-5 Days Prescriptions: Carvedilol [Coreg] 3.125 mg PO BID #60 tablet Folic Acid [Folvite] 1 mg PO QDAY #30 tablet Lantus Solostar 15 units SQ BID 30 Days Multivitamin Tab [Multiple Vitamin TAB (Theragran)] 1 each PO QDAY #30 tablet Pantoprazole [Protonix TAB] 40 mg PO DAILY #30 tablet Thiamine [Vitamin B-1] 100 mg PO QDAY #30 tablet
== END 2017-11-10 16:30 | disposition home or self-care (01) | DRG 637 ==
LOC: ED 18:23 → CC1 21:34 → 3A 11-08 17:53 → CC1 11-09 01:39 → 3A 11-09 01:42 → CC1 11-09 02:46 → 3A 11-09 21:03
PROVIDERS: ADMIT Internal Medicine; ATTEND Internal Medicine
PROC: 4A033R1 Measurement of Arterial Saturation, Peripheral, Percutaneous Approach (ICD-10-PCS; principal; 2017-11-08)
PROC: 0DB58ZX Excision of Esophagus, Via Natural or Artificial Opening Endoscopic, Diagnostic (ICD-10-PCS; 2017-11-08)
PROC: 0DB78ZX Excision of Stomach, Pylorus, Via Natural or Artificial Opening Endoscopic, Diagnostic (ICD-10-PCS; 2017-11-08)
DX: E11.10 Type 2 diabetes mellitus with ketoacidosis without coma (principal); K85.90 Acute pancreatitis without necrosis or infection, unspecified; N17.9 Acute kidney failure, unspecified; K92.0 Hematemesis; K86.1 Other chronic pancreatitis; K22.10 Ulcer of esophagus without bleeding; I10 Essential (primary) hypertension; G43.909 Migraine, unspecified, not intractable, without status migrainosus; Z98.51 Tubal ligation status; Z90.710 Acquired absence of both cervix and uterus; Z83.3 Family history of diabetes mellitus; Z82.49 Family history of ischemic heart disease and other diseases of the circulatory system; F10.10 Alcohol abuse, uncomplicated; Y90.9 Presence of alcohol in blood, level not specified; E05.90 Thyrotoxicosis, unspecified without thyrotoxic crisis or storm; E87.6 Hypokalemia; K44.9 Diaphragmatic hernia without obstruction or gangrene
CPT/HCPCS: 36415; 36600; 71045; 80048; 80053; 80307; 80320; 81001; 81025; 82010; 82150; 82550; 82553; 82803; 82962; 83690; 83735; 84100; 84484; 85014; 85018; 85025; 85027; 85610; 88305; 88312; 88342; 94760; C9113; G0480; J1815; J1818; J2060; J2270; J2405; J2704; J7030

== ENCOUNTER 2017-12-15 10:08 | Outpatient (CLI) | payer MEDICAID ==
[2017-12-15] MEDS ORDERED: XYLOCAINE TOPICAL 4% TP ONE ×2 (10:51→17:31)
== END 2017-12-15 10:09 | disposition home or self-care (01) ==
LOC: WOUND 10:08
PROVIDERS: ATTEND Surgery
DX: T81.89XD Other complications of procedures, not elsewhere classified, subsequent encounter (principal); S31.809D Unspecified open wound of unspecified buttock, subsequent encounter; E11.9 Type 2 diabetes mellitus without complications; I10 Essential (primary) hypertension; Z72.89 Other problems related to lifestyle; Z90.710 Acquired absence of both cervix and uterus; Y83.8 Other surgical procedures as the cause of abnormal reaction of the patient, or of later complication, without mention of misadventure at the time of the procedure; X58.XXXD Exposure to other specified factors, subsequent encounter
CPT/HCPCS: 11042; 97605; G0463; 99214

== ENCOUNTER 2017-12-21 08:41 | Outpatient (CLI) | payer MEDICAID ==
[2017-12-21] MEDS ORDERED: XYLOCAINE TOPICAL 4% TP ONE (09:08)
== END 2017-12-21 08:42 | disposition home or self-care (01) ==
LOC: WOUND 08:41
PROVIDERS: ATTEND Surgery
DX: T81.89XD Other complications of procedures, not elsewhere classified, subsequent encounter (principal); I10 Essential (primary) hypertension; Z90.710 Acquired absence of both cervix and uterus; Y83.8 Other surgical procedures as the cause of abnormal reaction of the patient, or of later complication, without mention of misadventure at the time of the procedure
CPT/HCPCS: 97605

== ENCOUNTER 2017-12-29 08:12 | Outpatient (CLI) | payer MEDICAID ==
[2017-12-29] MEDS ORDERED: XYLOCAINE TOPICAL 4% TP ONE (08:49)
== END 2017-12-29 08:13 | disposition home or self-care (01) ==
LOC: WOUND 08:12
PROVIDERS: ATTEND Surgery
DX: T81.89XD Other complications of procedures, not elsewhere classified, subsequent encounter (principal); E11.40 Type 2 diabetes mellitus with diabetic neuropathy, unspecified; I10 Essential (primary) hypertension; Z90.710 Acquired absence of both cervix and uterus; Y83.8 Other surgical procedures as the cause of abnormal reaction of the patient, or of later complication, without mention of misadventure at the time of the procedure
CPT/HCPCS: 97605

== ENCOUNTER 2018-01-05 08:25 | Outpatient (CLI) | payer MEDICAID ==
[2018-01-05] MEDS ORDERED: XYLOCAINE TOPICAL 4% TP ONE ×2 (08:33→08:36)
== END 2018-01-05 08:26 | disposition home or self-care (01) ==
LOC: WOUND 08:25
PROVIDERS: ATTEND Surgery
DX: T81.89XD Other complications of procedures, not elsewhere classified, subsequent encounter (principal); I10 Essential (primary) hypertension; Z90.710 Acquired absence of both cervix and uterus; Y83.8 Other surgical procedures as the cause of abnormal reaction of the patient, or of later complication, without mention of misadventure at the time of the procedure
CPT/HCPCS: 97605

== ENCOUNTER 2018-02-09 08:02 | Outpatient (CLI) | payer MEDICAID ==
[2018-02-09] MEDS ORDERED: XYLOCAINE TOPICAL 4% TP ONE ×2 (08:29→08:36)
[2018-02-09] MEDS ORDERED: SILVER NITRATE TP ONE ×2 (08:43→10:48)
== END 2018-02-09 08:03 | disposition home or self-care (01) ==
LOC: WOUND 08:02
PROVIDERS: ATTEND Surgery
DX: T81.89XD Other complications of procedures, not elsewhere classified, subsequent encounter (principal); Z90.710 Acquired absence of both cervix and uterus; Y83.8 Other surgical procedures as the cause of abnormal reaction of the patient, or of later complication, without mention of misadventure at the time of the procedure
CPT/HCPCS: 17250

== ENCOUNTER 2018-02-16 08:00 | Outpatient (CLI) | payer MEDICAID ==
[2018-02-16] MEDS ORDERED: XYLOCAINE TOPICAL 4% TP ONE (08:23)
[2018-02-16] MEDS ORDERED: SILVER NITRATE TP ONE (08:48)
== END 2018-02-16 08:01 | disposition home or self-care (01) ==
LOC: WOUND 08:00
PROVIDERS: ATTEND Surgery
DX: T81.89XD Other complications of procedures, not elsewhere classified, subsequent encounter (principal); E11.9 Type 2 diabetes mellitus without complications; I10 Essential (primary) hypertension; L73.2 Hidradenitis suppurativa; Z90.710 Acquired absence of both cervix and uterus; Y83.8 Other surgical procedures as the cause of abnormal reaction of the patient, or of later complication, without mention of misadventure at the time of the procedure
CPT/HCPCS: 11042; 17250; G0463

== ENCOUNTER 2018-03-09 13:18 | Outpatient (CLI) | payer MEDICAID | END 2018-03-09 13:19 | disposition home or self-care (01) | LOC: WOUND 13:18 | PROVIDERS: ATTEND Surgery | DX: T81.89XD Other complications of procedures, not elsewhere classified, subsequent encounter (principal); E11.9 Type 2 diabetes mellitus without complications; I10 Essential (primary) hypertension; Z90.710 Acquired absence of both cervix and uterus; Y83.8 Other surgical procedures as the cause of abnormal reaction of the patient, or of later complication, without mention of misadventure at the time of the procedure | CPT/HCPCS: 99213; G0463 ==

== ENCOUNTER 2019-01-04 07:53 | Outpatient (CLI) | payer MEDICAID ==
[2019-01-04] MEDS ORDERED: XYLOCAINE TOPICAL 4% TP ONE (08:30)
== END 2019-01-04 07:54 | disposition home or self-care (01) ==
LOC: WOUND 07:53
PROVIDERS: ATTEND Surgery
DX: E11.621 Type 2 diabetes mellitus with foot ulcer (principal); L97.513 Non-pressure chronic ulcer of other part of right foot with necrosis of muscle; I10 Essential (primary) hypertension; L73.2 Hidradenitis suppurativa; Z90.710 Acquired absence of both cervix and uterus
CPT/HCPCS: 11043; 82962; G0463; 36415; 80048; 99215

== ENCOUNTER 2019-01-04 10:33 | Outpatient (CLI) | payer MEDICAID ==
[2019-01-04 11:29] LABS: BUN/Creatinine Ratio 13; Blood Urea Nitrogen 9 mg/dL (7-17); Calcium 8.5 mg/dL (8.4-10.2); Hemolysis Index 0
== END 2019-01-04 10:34 | disposition home or self-care (01) ==
LOC: LAB 10:33
PROVIDERS: ATTEND Surgery
DX: E11.8 Type 2 diabetes mellitus with unspecified complications (principal); I10 Essential (primary) hypertension; E03.9 Hypothyroidism, unspecified; Z90.710 Acquired absence of both cervix and uterus; Z87.891 Personal history of nicotine dependence
CPT/HCPCS: 36415; 80048

== ENCOUNTER 2019-07-10 14:11 | Inpatient (IN) | payer MEDICAID, OTHER ==
--- NOTE | 2019-07-10 14:27 | Event Note ---
ED Screening Note Date of service: 07/10/19 Time: 14:23 ED Screening Note: This is a 43 y.o. F. that presents to the ER with hyperglycemia. Patient states ran out of lantus 1 month ago. Patient states she have a refill but medicaid ran out and can't afford to purchase medication. Reports dizziness and achy for a few weeks. This initial assessment/diagnostic orders/clinical plan/treatment(s) is/are subject to change based on patients health status, clinical progression and re-assessment by fellow clinical providers in the ED. Further treatment and workup at subsequent clinical providers discretion. Patient/guardian urged not to elope from the ED as their condition may be serious if not clinically assessed and managed. Initial orders include: Labs POC glucose> 500
[2019-07-10 14:56] LABS: Basophils # (Auto) 0.1 K/mm3 (0.0-0.1); Eosinophils # (Auto) 0.1 K/mm3 (0.0-0.4); Eosinophils % (Auto) 2.8 % (0.0-4.3); Hemoglobin 12.3 gm/dl (10.1-14.3); Lymphocytes # (Auto) 1.3 K/mm3 (1.2-5.4); Lymphocytes % (Auto) 24.6 % (13.4-35.0); Mean Corpuscular HGB Conc 31 % (30-34); Mean Corpuscular Volume 96 fl (79-97); Monocytes # (Auto) 0.5 K/mm3 (0.0-0.8); Monocytes % (Auto) 9.6 % (0.0-7.3); Platelet Count 157 K/mm3 (140-440); Red Blood Count 4.07 M/mm3 (3.65-5.03); Red Cell Distribution Width 14.5 % (13.2-15.2)
[2019-07-10 15:13] LABS: Bacteria,Urine 1+ /HPF (Negative); Mucus,Urine FEW /HPF; RBC,Urine < 1.0 /HPF (0.0-6.0)
[2019-07-10 15:17] LABS: Albumin 3.2 g/dL (3.9-5); Calcium 7.7 mg/dL (8.4-10.2)
[2019-07-10 15:32] LABS: Bilirubin,Urine NEG (Negative); Blood,Urine NEG (Negative); Color,Urine Colorless (Yellow); Protein,Urine <15 mg/dL mg/dL (Negative); Urobilinogen,Urine < 2.0 mg/dL (<2.0); WBC,Urine < 1.0 /HPF (0.0-6.0)
[2019-07-10] MEDS ORDERED: SODIUM CHLORIDE 0.9% 1000 ML 1,000 ML IV ONE (17:35)
[2019-07-10] MEDS ORDERED: DEXTROSE 50% IN WATER (25GM) 50 ML SYRINGE IV PRN ×2 (17:35→20:29)
--- NOTE | 2019-07-10 17:39 | Emergency Department Report ---
- General Chief complaint: Hyperglycemia Stated complaint: HIGH SUGAR/HEADACHE/BLURRED VISION Time Seen by Provider: 07/10/19 14:23 Source: patient Mode of arrival: Ambulatory Limitations: No Limitations - History of Present Illness Initial comments: 43-year-old female with history of diabetes presents to ED with generalized weakness, elevated glucose. Patient states she has been out of her Lantus for the last 2 months. She reports generalized weakness, nausea and vomiting, g eneralized body aches. Patient denies fever. MD Complaint: generalized weakness -: week(s) (2) Location: generalized Severity: moderate Consistency: constant Improves with: none Worsens with: none Associated Symptoms: nausea/vomiting. denies: chest pain - Related Data Home Medications Medication Instructions Recorded Confirmed Last Taken Furosemide [Lasix TAB] 10 mg PO QAM PRN 12/02/17 12/02/17 Unknown Previous Rx's Medication Instructions Recorded Last Taken Type Carvedilol [Coreg] 3.125 mg PO BID #60 tablet 11/10/17 Unknown Rx Folic Acid [Folvite] 1 mg PO QDAY #30 tablet 11/10/17 Unknown Rx Multivitamin Tab [Multiple Vitamin 1 each PO QDAY #30 tablet 11/10/17 Unknown Rx TAB (Theragran)] Pantoprazole [Protonix TAB] 40 mg PO DAILY #30 tablet 11/10/17 Unknown Rx Thiamine [Vitamin B-1] 100 mg PO QDAY #30 tablet 11/10/17 Unknown Rx Insulin NPH/Regular [Novolin 70/30] 15 unit SQ QAM #1 vial 12/10/17 Unknown Rx Fluconazole [Diflucan TAB] 200 mg PO QDAY #13 tablet 12/13/17 Unknown Rx levoFLOXacin [Levaquin] 750 mg PO QDAY #13 tablet 12/13/17 Unknown Rx oxyCODONE /ACETAMINOPHEN [Percocet 1 tab PO Q6H PRN #10 tablet 12/13/17 Unknown Rx 5/325 mg] Acetaminophen/Codeine [Tylenol 1 tab PO Q4HR PRN #20 tablet 12/31/18 Unknown Rx /Codeine # 3 tab] Sulfamethoxazole/Trimethoprim 1 each PO BID 10 Days #20 tablet 12/31/18 Unknown Rx [Bactrim DS TAB] cephALEXin [Keflex] 500 mg PO Q8HR 10 Days #30 cap 12/31/18 Unknown Rx Allergies Allergy/AdvReac Type Severity Reaction Status Date / Time No Known Allergies Allergy Verified 12/31/18 13:21 ED Review of Systems ROS: Stated complaint: HIGH SUGAR/HEADACHE/BLURRED VISION Other details as noted in HPI Comment: All other systems reviewed and negative Constitutional: denies: chills, fever Respiratory: denies: shortness of breath Cardiovascular: denies: chest pain Gastrointestinal: nausea, vomiting Musculoskeletal: myalgia ED Past Medical Hx - Past Medical History Previous Medical History?: Yes Hx Hypertension: Yes Hx CVA: No Hx Heart Attack/AMI: No Hx Congestive Heart Failure: No Hx Diabetes: Yes (type 2) Hx Deep Vein Thrombosis: No Hx Pulmonary Embolism: No Hx GERD: No Hx Liver Disease: No Hx Renal Disease: No Hx Sickle Cell Disease: No Hx Arthritis: No Hx Headaches / Migraines: Yes (occas migraine) Hx Seizures: No Hx Kidney Stones: No Hx Psychiatric Treatment: Yes (ANXIETY) Hx Asthma: No Hx COPD: No Hx Tuberculosis: No Hx Dementia: No Hx HIV: No Additional medical history: anemia. FIBROIDS - Surgical History Past Surgical History?: Yes Hx Pacemaker: No Hx Internal Defibrillator: No Additional Surgical History: X 2. TUBAL LIGATION. Hysterectomy - Social History Smoking Status: Never Smoker Substance Use Type: None - Medications Home Medications: Home Medications Medication Instructions Recorded Confirmed Last Taken Type Carvedilol [Coreg] 3.125 mg PO BID #60 tablet 11/10/17 12/02/17 Unknown Rx Folic Acid [Folvite] 1 mg PO QDAY #30 tablet 11/10/17 12/02/17 Unknown Rx Multivitamin Tab [Multiple Vitamin 1 each PO QDAY #30 tablet 11/10/17 12/02/17 Unknown Rx TAB (Theragran)] Pantoprazole [Protonix TAB] 40 mg PO DAILY #30 tablet 11/10/17 12/02/17 Unknown Rx Thiamine [Vitamin B-1] 100 mg PO QDAY #30 tablet 11/10/17 12/02/17 Unknown Rx Furosemide [Lasix TAB] 10 mg PO QAM PRN 12/02/17 12/02/17 Unknown History Insulin NPH/Regular [Novolin 70/30] 15 unit SQ QAM #1 vial 12/10/17 Unknown Rx Fluconazole [Diflucan TAB] 200 mg PO QDAY #13 tablet 12/13/17 Unknown Rx levoFLOXacin [Levaquin] 750 mg PO QDAY #13 tablet 12/13/17 Unknown Rx oxyCODONE /ACETAMINOPHEN [Percocet 1 tab PO Q6H PRN #10 tablet 12/13/17 Unknown Rx 5/325 mg] Acetaminophen/Codeine [Tylenol 1 tab PO Q4HR PRN #20 tablet 12/31/18 Unknown Rx /Codeine # 3 tab] Sulfamethoxazole/Trimethoprim 1 each PO BID 10 Days #20 tablet 12/31/18 Unknown Rx [Bactrim DS TAB] cephALEXin [Keflex] 500 mg PO Q8HR 10 Days #30 cap 12/31/18 Unknown Rx ED Physical Exam - General Limitations: No Limitations General appearance: alert, in no apparent distress - Head Head exam: Present: atraumatic, normocephalic - Eye Eye exam: Present: normal appearance - ENT ENT exam: Present: mucous membranes moist - Neck Neck exam: Present: normal inspection - Respiratory Respiratory exam: Present: normal lung sounds bilaterally. Absent: respiratory distress - Cardiovascular Cardiovascular Exam: Present: regular rate, normal rhythm - GI/Abdominal GI/Abdominal exam: Present: soft. Absent: distended, tenderness - Extremities Exam Extremities exam: Present: normal inspection - Neurological Exam Neurological exam: Present: alert, oriented X3 - Psychiatric Psychiatric exam: Present: normal affect, normal mood - Skin Skin exam: Present: warm, dry, intact, normal color ED Course Vital Signs 07/10/19 07/10/19 07/10/19 14:23 17:27 18:02 Temperature 98 F 99 F 99 F Pulse Rate 117 H 98 H 97 H Respiratory 18 14 16 Rate Blood Pressure 125/75 Blood Pressure 148/97 131/74 [Left] O2 Sat by Pulse 95 98 100 Oximetry ED Medical Decision Making - Lab Data Result diagrams: 07/10/19 14:43 07/10/19 17:55 - Medical Decision Making 43-year-old female presents to ED with generalized weakness 2 weeks. Patient states she has been out of her insulin for 2 months now. Reports nausea, vomiting, generalized weakness and body aches. She denies fever. Patient initially tachycardic, however this is improved. Blood glucose is 1008. Patient appears to be in mild DKA, with CO2 of 17, elevated anion gap at 22, and VBG of 7.24. IV fluids and insulin treated initiated. Patient will be admitted by hospitalist for further management. - Differential Diagnosis DKA, hyperglycemia Critical care attestation.: If time is entered above; I have spent that time in minutes in the direct care of this critically ill patient, excluding procedure time. ED Disposition Clinical Impression: Diabetic ketoacidosis Disposition: DC-01 TO HOME OR SELFCARE Is pt being admited?: Yes Condition: Stable Time of Disposition: 17:38
[2019-07-10] MEDS ORDERED: INSULIN REGULAR, HUMAN 100 UNITS in SODIUM CHLORIDE 0.9% 99 ML IV SCH ×2 (18:00→21:00)
[2019-07-10 18:32] LABS: BUN/Creatinine Ratio 10; Blood Urea Nitrogen 11 mg/dL (7-17); Calcium 8.2 mg/dL (8.4-10.2); Hemolysis Index 129
[2019-07-10] MEDS ORDERED: FUROSEMIDE 20 MG TAB PO PRN (20:31)
[2019-07-10] MEDS: INSULIN NPH/REGULAR 70/30 INJ SUB-Q SCH (20:40)
[2019-07-10] MEDS: oxyCODONE /ACETAMINOPHEN 5-325MG TAB PO PRN (20:45)
[2019-07-10] MEDS: D5W/0.45% NACL/KCL 20 MEQ 20 MEQ/1,000 ML BAG IV SCH (20:47)
[2019-07-10] MEDS ORDERED: POTASSIUM CHLORIDE 10 MEQ 10 MEQ/100 ML BAG IV SCH ×2 (21:00)
[2019-07-10] MEDS: THIAMINE 100 MG TAB PO SCH (21:20)
[2019-07-10] MEDS: carvediloL 3.125 MG TAB PO SCH (21:20)
[2019-07-10 21:21] LABS: BUN/Creatinine Ratio 12; Blood Urea Nitrogen 11 mg/dL (7-17); Calcium 8.3 mg/dL (8.4-10.2); Hemolysis Index 7
[2019-07-10 22:02] LABS: BUN/Creatinine Ratio 11; Blood Urea Nitrogen 10 mg/dL (7-17); Calcium 8.3 mg/dL (8.4-10.2); Hemolysis Index 33
[2019-07-10 22:03] LABS: BUN/Creatinine Ratio 13; Blood Urea Nitrogen 10 mg/dL (7-17); Calcium 8.3 mg/dL (8.4-10.2); Hemolysis Index 16
[2019-07-10 23:01] LABS: BUN/Creatinine Ratio 13; Blood Urea Nitrogen 10 mg/dL (7-17); Hemolysis Index 3
[2019-07-11 00:48] LABS: BUN/Creatinine Ratio 13; Blood Urea Nitrogen 9 mg/dL (7-17); Calcium 7.7 mg/dL (8.4-10.2); Hemolysis Index 19
[2019-07-11] MEDS: POTASSIUM CHLORIDE 10 MEQ 10 MEQ/100 ML BAG IV SCH ×2 (02:22→03:08)
[2019-07-11] MEDS: D5W/0.45% NACL/KCL 20 MEQ 20 MEQ/1,000 ML BAG IV SCH (04:21)
--- NOTE | 2019-07-11 06:07 | History and Physical Report ---
History of Present Illness Date of examination: 07/10/19 Date of admission: 07/10/19 17:39 Chief complaint: Gen weakness and nausea 1 week. Vomiting off and on since yesterday. History of present illness: 43 year old AA female with history of type 2 diabetes on Basiglar -a newr version of long acting insulin similar to Lantus comes in for gen weakness ans nausea.No vomiting today.Has not been taking her Basiglar for 2 months .She is taking some insulin but inadequately.Has problems with buying Basiglar because it is expensive.cno fever or chills.No dysuria.No recent travel. Past Medical History Hypertension: Yes Diabetes: Yes (type 2) Headaches / Migraines: Yes (occas migraine) Psychiatric Treatment: Yes (ANXIETY) Additional medical history: anemia. FIBROIDS Surgical History X 2. TUBAL LIGATION. Hysterectomy Social History Smoking Status: Never Smoker Substance Use Type: None Family History Htn Medications Home Medications: Home Medications Medication Instructions Recorded Confirmed Last Taken Type Carvedilol [Coreg] 3.125 mg PO BID #60 tablet 11/10/17 12/02/17 Unknown Rx Folic Acid [Folvite] 1 mg PO QDAY #30 tablet 11/10/17 12/02/17 Unknown Rx Multivitamin Tab [Multiple Vitamin 1 each PO QDAY #30 tablet 11/10/17 12/02/17 Unknown Rx TAB (Theragran)] Pantoprazole [Protonix TAB] 40 mg PO DAILY #30 tablet 11/10/17 12/02/17 Unknown Rx Thiamine [Vitamin B-1] 100 mg PO QDAY #30 tablet 11/10/17 12/02/17 Unknown Rx Furosemide [Lasix TAB] 10 mg PO QAM PRN 12/02/17 12/02/17 Unknown History Insulin NPH/Regular [Novolin 70/30] 15 unit SQ QAM #1 vial 12/10/17 Unknown Rx Fluconazole [Diflucan TAB] 200 mg PO QDAY #13 tablet 12/13/17 Unknown Rx levoFLOXacin [Levaquin] 750 mg PO QDAY #13 tablet 12/13/17 Unknown Rx oxyCODONE /ACETAMINOPHEN [Percocet 1 tab PO Q6H PRN #10 tablet 12/13/17 Unknown Rx 5/325 mg] Acetaminophen/Codeine [Tylenol 1 tab PO Q4HR PRN #20 tablet 12/31/18 Unknown Rx /Codeine # 3 tab] Sulfamethoxazole/Trimethoprim 1 each PO BID 10 Days #20 tablet 12/31/18 Unknown Rx [Bactrim DS TAB] cephALEXin [Keflex] 500 mg PO Q8HR 10 Days #30 cap 12/31/18 Unknown Rx Review of Systems ROS: Stated complaint: HIGH SUGAR/HEADACHE/BLURRED VISION Other details as noted in HPI Comment: All other systems reviewed and negative Constitutional: denies: chills, fever Respiratory: denies: shortness of breath Cardiovascular: denies: chest pain Gastrointestinal: nausea and vomiting Musculoskeletal: myalgia Medications and Allergies Allergies Allergy/AdvReac Type Severity Reaction Status Date / Time No Known Allergies Allergy Verified 12/31/18 13:21 Home Medications Medication Instructions Recorded Confirmed Last Taken Type Carvedilol [Coreg] 3.125 mg PO BID #60 tablet 11/10/17 07/10/19 10/11/18 Rx Folic Acid [Folvite] 1 mg PO QDAY #30 tablet 11/10/17 07/10/19 10/11/18 Rx Multivitamin Tab [Multiple Vitamin 1 each PO QDAY #30 tablet 11/10/17 07/10/19 10/11/18 Rx TAB (Theragran)] Pantoprazole [Protonix TAB] 40 mg PO DAILY #30 tablet 11/10/17 07/10/19 10/11/18 Rx Thiamine [Vitamin B-1] 100 mg PO QDAY #30 tablet 11/10/17 07/10/19 10/11/18 Rx Furosemide [Lasix TAB] 10 mg PO QAM PRN 12/02/17 07/10/19 10/11/18 History Insulin NPH/Regular [Novolin 70/30] 15 unit SQ QAM #1 vial 12/10/17 07/10/19 07/10/19 Rx 25 in am Fluconazole [Diflucan TAB] 200 mg PO QDAY #13 tablet 12/13/17 07/10/19 10/11/18 Rx levoFLOXacin [Levaquin] 750 mg PO QDAY #13 tablet 12/13/17 07/10/19 10/11/18 Rx oxyCODONE /ACETAMINOPHEN [Percocet 1 tab PO Q6H PRN #10 tablet 12/13/17 07/10/19 10/11/18 Rx 5/325 mg] Acetaminophen/Codeine [Tylenol 1 tab PO Q4HR PRN #20 tablet 12/31/18 07/10/19 10/11/18 Rx /Codeine # 3 tab] Sulfamethoxazole/Trimethoprim 1 each PO BID 10 Days #20 tablet 12/31/18 07/10/19 10/11/18 Rx [Bactrim DS TAB] cephALEXin [Keflex] 500 mg PO Q8HR 10 Days #30 cap 12/31/18 07/10/19 10/11/18 Rx Active Meds: Active Medications Carvedilol (Coreg) 3.125 mg PO BID MANISH Last Admin: 07/10/19 21:20 Dose: 3.125 mg Documented by: Dextrose (D50w (25gm) Syringe) 0 ml IV PRN PRN PRN Reason: Hypoglycemia Folic Acid (Folvite) 1 mg PO QDAY MANISH Furosemide (Lasix) 10 mg PO QAM PRN PRN Reason: Edema Potassium Chloride/Dextrose/Sod Cl (D5w/0.45% Nacl/Kcl 20 Meq) 20 meq in 1,000 mls @ 125 mls/hr IV DIRECT MANISH Last Admin: 07/11/19 04:21 Dose: 125 mls/hr Documented by: Insulin Human Regular 100 (units/ Sodium Chloride) 100 mls @ 1 mls/hr IV TITR MANISH; Protocol Last Titration: 07/11/19 05:04 Dose: 1 units/hr, 1 mls/hr Documented by: Potassium Chloride (Kcl 10meq/100ml) 10 meq in 100 mls @ 100 mls/hr IV DIRECT MANISH Stop: 07/12/19 02:59 Last Admin: 07/11/19 03:08 Dose: 100 mls/hr Documented by: Insulin Human Isoph/Insulin Regular (Humulin 70/30) 20 unit SUB-Q BID MANISH Last Admin: 07/10/19 20:40 Dose: Not Given Documented by: Multivitamins (Theragran Tab) 1 each PO QDAY MANISH Oxycodone/Acetaminophen (Percocet 5/325) 1 tab PO Q6H PRN PRN Reason: Pain, Moderate (4-6) Last Admin: 07/10/19 20:45 Dose: 1 tab Documented by: Pantoprazole Sodium (Protonix) 40 mg PO DAILY [facility] Thiamine HCl (Vitamin B-1) 100 mg PO QDAY MANISH Last Admin: 07/10/19 21:20 Dose: 100 mg Documented by: Exam - Constitutional Vitals: Temp Pulse Resp BP Pulse Ox 98.4 F 78 14 104/72 100 07/11/19 03:31 07/11/19 05:00 07/11/19 05:00 07/11/19 05:00 07/11/19 05:00 General appearance: Present: no acute distress, well-nourished - EENT Eyes: Present: PERRL ENT: hearing intact, clear oral mucosa - Neck Neck: Present: supple, normal ROM - Respiratory Respiratory effort: normal Respiratory: bilateral: CTA - Cardiovascular Heart rate: 78 Rhythm: regular Heart Sounds: Present: S1 & S2. Absent: rub, click - Extremities Extremities: no ischemia, pulses intact, pulses symmetrical, No edema Peripheral Pulses: within normal limits - Abdominal General gastrointestinal: Present: soft, non-tender, non-distended, normal bowel sounds Female genitourinary: Present: normal - Integumentary Integumentary: Present: clear, warm, dry - Musculoskeletal Musculoskeletal: gait normal, strength equal bilaterally - Psychiatric Psychiatric: appropriate mood/affect, intact judgment & insight - Neurologic Neurologic: CNII-XII intact, moves all extremities - Allied Health Allied health notes reviewed: nursing, case management Results - Labs CBC & Chem 7: 07/10/19 14:43 07/10/19 23:42 Labs: Laboratory Last Values WBC 5.2 K/mm3 (4.5-11.0) 07/10/19 14:43 RBC 4.07 M/mm3 (3.65-5.03) 07/10/19 14:43 Hgb 12.3 gm/dl (10.1-14.3) 07/10/19 14:43 Hct 39.0 % (30.3-42.9) 07/10/19 14:43 MCV 96 fl (79-97) 07/10/19 14:43 MCH 30 pg (28-32) 07/10/19 14:43 MCHC 31 % (30-34) 07/10/19 14:43 RDW 14.5 % (13.2-15.2) 07/10/19 14:43 Plt Count 157 K/mm3 (140-440) 07/10/19 14:43 Lymph % (Auto) 24.6 % (13.4-35.0) 07/10/19 14:43 [place] % (Auto) 9.6 % (0.0-7.3) H 07/10/19 14:43 Eos % (Auto) 2.8 % (0.0-4.3) 07/10/19 14:43 Baso % (Auto) 1.0 % (0.0-1.8) 07/10/19 14:43 Lymph # 1.3 K/mm3 (1.2-5.4) 07/10/19 14:43 [place] # 0.5 K/mm3 (0.0-0.8) 07/10/19 14:43 Eos # 0.1 K/mm3 (0.0-0.4) 07/10/19 14:43 Baso # 0.1 K/mm3 (0.0-0.1) 07/10/19 14:43 Seg Neutrophils % 62.0 % (40.0-70.0) 07/10/19 14:43 Seg Neutrophils # 3.2 K/mm3 (1.8-7.7) 07/10/19 14:43 VBG pH 7.249 (7.320-7.420) L 07/10/19 17:33 Sodium 136 mmol/L (137-145) L 07/10/19 23:42 Potassium 3.8 mmol/L (3.6-5.0) 07/10/19 23:42 Chloride 103.8 mmol/L (98-107) 07/10/19 23:42 Carbon Dioxide 22 mmol/L (22-30) 07/10/19 23:42 Anion Gap 14 mmol/L 07/10/19 23:42 BUN 9 mg/dL (7-17) 07/10/19 23:42 Creatinine 0.7 mg/dL (0.7-1.2) 07/10/19 23:42 Estimated GFR > 60 ml/min 07/10/19 23:42 BUN/Creatinine Ratio 13 % 07/10/19 23:42 Glucose 106 mg/dL (65-100) H 07/10/19 23:42 POC Glucose 125 (70-105) H 07/11/19 05:08 Hemoglobin A1c > 20.1 % (4-6) H 07/10/19 21:19 Ketones Quantitative Negative (Negative) 07/10/19 17:21 Calcium 7.7 mg/dL (8.4-10.2) L 07/10/19 23:42 Phosphorus 1.30 mg/dL (2.5-4.5) L D 07/10/19 21:19 Magnesium 2.60 mg/dL (1.7-2.3) H 07/10/19 21:19 Total Bilirubin 0.30 mg/dL (0.1-1.2) 07/10/19 14:43 AST 44 units/L (5-40) H 07/10/19 14:43 ALT 24 units/L (7-56) 07/10/19 14:43 Alkaline Phosphatase 163 units/L (35-129) H 07/10/19 14:43 Total Protein 7.1 g/dL (6.3-8.2) 07/10/19 14:43 Albumin 3.2 g/dL (3.9-5) L 07/10/19 14:43 Albumin/Globulin Ratio 0.8 % 07/10/19 14:43 Urine Color Colorless (Yellow) 07/10/19 14:39 Urine Turbidity Clear (Clear) 07/10/19 14:39 Urine pH 6.0 (5.0-7.0) 07/10/19 14:39 Ur Specific [place] 1.026 (1.003-1.030) 07/10/19 14:39 Urine Protein <15 mg/dl mg/dL (Negative) 07/10/19 14:39 Urine Glucose (UA) >=500 mg/dL (Negative) 07/10/19 14:39 Urine Ketones Neg mg/dL (Negative) 07/10/19 14:39 Urine Blood Neg (Negative) 07/10/19 14:39 Urine Nitrite Neg (Negative) 07/10/19 14:39 Ur Reducing Substances Not Reportable 07/10/19 14:39 Urine Bilirubin Neg (Negative) 07/10/19 14:39 Urine Ictotest Not Reportable 07/10/19 14:39 Urine Urobilinogen < 2.0 mg/dL (<2.0) 07/10/19 14:39 Ur Leukocyte Esterase Neg (Negative) 07/10/19 14:39 Urine WBC (Auto) < 1.0 /HPF (0.0-6.0) 07/10/19 14:39 Urine RBC (Auto) < 1.0 /HPF (0.0-6.0) 07/10/19 14:39 U Epithel Cells (Auto) < 1.0 /HPF (0-13.0) 07/10/19 14:39 Urine Bacteria (Auto) 1+ /HPF (Negative) 07/10/19 14:39 Urine Mucus Few /HPF 07/10/19 14:39 Short CBC 07/10/19 Range/Units 14:43 WBC 5.2 (4.5-11.0) K/mm3 Hgb 12.3 (10.1-14.3) gm/dl Hct 39.0 (30.3-42.9) % Plt Count 157 (140-440) K/mm3 BMP 07/10/19 07/10/19 07/10/19 14:43 17:55 19:28 Sodium 120 L 125 L Potassium 3.7 4.8 D Chloride 84.0 L 86.7 L Carbon Dioxide 17 L 22 BUN 10 11 Creatinine 1.3 H 1.1 Glucose 1008 H* 734 H* 503 H* Calcium 7.7 L 8.2 L 07/10/19 07/10/19 07/10/19 20:26 21:19 21:19 Sodium 134 L D 136 L 136 L Potassium 3.5 L D 3.6 3.5 L Chloride 97.2 L 100.8 101.8 Carbon Dioxide 20 L 23 22 BUN 11 10 10 Creatinine 0.9 0.9 0.8 Glucose 335 H 158 H 162 H Calcium 8.3 L 8.3 L 8.3 L 07/10/19 07/10/19 22:31 23:42 Sodium 137 136 L Potassium 3.4 L 3.8 Chloride 103.3 103.8 Carbon Dioxide 24 22 BUN 10 9 Creatinine 0.8 0.7 Glucose 82 106 H Calcium 8.0 L 7.7 L Liver Function 07/10/19 Range/Units 14:43 Total Bilirubin 0.30 (0.1-1.2) mg/dL AST 44 H (5-40) units/L ALT 24 (7-56) units/L Alkaline Phosphatase 163 H (35-129) units/L Albumin 3.2 L (3.9-5) g/dL Urine 07/10/19 Range/Units 14:39 Urine Color Colorless (Yellow) Urine pH 6.0 (5.0-7.0) Ur Specific [place] 1.026 (1.003-1.030) Urine Protein <15 mg/dl (Negative) mg/dL Urine Glucose (UA) >=500 (Negative) mg/dL Assessment and Plan Assessment and plan: CRITICAL CARE TIME 38 MINUTES Advance Directives: Yes (Full code) VTE prophylaxis?: Chemical Plan of care discussed with patient/family: Yes - Patient Problems (1) Hyperosmolar non-ketotic state in patient with type 2 diabetes mellitus Current Visit: Yes Status: Acute Plan to address problem: Patient initiated on DKA protocol.No DKA No ketones in urine or blood. Anion gap 22 IV insulin for now Will start patient on Novolin mix 70/30 20 units bid and adjust dosage accordingly.No Basiglar as it is very expensive and not available on many insurances. Check A1c Counselled about noncompliance. (2) Hyponatremia Current Visit: Yes Status: Acute Plan to address problem: Na is 120 Should resolve with correction of Glucose levels. (3) PAUL (acute kidney injury) Current Visit: Yes Status: Acute Plan to address problem: Sec to [facility] IV fluids for now Monitor creatinine levels (4) Malnutrition Current Visit: Yes Status: Chronic Qualifiers: Protein-calorie malnutrition severity: mild Plan to address problem: Dietitian consult requested (5) Hypocalcemia Current Visit: Yes Status: Chronic Plan to address problem: Supplemented (6) HTN (hypertension) Current Visit: Yes Status: Chronic Qualifiers: Hypertension type: essential hypertension Qualified Code(s): I10 - Essential (primary) hypertension Plan to address problem: Cont antihypertensives (7) GERD (gastroesophageal reflux disease) Current Visit: Yes Status: Chronic Qualifiers: Esophagitis presence: without esophagitis Qualified Code(s): K21.9 - Gastro-esophageal reflux disease without esophagitis Plan to address problem: On PPI's (8) DVT prophylaxis Current Visit: Yes Status: Acute Plan to address problem: On Lovenox and GI prophylaxis
[2019-07-11 08:38] LABS: BUN/Creatinine Ratio 12; Blood Urea Nitrogen 7 mg/dL (7-17); Calcium 7.8 mg/dL (8.4-10.2); Hemolysis Index 3
[2019-07-11] MEDS: oxyCODONE /ACETAMINOPHEN 5-325MG TAB PO PRN (09:16)
[2019-07-11] MEDS: THIAMINE 100 MG TAB PO SCH (09:16)
[2019-07-11] MEDS: carvediloL 3.125 MG TAB PO SCH (09:16)
[2019-07-11] MEDS: INSULIN REGULAR, HUMAN 100 UNITS/1 ML SUB-Q SCH ×2 (09:19→11:51)
[2019-07-11] MEDS: INSULIN NPH/REGULAR 70/30 INJ SUB-Q SCH ×2 (09:20→23:21)
--- NOTE | 2019-07-11 09:30 | Event Note ---
Date: 07/11/19 43 year old admitted on insulin infusion for treatment of DKA. Off insulin infusion, gap has closed. Tolerating steady carb diet and is on insulin therapy. Being transferred to floor today.
[2019-07-11] MEDS ORDERED: FOLIC ACID 1 MG TAB PO SCH (10:00)
[2019-07-11] MEDS ORDERED: MULTIVITAMINS ,THERAPEUTIC TAB PO SCH (10:00)
[2019-07-11] MEDS ORDERED: PANTOPRAZOLE 40 MG TAB PO SCH (10:00)
[2019-07-11 10:16] LABS: BUN/Creatinine Ratio 10; Blood Urea Nitrogen 6 mg/dL (7-17); Calcium 7.9 mg/dL (8.4-10.2); Hemolysis Index 10
--- NOTE | 2019-07-11 10:38 | Progress Note ---
Assessment and Plan - Patient Problems (1) PAUL (acute kidney injury) Current Visit: Yes Status: Resolved (2) Hyperosmolar non-ketotic state in patient with type 2 diabetes mellitus Current Visit: Yes Status: Acute Plan to address problem: A1c greater than 20 Accu-Cheks well-controlled with blood sugars in the mid 100s We will discontinue insulin drip and start the patient on twice a day insulin regimen and continue insulin sliding scale coverage Patient states that she has not been taking insulin for 2 months. Because she could not afford the medication I had a long discussion with the patient and we will start the patient on generic insulin which she says she can afford She is medically stable for transfer to medical for possible discharge tomorrow (3) Hyponatremia Current Visit: Yes Status: Resolved Plan to address problem: Pseudohyponatremia secondary to hyperglycemia (4) GERD (gastroesophageal reflux disease) Current Visit: Yes Status: Chronic Qualifiers: Esophagitis presence: without esophagitis Qualified Code(s): K21.9 - Gastro-esophageal reflux disease without esophagitis Plan to address problem: Continue PPI (5) HTN (hypertension) Current Visit: Yes Status: Chronic Qualifiers: Hypertension type: essential hypertension Qualified Code(s): I10 - Essential (primary) hypertension Plan to address problem: Well-controlled Subjective Date of service: 07/11/19 Principal diagnosis: HONK diabetes Interval history: 43-year-old female with history of diabetes type 2, hypertension admitted with a blood sugar of more than 1000 but is not in ketoacidosis This morning she feels a lot better and she offers no specific complaints. She denies any fever or chills, urinary frequency or dysuria. She denies any chest pain or shortness of breath. Denies nausea or abdominal pain or diarrhea Lab results reviewed. Blood sugar readings reviewed Objective - Constitutional Vitals: Vital Signs - 12hr 07/10/19 07/10/19 07/10/19 22:40 22:50 23:00 Temperature Pulse Rate 91 H 105 H 80 Pulse Rate [ From Monitor] Respiratory 14 16 17 Rate Blood Pressure 107/63 107/63 112/67 O2 Sat by Pulse 100 100 100 Oximetry 07/10/19 07/10/19 07/10/19 23:10 23:15 23:20 Temperature Pulse Rate 89 87 Pulse Rate [ From Monitor] Respiratory 22 18 15 Rate Blood Pressure 112/67 112/67 O2 Sat by Pulse 100 100 100 Oximetry 07/10/19 07/10/19 07/10/19 23:28 23:30 23:40 Temperature 98.7 F Pulse Rate 87 85 Pulse Rate [ From Monitor] Respiratory 25 H 18 Rate Blood Pressure 112/67 112/67 O2 Sat by Pulse 99 99 Oximetry 07/10/19 07/11/19 07/11/19 23:50 00:00 00:10 Temperature Pulse Rate 84 82 83 Pulse Rate [ From Monitor] Respiratory 32 H 19 14 Rate Blood Pressure 112/67 113/70 113/70 O2 Sat by Pulse 98 99 100 Oximetry 07/11/19 07/11/19 07/11/19 00:16 00:20 00:30 Temperature Pulse Rate 85 111 H 80 Pulse Rate [ From Monitor] Respiratory 13 23 18 Rate Blood Pressure 113/70 113/70 113/70 O2 Sat by Pulse 98 100 100 Oximetry 07/11/19 07/11/19 07/11/19 00:40 00:50 01:00 Temperature Pulse Rate 81 82 80 Pulse Rate [ From Monitor] Respiratory 12 9 L 17 Rate Blood Pressure 113/70 113/70 118/76 O2 Sat by Pulse 100 100 100 Oximetry 07/11/19 07/11/19 07/11/19 01:10 01:15 01:20 Temperature Pulse Rate 82 81 Pulse Rate [ From Monitor] Respiratory 14 18 13 Rate Blood Pressure 118/76 118/76 O2 Sat by Pulse 99 100 99 Oximetry 07/11/19 07/11/19 07/11/19 01:30 01:40 01:50 Temperature Pulse Rate 80 80 79 Pulse Rate [ From Monitor] Respiratory 17 13 14 Rate Blood Pressure 118/76 118/76 118/76 O2 Sat by Pulse 99 98 97 Oximetry 07/11/19 07/11/19 07/11/19 02:00 02:10 02:20 Temperature Pulse Rate 78 77 78 Pulse Rate [ From Monitor] Respiratory 13 19 17 Rate Blood Pressure 118/76 98/64 98/64 O2 Sat by Pulse 97 98 98 Oximetry 07/11/19 07/11/19 07/11/19 02:30 02:40 02:50 Temperature Pulse Rate 79 79 78 Pulse Rate [ From Monitor] Respiratory 9 L 11 L 13 Rate Blood Pressure 98/64 98/64 98/64 O2 Sat by Pulse 97 98 98 Oximetry 07/11/19 07/11/19 07/11/19 03:00 03:10 03:20 Temperature Pulse Rate 78 83 75 Pulse Rate [ From Monitor] Respiratory 14 13 13 Rate Blood Pressure 129/79 129/79 129/79 O2 Sat by Pulse 99 100 100 Oximetry 07/11/19 07/11/19 07/11/19 03:30 03:31 03:40 Temperature 98.4 F Pulse Rate 79 82 Pulse Rate [ From Monitor] Respiratory 15 12 Rate Blood Pressure 129/79 129/79 O2 Sat by Pulse 100 100 Oximetry 07/11/19 07/11/19 07/11/19 03:50 04:00 04:10 Temperature Pulse Rate 63 79 82 Pulse Rate [ From Monitor] Respiratory 31 H 31 H 14 Rate Blood Pressure 129/79 114/80 114/80 O2 Sat by Pulse 100 100 100 Oximetry 07/11/19 07/11/19 07/11/19 04:20 04:30 04:40 Temperature Pulse Rate 82 78 77 Pulse Rate [ From Monitor] Respiratory 23 17 13 Rate Blood Pressure 114/80 114/80 114/80 O2 Sat by Pulse 100 99 99 Oximetry 07/11/19 07/11/19 07/11/19 04:50 04:59 05:00 Temperature Pulse Rate 78 78 78 Pulse Rate [ From Monitor] Respiratory 20 14 Rate Blood Pressure 114/80 104/72 O2 Sat by Pulse 100 100 100 Oximetry 07/11/19 07/11/19 07/11/19 05:10 05:20 05:30 Temperature Pulse Rate 75 75 78 Pulse Rate [ From Monitor] Respiratory 15 14 10 L Rate Blood Pressure 104/72 104/72 104/72 O2 Sat by Pulse 99 99 100 Oximetry 07/11/19 07/11/19 07/11/19 05:40 05:50 06:00 Temperature Pulse Rate 77 74 77 Pulse Rate [ From Monitor] Respiratory 14 13 13 Rate Blood Pressure 104/72 104/72 105/70 O2 Sat by Pulse 100 99 100 Oximetry 07/11/19 07/11/19 07/11/19 06:03 06:10 06:20 Temperature Pulse Rate 78 76 76 Pulse Rate [ From Monitor] Respiratory 14 13 15 Rate Blood Pressure 105/70 105/70 O2 Sat by Pulse 100 100 99 Oximetry 07/11/19 07/11/19 07/11/19 06:30 06:40 06:50 Temperature Pulse Rate 81 79 80 Pulse Rate [ From Monitor] Respiratory 14 12 11 L Rate Blood Pressure 105/70 105/70 105/70 O2 Sat by Pulse 100 98 100 Oximetry 07/11/19 07/11/19 07/11/19 07:00 07:10 07:20 Temperature Pulse Rate 78 77 Pulse Rate [ From Monitor] Respiratory 13 26 H 11 L Rate Blood Pressure 135/92 135/92 135/92 O2 Sat by Pulse 100 100 100 Oximetry 07/11/19 07/11/19 07/11/19 07:30 07:40 07:50 Temperature Pulse Rate 80 79 78 Pulse Rate [ From Monitor] Respiratory 9 L 14 10 L Rate Blood Pressure 135/92 135/92 135/92 O2 Sat by Pulse 100 100 100 Oximetry 07/11/19 07/11/19 07/11/19 08:00 08:10 08:13 Temperature 98.5 F Pulse Rate 83 93 H 90 Pulse Rate [ 83 From Monitor] Respiratory 17 13 Rate Blood Pressure 141/91 141/91 O2 Sat by Pulse 99 100 Oximetry 07/11/19 07/11/19 07/11/19 08:20 08:30 08:40 Temperature Pulse Rate 82 80 88 Pulse Rate [ From Monitor] Respiratory 15 15 15 Rate Blood Pressure 141/91 141/91 141/91 O2 Sat by Pulse 100 100 100 Oximetry 07/11/19 07/11/19 07/11/19 08:50 09:00 09:10 Temperature Pulse Rate 88 90 82 Pulse Rate [ From Monitor] Respiratory 13 16 22 Rate Blood Pressure 141/91 141/91 149/92 O2 Sat by Pulse 100 100 99 Oximetry 07/11/19 07/11/19 07/11/19 09:16 09:20 09:30 Temperature Pulse Rate 82 84 83 Pulse Rate [ From Monitor] Respiratory 12 12 Rate Blood Pressure 149/92 149/92 149/92 O2 Sat by Pulse 99 100 Oximetry 07/11/19 09:40 Temperature Pulse Rate 84 Pulse Rate [ From Monitor] Respiratory 12 Rate Blood Pressure 149/92 O2 Sat by Pulse 100 Oximetry General appearance: Present: no acute distress - EENT Eyes: PERRL, EOM intact ENT: hearing intact, clear oral mucosa, no thrush - Neck Neck: supple, normal ROM - Respiratory Respiratory effort: normal Respiratory: bilateral: CTA - Breasts Breasts: deferred - Cardiovascular Rhythm: regular Heart Sounds: Present: S1 & S2 Extremities: No edema - Gastrointestinal General gastrointestinal: Present: soft, non-tender. Absent: hepatomegaly, splenomegaly Rectal Exam: deferred - Genitourinary Female genitourinary: deferred - Integumentary Integumentary: clear - Musculoskeletal Musculoskeletal: strength equal bilaterally - Neurologic Neurologic: CNII-XII intact, no focal deficits - Psychiatric Psychiatric: appropriate mood/affect - Labs CBC & Chem 7: 07/10/19 14:43 07/11/19 09:36 Labs: Abnormal lab results 07/10/19 07/10/19 07/10/19 Range/Units 14:26 14:43 14:43 [place] % (Auto) 9.6 H (0.0-7.3) % VBG pH (7.320-7.420) Sodium 120 L (137-145) mmol/L Potassium (3.6-5.0) mmol/L Chloride 84.0 L (98-107) mmol/L Carbon Dioxide 17 L (22-30) mmol/L BUN (7-17) mg/dL Creatinine 1.3 H (0.7-1.2) mg/dL Glucose 1008 H* (65-100) mg/dL POC Glucose > 500 H (70-105) Hemoglobin A1c (4-6) % Calcium 7.7 L (8.4-10.2) mg/dL Phosphorus (2.5-4.5) mg/dL Magnesium (1.7-2.3) mg/dL AST 44 H (5-40) units/L Alkaline Phosphatase 163 H (35-129) units/L Albumin 3.2 L (3.9-5) g/dL 07/10/19 07/10/19 07/10/19 Range/Units 17:33 17:55 17:55 [place] % (Auto) (0.0-7.3) % VBG pH 7.249 L (7.320-7.420) Sodium 125 L (137-145) mmol/L Potassium (3.6-5.0) mmol/L Chloride 86.7 L (98-107) mmol/L Carbon Dioxide (22-30) mmol/L BUN (7-17) mg/dL Creatinine (0.7-1.2) mg/dL Glucose 734 H* (65-100) mg/dL POC Glucose (70-105) Hemoglobin A1c (4-6) % Calcium 8.2 L (8.4-10.2) mg/dL Phosphorus 2.20 L (2.5-4.5) mg/dL Magnesium 2.70 H (1.7-2.3) mg/dL AST (5-40) units/L Alkaline Phosphatase (35-129) units/L Albumin (3.9-5) g/dL 07/10/19 07/10/19 07/10/19 Range/Units 18:54 19:28 20:26 [place] % (Auto) (0.0-7.3) % VBG pH (7.320-7.420) Sodium 134 L D (137-145) mmol/L Potassium 3.5 L D (3.6-5.0) mmol/L Chloride 97.2 L (98-107) mmol/L Carbon Dioxide 20 L (22-30) mmol/L BUN (7-17) mg/dL Creatinine (0.7-1.2) mg/dL Glucose 503 H* 335 H (65-100) mg/dL POC Glucose > 500 H (70-105) Hemoglobin A1c (4-6) % Calcium 8.3 L (8.4-10.2) mg/dL Phosphorus (2.5-4.5) mg/dL Magnesium (1.7-2.3) mg/dL AST (5-40) units/L Alkaline Phosphatase (35-129) units/L Albumin (3.9-5) g/dL 07/10/19 07/10/19 07/10/19 Range/Units 20:27 21:19 21:19 [place] % (Auto) (0.0-7.3) % VBG pH (7.320-7.420) Sodium 136 L (137-145) mmol/L Potassium (3.6-5.0) mmol/L Chloride (98-107) mmol/L Carbon Dioxide (22-30) mmol/L BUN (7-17) mg/dL Creatinine (0.7-1.2) mg/dL Glucose 158 H (65-100) mg/dL POC Glucose 334 H (70-105) Hemoglobin A1c > 20.1 H (4-6) % Calcium 8.3 L (8.4-10.2) mg/dL Phosphorus (2.5-4.5) mg/dL Magnesium (1.7-2.3) mg/dL AST (5-40) units/L Alkaline Phosphatase (35-129) units/L Albumin (3.9-5) g/dL 07/10/19 07/10/19 07/10/19 Range/Units 21:19 21:19 21:53 [place] % (Auto) (0.0-7.3) % VBG pH (7.320-7.420) Sodium 136 L (137-145) mmol/L Potassium 3.5 L (3.6-5.0) mmol/L Chloride (98-107) mmol/L Carbon Dioxide (22-30) mmol/L BUN (7-17) mg/dL Creatinine (0.7-1.2) mg/dL Glucose 162 H (65-100) mg/dL POC Glucose 138 H (70-105) Hemoglobin A1c (4-6) % Calcium 8.3 L (8.4-10.2) mg/dL Phosphorus 1.30 L D (2.5-4.5) mg/dL Magnesium 2.60 H (1.7-2.3) mg/dL AST (5-40) units/L Alkaline Phosphatase (35-129) units/L Albumin (3.9-5) g/dL 07/10/19 07/10/19 07/10/19 Range/Units 22:11 22:31 23:42 [place] % (Auto) (0.0-7.3) % VBG pH (7.320-7.420) Sodium 136 L (137-145) mmol/L Potassium 3.4 L (3.6-5.0) mmol/L Chloride (98-107) mmol/L Carbon Dioxide (22-30) mmol/L BUN (7-17) mg/dL Creatinine (0.7-1.2) mg/dL Glucose 106 H (65-100) mg/dL POC Glucose 130 H (70-105) Hemoglobin A1c (4-6) % Calcium 8.0 L 7.7 L (8.4-10.2) mg/dL Phosphorus (2.5-4.5) mg/dL Magnesium (1.7-2.3) mg/dL AST (5-40) units/L Alkaline Phosphatase (35-129) units/L Albumin (3.9-5) g/dL 07/11/19 07/11/19 07/11/19 Range/Units 00:12 01:23 02:03 [place] % (Auto) (0.0-7.3) % VBG pH (7.320-7.420) Sodium (137-145) mmol/L Potassium (3.6-5.0) mmol/L Chloride (98-107) mmol/L Carbon Dioxide (22-30) mmol/L BUN (7-17) mg/dL Creatinine (0.7-1.2) mg/dL Glucose (65-100) mg/dL POC Glucose 128 H 192 H 177 H (70-105) Hemoglobin A1c (4-6) % Calcium (8.4-10.2) mg/dL Phosphorus (2.5-4.5) mg/dL Magnesium (1.7-2.3) mg/dL AST (5-40) units/L Alkaline Phosphatase (35-129) units/L Albumin (3.9-5) g/dL 07/11/19 07/11/19 07/11/19 Range/Units 03:04 04:29 05:08 [place] % (Auto) (0.0-7.3) % VBG pH (7.320-7.420) Sodium (137-145) mmol/L Potassium (3.6-5.0) mmol/L Chloride (98-107) mmol/L Carbon Dioxide (22-30) mmol/L BUN (7-17) mg/dL Creatinine (0.7-1.2) mg/dL Glucose (65-100) mg/dL POC Glucose 143 H 117 H 125 H (70-105) Hemoglobin A1c (4-6) % Calcium (8.4-10.2) mg/dL Phosphorus (2.5-4.5) mg/dL Magnesium (1.7-2.3) mg/dL AST (5-40) units/L Alkaline Phosphatase (35-129) units/L Albumin (3.9-5) g/dL 07/11/19 07/11/19 07/11/19 Range/Units 06:02 06:50 07:40 [place] % (Auto) (0.0-7.3) % VBG pH (7.320-7.420) Sodium 136 L (137-145) mmol/L Potassium (3.6-5.0) mmol/L Chloride (98-107) mmol/L Carbon Dioxide (22-30) mmol/L BUN (7-17) mg/dL Creatinine 0.6 L (0.7-1.2) mg/dL Glucose 141 H (65-100) mg/dL POC Glucose 127 H 140 H (70-105) Hemoglobin A1c (4-6) % Calcium 7.8 L (8.4-10.2) mg/dL Phosphorus (2.5-4.5) mg/dL Magnesium (1.7-2.3) mg/dL AST (5-40) units/L Alkaline Phosphatase (35-129) units/L Albumin (3.9-5) g/dL 07/11/19 07/11/19 07/11/19 Range/Units 08:05 09:05 09:36 [place] % (Auto) (0.0-7.3) % VBG pH (7.320-7.420) Sodium 133 L (137-145) mmol/L Potassium (3.6-5.0) mmol/L Chloride (98-107) mmol/L Carbon Dioxide (22-30) mmol/L BUN 6 L (7-17) mg/dL Creatinine 0.6 L (0.7-1.2) mg/dL Glucose 192 H (65-100) mg/dL POC Glucose 139 H 158 H (70-105) Hemoglobin A1c (4-6) % Calcium 7.9 L (8.4-10.2) mg/dL Phosphorus (2.5-4.5) mg/dL Magnesium (1.7-2.3) mg/dL AST (5-40) units/L Alkaline Phosphatase (35-129) units/L Albumin (3.9-5) g/dL
[2019-07-11 13:29] LABS: BUN/Creatinine Ratio 10; Blood Urea Nitrogen 6 mg/dL (7-17); Calcium 7.8 mg/dL (8.4-10.2); Hemolysis Index 11
[2019-07-11] MEDS: CALCIUM CARB/VIT D3/MINERALS 600 MG/800 UNITS TAB PO SCH ×2 (15:35→22:03)
[2019-07-11 18:43] LABS: BUN/Creatinine Ratio 10; Blood Urea Nitrogen 7 mg/dL (7-17); Hemolysis Index 7
[2019-07-11 21:13] LABS: BUN/Creatinine Ratio 11; Blood Urea Nitrogen 8 mg/dL (7-17); Calcium 7.9 mg/dL (8.4-10.2); Hemolysis Index 93
[2019-07-11] MEDS ORDERED: oxyCODONE /ACETAMINOPHEN 5-325MG TAB PO ONE (21:51)
[2019-07-12 06:04] LABS: BUN/Creatinine Ratio 12; Blood Urea Nitrogen 7 mg/dL (7-17); Calcium 8.1 mg/dL (8.4-10.2); Hemolysis Index 5
--- NOTE | 2019-07-12 08:24 | Discharge Summary ---
Providers - Providers Date of Admission: 07/10/19 17:39 Date of discharge: 07/12/19 Attending physician: NAHUN DUMONT 07/10/19 20:06 Consult to Physician [CONS] Routine Comment: Consulting Provider: OSKAR JALLOH Physician Instructions: Reason For Exam: icu admission, DKA 07/10/19 20:29 Consult to Dietitian/Nutrition [CONS] Routine Physician Instructions: Reason For Exam: DKA Reason for Consult: Nutrition Recommendations Reason for Consult: Diet education Primary care physician: MITZY KRUGER Hospitalization Reason for admission: HNKS Condition: Stable Hospital course: 43 year old AA female with history of type 2 diabetes was started on Basiglar -a newer version of long acting insulin similar to Lantus who presented through ER with gen weakness ans nausea. No vomiting. Pt reportedly not been taking her Basiglar for 2 months. She was taking some insulin but inadequately. She reported problems with buying Basiglar because it is expensive. The pt was admitted with diagnosis of HNKS and started on IV insulin drip. The patient was later transitioned to twice a day insulin with good control of her blood glucose levels. Dr. Perea had a long discussion with the patient regarding generic insulin which she says she can afford. The patient has otherwise stabilized and will be discharged home. Dedicated discharge time 32 minutes. Disposition: DC-01 TO HOME OR SELFCARE Time spent for discharge: 32 - Discharge Diagnoses (1) Hyperosmolar non-ketotic state in patient with type 2 diabetes mellitus Status: Acute (2) GERD (gastroesophageal reflux disease) Status: Chronic Qualifiers: Esophagitis presence: without esophagitis Qualified Code(s): K21.9 - Gastro-esophageal reflux disease without esophagitis (3) HTN (hypertension) Status: Chronic Qualifiers: Hypertension type: essential hypertension Qualified Code(s): I10 - Essential (primary) hypertension Core Measure Documentation - Palliative Care Palliative Care/ Comfort Measures: Not Applicable - Core Measures Any of the following diagnoses?: none Exam - Constitutional Vitals: Temp Pulse Resp BP Pulse Ox 99.3 F 84 19 115/84 100 07/12/19 05:57 07/12/19 05:57 07/12/19 05:57 07/12/19 05:57 07/12/19 05:57 General appearance: Present: no acute distress, well-nourished - EENT Eyes: Present: PERRL ENT: hearing intact, clear oral mucosa - Neck Neck: Present: supple, normal ROM - Respiratory Respiratory effort: normal Respiratory: bilateral: CTA - Cardiovascular Heart Sounds: Present: S1 & S2. Absent: rub, click - Extremities Extremities: pulses symmetrical, No edema Peripheral Pulses: within normal limits - Abdominal General gastrointestinal: Present: soft, non-tender, non-distended, normal bowel sounds Female genitourinary: Present: normal - Integumentary Integumentary: Present: clear, warm, dry - Musculoskeletal Musculoskeletal: gait normal, strength equal bilaterally - Psychiatric Psychiatric: appropriate mood/affect, intact judgment & insight - Neurologic Neurologic: CNII-XII intact, moves all extremities Plan Activity: no restrictions Weight Bearing Status: Full Weight Bearing Diet: diabetic Follow up with: MITZY KRUGER JR, MD [Primary Care Provider] - 7 Days Prescriptions: Carvedilol [Coreg] 3.125 mg PO BID #60 tablet Folic Acid [Folvite] 1 mg PO QDAY #30 tablet Multivitamin Tab [Multiple Vitamin TAB (Theragran)] 1 each PO QDAY #30 tablet Insulin NPH/Regular [NovoLIN 70/30] 20 unit SUB-Q BID 30 Days units Pantoprazole [Protonix TAB] 40 mg PO DAILY #30 tablet Thiamine [Vitamin B-1] 100 mg PO QDAY #30 tablet
[2019-07-12] MEDS: INSULIN NPH/REGULAR 70/30 INJ SUB-Q SCH (09:33)
[2019-07-12] MEDS: CALCIUM CARB/VIT D3/MINERALS 600 MG/800 UNITS TAB PO SCH (09:33)
[2019-07-12 12:45] VITALS: BP 125/84
== END 2019-07-12 14:00 | disposition home or self-care (01) | DRG 637 ==
LOC: ED 14:11 → CC1 17:39 → 3A 07-11 13:31
PROVIDERS: ADMIT Internal Medicine; ATTEND Hospitalist
DX: E11.00 Type 2 diabetes mellitus with hyperosmolarity without nonketotic hyperglycemic-hyperosmolar coma (NKHHC) (principal); N17.0 Acute kidney failure with tubular necrosis; E87.1 Hypo-osmolality and hyponatremia; E44.1 Mild protein-calorie malnutrition; E11.10 Type 2 diabetes mellitus with ketoacidosis without coma; I10 Essential (primary) hypertension; K21.9 Gastro-esophageal reflux disease without esophagitis; G43.909 Migraine, unspecified, not intractable, without status migrainosus; F41.9 Anxiety disorder, unspecified; E83.51 Hypocalcemia; Z90.710 Acquired absence of both cervix and uterus; Z98.51 Tubal ligation status; Z82.49 Family history of ischemic heart disease and other diseases of the circulatory system; Z79.899 Other long term (current) drug therapy; Z68.25 Body mass index [BMI] 25.0-25.9, adult
CPT/HCPCS: 36415; 80048; 80053; 81001; 82010; 82805; 82947; 82962; 83036; 83735; 84100; 85025; 96374; G0378; J1815; J3480; J7030